=== PATIENT | female | born 1975 | race Caucasian/White ===

== ENCOUNTER 2018-05-09 11:21 | Inpatient (IN) | payer MEDICAID, SELFPAY ==
[2018-05-09] VITALS (41 sets, daily range): BP systolic 92–112; BP diastolic 46–89; PULSE 57–105; RESP 2–21; TEMP 36.1–37.4; O2SAT 82–98
--- NOTE | 2018-05-09 11:44 | DI.RAD_ITS ---
SYMPTOMS/DIAGNOSIS: SHORTNESS OF BREATH PA AND LATERAL CHEST: A region of right middle lobe infiltration is demonstrated. The lungs are otherwise clear. There is no pleural effusion. The heart is not enlarged. The hilar structures, mediastinum and tracheal air column are intact. SUMMARY: Findings consistent with an acute right middle lobe pneumonia.
[2018-05-09] MEDS: Albuterol/Ipratropium 3 ML UPD VIAL UPD ×2 (11:49→18:59)
[2018-05-09 12:04] LABS: Abs Immature Grans 0.04 k/cumm (0.0-0.09); Absolute Basophil Count 0.04 k/cumm (0.0-0.2); Absolute Eosinophil Count 0.37 k/cumm (0.0-0.7); Absolute Lymphocyte Count 1.67 k/cumm (1.2-3.4); Absolute Monocyte Count 1.07 k/cumm (0.11-0.7); Absolute Neutrophil Count 6.25 k/cumm (1.2-6.7); Basophils % 0.4; Eosinophils % 3.9; HCT 38.1 % (36.0-46.0); HGB 12.5 g/dL (12.0-15.5); Immature Grans % 0.4; Lymphocytes % 17.7; Mean Corp. HGB Concentration 32.8 g/dL (32.0-36.0); Mean Corpuscular Hemoglobin 31.3 pg (27.0-33.0); Mean Corpuscular Volume 95.3 fL (80-95); Monocytes % 11.3; Neutrophils % 66.3; Platelet Count 208 x1000/uL (130-400); RBC Distribution Width 13.1 % (11.7-14.6); White Blood Cell Count 9.44 k/cumm (4.4-10.8)
--- NOTE | 2018-05-09 12:04 | RESPIRATORY ---
Addendum entered and electronically signed by Amy Peck 05/09/18 13:36: 05/09/18-Trialed Pt on 2 LPM NC. Pt SPO2 89-90%. Pt was put back on 4 LPM NC SPO2 93%. Original Note: 05/09/18-Pt complains of tightness in her chest . Reports coughing up yellow sputum this am and chief complaint being SOB. Pt reports she takes Symbicort 2 puffs BID and has a ProAir rescue inhaler. I inquire with Pt if she has ever had a PFT. After explaining the test she confirms she has never had one. We discuss the importance of PFT's especially with recurring bronchitis', pneumonia and smoking hx. Gave a Duoneb . Wheezing heard, upper left Ant./Post. Pre Neb tx. SPO2 94% on 5 LPM NC, HR 94, RR 16.Post Neb tx Rhonci heard in upper airways on exhale and wheezing bilat. upper, Ant./Post SPO2 95% 5LPM NC, HR 98, RR 14. Pt reports mild relief from Neb Tx. Dr. Shantanu Coronado is aware.
[2018-05-09] MEDS: Acetaminophen 325 MG TAB 650 MG (12:10)
[2018-05-09 12:25] LABS: ALT 56 U/L (12-78); AST 41 U/L (15-37); Albumin 3.3 g/dL (3.4-5.0); Alkaline Phosphatase 81 U/L (46-116); Anion Gap 8.3 mmol/L (3-11); BUN 12 mg/dL (7-18); Bilirubin, Direct 0.16 mg/dL (0.00-0.20); Bilirubin, Total 0.5 mg/dL (0.2-1.0); CO2 31.7 mmol/L (21.0-32.0); CREATININE 0.58 mg/dL (0.55-1.02); Calcium 8.7 mg/dL (8.5-10.1); Chloride 99 mmol/L (98-107); Glucose 100 mg/dL (70-100); Magnesium 2.2 mg/dL (1.8-2.4); NT-proBNP 452 pg/mL; Potassium 4.1 mmol/L (3.5-5.1); Sodium 139 mmol/L (136-145); Total Protein 7.2 g/dL (6.4-8.2)
[2018-05-09 12:31] LABS: Troponin I < 0.02 ng/mL (0.00-0.06)
[2018-05-09 12:38] LABS: D-Dimer 271 ng/mlFEU (<500)
--- NOTE | 2018-05-09 13:34 | ED.GENADUL_ITS ---
Discharge Plan Disposition Patient Disposition: [facility] INPATIENT Condition: Serious Discharge Details Chief Complaint: SOB Clinical Impression: Community acquired pneumonia Primary Care Provider: Jem Corona ED Provider: Braeden Coronado Home Meds and New Rx's Prescriptions: No Action albuterol sulfate 90 mcg/actuation HFA aerosol inhaler 2 puff IH Q6H PRNRF: 0 budesonide-formoterol [Symbicort] 160-4.5 mcg/actuation HFA aerosol inhaler 2 puff IH BID RF: 0 methadone 10 mg/mL concentrate 80 mg PO DAILY RF: 0 triamcinolone acetonide 0.1 % cream 1 applic TP BID RF: 0 venlafaxine [Effexor XR] 75 mg capsule,extended release 24hr 75 mg PO DAILY RF: 0 Medical Decision Making 13:20 --43-year-old with history of asthma and substance abuse, now on methadone , here with cough, shortness of breath and hypoxia. Sent from PCP. Labs reviewed and no leukocytosis. Cxr reviewed and interpreted by me: RML, perihilar opacity. Will CT chest to better assess opacity. Radiology interpreted cxr as PNA. Plan to start doxy and ceftriaxone IV. Will give IVF bolus. Will admit. Patient reassessed mulitple times and requiring O2 to maintain adequate oxygenation - currently 4L NC and at 94%. 13:35 -- Spoke with Dr. Overton and discussed presentation and ED course - he will admit patient. Care transitioned to Dr. Overton. HPI General Date/Time Provider Initiated Documentation: 05/09/18 11:44 . Limitations to Documentation: no limitations . Information obtained by: patient . HPI Narrative: 43-year-old female with history of opioid abuse in the past, now on methadone, here with chief complaint of hypoxia. Patient notes that for the past 3 weeks she has had a coldthat she thinks she got from her son. Patient went to see her primary care physician today and they were concerned that she was hypoxic with a saturation in the 80s. She was sent to the emergency department for further evaluation and treatment. Hypoxia was severe and has improved with oxygen administration by EMS. She has had a cough that is intermittently minimally productive. Denies fever but she has had associated body aches. No chest pain. Related Data Home Medications Medication Instructions Recorded Confirmed albuterol sulfate HFA 90 2 puff IH Q6H PRN 04/03/18 05/09/18 mcg/actuation aerosol inhaler budesonide-formoterol HFA 160 2 puff IH BID 04/03/18 05/09/18 mcg-4.5 mcg/actuation aerosol inhaler methadone 10 mg/mL oral concentrate 80 mg PO DAILY ml 04/03/18 05/09/18 triamcinolone acetonide 0.1 % 1 applic TP BID 04/03/18 05/09/18 topical cream venlafaxine ER 75 mg 75 mg PO DAILY 04/03/18 05/09/18 capsule,extended release 24 hr Allergies Allergy/AdvReac Type Severity Reaction Status Date / Time No Known Drug Allergies Allergy Unverified 05/09/18 12:04 General Stated Complaint: SOB CLAIRE: 3 Review of Systems Review of Systems All systems reviewed & are unremarkable except as noted in HPI and below Cardiovascular Denies chest pain and Reports dyspnea Respiratory Reports as per HPI and Reports dyspnea PFSH Family History Mother No problems noted. Father No problems noted. 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 Smoking/Tobacco Use Status: Current every day tobacco type: cigarettes alcohol intake: never substance use type: does not use and other details: ON SUBOXONE seatbelt use: always Surgical History Diagnostic Laproscopy Exam Const General: cooperative and no acute distress HENMT Head: normocephalic and atraumatic Mouth: moist mucous membranes Eyes Conjunctivae: normal conjunctivae Sclera: normal sclerae EOM: EOM intact bilaterally Neck Neck: trachea midline and supple Resp Effort & Inspection: no cough and not labored Auscultation: no rales, no rhonchi and wheezes (faint bilateral) Cardio Jugular venous pressure: no JVD Rate: regular rate and tachycardic Rhythm: regular rhythm Heart Sounds: murmur (07/28) systolic GI Palpation: soft, not firm, no guarding, no masses, not rigid and nontender Skin General skin exam: no rashes or lesions noted Neuro General: alert, awake, oriented x3 and tone normal Extrem General: no calf tenderness bilaterally and no edema Psych Appearance: grossly normal Mental Status: mental status grossly normal Speech and Movement: speech and movement normal Course Vital Signs Temperature 37.4 C 05/09/18 11:19 Pulse 105 H 05/09/18 11:19 Respiratory Rate 16 05/09/18 11:19 Blood Pressure 99/73 L 05/09/18 11:19 Pulse Oximetry 82 L 05/09/18 11:19 Temperature 36.5 C 05/09/18 13:19 Temperature Source Skin 05/09/18 13:19 Pulse 95 H 05/09/18 13:19 Pulse 82 05/09/18 13:15 Respiratory Rate 14 05/09/18 13:19 Respiratory Effort 05/09/18 12:13 Blood Pressure 112/89 05/09/18 13:19 Blood Pressure Mean 66 05/09/18 13:15 Blood Pressure Position Sitting 05/09/18 11:19 Pulse Oximetry 94 L 05/09/18 13:19 Oxygen Delivery Method Nasal Cannula 05/09/18 13:19 Oxygen Flow Rate 4 05/09/18 13:19 Pain Level 2 05/09/18 13:19 Lab/Test Results Lab/Test Results: Laboratory Tests Range/Units 05/09/18 05/09/18 05/09/18 11:45 11:45 11:45 WBC (4.4-10.8) k/cumm 9.44 RBC (4.00-5.20) m/cumm 4.00 Hgb (12.0-15.5) g/dL 12.5 Hct (36.0-46.0) % 38.1 MCV (80-95) fL 95.3 H MCH (27.0-33.0) pg 31.3 MCHC (32.0-36.0) g/dL 32.8 RDW (11.7-14.6) % 13.1 Plt Count (130-400) x1000/uL 208 MPV (8.0-11.0) fL 9.0 Immature Gran % 0.4 Neutrophils % 66.3 Lymphocytes % 17.7 Monocytes % 11.3 Eosinophils % 3.9 Basophils % 0.4 Absolute Neutrophils (1.2-6.7) k/cumm 6.25 Absolute Lymphocytes (1.2-3.4) k/cumm 1.67 Absolute Monocytes (0.11-0.7) k/cumm 1.07 H Absolute Eosinophils (0.0-0.7) k/cumm 0.37 Absolute Basophils (0.0-0.2) k/cumm 0.04 D-Dimer (<500) ng/mlFEU 271 Sodium (136-145) mmol/L 139 Potassium (3.5-5.1) mmol/L 4.1 Chloride (98-107) mmol/L 99 Carbon Dioxide (21.0-32.0) mmol/L 31.7 Anion Gap (3-11) mmol/L 8.3 BUN (7-18) mg/dL 12 Creatinine (0.55-1.02) mg/dL 0.58 Estimated GFR/1.73 m2 (mL/min/1.73m2) >= 60.00 Glucose (70-100) mg/dL 100 Calcium (8.5-10.1) mg/dL 8.7 Magnesium (1.8-2.4) mg/dL 2.2 Total Bilirubin (0.2-1.0) mg/dL 0.5 Conjugated Bilirubin (0.00-0.20) mg/dL 0.16 AST (15-37) U/L 41 H ALT (12-78) U/L 56 Alkaline Phosphatase (46-116) U/L 81 Troponin I (0.00-0.06) ng/mL < 0.02 NT-Pro-B Natriuret Pep ( - 299) pg/mL 452 H Total Protein (6.4-8.2) g/dL 7.2 Albumin (3.4-5.0) g/dL 3.3 L
[2018-05-09] MEDS: Omnipaque 350 MG/ML 100 ML BTL IJ (14:01)
--- NOTE | 2018-05-09 14:02 | DI.CT_ITS ---
SYMPTOMS/DIAGNOSIS: RIGHT LUNG OPACITY CHEST CT: The study was carried out with intravenous administration of 70 cc of Omnipaque 350. When compared with prior examinations, again noted are the diffuse emphysematous changes in the lungs and apical bleb formation. There are faint regions of bilateral infiltration and dense consolidation at the right middle lobe is identified. There is no evidence of a pleural effusion. The heart is not enlarged. There is no evidence pericardial effusion. There is no evidence of an aortic aneurysm. Also, there is no evidence of hilar or mediastinal adenopathy. The pulmonary arteries are suboptimally opacified but no gross abnormalities seen. SUMMARY: Findings consistent with COPD. There are multiple pulmonary infiltrates and a dense consolidation of the right middle lobe is identified, the findings consistent with a multifocal pneumonitis. Follow-up PA and lateral images of the chest are suggested.
[2018-05-09] MEDS: Lactated Ringers 500 ML 1000 ML IV (14:05)
[2018-05-09] MEDS: Methadone Liquid 10 MG/ML 80 MG PO (14:18)
[2018-05-09] MEDS: methylPREDNISolone SUCC 40 MG VIAL IVP ×2 (14:19→22:33)
[2018-05-09] MEDS: DOXYCYCLINE 100 MG in Normal Saline 100 ML IVPB (14:39)
[2018-05-09] MEDS: Albuterol/Ipratropium 3 ML UPD VIAL (15:43)
--- NOTE | 2018-05-09 16:28 | HPE_ITS ---
Date of service: 05/09/18 Time of Service: 16:28 Assessment and Plan (1) Right middle lobe pneumonia: Current visit: Yes Status: Acute Noted on chest x-ray. She is hypoxic, requiring 4 lpm to maintain oxygen saturations in the low 90s. Continue IV ceftriaxone, IV steroids, nebulizer treatments, IV fluids. Blood and sputum cultures are pending. Monitor on telemetry as she is on methadone and now antibiotics. (2) Substance abuse: Current visit: Yes Status: Acute She has a history of opioid abuse including heroin most recently. Continue Methadone at current outpatient dose. Avoid narcotics. (3) Depressive disorder: Current visit: Yes Status: Acute Currently stable. Continue outpatient effexor. (4) Discharge planning issues: Current visit: Yes Status: Acute She is a full code. This case was discussed with Dr. Overton who is in agreement. History of Present Illness Chief Complaint: Shortness of breath and cough Narrative: Wily is a 43 year old female with a history of asthma, tobacco abuse and substance abuse who felt that she had a typical cold for the last couple of weeks, 2 days ago her symptoms worsen significantly, she began experiencing shortness of breath with any exertion as well as a nonproductive cough. She did not have fevers she felt wheezy. She had a poor appetite for the last week. Is as she called her primary care provider office the day before her presentation to the emergency department and was unable to be seen. On the day of admission she was seen in her primary care provider's office and noted to have oxygen saturations in the 80s. She was then referred to the emergency department. She was noted in the emergency department to be hypoxic, again in the 80s. She went on to have a chest x-ray which revealed findings consistent with an acute right middle lobe pneumonia. Chest CT revealed findings consistent with COPD with multiple pulmonary infiltrates and a dense consolidation of the right middle lobe is identified, the findings consistent with a multifocal pneumonitis. She was afebrile. She had no leukocytosis. She was started on IV ceftriaxone and doxycycline. She was given nebulizer treatments and IV fluids as well as IV steroids. Blood cultures are pending. Sputum cultures are pending. She is admitted to the [facility] floor for further observation and treatment of right middle lobe pneumonia. Review of Systems Review of Systems She denies fevers, chills, rigors. No headache No chest pain/pressure, palpitations. Chest discomfort with breathing. She does have shortness of breath, even laughing causes shortness of breath. Dyspnea on exertion. She is coughing, nonproductive, she feels wheezy. She has had a poor appetite with reduced oral intake but no nausea, vomiting or diarrhea. No dysuria, hematuria frequency or urgency. She reports occasional swelling to her feet, none today. No pain at present. She did have a recent problem with degenerative disc disease in her cervical spine causing radiculopathy down her right arm, no discomfort at present. [facility] Family History Father HTN (hypertension) Murmur Grandfather Heart disease Grandmother Heart disease Medical History Substance abuse (Acute 05/29/11) Gestational diabetes mellitus (Acute 10/25/11) Depressive disorder (Acute 05/29/11) Asthma (Acute 05/29/11) Degenerative disc disease (Acute) Social History household members: family and other details: Lives with mother, 23 year old daughter, shared custody of 6 yr old son. 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 Smoking/Tobacco Use Status: Current every day tobacco type: cigarettes alcohol intake: never substance use type: does not use, marijuana and other seatbelt use: always Meds Home Medications Medication Instructions Recorded Confirmed Type albuterol sulfate HFA 90 2 puff IH Q6H PRN 04/03/18 05/09/18 History mcg/actuation aerosol inhaler budesonide-formoterol HFA 160 2 puff IH BID 04/03/18 05/09/18 History mcg-4.5 mcg/actuation aerosol inhaler methadone 10 mg/mL oral concentrate 80 mg PO DAILY ml 04/03/18 05/09/18 History triamcinolone acetonide 0.1 % 1 applic TP BID 04/03/18 05/09/18 History topical cream venlafaxine ER 75 mg 75 mg PO DAILY 04/03/18 05/09/18 History capsule,extended release 24 hr Allergies Allergy/AdvReac Type Severity Reaction Status Date / Time No Known Drug Allergies Allergy Unverified 05/09/18 12:04 Exam Const General: cooperative (And pleasant.) and acute distress Nutritional Appearance: thin Orientation: alert, awake and oriented x3 HENMT Head: normocephalic and atraumatic Mouth: moist mucous membranes abnormal (Dry mucous membranes.) Eyes Conjunctivae: conjunctivae normal (Noninjected.) Sclera: sclerae normal (Nonicteric.) Pupils: PERRL Resp Effort & Inspection: able to speak in complete sentences, audible wheezes and cough (Nonproductive.) Auscultation: diminished lung sounds, no rales, rhonchi (Throughout.) and wheezes Cardio Jugular venous pressure: no JVD Rate: regular rate and tachycardic Heart Sounds: S1 normal, S2 normal, no gallops, no murmurs and no rubs Pulses: normal peripheral pulses GI Palpation: soft, no masses and nontender Auscultation: normal bowel sounds Skin General skin exam: no rashes or lesions noted Extrem General: no clubbing, cyanosis or edema Results Labs : 05/09/18 11:45 05/09/18 11:45 Laboratory Results - last 24 hr 05/09/18 05/09/18 05/09/18 11:45 11:45 11:45 WBC 9.44 RBC 4.00 Hgb 12.5 Hct 38.1 MCV 95.3 H MCH 31.3 MCHC 32.8 RDW 13.1 Plt Count 208 MPV 9.0 Immature Gran % 0.4 Neutrophils % 66.3 Lymphocytes % 17.7 Monocytes % 11.3 Eosinophils % 3.9 Basophils % 0.4 Absolute Neutrophils 6.25 Absolute Lymphocytes 1.67 Absolute Monocytes 1.07 H Absolute Eosinophils 0.37 Absolute Basophils 0.04 D-Dimer 271 Sodium 139 Potassium 4.1 Chloride 99 Carbon Dioxide 31.7 Anion Gap 8.3 BUN 12 Creatinine 0.58 Estimated GFR/1.73 m2 >= 60.00 Glucose 100 Calcium 8.7 Magnesium 2.2 Total Bilirubin 0.5 Conjugated Bilirubin 0.16 AST 41 H ALT 56 Alkaline Phosphatase 81 Troponin I < 0.02 NT-Pro-B Natriuret Pep 452 H Total Protein 7.2 Albumin 3.3 L Last Vital Signs Temp 36.6 C 05/09/18 16:25 Pulse 79 05/09/18 16:25 Resp 19 05/09/18 16:25 BP 94/60 L 05/09/18 16:25 Pulse Ox 94 L 05/09/18 16:25
[2018-05-09] MEDS: Enoxaparin 40 MG/0.4 ML SYR SC (16:29)
[2018-05-09] MEDS: SODIUM CHLORIDE 0.45% 1,000 ML 150 ML IV (16:29)
[2018-05-09] MEDS: guaiFENesin 600 MG TABCR PO (19:56)
[2018-05-09] MEDS: Nicotine 14 MG/24 HR PATCH TD (19:57)
[2018-05-09] MEDS: Triamcinolone 0.1% CR 15 GM TUBE TP (19:58)
[2018-05-09] MEDS: Budesonide/Formoterol 160/4.5 6 GM 60 PUFF INH IH (19:59)
[2018-05-10] VITALS (13 sets, daily range): BP systolic 99–119; BP diastolic 64–75; PULSE 63–77; RESP 4–20; TEMP 36.5–37.1; O2SAT 92–98
[2018-05-10] MEDS: Normal Saline Flush 10 ML SYR IVP ×3 (00:33→21:35)
[2018-05-10] MEDS: Albuterol/Ipratropium 3 ML UPD VIAL UPD ×5 (00:33→23:13)
[2018-05-10] MEDS: DOXYCYCLINE 100 MG in Normal Saline 100 ML IVPB (02:11)
[2018-05-10] MEDS: methylPREDNISolone SUCC 40 MG VIAL IVP ×3 (06:11→21:35)
[2018-05-10] MEDS: SODIUM CHLORIDE 0.45% 1,000 ML 150 ML IV (07:06)
[2018-05-10 07:23] LABS: Abs Immature Grans 0.04 k/cumm (0.0-0.09); Absolute Basophil Count 0.01 k/cumm (0.0-0.2); Absolute Lymphocyte Count 0.76 k/cumm (1.2-3.4); Absolute Monocyte Count 0.46 k/cumm (0.11-0.7); Absolute Neutrophil Count 6.91 k/cumm (1.2-6.7); Basophils % 0.1; HCT 37.4 % (36.0-46.0); HGB 11.8 g/dL (12.0-15.5); Immature Grans % 0.5; Lymphocytes % 9.3; Mean Corp. HGB Concentration 31.6 g/dL (32.0-36.0); Mean Corpuscular Hemoglobin 30.6 pg (27.0-33.0); Mean Corpuscular Volume 96.9 fL (80-95); Mean Platelet Volume 9.5 fL (8.0-11.0); Monocytes % 5.6; Neutrophils % 84.5; Platelet Count 183 x1000/uL (130-400); RBC 3.86 m/cumm (4.00-5.20); RBC Distribution Width 12.9 % (11.7-14.6); White Blood Cell Count 8.18 k/cumm (4.4-10.8)
[2018-05-10 07:35] LABS: Anion Gap 8.6 mmol/L (3-11); BUN 7 mg/dL (7-18); CO2 29.4 mmol/L (21.0-32.0); CREATININE 0.55 mg/dL (0.55-1.02); Calcium 8.6 mg/dL (8.5-10.1); Chloride 104 mmol/L (98-107); Glucose 170 mg/dL (70-100); Potassium 4.3 mmol/L (3.5-5.1); Sodium 142 mmol/L (136-145)
--- NOTE | 2018-05-10 08:28 | NUR.NOTE ---
Nursing Note: 0828: called [facility] and spoke with Tracy gilmore/lisbeth pt's methadone. pt dosing confirmed at 80 mg daily.
[2018-05-10] MEDS: Budesonide/Formoterol 160/4.5 6 GM 60 PUFF INH IH ×2 (08:32→20:00)
[2018-05-10] MEDS: guaiFENesin 600 MG TABCR PO ×2 (09:09→20:00)
[2018-05-10] MEDS: Methadone Liquid 10 MG/ML 80 MG PO (09:09)
[2018-05-10] MEDS: Venlafaxine 37.5 MG CAPCR 75 MG PO (09:09)
--- NOTE | 2018-05-10 11:13 | W.PM.PROGNOT ---
Assessment and Plan (1) Right middle lobe pneumonia: Current visit: Yes Status: Acute Noted on chest x-ray. Underlying COPD also noted on imaging. She continues to be hypoxic. Continue IV ceftriaxone, on day #2, IV steroids, nebulizer treatments, IV fluids. Blood and sputum cultures are pending. Monitor on telemetry as she is on methadone and now antibiotics. (2) Substance abuse: Current visit: Yes Status: Chronic She has a history of opioid abuse including heroin most recently. Continue Methadone at current outpatient dose. Avoid narcotics. (3) Depressive disorder: Current visit: Yes Status: Chronic Currently stable. Continue outpatient effexor. (4) Discharge planning issues: Current visit: Yes Status: Chronic She is a full code. This case was discussed with Dr. Overton who is in agreement. Subjective Interval history since last seen: Today Sharey reports feeling a little better. She continues to have shortness of breath with any exertion. She is coughing, her cough is more productive today, she is bringing up thick yellow sputum, it is more thin today than yesterday. She does not feel very wheezy. She denies chest pain, pressure, palpitations. She is tolerating her diet without nausea, vomiting or diarrhea. Bladder and bowels are functioning well. She denies periperal edema. No pain at this time. She is asking when she can go home. She understands she needs to be here in the hospital for now. Exam Const General: cooperative (And pleasant.) and acute distress (mild respiratory distress.) Nutritional Appearance: thin Orientation: alert, awake and oriented x3 HENMT Head: normocephalic and atraumatic Mouth: moist mucous membranes Eyes Conjunctivae: conjunctivae normal (Noninjected.) Sclera: sclerae normal (Nonicteric.) Pupils: PERRL Resp Effort & Inspection: able to speak in complete sentences, audible wheezes and cough (Nonproductive.) Auscultation: diminished lung sounds, no rales, rhonchi (Throughout.) and wheezes (with prolonged expiratory phase.) expiratory wheezes and inspiratory wheezes Cardio Jugular venous pressure: no JVD Rate: regular rate and tachycardic Heart Sounds: S1 normal, S2 normal, no gallops, no murmurs and no rubs Pulses: normal peripheral pulses GI Palpation: soft, no masses and nontender Auscultation: normal bowel sounds Skin General skin exam: no rashes or lesions noted Extrem General: no clubbing, cyanosis or edema Objective Objective Clinical Data: Abnormal lab results 05/09/18 05/09/18 05/10/18 Range/Units 11:45 11:45 06:15 RBC (4.00-5.20) m/cumm Hgb (12.0-15.5) g/dL MCV 95.3 H (80-95) fL MCHC (32.0-36.0) g/dL Absolute Neutrophils (1.2-6.7) k/cumm Absolute Lymphocytes (1.2-3.4) k/cumm Absolute Monocytes 1.07 H (0.11-0.7) k/cumm Glucose 170 H (70-100) mg/dL AST 41 H (15-37) U/L NT-Pro-B Natriuret Pep 452 H ( - 299) pg/mL Albumin 3.3 L (3.4-5.0) g/dL 05/10/18 Range/Units 06:15 RBC 3.86 L (4.00-5.20) m/cumm Hgb 11.8 L (12.0-15.5) g/dL MCV 96.9 H (80-95) fL MCHC 31.6 L (32.0-36.0) g/dL Absolute Neutrophils 6.91 H (1.2-6.7) k/cumm Absolute Lymphocytes 0.76 L (1.2-3.4) k/cumm Absolute Monocytes (0.11-0.7) k/cumm Glucose (70-100) mg/dL AST (15-37) U/L NT-Pro-B Natriuret Pep ( - 299) pg/mL Albumin (3.4-5.0) g/dL Vital Signs Temperature 37.1 C 05/10/18 07:15 Temperature Source Tympanic 05/10/18 07:15 Pulse 73 05/10/18 07:15 Pulse Rhythm Regular 05/10/18 09:52 Pulse 75 05/09/18 14:30 Respiratory Rate 18 05/10/18 07:15 Respiratory Effort 05/10/18 09:52 Respiratory Depth Normal 05/10/18 09:52 Respiratory Pattern Normal 05/10/18 09:52 Blood Pressure 100/64 05/10/18 07:15 Blood Pressure Mean 75 05/09/18 14:15 Blood Pressure Position Sitting 05/09/18 11:19 Pulse Oximetry 93 L 05/10/18 08:32 Oxygen Delivery Method Nasal Cannula 05/10/18 08:32 Oxygen Flow Rate 4 05/10/18 08:32 Pain Level 1 05/10/18 07:15 Comment 05/09/18 15:00 Intake & Output 05/09/18 05/09/18 05/10/18 11:59 23:59 11:59 Intake Total 2920 / 2920 Output Total 500 / 500 1300 / 1300 Balance 2420 / 2420 -1300 / -1300 Weight 54.1 kg 54.1 kg Intake: IV 1650 / 1650 Oral 1270 / 1270 Output: Urine 500 / 500 1300 / 1300 Other: Urine Color Straw Yellow Urine Appearance Clear Clear Urine Odor None Normal Comment Void x1 in the toilet. pt reports voiding in bathroom x 2 overnight. Voiding Methods Toilet Toilet Laboratory Results WBC 8.18 k/cumm (4.4-10.8) 05/10/18 06:15 RBC 3.86 m/cumm (4.00-5.20) L 05/10/18 06:15 Hgb 11.8 g/dL (12.0-15.5) L 05/10/18 06:15 Hct 37.4 % (36.0-46.0) 05/10/18 06:15 MCV 96.9 fL (80-95) H 05/10/18 06:15 MCH 30.6 pg (27.0-33.0) 05/10/18 06:15 MCHC 31.6 g/dL (32.0-36.0) L 05/10/18 06:15 RDW 12.9 % (11.7-14.6) 05/10/18 06:15 Plt Count 183 x1000/uL (130-400) 05/10/18 06:15 MPV 9.5 fL (8.0-11.0) 05/10/18 06:15 Immature Gran % 0.5 05/10/18 06:15 Neutrophils % 84.5 05/10/18 06:15 Lymphocytes % 9.3 05/10/18 06:15 Monocytes % 5.6 05/10/18 06:15 Eosinophils % 0.0 05/10/18 06:15 Basophils % 0.1 05/10/18 06:15 Absolute Neutrophils 6.91 k/cumm (1.2-6.7) H 05/10/18 06:15 Absolute Lymphocytes 0.76 k/cumm (1.2-3.4) L 05/10/18 06:15 Absolute Monocytes 0.46 k/cumm (0.11-0.7) 05/10/18 06:15 Absolute Eosinophils 0.00 k/cumm (0.0-0.7) 05/10/18 06:15 Absolute Basophils 0.01 k/cumm (0.0-0.2) 05/10/18 06:15 D-Dimer 271 ng/mlFEU (<500) 05/09/18 11:45 Sodium 142 mmol/L (136-145) 05/10/18 06:15 Potassium 4.3 mmol/L (3.5-5.1) 05/10/18 06:15 Chloride 104 mmol/L (98-107) 05/10/18 06:15 Carbon Dioxide 29.4 mmol/L (21.0-32.0) 05/10/18 06:15 Anion Gap 8.6 mmol/L (3-11) 05/10/18 06:15 BUN 7 mg/dL (7-18) 05/10/18 06:15 Creatinine 0.55 mg/dL (0.55-1.02) 05/10/18 06:15 Estimated GFR/1.73 m2 >= 60.00 (mL/min/1.73m2) 05/10/18 06:15 Glucose 170 mg/dL (70-100) H 05/10/18 06:15 Calcium 8.6 mg/dL (8.5-10.1) 05/10/18 06:15 Magnesium 2.2 mg/dL (1.8-2.4) 05/09/18 11:45 Total Bilirubin 0.5 mg/dL (0.2-1.0) 05/09/18 11:45 Conjugated Bilirubin 0.16 mg/dL (0.00-0.20) 05/09/18 11:45 AST 41 U/L (15-37) H 05/09/18 11:45 ALT 56 U/L (12-78) 05/09/18 11:45 Alkaline Phosphatase 81 U/L (46-116) 05/09/18 11:45 Troponin I < 0.02 ng/mL (0.00-0.06) 05/09/18 11:45 NT-Pro-B Natriuret Pep 452 pg/mL (-299) H 05/09/18 11:45 Total Protein 7.2 g/dL (6.4-8.2) 05/09/18 11:45 Albumin 3.3 g/dL (3.4-5.0) L 05/09/18 11:45
[2018-05-10] MEDS: Enoxaparin 40 MG/0.4 ML SYR SC (13:59)
[2018-05-10] MEDS: SODIUM CHLORIDE 0.45% 1,000 ML 75 ML IV (14:05)
--- NOTE | 2018-05-10 15:35 | PDOC.CMIN ---
- If Service Date Differs Date of service: 05/10/18 Time of Service: 15:35 Care Management Initial Assess REASON FOR HOSPITALIZATION:: Pneumonia PAST MEDICAL HISTORY/PAST SURGICAL HISTORY:: Asthma, degenterative disc disease, depressive disorder, gestational DM, substance abuse disorder. PREVIOUS FUNCTIONAL STATUS/SOCIAL/FAMILY SUPPORTS:: Wily lives in [place], [place] with her mom, daughter who is 23 and her son who is 6. 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 She states she is independent with ADL's and transportation. CURRENT FUNCTIONAL STATUS:: Wily is sitting up in the bed reading during CM visit. She is engaged in conversation she revisits events that led to admission. She reached out to her primary care at [facility] when symptoms appear to become worse.She states the shortness of breath was sudden. She is currenty wearing oxygen which is not her baseline. ADVANCE DIRECTIVES:: None on file Has patient been provided with information about the portal?: Yes Did the patient sign up for the portal?: No CODE STATUS:: Full Code INSURANCE COVERAGE / FINANCIAL ISSUES:: Medicaid CURRENT HOME/COMMUNITY SERVICES/EQUIPMENT:: [facility] PRIMARY CARE PHYSICIAN:: POTENTIAL DISCHARGE NEEDS:: Follow up appointment with primary care prior to discharge. She may need a home nebulizer which can be obtained through [facility] or [facility]. PATIENT/FAMILY EDUCATION NEEDS:: Discharge education, limitations, follow up plan of care. Self management discussion and ask me three. ANTICIPATED BARRIERS TO DISCHARGE:: None identified TRANSPORTATION:: Via private car with family PLAN:: Wily is receiving IV antibioitcs, fluids and oxygen support. She will be discharged home when medically ready per provider. She has an inhaler and spacer in the room. If she needs a nebulizer CM will coordinate services through DME. CM to continue to provide support to patient discharge planning.
--- NOTE | 2018-05-10 15:49 | INITIAL_ITS ---
- If Service Date Differs Date of service: 05/10/18 Time of Service: 15:35 Care Management Initial Assess REASON FOR HOSPITALIZATION:: Pneumonia PAST MEDICAL HISTORY/PAST SURGICAL HISTORY:: Asthma, degenterative disc disease , depressive disorder, gestational DM, substance abuse disorder. PREVIOUS FUNCTIONAL STATUS/SOCIAL/FAMILY SUPPORTS:: Wily lives in [place], [place] with her mom, daughter who is 23 and her son who is 6. 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 She states she is independent with ADL's and transportation. CURRENT FUNCTIONAL STATUS:: Wily is sitting up in the bed reading during CM visit. She is engaged in conversation she revisits events that led to admission. She reached out to her primary care at [facility] when symptoms appear to become worse.She states the shortness of breath was sudden. She is currenty wearing oxygen which is not her baseline. ADVANCE DIRECTIVES:: None on file Has patient been provided with information about the portal?: Yes Did the patient sign up for the portal?: No CODE STATUS:: Full Code INSURANCE COVERAGE / FINANCIAL ISSUES:: Medicaid CURRENT HOME/COMMUNITY SERVICES/EQUIPMENT:: [facility] PRIMARY CARE PHYSICIAN:: POTENTIAL DISCHARGE NEEDS:: Follow up appointment with primary care prior to discharge. She may need a home nebulizer which can be obtained through [facility] [place] or [place]. PATIENT/FAMILY EDUCATION NEEDS:: Discharge education, limitations, follow up plan of care. Self management discussion and ask me three. ANTICIPATED BARRIERS TO DISCHARGE:: None identified TRANSPORTATION:: Via private car with family PLAN:: Wily is receiving IV antibioitcs, fluids and oxygen support. She will be discharged home when medically ready per provider. She has an inhaler and spacer in the room. If she needs a nebulizer CM will coordinate services through DME. CM to continue to provide support to patient discharge planning.
[2018-05-11] VITALS (11 sets, daily range): BP systolic 104–131; BP diastolic 61–73; PULSE 58–75; RESP 4–20; TEMP 36.4–37; O2SAT 87–95
[2018-05-11] MEDS: SODIUM CHLORIDE 0.45% 1,000 ML 75 ML IV ×2 (03:40→17:00)
[2018-05-11] MEDS: Albuterol/Ipratropium 3 ML UPD VIAL UPD ×4 (05:44→23:59)
[2018-05-11] MEDS: methylPREDNISolone SUCC 40 MG VIAL IVP ×2 (05:44→14:51)
[2018-05-11] MEDS: Budesonide/Formoterol 160/4.5 6 GM 60 PUFF INH IH ×2 (07:33→20:47)
[2018-05-11 07:39] LABS: Abs Immature Grans 0.07 k/cumm (0.0-0.09); Absolute Basophil Count 0.01 k/cumm (0.0-0.2); Absolute Lymphocyte Count 1.09 k/cumm (1.2-3.4); Absolute Monocyte Count 0.87 k/cumm (0.11-0.7); Basophils % 0.1; HCT 35.7 % (36.0-46.0); HGB 11.4 g/dL (12.0-15.5); Immature Grans % 0.6; Lymphocytes % 8.8; Mean Corp. HGB Concentration 31.9 g/dL (32.0-36.0); Mean Corpuscular Hemoglobin 30.9 pg (27.0-33.0); Mean Corpuscular Volume 96.7 fL (80-95); Mean Platelet Volume 9.6 fL (8.0-11.0); Neutrophils % 83.5; Platelet Count 233 x1000/uL (130-400); RBC 3.69 m/cumm (4.00-5.20); RBC Distribution Width 12.9 % (11.7-14.6); White Blood Cell Count 12.42 k/cumm (4.4-10.8)
[2018-05-11 07:46] LABS: Absolute Neutrophil Count 10.37 k/cumm (1.2-6.7)
[2018-05-11 07:54] LABS: BUN 11 mg/dL (7-18); Calcium 8.9 mg/dL (8.5-10.1); Chloride 104 mmol/L (98-107); Glucose 122 mg/dL (70-100); Potassium 4.1 mmol/L (3.5-5.1); Sodium 142 mmol/L (136-145)
[2018-05-11] MEDS: Methadone Liquid 10 MG/ML 80 MG PO (08:37)
[2018-05-11] MEDS: guaiFENesin 600 MG TABCR PO ×2 (08:38→20:46)
[2018-05-11] MEDS: Venlafaxine 37.5 MG CAPCR 75 MG PO (08:38)
--- NOTE | 2018-05-11 11:34 | PDOC.CMPRO ---
- If Service Date Differs Date of service: 05/11/18 Time of Service: 11:34 Care Management Progress Note S/O: Wily is lying in bed with her daughter in a cot at bedside, when CM visits this morning. She is engaged in conversation and talkative however visibly SOB. She denies other pain. Wily continues to receive IV antibiotics and fluids and is being monitored on telemetry. Wily has been receiving supplemental O2 via NC; per nursing she desated to 81% on RA with ambulation. A: 43 year old female admitted with pneumonia. P: Wily will discharge home when medically ready per MD. Anticipate patient will discharge with no services and follow up with her PCP. Wily may require a home nebulizer. CM will coordinate if needed with either [facility], [place] or [facility]. Wily will transport via private vehicle with a friend. CM will continue to offer support to patient, family, and care team regarding discharge planning and disposition.
[2018-05-11] MEDS: Nicotine 14 MG/24 HR PATCH TD (12:17)
--- NOTE | 2018-05-11 12:30 | CMPROGNOTE_ITS ---
- If Service Date Differs Date of service: 05/11/18 Time of Service: 11:34 Care Management Progress Note S/O: Wily is lying in bed with her daughter in a cot at bedside, when CM visits this morning. She is engaged in conversation and talkative however visibly SOB. She denies other pain. Wily continues to receive IV antibiotics and fluids and is being monitored on telemetry. Wily has been receiving supplemental O2 via NC; per nursing she desated to 81% on RA with ambulation. A: 43 year old female admitted with pneumonia. P: Wily will discharge home when medically ready per MD. Anticipate patient will discharge with no services and follow up with her PCP. Wily may require a home nebulizer. CM will coordinate if needed with either [facility] or [facility]. Wily will transport via private vehicle with a friend. CM will continue to offer support to patient, family, and care team regarding discharge planning and disposition.
[2018-05-11] MEDS: Acetaminophen 325 MG TAB PO (13:13)
[2018-05-11] MEDS: Enoxaparin 40 MG/0.4 ML SYR SC (14:51)
--- NOTE | 2018-05-11 19:27 | W.PM.PROGNOT ---
Assessment and Plan (1) Moraxella catarrhalis pneumonia: Current visit: Yes Status: Acute Continue rocephin. Increase steroids. Continue IVF. HIV test pending. (2) Acute exacerbation of COPD with asthma: Current visit: Yes Status: Acute with acute hypoxic respiratory failure. COPD seen on CT. Increase IV steroids. Continue scheduled and prn nebs as well as symbicort. Patient counselled on quitting smoking. (3) Substance abuse: Current visit: Yes Status: Chronic Counselled on quitting. Continue methadone (4) Depressive disorder: Current visit: Yes Status: Chronic Continue venlafaxine ER (5) Discharge planning issues: Current visit: Yes Status: Chronic Full code May require oxygen on discharge Subjective Interval history since last seen: The patient states she is not feeling any better than yesterday. She continues to have a productive cough with yellow sputum and requests more mucinex. She is short of breath with exertion. She is requiring 3 L of O2. She denies any dizziness, chest pain unless she coughs, nausea, or vomiting. Exam Narrative Exam Narrative: General: Very pleasant female, coughing, sitting up in bed with her son HEENT: EOMI, MMM Cardiovascular: RRR, no m/r/g Lungs: Wheezing on expiration Bilaterally Gastrointestinal: abdomen soft, nontender, nondistended Extremities: No edema/clubbing/cyanosis of BLE's Objective Objective Clinical Data: Abnormal lab results 05/11/18 05/11/18 Range/Units 06:22 06:22 WBC 12.42 H D (4.4-10.8) k/cumm RBC 3.69 L (4.00-5.20) m/cumm Hgb 11.4 L (12.0-15.5) g/dL Hct 35.7 L (36.0-46.0) % MCV 96.7 H (80-95) fL MCHC 31.9 L (32.0-36.0) g/dL Absolute Neutrophils 10.37 H (1.2-6.7) k/cumm Absolute Lymphocytes 1.09 L (1.2-3.4) k/cumm Absolute Monocytes 0.87 H (0.11-0.7) k/cumm Creatinine 0.50 L (0.55-1.02) mg/dL Glucose 122 H (70-100) mg/dL Vital Signs Temperature 36.4 C L 05/11/18 16:29 Temperature Source Tympanic 05/11/18 16:29 Pulse 61 05/11/18 16:29 Pulse Rhythm Regular 05/11/18 16:30 Pulse 75 05/09/18 14:30 Respiratory Rate 13 05/11/18 16:29 Respiratory Effort 05/11/18 16:30 Respiratory Depth Normal 05/11/18 16:30 Respiratory Pattern Normal 05/11/18 16:30 Blood Pressure 131/73 05/11/18 16:29 Blood Pressure Mean 75 05/09/18 14:15 Blood Pressure Position Sitting 05/09/18 11:19 Pulse Oximetry 92 L 05/11/18 18:16 Oxygen Delivery Method Nasal Cannula 05/11/18 18:16 Oxygen Flow Rate 3 05/11/18 18:16 Pain Level 2 05/11/18 13:13 Comment 05/11/18 17:56 Intake & Output 05/10/18 05/11/18 05/11/18 23:59 11:59 23:59 Intake Total 2360 / 2360 1550 / 1550 970 / 970 Output Total 500 / 500 900 / 900 500 / 500 Balance 1860 / 1860 650 / 650 470 / 470 Intake: IV 1150 / 1150 1000 / 1000 970 / 970 Oral 1210 / 1210 550 / 550 Output: Urine 500 / 500 900 / 900 500 / 500 Other: Urine Color Yellow Yellow Yellow Urine Appearance Clear Clear Clear Urine Odor Normal Normal Normal Comment pt voiced voiding independently in the rest room pt voiding independently in the toilet and flushing Voiding Methods Toilet Toilet Toilet Laboratory Results WBC 12.42 k/cumm (4.4-10.8) H D 05/11/18 06:22 RBC 3.69 m/cumm (4.00-5.20) L 05/11/18 06:22 Hgb 11.4 g/dL (12.0-15.5) L 05/11/18 06:22 Hct 35.7 % (36.0-46.0) L 05/11/18 06:22 MCV 96.7 fL (80-95) H 05/11/18 06:22 MCH 30.9 pg (27.0-33.0) 05/11/18 06:22 MCHC 31.9 g/dL (32.0-36.0) L 05/11/18 06:22 RDW 12.9 % (11.7-14.6) 05/11/18 06:22 Plt Count 233 x1000/uL (130-400) 05/11/18 06:22 MPV 9.6 fL (8.0-11.0) 05/11/18 06:22 Immature Gran % 0.6 05/11/18 06: Neutrophils % 83.5 05/11/18 06:22 Lymphocytes % 8.8 05/11/18 06:22 Monocytes % 7.0 05/11/18 06: Eosinophils % 0.0 05/11/18 06: Basophils % 0.1 05/11/18 06:22 Absolute Neutrophils 10.37 k/cumm (1.2-6.7) H 05/11/18 06:22 Absolute Lymphocytes 1.09 k/cumm (1.2-3.4) L 05/11/18 06:22 Absolute Monocytes 0.87 k/cumm (0.11-0.7) H 05/11/18 06:22 Absolute Eosinophils 0.00 k/cumm (0.0-0.7) 05/11/18 06:22 Absolute Basophils 0.01 k/cumm (0.0-0.2) 05/11/18 06:22 D-Dimer 271 ng/mlFEU (<500) 05/09/18 11:45 Sodium 142 mmol/L (136-145) 05/11/18 06:22 Potassium 4.1 mmol/L (3.5-5.1) 05/11/18 06:22 Chloride 104 mmol/L (98-107) 05/11/18 06:22 Carbon Dioxide 30.0 mmol/L (21.0-32.0) 05/11/18 06:22 Anion Gap 8.0 mmol/L (3-11) 05/11/18 06:22 BUN 11 mg/dL (7-18) 05/11/18 06:22 Creatinine 0.50 mg/dL (0.55-1.02) L 05/11/18 06:22 Estimated GFR/1.73 m2 >= 60.00 (mL/min/1.73m2) 05/11/18 06:22 Glucose 122 mg/dL (70-100) H 05/11/18 06:22 Calcium 8.9 mg/dL (8.5-10.1) 05/11/18 06:22 Magnesium 2.2 mg/dL (1.8-2.4) 05/09/18 11:45 Total Bilirubin 0.5 mg/dL (0.2-1.0) 05/09/18 11:45 Conjugated Bilirubin 0.16 mg/dL (0.00-0.20) 05/09/18 11:45 AST 41 U/L (15-37) H 05/09/18 11:45 ALT 56 U/L (12-78) 05/09/18 11:45 Alkaline Phosphatase 81 U/L (46-116) 05/09/18 11:45 Troponin I < 0.02 ng/mL (0.00-0.06) 05/09/18 11:45 NT-Pro-B Natriuret Pep 452 pg/mL (-299) H 05/09/18 11:45 Total Protein 7.2 g/dL (6.4-8.2) 05/09/18 11:45 Albumin 3.3 g/dL (3.4-5.0) L 05/09/18 11:45 HIV 1&2 Antibody Rapid Cancelled 05/10/18 11:45
[2018-05-11] MEDS: Benzonatate 200 MG CAP PO (20:46)
[2018-05-11] MEDS: Mylanta Suspension 30 ML CUP PO (20:46)
[2018-05-11] MEDS: methylPREDNISolone SUCC 40 MG VIAL 60 MG IVP (20:48)
[2018-05-11] MEDS: Normal Saline Flush 10 ML SYR IVP (20:48)
[2018-05-12] VITALS (11 sets, daily range): BP systolic 124–143; BP diastolic 75–81; PULSE 64–84; RESP 4–19; TEMP 36.3–37; O2SAT 82–96
[2018-05-12] MEDS: Mylanta Suspension 30 ML CUP PO ×2 (00:19→16:19)
[2018-05-12] MEDS: methylPREDNISolone SUCC 40 MG VIAL 60 MG IVP ×3 (03:55→19:58)
[2018-05-12] MEDS: Normal Saline Flush 10 ML SYR IVP ×4 (03:55→22:09)
[2018-05-12] MEDS: SODIUM CHLORIDE 0.45% 1,000 ML 75 ML IV (06:06)
[2018-05-12] MEDS: Albuterol/Ipratropium 3 ML UPD VIAL UPD ×3 (06:10→16:47)
[2018-05-12 07:21] LABS: Abs Immature Grans 0.23 k/cumm (0.0-0.09); Absolute Basophil Count 0.02 k/cumm (0.0-0.2); Absolute Lymphocyte Count 0.97 k/cumm (1.2-3.4); Absolute Neutrophil Count 10.01 k/cumm (1.2-6.7); Basophils % 0.2; HCT 38.2 % (36.0-46.0); HGB 12.3 g/dL (12.0-15.5); Immature Grans % 1.9; Lymphocytes % 8.2; Mean Corp. HGB Concentration 32.2 g/dL (32.0-36.0); Mean Corpuscular Hemoglobin 30.8 pg (27.0-33.0); Mean Corpuscular Volume 95.7 fL (80-95); Mean Platelet Volume 9.2 fL (8.0-11.0); Monocytes % 5.1; Neutrophils % 84.6; Platelet Count 287 x1000/uL (130-400); RBC 3.99 m/cumm (4.00-5.20); RBC Distribution Width 12.9 % (11.7-14.6); White Blood Cell Count 11.83 k/cumm (4.4-10.8)
[2018-05-12 07:30] LABS: Anion Gap 7.8 mmol/L (3-11); BUN 11 mg/dL (7-18); CO2 34.2 mmol/L (21.0-32.0); CREATININE 0.59 mg/dL (0.55-1.02); Calcium 9.2 mg/dL (8.5-10.1); Chloride 101 mmol/L (98-107); Glucose 146 mg/dL (70-100); Magnesium 2.1 mg/dL (1.8-2.4); Sodium 143 mmol/L (136-145)
--- NOTE | 2018-05-12 08:17 | DI.RAD_ITS ---
SYMPTOMS/DIAGNOSIS: PNEUMONIA PA AND LATERAL CHEST: Comparison is made with April,. There has been no significant change in the right middle lobe pneumonia. Streaky densities are also seen in the lingula. No effusions are seen. The heart size remains normal. IMPRESSION: No significant change in right middle lobe and lingular pneumonia.
[2018-05-12] MEDS: Methadone Liquid 10 MG/ML 80 MG PO (08:55)
[2018-05-12] MEDS: Venlafaxine 37.5 MG CAPCR 75 MG PO (08:55)
[2018-05-12] MEDS: Benzonatate 200 MG CAP PO ×3 (08:55→20:01)
[2018-05-12] MEDS: guaiFENesin 600 MG TABCR PO ×2 (08:55→20:01)
--- NOTE | 2018-05-12 09:05 | DI.VRAD_ITS ---
EXAM: XR Chest, 2 Views EXAM DATE/TIME: 05/12/2018 8:19 AM CLINICAL HISTORY: 43 years old, female; Signs and symptoms; Other: Pneumonia f/u TECHNIQUE: XR of the chest, 2 views. COMPARISON: CR XR CHEST 2V PA LATERAL 05/09/2018 12:28 PM FINDINGS: Lungs: Mild opacity in the right middle lobe may represent atelectasis or pneumonia. Pleural space: Unremarkable. No pleural effusion. No pneumothorax. Heart/Mediastinum: Stable cardiac silhouette Bones/joints: Unremarkable. IMPRESSION: Mild opacity in the right middle lobe may represent atelectasis or pneumonia. Dictated and Authenticated by: Kirsten Nichole MD. Ordering:MELODY COBURN MD
[2018-05-12] MEDS: Budesonide/Formoterol 160/4.5 6 GM 60 PUFF INH IH ×2 (09:22→20:01)
[2018-05-12] MEDS: Acetaminophen 325 MG TAB PO ×2 (10:06→16:25)
--- NOTE | 2018-05-12 11:18 | PHARADMIT ---
Addendum entered by Kole Elizabeth III 05/15/18 15:00: Pharmacy Note Subjective Cough improved Objective VS-OK HR-82 K+4.3 WBC-20.80 H&H.Plts,SCr-OK Assessment PO Prednisone taper started, Rocephin day 7, Plan Discharge home tomorrow. Original Note: Addendum entered by Therese Whatley 05/14/18 11:41: Pharmacy Note Subjective working on weaning O2 per morning report Objective HR-100 other VS okay WBC-17.45(up) Assessment calcium carbonate ordered qid prn ceftriaxone continues (day 6 today)- no sensitivity on sputum culture; grew M.catarrhalis (+ for the presence of beta lactamase) methylprednisolone decreased from 60 to 40 mg q8h yesterday Plan continue to watch VS, labs and for med changes Original Note: Admission Pharmacy Clinical Review pneumonia Code Status Full Code Current Weight 54.1 kg Renally Cleared and Narrow Therapeutic Index Meds Crcl ~76.64 mL/min current meds okay QTc Value / Action Taken BP Control, Fever BP 136/79 afebrile Electrolytes reviewed within normal limits DVT Prophylaxis enoxaparin Opiate Usage / Scheduled Bowel Regimen Ordered ingrid/prn Plt/SCr for Heparin / Enoxaparin plt 287 SCr 0.59 INR for Warfarin n/a H/H stable, WBC/Bands h/h 12.3/38.2 wbc 11.83 Antibiotic appropriateness ceftriaxone Cultures and Sensitivities blood cultures no growth sputum culture grew M.catarrhalis (waiting for sensitivity) Surgical ABX d/c within 24 hr n/a DM control / Insulin Dosing BG 146 none Heart Failure (Check EF%) (MOLLY's, B-Block, Diuretics) none IV to PO Switch n/a Home Meds Reviewed multiple QTc prolonging meds: venlafaxine, methadone, formoterol Home Meds Not Ordered albuterol (has duonebs ordered), Comments chest xray today HIV test pending
--- NOTE | 2018-05-12 11:29 | CMPROGNOTE_ITS ---
- If Service Date Differs Date of service: 05/12/18 Time of Service: 11:26 Care Management Progress Note S/O: Wily is sitting up in bed when CM visits this morning. She is engaged in conversation and talkative however continues to be visibly SOB. She denies other pain. Wily continues to receive IV antibiotics and fluids and is being monitored on telemetry. Wily is receiving 3 L of supplemental O2 via NC at this time. She could benefit from an incentive spirometer; MD agrees and will put an order in for such. Wily has no complaints or concerns. No change of plan at this time. A: 43 year old female admitted with pneumonia. P: Wily will discharge home when medically ready per MD. Anticipate patient will discharge with no services and follow up with her PCP. Wily may require a home nebulizer. CM will coordinate if needed with either [facility] or [facility]. Wily will transport via private vehicle with a friend. CM will continue to offer support to patient, family, and care team regarding discharge planning and disposition.
[2018-05-12] MEDS: Pantoprazole 40 MG TABCR PO (12:48)
[2018-05-12] MEDS: Nicotine 14 MG/24 HR PATCH TD (12:48)
[2018-05-12] MEDS: Enoxaparin 40 MG/0.4 ML SYR SC (14:51)
[2018-05-12] MEDS: Nystatin 500000 UNITS/5 ML SUSP 5ML CUP PO ×3 (14:51→22:07)
--- NOTE | 2018-05-12 17:46 | PGE_ITS ---
Assessment and Plan (1) Moraxella catarrhalis pneumonia: Current visit: Yes Status: Acute Continue rocephin and current dose of solumedrol. Consider adding azithromycin if patient coninues to improve this slowly, which would require re-institution of telemetry as the patient is on methadone. (2) Acute exacerbation of COPD with asthma: Current visit: Yes Status: Acute with acute hypoxic respiratory failure. COPD seen on CT. Continue current dose of solumedrol. Continue scheduled and prn nebs as well as symbicort. Patient counselled on quitting smoking. (3) Substance abuse: Current visit: Yes Status: Chronic History of abuse. Counselled on quitting. Continue methadone (4) Thrush: Current visit: Yes Status: Acute Rx'ed nystatin swish and swallow (avoiding fluconazole due to QT prolongation). (5) Depressive disorder: Current visit: Yes Status: Chronic Continue venlafaxine ER. Stable (6) Discharge planning issues: Current visit: Yes Status: Chronic Full code May require oxygen on discharge Subjective Interval history since last seen: Complains of reflux. States cough is more productive today and sputum is starting to clear up. She remains very short of breath when she ambulates. She continues to require 3 L of O2. She denies any dizziness, chest pain, nausea, or vomiting. Nursing reports thrush Exam Narrative Exam Narrative: General: Very pleasant female, sitting up in a chair , has a bout of wet-sounding cough in front of me HEENT: EOMI, MMM Cardiovascular: RRR, no m/r/g Lungs: Wheezing on expiration Bilaterally - somewhat improved after coughing/in comparison with yesterday Gastrointestinal: abdomen soft, nontender, nondistended Extremities: No edema/clubbing/cyanosis of BLE's Objective Objective Clinical Data: Abnormal lab results 05/12/18 05/12/18 Range/Units 06:12 06:12 WBC 11.83 H (4.4-10.8) k/cumm RBC 3.99 L (4.00-5.20) m/cumm MCV 95.7 H (80-95) fL Absolute Neutrophils 10.01 H (1.2-6.7) k/cumm Absolute Lymphocytes 0.97 L (1.2-3.4) k/cumm Carbon Dioxide 34.2 H (21.0-32.0) mmol/L Glucose 146 H (70-100) mg/dL Vital Signs Temperature 36.7 C 05/12/18 16:29 Temperature Source Tympanic 05/12/18 16:29 Pulse 78 05/12/18 16:47 Pulse Rhythm Regular 05/12/18 08:15 Pulse 75 05/09/18 14:30 Respiratory Rate 18 05/12/18 16:47 Respiratory Effort 05/12/18 08:15 Respiratory Depth Normal 05/12/18 08:15 Respiratory Pattern Normal 05/12/18 08:15 Blood Pressure 143/76 H 05/12/18 16:29 Blood Pressure Mean 75 05/09/18 14:15 Blood Pressure Position Sitting 05/09/18 11:19 Pulse Oximetry 94 L 05/12/18 16:57 Oxygen Delivery Method Nasal Cannula 05/12/18 16:57 Oxygen Flow Rate 2.5 05/12/18 16:57 Pain Level 3 05/12/18 16:29 Comment 05/12/18 16:20 Intake & Output 05/11/18 05/12/18 05/12/18 23:59 11:59 23:59 Intake Total 1040 / 1040 1492.5 / 1492.5 1311.25 / 1311.25 Output Total 500 / 500 Balance 540 / 540 1492.5 / 1492.5 1311.25 / 1311.25 Intake: IV 1040 / 1040 982.5 / 982.5 831.25 / 831.25 Oral 510 / 510 480 / 480 Output: Urine 500 / 500 Other: Urine Color Yellow Urine Appearance Clear Urine Odor Normal Comment pt voiding independently in the toilet and flushing VOID X 3 DURING NOC Voiding Methods Toilet Toilet Toilet Laboratory Results WBC 11.83 k/cumm (4.4-10.8) H 05/12/18 06:12 RBC 3.99 m/cumm (4.00-5.20) L 05/12/18 06:12 Hgb 12.3 g/dL (12.0-15.5) 05/12/18 06:12 Hct 38.2 % (36.0-46.0) 05/12/18 06:12 MCV 95.7 fL (80-95) H 05/12/18 06:12 MCH 30.8 pg (27.0-33.0) 05/12/18 06:12 MCHC 32.2 g/dL (32.0-36.0) 05/12/18 06:12 RDW 12.9 % (11.7-14.6) 05/12/18 06:12 Plt Count 287 x1000/uL (130-400) 05/12/18 06:12 MPV 9.2 fL (8.0-11.0) 05/12/18 06:12 Immature Gran % 1.9 05/12/18 06:12 Neutrophils % 84.6 05/12/18 06:12 Lymphocytes % 8.2 05/12/18 06:12 Monocytes % 5.1 05/12/18 06:12 Eosinophils % 0.0 05/12/18 06:12 Basophils % 0.2 05/12/18 06:12 Absolute Neutrophils 10.01 k/cumm (1.2-6.7) H 05/12/18 06:12 Absolute Lymphocytes 0.97 k/cumm (1.2-3.4) L 05/12/18 06:12 Absolute Monocytes 0.60 k/cumm (0.11-0.7) 05/12/18 06:12 Absolute Eosinophils 0.00 k/cumm (0.0-0.7) 05/12/18 06:12 Absolute Basophils 0.02 k/cumm (0.0-0.2) 05/12/18 06:12 D-Dimer 271 ng/mlFEU (<500) 05/09/18 11:45 Sodium 143 mmol/L (136-145) 05/12/18 06:12 Potassium 4.0 mmol/L (3.5-5.1) 05/12/18 06:12 Chloride 101 mmol/L (98-107) 05/12/18 06:12 Carbon Dioxide 34.2 mmol/L (21.0-32.0) H 05/12/18 06:12 Anion Gap 7.8 mmol/L (3-11) 05/12/18 06:12 BUN 11 mg/dL (7-18) 05/12/18 06:12 Creatinine 0.59 mg/dL (0.55-1.02) 05/12/18 06:12 Estimated GFR/1.73 m2 >= 60.00 (mL/min/1.73m2) 05/12/18 06:12 Glucose 146 mg/dL (70-100) H 05/12/18 06:12 Calcium 9.2 mg/dL (8.5-10.1) 05/12/18 06:12 Magnesium 2.1 mg/dL (1.8-2.4) 05/12/18 06:12 Total Bilirubin 0.5 mg/dL (0.2-1.0) 05/09/18 11:45 Conjugated Bilirubin 0.16 mg/dL (0.00-0.20) 05/09/18 11:45 AST 41 U/L (15-37) H 05/09/18 11:45 ALT 56 U/L (12-78) 05/09/18 11:45 Alkaline Phosphatase 81 U/L (46-116) 05/09/18 11:45 Troponin I < 0.02 ng/mL (0.00-0.06) 05/09/18 11:45 NT-Pro-B Natriuret Pep 452 pg/mL (-299) H 05/09/18 11:45 Total Protein 7.2 g/dL (6.4-8.2) 05/09/18 11:45 Albumin 3.3 g/dL (3.4-5.0) L 05/09/18 11:45 HIV 1&2 Antibody Rapid Cancelled 05/10/18 11:45 CXR: Mild opacity in the right middle lobe may represent atelectasis or pneumonia.
[2018-05-13] VITALS (8 sets, daily range): BP systolic 134–138; BP diastolic 76–80; PULSE 71–120; RESP 4–20; TEMP 36.2–36.8; O2SAT 86–94
[2018-05-13] MEDS: Normal Saline Flush 10 ML SYR IVP ×4 (04:28→19:45)
[2018-05-13] MEDS: methylPREDNISolone SUCC 40 MG VIAL 60 MG IVP ×2 (04:28→11:47)
[2018-05-13] MEDS: Albuterol/Ipratropium 3 ML UPD VIAL UPD ×3 (06:05→18:22)
[2018-05-13] MEDS: Nystatin 500000 UNITS/5 ML SUSP 5ML CUP PO ×5 (06:05→22:08)
[2018-05-13 07:18] LABS: HCT 38.6 % (36.0-46.0); HGB 12.5 g/dL (12.0-15.5); Mean Corp. HGB Concentration 32.4 g/dL (32.0-36.0); Mean Corpuscular Hemoglobin 30.6 pg (27.0-33.0); Mean Corpuscular Volume 94.6 fL (80-95); Mean Platelet Volume 8.8 fL (8.0-11.0); Platelet Count 325 x1000/uL (130-400); RBC 4.08 m/cumm (4.00-5.20); RBC Distribution Width 12.9 % (11.7-14.6); White Blood Cell Count 12.67 k/cumm (4.4-10.8)
[2018-05-13 07:25] LABS: Anion Gap 8.5 mmol/L (3-11); BUN 13 mg/dL (7-18); CO2 32.5 mmol/L (21.0-32.0); CREATININE 0.49 mg/dL (0.55-1.02); Calcium 9.2 mg/dL (8.5-10.1); Chloride 100 mmol/L (98-107); Glucose 108 mg/dL (70-100); Magnesium 2.3 mg/dL (1.8-2.4); Potassium 3.7 mmol/L (3.5-5.1); Sodium 141 mmol/L (136-145)
[2018-05-13] MEDS: Budesonide/Formoterol 160/4.5 6 GM 60 PUFF INH IH ×2 (07:37→19:53)
[2018-05-13] MEDS: Methadone Liquid 10 MG/ML 80 MG PO (07:58)
[2018-05-13] MEDS: Benzonatate 200 MG CAP PO ×3 (07:58→19:44)
[2018-05-13] MEDS: Venlafaxine 37.5 MG CAPCR 75 MG PO (07:58)
[2018-05-13] MEDS: guaiFENesin 600 MG TABCR PO ×2 (07:58→19:44)
[2018-05-13] MEDS: Pantoprazole 40 MG TABCR PO (07:58)
[2018-05-13 08:02] LABS: Absolute Lymphocyte Count 1.52 k/cumm (1.2-3.4); Absolute Monocyte Count 0.63 k/cumm (0.11-0.7); Absolute Neutrophil Count 10.26 k/cumm (1.2-6.7); Atypical Lymphocytes % 4
[2018-05-13 08:03] LABS: Absolute Eosinophil Count 0.25 k/cumm (0.0-0.7); RBC Morphology Normal
--- NOTE | 2018-05-13 09:47 | PDOC.CMPRO ---
- If Service Date Differs Date of service: 05/13/18 Time of Service: 09:47 Care Management Progress Note S/O:CM met with Wily, she is ambulating with respiratory therapy to determine her oxygen demand with activity. Wily remains on IV antibiotics, steroids and requiring oxygen. She will be discharged home when medically ready anticipate no services. A:Wily is a 43 year old female admitted with pneumonia P:Wily will discharge home when medically ready per MD. Anticipate patient will discharge with no services and follow up with her PCP. Wily may require a home nebulizer. CM will coordinate if needed with either [facility] or [facility]. Wily will transport via private vehicle with a friend. CM will continue to offer support to patient, family, and care team regarding discharge planning and disposition.
--- NOTE | 2018-05-13 10:11 | CMPROGNOTE_ITS ---
- If Service Date Differs Date of service: 05/13/18 Time of Service: 09:47 Care Management Progress Note S/O:CM met with Wily, she is ambulating with respiratory therapy to determine her oxygen demand with activity. Wily remains on IV antibiotics, steroids and requiring oxygen. She will be discharged home when medically ready anticipate no services. A:Wily is a 43 year old female admitted with pneumonia P:Wily will discharge home when medically ready per MD. Anticipate patient will discharge with no services and follow up with her PCP. Wily may require a home nebulizer. CM will coordinate if needed with either [facility] [place] or [employer]. Wily will transport via private vehicle with a friend. CM will continue to offer support to patient, family, and care team regarding discharge planning and disposition.
[2018-05-13] MEDS: Acetaminophen 325 MG TAB PO (10:52)
[2018-05-13 11:26] LABS: HIV-1/2 Ag & Ab Screen Negative (NEGAT)
[2018-05-13] MEDS: Calcium Carbonate *TUMS* 500 MG CHEW PO (11:47)
[2018-05-13] MEDS: Nicotine 14 MG/24 HR PATCH TD (15:08)
--- NOTE | 2018-05-13 15:42 | CHAPLAIN ---
Wily was sitting up in bed when I visited. She was pleasant and engaged in a conversation. We had a brief visit. I explained my role and offered support.
--- NOTE | 2018-05-13 18:26 | PGE_ITS ---
Assessment and Plan (1) Moraxella catarrhalis pneumonia: Current visit: Yes Status: Acute Continue rocephin. Start to decrease solumedrol. Ambulating patient with pulse ox. IS. (2) Acute exacerbation of COPD with asthma: Current visit: Yes Status: Acute with acute hypoxic respiratory failure. COPD seen on CT. Start to taper solumedrol. Continue symbicort/nebs/antitussives. (3) Substance abuse: Current visit: Yes Status: Chronic History of abuse. Counselled on quitting. Continue methadone (4) Thrush: Current visit: Yes Status: Acute Continue nystatin swish and swallow (avoiding fluconazole due to QT prolongation). (5) Depressive disorder: Current visit: Yes Status: Chronic Continue venlafaxine ER. Stable (6) Discharge planning issues: Current visit: Yes Status: Chronic Full code May require oxygen on discharge Subjective Interval history since last seen: Patient states she feels better. She feels less short of breath when ambulating. She is requring 2 L of O2 by NC today. She denies any dizziness, chest pain, nausea, vomiting. She continues to report heartburn. Exam Narrative Exam Narrative: General: Very pleasant female, sitting up in a chair , has a bout of wet-sounding cough in front of me HEENT: EOMI, MMM Cardiovascular: RRR, no m/r/g Lungs: Wheezing on expiration Bilaterally - mildly improved Gastrointestinal: abdomen soft, nontender, nondistended Extremities: No edema/clubbing/cyanosis of BLE's Objective Objective Clinical Data: Abnormal lab results 05/13/18 05/13/18 Range/Units 06:23 06:23 WBC 12.67 H (4.4-10.8) k/cumm Absolute Neutrophils 10.26 H (1.2-6.7) k/cumm Carbon Dioxide 32.5 H (21.0-32.0) mmol/L Creatinine 0.49 L (0.55-1.02) mg/dL Glucose 108 H (70-100) mg/dL Vital Signs Temperature 36.8 C 05/13/18 15:15 Temperature Source Tympanic 05/13/18 15:15 Pulse 81 05/13/18 15:15 Pulse Rhythm Regular 05/13/18 16:09 Pulse 75 05/09/18 14:30 Respiratory Rate 20 05/13/18 15:15 Respiratory Effort 05/13/18 16:09 Respiratory Depth Normal 05/13/18 16:09 Respiratory Pattern Normal 05/13/18 16:09 Blood Pressure 134/80 05/13/18 15:15 Blood Pressure Mean 75 05/09/18 14:15 Blood Pressure Position Sitting 05/09/18 11:19 Pulse Oximetry 92 L 05/13/18 15:15 Oxygen Delivery Method Nasal Cannula 05/13/18 15:15 Oxygen Flow Rate 2 05/13/18 15:15 Pain Level 0 05/13/18 15:15 Comment 05/12/18 16:20 Intake & Output 05/12/18 05/13/18 05/13/18 23:59 11:59 23:59 Intake Total 1461.25 / 1461.25 630 / 630 Balance 1461.25 / 1461.25 630 / 630 Intake: IV 831.25 / 831.25 20 / 20 Oral 630 / 630 610 / 610 Other: Comment pt voiding independently in the toilet and flushing pt voiding ad levon in toilet, urine not assessed at this time. pt denies GI/ issues Voiding Methods Toilet Toilet Laboratory Results WBC 12.67 k/cumm (4.4-10.8) H 05/13/18 06:23 RBC 4.08 m/cumm (4.00-5.20) 05/13/18 06:23 Hgb 12.5 g/dL (12.0-15.5) 05/13/18 06:23 Hct 38.6 % (36.0-46.0) 05/13/18 06:23 MCV 94.6 fL (80-95) 05/13/18 06:23 MCH 30.6 pg (27.0-33.0) 05/13/18 06:23 MCHC 32.4 g/dL (32.0-36.0) 05/13/18 06:23 RDW 12.9 % (11.7-14.6) 05/13/18 06:23 Plt Count 325 x1000/uL (130-400) 05/13/18 06:23 MPV 8.8 fL (8.0-11.0) 05/13/18 06:23 Immature Gran % 0.0 05/13/18 06:23 Neutrophils % 79.0 05/13/18 06:23 Lymphocytes % 8.0 05/13/18 06:23 Monocytes % 5.0 05/13/18 06:23 Eosinophils % 2.0 05/13/18 06:23 Basophils % 0.0 05/13/18 06:23 Absolute Neutrophils 10.26 k/cumm (1.2-6.7) H 05/13/18 06:23 Band Neutrophils 2.0 % 05/13/18 06:23 Absolute Lymphocytes 1.52 k/cumm (1.2-3.4) 05/13/18 06:23 Absolute Monocytes 0.63 k/cumm (0.11-0.7) 05/13/18 06: Absolute Eosinophils 0.25 k/cumm (0.0-0.7) 05/13/18 06: Absolute Basophils 0.00 k/cumm (0.0-0.2) 05/13/18 06:23 Differential Comment Comment 05/13/18 06: Atypical Lymphocytes 4 05/13/18 06:23 RBC Morphology Normal 05/13/18 06:23 D-Dimer 271 ng/mlFEU (<500) 05/09/18 11:45 Sodium 141 mmol/L (136-145) 05/13/18 06:23 Potassium 3.7 mmol/L (3.5-5.1) 05/13/18 06:23 Chloride 100 mmol/L (98-107) 05/13/18 06:23 Carbon Dioxide 32.5 mmol/L (21.0-32.0) H 05/13/18 06:23 Anion Gap 8.5 mmol/L (3-11) 05/13/18 06:23 BUN 13 mg/dL (7-18) 05/13/18 06:23 Creatinine 0.49 mg/dL (0.55-1.02) L 05/13/18 06:23 Estimated GFR/1.73 m2 >= 60.00 (mL/min/1.73m2) 05/13/18 06:23 Glucose 108 mg/dL (70-100) H 05/13/18 06:23 Calcium 9.2 mg/dL (8.5-10.1) 05/13/18 06:23 Magnesium 2.3 mg/dL (1.8-2.4) 05/13/18 06:23 Total Bilirubin 0.5 mg/dL (0.2-1.0) 05/09/18 11:45 Conjugated Bilirubin 0.16 mg/dL (0.00-0.20) 05/09/18 11:45 AST 41 U/L (15-37) H 05/09/18 11:45 ALT 56 U/L (12-78) 05/09/18 11:45 Alkaline Phosphatase 81 U/L (46-116) 05/09/18 11:45 Troponin I < 0.02 ng/mL (0.00-0.06) 05/09/18 11:45 NT-Pro-B Natriuret Pep 452 pg/mL (-299) H 05/09/18 11:45 Total Protein 7.2 g/dL (6.4-8.2) 05/09/18 11:45 Albumin 3.3 g/dL (3.4-5.0) L 05/09/18 11:45 HIV 1&2 Antibody Rapid Cancelled 05/10/18 11:45
[2018-05-13] MEDS: methylPREDNISolone SUCC 40 MG VIAL IVP (19:45)
[2018-05-14 00:06] VITALS: BP 125/77; PULSE 76; RESP 18; TEMP 36.5; O2SAT 90
[2018-05-14 00:42] VITALS: RESP 18; RESP 5; RESP 8; O2SAT 92
[2018-05-14] MEDS: Albuterol/Ipratropium 3 ML UPD VIAL UPD ×4 (00:42→17:54)
[2018-05-14] MEDS: methylPREDNISolone SUCC 40 MG VIAL IVP ×3 (03:47→19:57)
[2018-05-14] MEDS: Normal Saline Flush 10 ML SYR IVP ×6 (04:23→19:57)
[2018-05-14] MEDS: Nystatin 500000 UNITS/5 ML SUSP 5ML CUP PO ×5 (05:56→21:34)
[2018-05-14 05:57] VITALS: PULSE 78; RESP 4; RESP 8; O2SAT 94
[2018-05-14 07:26] LABS: HCT 41.4 % (36.0-46.0); HGB 13.2 g/dL (12.0-15.5); Mean Corp. HGB Concentration 31.9 g/dL (32.0-36.0); Mean Corpuscular Hemoglobin 30.2 pg (27.0-33.0); Mean Corpuscular Volume 94.7 fL (80-95); Mean Platelet Volume 8.7 fL (8.0-11.0); Platelet Count 389 x1000/uL (130-400); RBC 4.37 m/cumm (4.00-5.20); White Blood Cell Count 17.45 k/cumm (4.4-10.8)
[2018-05-14 07:28] LABS: Absolute Monocyte Count 1.22 k/cumm (0.11-0.7)
[2018-05-14 07:30] VITALS: BP 134/87; PULSE 100; RESP 18; TEMP 36.4; O2SAT 94
[2018-05-14 07:33] LABS: Anion Gap 6.5 mmol/L (3-11); BUN 17 mg/dL (7-18); CO2 32.5 mmol/L (21.0-32.0); CREATININE 0.64 mg/dL (0.55-1.02); Chloride 100 mmol/L (98-107); Glucose 105 mg/dL (70-100); Magnesium 2.2 mg/dL (1.8-2.4); Potassium 3.9 mmol/L (3.5-5.1); Sodium 139 mmol/L (136-145)
[2018-05-14 07:51] LABS: Absolute Lymphocyte Count 1.57 k/cumm (1.2-3.4); Absolute Neutrophil Count 13.79 k/cumm (1.2-6.7)
[2018-05-14 07:52] LABS: Diff Comment Manual Differential; Polychromasia Present
[2018-05-14] MEDS: Methadone Liquid 10 MG/ML 80 MG PO (07:52)
[2018-05-14] MEDS: Pantoprazole 40 MG TABCR PO (07:54)
[2018-05-14] MEDS: guaiFENesin 600 MG TABCR PO ×2 (07:55→19:55)
[2018-05-14] MEDS: Benzonatate 200 MG CAP PO ×3 (07:55→19:55)
[2018-05-14 09:00] VITALS: O2SAT 90
[2018-05-14] MEDS: Budesonide/Formoterol 160/4.5 6 GM 60 PUFF INH IH ×2 (09:15→20:03)
[2018-05-14] MEDS: Venlafaxine 37.5 MG CAPCR 75 MG PO (10:09)
--- NOTE | 2018-05-14 14:21 | W.PM.PROGNOT ---
Assessment and Plan (1) Moraxella catarrhalis pneumonia: Current visit: Yes Status: Acute Improving. Continue IV Rocephin, IV solumedrol, PRN nebulizers and supplemental oxygen. White blood cell count elevated today, likely delayed response from steroids. Consider transition to oral steroids in the next day or two if she continues to improve. (2) Thrush: Current visit: Yes Status: Acute Continue Nystatin. (3) Acute exacerbation of COPD with asthma: Current visit: Yes Status: Acute With acute hypoxic respiratory failure. COPD noted on imaging. She is doing well with Solumedrol taper. Consider transition to oral prednisone. Continue PRN nebulizer treatments, supplemental oxygen and antitussives. Consider PFTs as an outpatient once she has recovered from this acute illness. (4) Depressive disorder: Current visit: Yes Status: Chronic Stable. Continue venlafaxine ER. (5) GERD (gastroesophageal reflux disease): Current visit: Yes Status: Chronic Continue Protonix. (6) Discharge planning issues: Current visit: Yes Status: Chronic She is a full code. This case was discussed with Dr. Pollard who is agreement. Subjective Interval history since last seen: Wily is a 43 year old female with a history of asthma, tobacco abuse and substance abuse who is currently being treated for Moraxella Catarrhalis Pneumonia with IV Ceftriaxone, IV solumedrol, and PRN updrafts and supplemental oxygen. She is feeling better today. Her shortness of breath is improving. She is only mildly short of breath with ambulation, no shortness of breath at rest. She continues to cough, she is producing yellow tinged sputum, it is more thin than it was. She denies dizziness, chest pain, palpitations. No nausea, she is tolerating her diet. Her heart burn is improving. She is slightly stressed about being out of work and looking forward to getting back to work. Exam Narrative Exam Narrative: General: She is pleasant and cooperative, in no acute distress. Sitting up in bed, on laptop. HEENT: normocephalic, atraumatic, mucous membranes moist. Cardiovascular: HRR, no murmur, click, gallop or rub. Respiratory: Diminished throughout with expiratory wheezing noted bilaterally. No rhonchi. GI: abdomen soft, normoactive bowel sounds, no masses or pain on palpation. Extremities: well perfused, no clubbing, cyanosis or edema. Objective Objective Clinical Data: Abnormal lab results 05/14/18 05/14/18 Range/Units 06:12 06:12 WBC 17.45 H D (4.4-10.8) k/cumm MCHC 31.9 L (32.0-36.0) g/dL Absolute Neutrophils 13.79 H (1.2-6.7) k/cumm Absolute Monocytes 1.22 H (0.11-0.7) k/cumm Carbon Dioxide 32.5 H (21.0-32.0) mmol/L Glucose 105 H (70-100) mg/dL Vital Signs Temperature 36.4 C L 05/14/18 07:30 Temperature Source Tympanic 05/14/18 07:30 Pulse 100 H 05/14/18 07:30 Pulse Rhythm Regular 05/14/18 08:03 Pulse 75 05/09/18 14:30 Respiratory Rate 18 05/14/18 07:30 Respiratory Effort 05/14/18 08:03 Respiratory Depth Normal 05/14/18 08:03 Respiratory Pattern Normal 05/14/18 08:03 Blood Pressure 134/87 05/14/18 07:30 Blood Pressure Mean 75 05/09/18 14:15 Blood Pressure Position Sitting 05/09/18 11:19 Pulse Oximetry 90 L 05/14/18 09:00 Oxygen Delivery Method Room Air 05/14/18 09:00 Oxygen Flow Rate 0 05/14/18 09:00 Pain Level 1 05/14/18 07:52 Comment 05/12/18 16:20 Intake & Output 05/13/18 05/14/18 05/14/18 23:59 11:59 23:59 Intake Total 630 / 630 710 / 710 360 / 360 Balance 630 / 630 710 / 710 360 / 360 Intake: IV Oral 610 / 610 710 / 710 360 / 360 Other: Comment pt up to void- flushed by pt unable to assess Voiding Methods Toilet Laboratory Results WBC 17.45 k/cumm (4.4-10.8) H D 05/14/18 06:12 RBC 4.37 m/cumm (4.00-5.20) 05/14/18 06:12 Hgb 13.2 g/dL (12.0-15.5) 05/14/18 06:12 Hct 41.4 % (36.0-46.0) 05/14/18 06:12 MCV 94.7 fL (80-95) 05/14/18 06:12 MCH 30.2 pg (27.0-33.0) 05/14/18 06:12 MCHC 31.9 g/dL (32.0-36.0) L 05/14/18 06:12 RDW 13.0 % (11.7-14.6) 05/14/18 06:12 Plt Count 389 x1000/uL (130-400) 05/14/18 06:12 MPV 8.7 fL (8.0-11.0) 05/14/18 06:12 Immature Gran % See Differential 05/14/18 06:12 Neutrophils % 77.0 05/14/18 06:12 Lymphocytes % 9.0 05/14/18 06:12 Monocytes % 7.0 05/14/18 06:12 Eosinophils % 0.0 05/14/18 06:12 Basophils % 0.0 05/14/18 06:12 Absolute Neutrophils 13.79 k/cumm (1.2-6.7) H 05/14/18 06:12 Band Neutrophils 2.0 % 05/14/18 06:12 Absolute Lymphocytes 1.57 k/cumm (1.2-3.4) 05/14/18 06:12 Absolute Monocytes 1.22 k/cumm (0.11-0.7) H 05/14/18 06:12 Absolute Eosinophils 0.00 k/cumm (0.0-0.7) 05/14/18 06:12 Absolute Basophils 0.00 k/cumm (0.0-0.2) 05/14/18 06:12 Metamyelocytes 1.0 % 05/14/18 06:12 Myelocytes 4.0 % 05/14/18 06:12 Differential Comment Manual differential 05/14/18 06:12 Atypical Lymphocytes 4 05/13/18 06:23 RBC Morphology See below 05/14/18 06:12 Polychromasia Present 05/14/18 06:12 D-Dimer 271 ng/mlFEU (<500) 05/09/18 11:45 Sodium 139 mmol/L (136-145) 05/14/18 06:12 Potassium 3.9 mmol/L (3.5-5.1) 05/14/18 06:12 Chloride 100 mmol/L (98-107) 05/14/18 06:12 Carbon Dioxide 32.5 mmol/L (21.0-32.0) H 05/14/18 06:12 Anion Gap 6.5 mmol/L (3-11) 05/14/18 06:12 BUN 17 mg/dL (7-18) 05/14/18 06:12 Creatinine 0.64 mg/dL (0.55-1.02) 05/14/18 06:12 Estimated GFR/1.73 m2 >= 60.00 (mL/min/1.73m2) 05/14/18 06:12 Glucose 105 mg/dL (70-100) H 05/14/18 06:12 Calcium 9.0 mg/dL (8.5-10.1) 05/14/18 06:12 Magnesium 2.2 mg/dL (1.8-2.4) 05/14/18 06:12 Total Bilirubin 0.5 mg/dL (0.2-1.0) 05/09/18 11:45 Conjugated Bilirubin 0.16 mg/dL (0.00-0.20) 05/09/18 11:45 AST 41 U/L (15-37) H 05/09/18 11:45 ALT 56 U/L (12-78) 05/09/18 11:45 Alkaline Phosphatase 81 U/L (46-116) 05/09/18 11:45 Troponin I < 0.02 ng/mL (0.00-0.06) 05/09/18 11:45 NT-Pro-B Natriuret Pep 452 pg/mL (-299) H 05/09/18 11:45 Total Protein 7.2 g/dL (6.4-8.2) 05/09/18 11:45 Albumin 3.3 g/dL (3.4-5.0) L 05/09/18 11:45 HIV 1&2 Ag/Ab, 4th Gen Negative (NEGAT) 05/10/18 06:15 HIV 1&2 Antibody Rapid Cancelled 05/10/18 11:45
[2018-05-14 15:23] VITALS: BP 117/74; PULSE 83; RESP 20; TEMP 37.1; O2SAT 89
[2018-05-14] MEDS: Nicotine 14 MG/24 HR PATCH TD (15:29)
[2018-05-14] MEDS: Normal Saline 500 ML 100 ML IV (15:31)
--- NOTE | 2018-05-14 16:09 | PDOC.CMPRO ---
- If Service Date Differs Date of service: 05/14/18 Time of Service: 16:09 Care Management Progress Note S/O:Wily was up and showered today. No changes in current status. Steroids are being weaned and oxygen. She will discharge home when medically ready. She has an incentive sp ordered she should use every hour. RT to assess and follow up. A:Wily is a 43 year old female admitted with pneumonia P:Wily will discharge home when medically ready per MD. Anticipate patient will discharge with no services and follow up with her PCP. Wily may require a home nebulizer. CM will coordinate if needed with either [employer] or [employer]. Wily will transport via private vehicle with a friend. CM will continue to offer support to patient, family, and care team regarding discharge planning and disposition.
--- NOTE | 2018-05-14 16:12 | CMPROGNOTE_ITS ---
- If Service Date Differs Date of service: 05/14/18 Time of Service: 16:09 Care Management Progress Note S/O:Wily was up and showered today. No changes in current status. Steroids are being weaned and oxygen. She will discharge home when medically ready. She has an incentive sp ordered she should use every hour. RT to assess and follow up. A:Wily is a 43 year old female admitted with pneumonia P:Wily will discharge home when medically ready per MD. Anticipate patient will discharge with no services and follow up with her PCP. Wily may require a home nebulizer. CM will coordinate if needed with either [employer] or [employer]. Wily will transport via private vehicle with a friend. CM will continue to offer support to patient, family, and care team regarding discharge planning and disposition.
[2018-05-15] VITALS (9 sets, daily range): BP systolic 108–134; BP diastolic 67–81; PULSE 69–124; RESP 1–24; TEMP 35.8–36.9; O2SAT 88–96
[2018-05-15] MEDS: Albuterol/Ipratropium 3 ML UPD VIAL UPD ×5 (00:04→23:38)
[2018-05-15] MEDS: Acetaminophen 325 MG TAB PO (00:28)
[2018-05-15] MEDS: methylPREDNISolone SUCC 40 MG VIAL IVP (04:29)
[2018-05-15] MEDS: Normal Saline Flush 10 ML SYR IVP ×3 (04:29→14:47)
[2018-05-15] MEDS: Nystatin 500000 UNITS/5 ML SUSP 5ML CUP PO ×5 (06:46→22:00)
[2018-05-15 06:48] LABS: HCT 41.9 % (36.0-46.0); HGB 13.6 g/dL (12.0-15.5); Mean Corp. HGB Concentration 32.5 g/dL (32.0-36.0); Mean Corpuscular Hemoglobin 30.6 pg (27.0-33.0); Mean Corpuscular Volume 94.2 fL (80-95); Mean Platelet Volume 8.4 fL (8.0-11.0); Platelet Count 428 x1000/uL (130-400); RBC 4.45 m/cumm (4.00-5.20); RBC Distribution Width 13.1 % (11.7-14.6)
[2018-05-15 07:01] LABS: Anion Gap 6.3 mmol/L (3-11); BUN 22 mg/dL (7-18); CO2 34.7 mmol/L (21.0-32.0); CREATININE 0.65 mg/dL (0.55-1.02); Chloride 98 mmol/L (98-107); Glucose 110 mg/dL (70-100); Potassium 4.3 mmol/L (3.5-5.1); Sodium 139 mmol/L (136-145)
[2018-05-15] MEDS: Budesonide/Formoterol 160/4.5 6 GM 60 PUFF INH IH ×2 (07:16→19:34)
[2018-05-15] MEDS: Pantoprazole 40 MG TABCR PO (08:42)
[2018-05-15] MEDS: Venlafaxine 37.5 MG CAPCR 75 MG PO (08:43)
[2018-05-15] MEDS: Methadone Liquid 10 MG/ML 80 MG PO (08:43)
[2018-05-15] MEDS: Benzonatate 200 MG CAP PO ×3 (08:43→19:34)
[2018-05-15] MEDS: guaiFENesin 600 MG TABCR PO ×2 (08:43→19:34)
[2018-05-15] MEDS: predniSONE 20 MG TAB 60 MG PO (12:42)
--- NOTE | 2018-05-15 14:23 | PGE_ITS ---
Assessment and Plan (1) Moraxella catarrhalis pneumonia: Current visit: Yes Status: Acute Improving. Continue IV Rocephin, today is day #7. She is transitioning from IV solumedrol to oral prednisone today, she will complete a taper upon discharge. Continue PRN nebulizers and supplemental oxygen, she is currently 91 % on room air. White blood cell count elevated again today, likely delayed response from steroids. Reassess blood white blood cell count in the morning. (2) Thrush: Current visit: Yes Status: Acute Continue Nystatin. (3) Acute exacerbation of COPD with asthma: Current visit: Yes Status: Acute With acute hypoxic respiratory failure. COPD noted on imaging. She is continues to do well with steroid taper. She transition to oral prednisone today. Continue PRN nebulizer treatments, supplemental oxygen and antitussives. Consider PFTs as an outpatient once she has recovered from this acute illness. (4) Depressive disorder: Current visit: Yes Status: Chronic Stable. Continue venlafaxine ER. (5) GERD (gastroesophageal reflux disease): Current visit: Yes Status: Chronic Continue Protonix. (6) Discharge planning issues: Current visit: Yes Status: Chronic She is a full code. This case was discussed with Dr. Pollard who is agreement. Subjective Interval history since last seen: Wily is a 43 year old female with a history of asthma, tobacco abuse and substance abuse who is currently being treated for Moraxella Catarrhalis Pneumonia with IV Ceftriaxone, PRN updrafts and supplemental oxygen. She was previously on IV steroids but she transitioned to oral prednisone today. She continues to feel better today. Her shortness of breath is improving. She is only mildly short of breath with ambulation, no shortness of breath at rest. Her cough has improved, she is producing less sputum. She denies dizziness, chest pain, palpitations. No nausea, she is tolerating her diet. Her heart burn is improved. She is looking forward to discharge home, likely tomorrow. Exam Narrative Exam Narrative: General: She is pleasant and cooperative, in no acute distress. Sitting up in bed. HEENT: normocephalic, atraumatic, mucous membranes moist. Cardiovascular: HRR, no murmur, click, gallop or rub. Respiratory: Diminished throughout with expiratory wheezing noted bilaterally. No rhonchi. GI: abdomen soft, normoactive bowel sounds, no masses or pain on palpation. Extremities: well perfused, no clubbing, cyanosis or edema. Objective Objective Clinical Data: Abnormal lab results 05/15/18 05/15/18 Range/Units 06:30 06:30 WBC 20.80 H (4.4-10.8) k/cumm Plt Count 428 H (130-400) x1000/uL Carbon Dioxide 34.7 H (21.0-32.0) mmol/L BUN 22 H (7-18) mg/dL Glucose 110 H (70-100) mg/dL Vital Signs Temperature 36.5 C 05/15/18 07:20 Temperature Source Tympanic 05/15/18 07:20 Pulse 82 05/15/18 07:20 Pulse Rhythm Regular 05/15/18 08:20 Pulse 75 05/09/18 14:30 Respiratory Rate 18 05/15/18 07:20 Respiratory Effort 05/15/18 08:20 Respiratory Depth Normal 05/15/18 08:20 Respiratory Pattern Normal 05/15/18 08:20 Blood Pressure 108/73 05/15/18 07:20 Blood Pressure Mean 75 05/09/18 14:15 Blood Pressure Position Sitting 05/09/18 11:19 Pulse Oximetry 91 L 05/15/18 07:20 Oxygen Delivery Method Room Air 05/15/18 07:20 Oxygen Flow Rate 0 05/15/18 07:20 Pain Level 1 05/15/18 08:43 Comment 05/14/18 15:23 Intake & Output 05/14/18 05/15/18 05/15/18 23:59 11:59 23:59 Intake Total 480 / 480 470 / 470 Balance 480 / 480 470 / 470 Intake: IV 120 / 120 Oral 360 / 360 470 / 470 Other: Comment pt voiding independently in the toilet voiding in br independently Voiding Methods Toilet Toilet Laboratory Results WBC 20.80 k/cumm (4.4-10.8) H 05/15/18 06:30 RBC 4.45 m/cumm (4.00-5.20) 05/15/18 06:30 Hgb 13.6 g/dL (12.0-15.5) 05/15/18 06:30 Hct 41.9 % (36.0-46.0) 05/15/18 06:30 MCV 94.2 fL (80-95) 05/15/18 06:30 MCH 30.6 pg (27.0-33.0) 05/15/18 06:30 MCHC 32.5 g/dL (32.0-36.0) 05/15/18 06:30 RDW 13.1 % (11.7-14.6) 05/15/18 06:30 Plt Count 428 x1000/uL (130-400) H 05/15/18 06:30 MPV 8.4 fL (8.0-11.0) 05/15/18 06:30 Immature Gran % See Differential 05/14/18 06:12 Neutrophils % 77.0 05/14/18 06:12 Lymphocytes % 9.0 05/14/18 06:12 Monocytes % 7.0 05/14/18 06:12 Eosinophils % 0.0 05/14/18 06:12 Basophils % 0.0 05/14/18 06:12 Absolute Neutrophils 13.79 k/cumm (1.2-6.7) H 05/14/18 06:12 Band Neutrophils 2.0 % 05/14/18 06:12 Absolute Lymphocytes 1.57 k/cumm (1.2-3.4) 05/14/18 06:12 Absolute Monocytes 1.22 k/cumm (0.11-0.7) H 05/14/18 06:12 Absolute Eosinophils 0.00 k/cumm (0.0-0.7) 05/14/18 06:12 Absolute Basophils 0.00 k/cumm (0.0-0.2) 05/14/18 06:12 Metamyelocytes 1.0 % 05/14/18 06:12 Myelocytes 4.0 % 05/14/18 06:12 Differential Comment Manual differential 05/14/18 06:12 Atypical Lymphocytes 4 05/13/18 06:23 RBC Morphology See below 05/14/18 06:12 Polychromasia Present 05/14/18 06:12 D-Dimer 271 ng/mlFEU (<500) 05/09/18 11:45 Sodium 139 mmol/L (136-145) 05/15/18 06:30 Potassium 4.3 mmol/L (3.5-5.1) 05/15/18 06:30 Chloride 98 mmol/L (98-107) 05/15/18 06:30 Carbon Dioxide 34.7 mmol/L (21.0-32.0) H 05/15/18 06:30 Anion Gap 6.3 mmol/L (3-11) 05/15/18 06:30 BUN 22 mg/dL (7-18) H 05/15/18 06:30 Creatinine 0.65 mg/dL (0.55-1.02) 05/15/18 06:30 Estimated GFR/1.73 m2 >= 60.00 (mL/min/1.73m2) 05/15/18 06:30 Glucose 110 mg/dL (70-100) H 05/15/18 06:30 Calcium 9.0 mg/dL (8.5-10.1) 05/15/18 06:30 Magnesium 2.2 mg/dL (1.8-2.4) 05/14/18 06:12 Total Bilirubin 0.5 mg/dL (0.2-1.0) 05/09/18 11:45 Conjugated Bilirubin 0.16 mg/dL (0.00-0.20) 05/09/18 11:45 AST 41 U/L (15-37) H 05/09/18 11:45 ALT 56 U/L (12-78) 05/09/18 11:45 Alkaline Phosphatase 81 U/L (46-116) 05/09/18 11:45 Troponin I < 0.02 ng/mL (0.00-0.06) 05/09/18 11:45 NT-Pro-B Natriuret Pep 452 pg/mL (-299) H 05/09/18 11:45 Total Protein 7.2 g/dL (6.4-8.2) 05/09/18 11:45 Albumin 3.3 g/dL (3.4-5.0) L 05/09/18 11:45 HIV 1&2 Ag/Ab, 4th Gen Negative (NEGAT) 05/10/18 06:15 HIV 1&2 Antibody Rapid Cancelled 05/10/18 11:45
[2018-05-15] MEDS: Nicotine 14 MG/24 HR PATCH TD (14:45)
--- NOTE | 2018-05-15 15:58 | PDOC.CMPRO ---
- If Service Date Differs Date of service: 05/15/18 Time of Service: 15:58 Care Management Progress Note S/O:Wily was and no longer requiring oxygen today. No changes in current status. She was transition to oral steroids today and oral antibiotics. Anticipate she will return home on . CM contacted [facility] after signed released faxed from the patient. CM reported inpatient status and will provide last dose letter at time of discharge. RT to coordinate nebulizer which will be covered by Wily's insurance. A:Wily is a 43 year old female admitted with pneumonia P:Wily will discharge home when medically ready per MD. Anticipate patient will discharge with no services and follow up with her PCP. RT coordinated nebulizer through [employer]. Wily will transport via private vehicle with a friend. CM will continue to offer support to patient, family, and care team regarding discharge planning and disposition.
--- NOTE | 2018-05-15 16:02 | CMPROGNOTE_ITS ---
- If Service Date Differs Date of service: 05/15/18 Time of Service: 15:58 Care Management Progress Note S/O:Wily was and no longer requiring oxygen today. No changes in current status. She was transition to oral steroids today and oral antibiotics. Anticipate she will return home on . CM contacted [facility] after signed released faxed from the patient. CM reported inpatient status and will provide last dose letter at time of discharge. RT to coordinate nebulizer which will be covered by Wily's insurance. A:Wily is a 43 year old female admitted with pneumonia P:Wily will discharge home when medically ready per MD. Anticipate patient will discharge with no services and follow up with her PCP. RT coordinated nebulizer through [employer]. Wily will transport via private vehicle with a friend. CM will continue to offer support to patient, family, and care team regarding discharge planning and disposition.
[2018-05-15] MEDS: Triamcinolone 0.1% CR 15 GM TUBE TP (19:34)
[2018-05-15] MEDS: diphenhydrAMINE 25 MG CAP 50 MG PO (22:00)
[2018-05-15] MEDS: Mylanta Suspension 30 ML CUP PO (23:37)
[2018-05-16 00:08] VITALS: BP 138/76; PULSE 75; RESP 18; RESP 8; TEMP 36.2; O2SAT 94
[2018-05-16] MEDS: Albuterol/Ipratropium 3 ML UPD VIAL UPD ×2 (06:43→11:53)
[2018-05-16] MEDS: Nystatin 500000 UNITS/5 ML SUSP 5ML CUP PO ×2 (06:44→09:52)
[2018-05-16 06:50] VITALS: BP 107/74; PULSE 87; RESP 17; TEMP 36.1; O2SAT 92
[2018-05-16 07:30] VITALS: O2SAT 92
[2018-05-16] MEDS: Budesonide/Formoterol 160/4.5 6 GM 60 PUFF INH IH (07:31)
[2018-05-16 07:37] LABS: HCT 41.4 % (36.0-46.0); HGB 13.3 g/dL (12.0-15.5); Mean Corp. HGB Concentration 32.1 g/dL (32.0-36.0); Mean Corpuscular Hemoglobin 30.4 pg (27.0-33.0); Mean Corpuscular Volume 94.7 fL (80-95); Mean Platelet Volume 8.1 fL (8.0-11.0); Platelet Count 405 x1000/uL (130-400); RBC 4.37 m/cumm (4.00-5.20); RBC Distribution Width 13.4 % (11.7-14.6); White Blood Cell Count 21.56 k/cumm (4.4-10.8)
[2018-05-16] MEDS: predniSONE 20 MG TAB 60 MG PO (08:04)
[2018-05-16] MEDS: Normal Saline Flush 10 ML SYR IVP (08:04)
[2018-05-16] MEDS: Venlafaxine 37.5 MG CAPCR 75 MG PO (08:04)
[2018-05-16] MEDS: Pantoprazole 40 MG TABCR PO (08:05)
[2018-05-16] MEDS: Benzonatate 200 MG CAP PO (08:05)
[2018-05-16] MEDS: guaiFENesin 600 MG TABCR PO (08:05)
[2018-05-16] MEDS: Methadone Liquid 10 MG/ML 80 MG PO (08:05)
[2018-05-16 08:17] LABS: Absolute Neutrophil Count 14.66 k/cumm (1.2-6.7)
[2018-05-16 08:18] LABS: Absolute Lymphocyte Count 4.74 k/cumm (1.2-3.4); Absolute Monocyte Count 1.51 k/cumm (0.11-0.7); Atypical Lymphocytes % 2; Diff Comment Manual Differential; RBC Morphology Normal
--- NOTE | 2018-05-16 09:30 | W.PM.DS.N ---
Date of service: 05/16/18 Time of Service: 09:30 DS: Diagnosis Discharge Diagnosis (1) Moraxella catarrhalis pneumonia: Status: Acute (2) Thrush: Status: Acute (3) Acute exacerbation of COPD with asthma: Status: Acute (4) GERD (gastroesophageal reflux disease): Status: Chronic (5) Substance abuse: Status: Chronic (6) Asthma: Status: Acute Discharge Plan Disposition Patient Disposition: HOME Condition: Serious Discharge Details Reason For Visit: PNEUMONIA Admit Date/Time: 05/09/18 13:37 Admit Provider: Chris Overton Attending Provider: Chris Overton Primary Care Provider: Jem Corona [facility] Hospital Course: Wily is a 43 year old female with a history of asthma, tobacco abuse and substance abuse who felt that she had a typical cold for the a couple of weeks, 2 days before she presented to the ED her symptoms worsen significantly, she began experiencing shortness of breath exertion, she was wheezing and had a nonproductive cough. She did not have fevers. She had a poor appetite. She contacted her primary care provider office the day before her presentation to the emergency department and was unable to be seen. On the day of admission she was seen in her primary care provider's office and noted to have oxygen saturations in the 80s. She was then referred to the emergency department. She was noted in the emergency department to be hypoxic, again in the 80s. She went on to have a chest x-ray which revealed findings consistent with an acute right middle lobe pneumonia. Chest CT revealed findings consistent with COPD with multiple pulmonary infiltrates and a dense consolidation of the right middle lobe is identified, the findings consistent with a multifocal pneumonitis. She was afebrile. She initially had no leukocytosis. She was started on IV ceftriaxone and doxycycline. She was given nebulizer treatments and IV fluids as well as IV steroids. Her respiratory status improved. She initially required oxygen at 4lpm via nasal cannula to maintain saturations in the low 90s, however, by the day of discharge, she is 94% on room air. She transitioned from IV steroids to oral prednisone and continued to improve. Her white blood cell count increased with steroids. She had no fever. She will need follow up blood work to reassess her leukocytosis. Blood cultures yielded no growth at 120 hours. Sputum cultures grew Moraxella Catarrhalis. Given that she was positive for this organism, which tends to be present in immunocompromised patients, HIV testing was done and came back negative. She competed a 7 day course of IV Ceftriaxone. She was noted to have oral thrush and was treated with Nystatin. She reported worsening GERD and was started on PPI therapy. She is discharged home on a prednisone taper. She will follow up with her PCP. Consider PFTs when she improves from this acute illness as COPD was noted on imaging. Smoking cessation was encouraged. She will be discharged with nicotone patches. She has been provided with smoking cessation resources. Home Meds and New Rx's Prescriptions: New ipratropium-albuterol 0.5 mg-3 mg(2.5 mg base)/3 mL Solution For Nebulization 3 ml UPD Q6H PRN PRNQty: 30 RF: 0 nicotine 14 mg/24 hr Patch 24 Hour 14 mg Transdermal DAILY PRN PRNQty: 14 RF: 0 benzonatate 200 mg Capsule 200 mg PO TID Qty: 30 RF: 0 omeprazole 20 mg capsule,delayed release(DR/EC) 20 mg PO DAILY Qty: 30 RF: 0 prednisone 10 mg tablet 10 mg PO DAILY Qty: 20 RF: 0 Continue methadone 10 mg/mL concentrate 80 mg PO DAILY RF: 0 triamcinolone acetonide 0.1 % cream 1 applic TP BID RF: 0 venlafaxine [Effexor XR] 75 mg capsule,extended release 24hr 75 mg PO DAILY RF: 0 albuterol sulfate 90 mcg/actuation HFA aerosol inhaler 2 puff IH Q6H PRNQty: 1 RF: 0 budesonide-formoterol [Symbicort] 160-4.5 mcg/actuation HFA aerosol inhaler 2 puff IH BID Qty: 1 RF: 0 Discharge Instructions Instructions: Community Acquired Pneumonia (DC) Additional Instructions: -Take prednisone as prescribed: take 4 tabs (40 mg) in the am for 2 days (starting tomorrow morning), then take 3 tabs (30 mg) for 2 days, then 2 tabs (20mg) for 2 days, the one tablet for 2 days then stop. -Do not smoke, you have been prescribed nicotine patches. -Omeprazole is for your acid reflux (the dose can be increased by your PCP if this dose does not control your symptoms). -Use Nebulizer treatments as needed for wheezing or shortness of breath. -Resume your other medications as prescribed. -Take it easy for a few days, rest and drink plenty of fluids. Stand Alone Forms: Nursing Discharge Form Referrals: Jem Corona [Primary Care Provider] - 05/29/18 11:20 am Activity:: Activity as Tolerated Equipment/Supplies:: Nebulizer machine Diet:: As Tolerated Discharge Orders Discharge Orders: Discharge Order (Routine); Ordered 05/16/18 Ordered By: Idalia Lyle Other Ambulatory Orders: Complete Blood Count w/Diff (Routine) Timeframe: 1 Week Facility: [facility] - Location: Laboratory Ordered By: Idalia Lyle Exam Narrative Exam Narrative: General: she is sitting up in bed, awake, alert and oriented, in no acute distress. Respiratory: respirations are even and unlabored, she has wheezes noted throughout lung medrano, improved. Cardiac: heart has a regular rate and rhythm, no murmur. Extremities: no clubbing, cyanosis or edema. DS: Data Vitals/I&O Vitals and I&O: Vital Signs Temperature 36.2 C L 05/16/18 00:08 Temperature Source Tympanic 05/16/18 00:08 Pulse 75 05/16/18 00:08 Pulse Rhythm Regular 05/15/18 08:20 Pulse 75 05/09/18 14:30 Respiratory Rate 18 05/16/18 00:08 Respiratory Effort Non-Labored 05/15/18 19:28 Respiratory Depth Normal 05/15/18 19:28 Respiratory Pattern Normal 05/15/18 08:20 Blood Pressure 138/76 05/16/18 00:08 Blood Pressure Mean 75 05/09/18 14:15 Blood Pressure Position Sitting 05/09/18 11:19 Pulse Oximetry 94 L 05/16/18 00:08 Oxygen Delivery Method Room Air 05/16/18 00:08 Oxygen Flow Rate 0 05/16/18 00:08 Pain Level 1 05/16/18 08:05 Comment 05/14/18 15:23 Intake & Output 05/15/18 05/15/18 05/16/18 11:59 23:59 11:59 Intake Total 470 / 470 290 / 290 150 / 150 Balance 470 / 470 290 / 290 150 / 150 Intake: IV 50 / 50 Oral 470 / 470 240 / 240 150 / 150 Other: Comment voiding well indep in BR Voiding Methods Toilet Toilet Completed studies during hospitalization [Text1]: 05/09/18: PA AND LATERAL CHEST: A region of right middle lobe infiltration is demonstrated. The lungs are otherwise clear. There is no pleural effusion. The heart is not enlarged. The hilar structures, mediastinum and tracheal air column are intact. SUMMARY: Findings consistent with an acute right middle lobe pneumonia. CHEST CT: The study was carried out with intravenous administration of 70 cc of Omnipaque 350. When compared with prior examinations, again noted are the diffuse emphysematous changes in the lungs and apical bleb formation. There are faint regions of bilateral infiltration and dense consolidation at the right middle lobe is identified. There is no evidence of a pleural effusion. The heart is not enlarged. There is no evidence pericardial effusion. There is no evidence of an aortic aneurysm. Also, there is no evidence of hilar or mediastinal adenopathy. The pulmonary arteries are suboptimally opacified but no gross abnormalities seen. SUMMARY: Findings consistent with COPD. There are multiple pulmonary infiltrates and a dense consolidation of the right middle lobe is identified, the findings consistent with a multifocal pneumonitis. Follow-up PA and lateral images of the chest are suggested. 05/13/18: PA AND LATERAL CHEST: Comparison is made with April,. There has been no significant change in the right middle lobe pneumonia. Streaky densities are also seen in the lingula. No effusions are seen. The heart size remains normal. IMPRESSION: No significant change in right middle lobe and lingular pneumonia. Labs on day of discharge: Labs from last 24 hours 05/16/18 07:28 WBC 21.56 H RBC 4.37 Hgb 13.3 Hct 41.4 MCV 94.7 MCH 30.4 MCHC 32.1 RDW 13.4 Plt Count 405 H MPV 8.1 Immature Gran % See Differential Neutrophils % 68.0 Lymphocytes % 20.0 Monocytes % 7.0 Eosinophils % 0.0 Basophils % 0.0 Absolute Neutrophils 14.66 H Absolute Lymphocytes 4.74 H Absolute Monocytes 1.51 H Absolute Eosinophils 0.00 Absolute Basophils 0.00 Metamyelocytes 2.0 Myelocytes 1.0 Differential Comment Manual differential Atypical Lymphocytes 2 RBC Morphology Normal
--- NOTE | 2018-05-16 09:32 | PDOC.CMDIS ---
- If Service Date Differs Date of service: 05/16/18 Time of Service: 09:32 LACE Index Scoring Tool - Questions: Length of Stay (in days): 7 - 13 Acuity (Admit via E.D.?): Yes E.D. Visits: 2 - Answers: Total Score: 10 Risk of Readmission: High Risk Care Management Discharge Reason for Hospitalization: Pneumonia Discharge Plan: Wily is being discharged home today with resume services through [facility].CM faxed last dose letter to [facility]. She will follow up with her PCP. RT coordinated nebulizer through [facility] which she has received. Wily will transport via private vehicle with a friend. Wily states she feels ready for discharge. She is no longer requiring oxygen, she is tolerating activity and she is able to tolerate nutrition. Patient/Family Education Needs: Discharge education, limitations and follow up plan of care including self management discussion and ask me three. Services Needed at Discharge: DME Agency
--- NOTE | 2018-05-16 09:38 | CMDISCH_ITS ---
- If Service Date Differs Date of service: 05/16/18 Time of Service: 09:32 LACE Index Scoring Tool - Questions: Length of Stay (in days): 7 - 13 Acuity (Admit via E.D.?): Yes E.D. Visits: 2 - Answers: Total Score: 10 Risk of Readmission: High Risk Care Management Discharge Reason for Hospitalization: Pneumonia Discharge Plan: Wily is being discharged home today with resume services through [facility].CM faxed last dose letter to [facility] services. She will follow up with her PCP. RT coordinated nebulizer through [facility] which she has received. Wily will transport via private vehicle with a friend. Wily states she feels ready for discharge. She is no longer requiring oxygen, she is tolerating activity and she is able to tolerate nutrition. Patient/Family Education Needs: Discharge education, limitations and follow up plan of care including self management discussion and ask me three. Services Needed at Discharge: DME Agency
[2018-05-16] MEDS: Nicotine 14 MG/24 HR PATCH TD (11:24)
== END 2018-05-16 13:08 | disposition home or self-care (01) | DRG 177 ==
LOC: ER 13:47 → MS 15:54
PROVIDERS: Nurse Practitioner; Admitting Provider Internal Medicine; Emergency Provider Student in an Organized Health Care Education/Training Program; PCP Family Medicine; Visit Provider Internal Medicine
DX: J15.6 Pneumonia due to other Gram-negative bacteria (principal); J96.01 Acute respiratory failure with hypoxia; B37.0 Candidal stomatitis; J44.0 Chronic obstructive pulmonary disease with (acute) lower respiratory infection; J44.1 Chronic obstructive pulmonary disease with (acute) exacerbation; F11.20 Opioid dependence, uncomplicated; F17.210 Nicotine dependence, cigarettes, uncomplicated; J45.909 Unspecified asthma, uncomplicated; K21.9 Gastro-esophageal reflux disease without esophagitis; Z11.4 Encounter for screening for human immunodeficiency virus [HIV]; F19.11 Other psychoactive substance abuse, in remission; Z71.6 Tobacco abuse counseling; F32.9 Major depressive disorder, single episode, unspecified
CPT/HCPCS: 36410; 36415; 80048; 80053; 80076; 85027; 87040; 87389; 93005; 94618; 94640; 96361; 96365; 96375; 99222; 99232; 99239; 99285; J1650; 71046; 71260; 83735; 83880; 84484; 85025; 85379; 87070; 87205; 93010; J0696; J3490; J7512; J7620

== ENCOUNTER 2018-07-31 09:07 | Outpatient (CLI) | payer MEDICAID, SELFPAY ==
[2018-07-31 09:37] LABS: Bilirubin Negative (Negative); Blood Trace-lysed (Negative); Clarity Sl Cloudy; Glucose Negative (Negative); Ketones Trace mg/dL (Negative); Leukocyte Esterase Negative (Negative); Nitrite Negative (Negative); Specific Gravity >= 1.030 (1.005-1.025)
[2018-07-31 09:40] LABS: Abs Immature Grans 0.05 k/cumm (0.0-0.09); Absolute Basophil Count 0.12 k/cumm (0.0-0.2); Absolute Eosinophil Count 0.57 k/cumm (0.0-0.7); Absolute Lymphocyte Count 2.81 k/cumm (1.2-3.4); Absolute Monocyte Count 1.05 k/cumm (0.11-0.7); Absolute Neutrophil Count 4.24 k/cumm (1.2-6.7); Basophils % 1.4; Eosinophils % 6.4; HGB 13.6 g/dL (12.0-15.5); Immature Grans % 0.6; Lymphocytes % 31.8; Mean Corp. HGB Concentration 32.4 g/dL (32.0-36.0); Mean Corpuscular Hemoglobin 30.6 pg (27.0-33.0); Mean Corpuscular Volume 94.6 fL (80-95); Mean Platelet Volume 8.5 fL (8.0-11.0); Monocytes % 11.9; Neutrophils % 47.9; Platelet Count 269 x1000/uL (130-400); RBC 4.44 m/cumm (4.00-5.20); RBC Distribution Width 12.9 % (11.7-14.6); White Blood Cell Count 8.84 k/cumm (4.4-10.8)
[2018-07-31 09:45] LABS: Epithelial Cells Many HPF (Negative)
[2018-07-31 09:46] LABS: Bacteria Many HPF (Negative); C & S Indicated? No/Sq. Contamination
[2018-07-31 13:12] LABS: ALT 38 U/L (12-78); AST 31 U/L (15-37); Albumin 3.5 g/dL (3.4-5.0); Alkaline Phosphatase 84 U/L (46-116); Anion Gap 5.9 mmol/L (3-11); BUN 18 mg/dL (7-18); Bilirubin, Total 0.3 mg/dL (0.2-1.0); CO2 33.1 mmol/L (21.0-32.0); CREATININE 0.78 mg/dL (0.55-1.02); Calcium 9.1 mg/dL (8.5-10.1); Chloride 102 mmol/L (98-107); Cholesterol 207 mg/dL (50-200); Glucose 106 mg/dL (70-100); HDL Cholesterol 89 mg/dL (40-60); LDL CHOLESTEROL 108 mg/dL (<100); Potassium 4.1 mmol/L (3.5-5.1); Sodium 141 mmol/L (136-145); TSH (W/Ref FT4) 1.11 uIU/mL (0.358-3.74); Total Protein 6.8 g/dL (6.4-8.2); Triglyceride 78 mg/dL (30-150)
[2018-08-01 05:54] LABS: Vitamin D 25 Total 25.8 ng/ml (30-100)
== END 2018-07-31 09:27 ==
PROVIDERS: PCP Family Medicine; Visit Provider Family Medicine
DX: F32.9 Major depressive disorder, single episode, unspecified (principal); J18.1 Lobar pneumonia, unspecified organism; R53.83 Other fatigue; M81.0 Age-related osteoporosis without current pathological fracture
CPT/HCPCS: 36415; 80053; 80061; 82306; 83721; 81003; 81015; 84443; 85025

== ENCOUNTER 2018-07-31 09:50 | Outpatient (CLI) | payer MEDICAID, SELFPAY ==
--- NOTE | 2018-07-31 09:40 | DI.RAD_ITS ---
SYMPTOMS/DIAGNOSIS: RML PNEUMONIA F/U, FATIGUE, R53.83, J18.1 PA AND LATERAL CHEST: Comparison 05/12/18. The heart is normal in size. The lungs are clear. The mediastinal structures and pleura appear intact. CONCLUSION: Normal chest.
== END 2018-07-31 10:10 ==
PROVIDERS: PCP Family Medicine; Visit Provider Family Medicine
DX: J18.1 Lobar pneumonia, unspecified organism (principal); R53.83 Other fatigue
CPT/HCPCS: 71046

== ENCOUNTER 2019-03-07 02:08 | Outpatient (CLI) | payer MEDICAID, SELFPAY ==
[2019-03-07 12:46] LABS: Abs Immature Grans 0.04 k/cumm (0.0-0.09); Absolute Basophil Count 0.07 k/cumm (0.0-0.2); Absolute Eosinophil Count 0.67 k/cumm (0.0-0.7); Absolute Lymphocyte Count 3.56 k/cumm (1.2-3.4); Absolute Monocyte Count 0.98 k/cumm (0.11-0.7); Absolute Neutrophil Count 3.51 k/cumm (1.2-6.7); Basophils % 0.8; Eosinophils % 7.6; HCT 42.5 % (36.0-46.0); HGB 13.4 g/dL (12.0-15.5); Immature Grans % 0.5; Lymphocytes % 40.3; Mean Corp. HGB Concentration 31.5 g/dL (32.0-36.0); Mean Corpuscular Hemoglobin 29.6 pg (27.0-33.0); Mean Corpuscular Volume 93.8 fL (80-95); Mean Platelet Volume 9.6 fL (8.0-11.0); Monocytes % 11.1; Neutrophils % 39.7; Platelet Count 280 x1000/uL (130-400); RBC 4.53 m/cumm (4.00-5.20); RBC Distribution Width 14.5 % (11.7-14.6); White Blood Cell Count 8.83 k/cumm (4.4-10.8)
[2019-03-07 13:15] LABS: Creatine Kinase 183 U/L (26-192); TSH (W/Ref FT4) 1.28 uIU/mL (0.36-3.74)
[2019-03-10 11:44] LABS: Lyme Ab w Rflx to Lyme Confirm Negative
== END 2019-03-07 02:28 ==
PROVIDERS: PCP Family Medicine; Visit Provider Family Medicine
DX: M79.10 Myalgia, unspecified site (principal)
CPT/HCPCS: 36415; 82550; 84443; 85025; 86140; 86618

== ENCOUNTER 2019-04-04 13:22 | Outpatient (CLI) | payer MEDICAID, SELFPAY ==
[2019-04-04 13:53] LABS: Abs Immature Grans 0.04 k/cumm (0.0-0.09); Absolute Basophil Count 0.07 k/cumm (0.0-0.2); Absolute Eosinophil Count 0.74 k/cumm (0.0-0.7); Absolute Monocyte Count 1.06 k/cumm (0.11-0.7); Absolute Neutrophil Count 5.04 k/cumm (1.2-6.7); Basophils % 0.7; Eosinophils % 7.4; HCT 41.9 % (36.0-46.0); HGB 13.5 g/dL (12.0-15.5); Immature Grans % 0.4; Lymphocytes % 30.8; Mean Corp. HGB Concentration 32.2 g/dL (32.0-36.0); Mean Corpuscular Hemoglobin 30.1 pg (27.0-33.0); Mean Corpuscular Volume 93.3 fL (80-95); Mean Platelet Volume 9.4 fL (8.0-11.0); Monocytes % 10.5; Neutrophils % 50.2; Platelet Count 282 x1000/uL (130-400); RBC 4.49 m/cumm (4.00-5.20); RBC Distribution Width 14.5 % (11.7-14.6); White Blood Cell Count 10.05 k/cumm (4.4-10.8)
[2019-04-04 14:19] LABS: Hemoglobin A1C 5.6 % (4.5-6.2)
[2019-04-04 14:51] LABS: ALT 21 U/L (14-59); AST 12 U/L (15-37); Albumin 3.6 g/dL (3.4-5.0); Alkaline Phosphatase 75 U/L (46-116); BUN 14 mg/dL (7-18); Bilirubin, Total 0.2 mg/dL (0.2-1.0); CREATININE 0.74 mg/dL (0.55-1.02); Calcium 8.6 mg/dL (8.5-10.1); Chloride 104 mmol/L (98-107); Glucose 102 mg/dL (70-100); Potassium 4.6 mmol/L (3.5-5.1); Sodium 140 mmol/L (136-145); Total Protein 6.7 g/dL (6.4-8.2)
== END 2019-04-04 13:42 ==
PROVIDERS: PCP Family Medicine; Visit Provider Family Medicine
DX: M25.50 Pain in unspecified joint (principal); Z83.3 Family history of diabetes mellitus
CPT/HCPCS: 36415; 80053; 83036; 85025

== ENCOUNTER 2020-08-30 01:43 | Outpatient (CLI) | payer OTHER, SELFPAY ==
--- NOTE | 2020-08-30 09:55 | DI.RAD_ITS ---
EXAM: XR LUMBAR SPINE AP, LAT CLINICAL HISTORY: DISABILITY DETERMINATION,BACK AND LEG PAIN,Z02.71. TECHNIQUE: 2D digital imaging was performed. COMPARISON: CR XR CHEST 2V PA LATERAL from 07/31/2018 FINDINGS: There is a left convex curvature of the lumbar spine. There are 5 lumbar type vertebral bodies. The re is disc space narrowing at L2-3 and L3-L4. Endplate osteophytes are seen from L1-2 through L3-L4. No acute fracture or subluxation is present. There is a large amount of stool throughout the colon . IMPRESSION: 1. Mild degenerative changes in the lumbar spine. 2. Constipation. DATA REPOSITORY: RADIATION DOSE DELIVERED:
== END 2020-08-30 01:44 | disposition home or self-care (01) ==
LOC: DI 01:43
PROVIDERS: PCP Family Medicine; Visit Provider Pediatrics Pediatric Rheumatology
DX: M47.816 Spondylosis without myelopathy or radiculopathy, lumbar region (principal); K59.00 Constipation, unspecified
CPT/HCPCS: 72100

== ENCOUNTER 2020-09-03 01:39 | Outpatient (CLI) | payer MEDICAID, SELFPAY ==
[2020-09-03 08:38] LABS: ALT 23 U/L (14-59); AST 13 U/L (15-37); Albumin 3.5 g/dL (3.4-5.0); Alkaline Phosphatase 93 U/L (46-116); Anion Gap 6.8 mmol/L (3-11); BUN 12 mg/dL (7-18); Bilirubin, Total 0.3 mg/dL (0.2-1.0); C-Reactive Protein 0.67 mg/dL (0.0-0.3); CO2 31.2 mmol/L (21.0-32.0); CREATININE 0.8 mg/dL (0.55-1.02); Calcium 8.9 mg/dL (8.5-10.1); Chloride 103 mmol/L (98-107); Glucose 88 mg/dL (74-106); Potassium 4.1 mmol/L (3.5-5.1); Sodium 141 mmol/L (136-145); Total Protein 6.9 g/dL (6.4-8.2)
[2020-09-03 17:00] LABS: Rheumatoid Factor <8.6 IU/mL (<12.0)
[2020-09-03 18:37] LABS: ESR 32 mm/hr (<or=20)
[2020-09-06 11:44] LABS: Hepatitis C Ab w Rflx HCV PCR Negative (Negative)
[2020-09-06 14:34] LABS: ANA Interpretation Negative (Negative)
== END 2020-09-03 01:40 | disposition home or self-care (01) ==
LOC: LBO 01:39
PROVIDERS: PCP Family Medicine; Visit Provider Family Medicine
DX: R53.83 Other fatigue (principal); Z11.59 Encounter for screening for other viral diseases
CPT/HCPCS: 36415; 80053; 85652; 86803; 86038; 86140; 86431

== ENCOUNTER 2021-06-06 19:08 | Outpatient (REF) | payer MEDICAID, SELFPAY ==
[2021-06-08 13:54] LABS: COVID-19 RT-PCR UVMMC Result Negative (Negative)
== END 2021-06-06 19:09 | disposition home or self-care (01) ==
LOC: NCHCN 19:08
PROVIDERS: PCP Nurse Practitioner Family; Visit Provider Family Medicine
DX: Z20.822 Contact with and (suspected) exposure to COVID-19 (principal); J06.9 Acute upper respiratory infection, unspecified
CPT/HCPCS: U0003

== ENCOUNTER 2021-06-10 16:37 | Outpatient (REF) | payer MEDICAID, SELFPAY | END 2021-06-10 16:38 | disposition home or self-care (01) | LOC: LBN 16:37 | PROVIDERS: PCP Nurse Practitioner Family; Visit Provider Nurse Practitioner Family | DX: J02.9 Acute pharyngitis, unspecified (principal) | CPT/HCPCS: 87070 ==

== ENCOUNTER 2021-06-10 21:06 | Outpatient (CLI) | payer MEDICAID, SELFPAY ==
--- NOTE | 2021-06-10 15:45 | DI.RAD_ITS ---
Exam(s) XR CHEST 2V PA LATERAL EXAM: XR CHEST 2V PA LATERAL CLINICAL HISTORY: Abnormal lung sounds on left lung base. R09.89 TECHNIQUE: 2D digital imaging was performed. COMPARISON: CR XR CHEST 2V PA LATERAL from 07/31/2018 FINDINGS: MEDIASTINUM: Normal. HEART: Normal. PULMONARY VASCULATURE: Normal. LUNGS: Hyperinflation. Otherwise clear. PLEURAL SPACE: No pleural effusion or pneumothorax. BONE:Unremarkable for age. IMPRESSION: Hyperinflation. No acute abnormality. DATA REPOSITORY: RADIATION DOSE DELIVERED:
--- NOTE | 2021-06-10 16:15 | DI.VRAD_ITS ---
PROCEDURE INFORMATION: Exam: XR Chest Exam date and time: 06/10/2021 3:55 PM Age: 46 years old Clinical indication: Abnormal lung sounds left; Patient HX: Abnormal lung sounds on left lung base TECHNIQUE: Imaging protocol: XR of the chest. Views: 2 views. COMPARISON: CR XR CHEST 2V PA LATERAL 07/31/2018 9:51 AM FINDINGS: Lungs: Unremarkable. No consolidation. Pleural spaces: Unremarkable. No pleural effusion. No pneumothorax. Heart/Mediastinum: Unremarkable. No cardiomegaly. Bones/joints: Unremarkable. IMPRESSION: No acute findings. Dictated and Authenticated by: Anna Bailey MD. Ordering:EVA Fong MD
== END 2021-06-10 21:26 ==
PROVIDERS: PCP Nurse Practitioner Family; Visit Provider Nurse Practitioner Family
DX: R09.89 Other specified symptoms and signs involving the circulatory and respiratory systems (principal); J98.4 Other disorders of lung
CPT/HCPCS: 71046

== ENCOUNTER 2021-08-18 19:24 | Outpatient (REF) | payer MEDICAID, SELFPAY ==
[2021-08-20 11:11] LABS: COVID-19 RT-PCR UVMMC Result Negative (Negative)
== END 2021-08-18 19:25 | disposition home or self-care (01) ==
LOC: LBN 19:24
PROVIDERS: PCP Nurse Practitioner Family; Visit Provider Nurse Practitioner Family
DX: Z20.822 Contact with and (suspected) exposure to COVID-19 (principal)
CPT/HCPCS: U0003

== ENCOUNTER 2022-03-16 17:21 | Emergency (ER) | payer MEDICAID, SELFPAY ==
[2022-03-16 17:29] VITALS: BP 127/85; PULSE 104; RESP 14; TEMP 36.9; O2SAT 96
--- NOTE | 2022-03-16 18:21 | W.ED.GENAD ---
Discharge Plan Disposition Patient Disposition: HOME Condition: Stable Discharge Details Clinical Impression: Dental abscess Primary Care Provider: Alma Dixon ED Provider: Bertha Fish Home Meds and New Rx's Prescriptions: New clindamycin HCl [Cleocin HCl] 150 mg capsule 450 mg PO TID Qty: 90 0RF Continued bupropion HCl 150 mg tablet extended release 24 hr 150 mg PO DAILY Qty: 90 4RF trazodone 50 mg tablet 50 mg PO HS Qty: 90 4RF albuterol sulfate 90 mcg/actuation HFA aerosol inhaler 2 puff IH Q4H PRN (Reason: shortness of breath or wheezing) Qty: 8.5 4RF sertraline 100 mg tablet 100 mg PO DAILY Qty: 90 3RF methadone 10 mg/mL concentrate 95 mg PO DAILY cholecalciferol (vitamin D3) 50 mcg (2,000 unit) capsule 2,000 unit PO DAILY Qty: 90 4RF Rx Instructions: Take 1 daily budesonide-formoterol [Symbicort] 160-4.5 mcg/actuation HFA aerosol inhaler 2 puff IH BID Qty: 10.2 4RF lansoprazole 30 mg capsule,delayed release(DR/EC) 30 mg PO DAILY Qty: 90 3RF ipratropium-albuterol 0.5 mg-3 mg(2.5 mg base)/3 mL Solution For Nebulization 3 ml UPD Q6H PRN PRNQty: 30 0RF Discharge Instructions Instructions: Dental Abscess (ED) Additional Instructions: Take clindamycin as prescribed Yogurt daily while on antibiotic Call your dentist tomorrow Please return earlier should you have difficulty swallowing, fever, chills, or she has any worsening complaints Discharge Data Discharge Date/Time-TO BE ENTERED AT DEPARTURE: 03/16/22 18:32 Medical Decision Making Patient is supplied with clindamycin Ibuprofen and Tylenol as needed for pain She will call her dentist tomorrow for follow-up Return precautions discussed and patient expressed understanding No evidence of ludwigs angina Medical Records Medical records reviewed: Yes I reviewed the patient's medical records. HPI General Date/Time Provider Initiated Documentation: 03/16/22 18:12. HPI Narrative: this 46 yo female patient presents with right lower facial swelling. She actually had a dental cleaning yesterday. She states the swelling started today. She denies any difficulty swallowing or fever. She denies any chills. She states that she was concerned because of the lower jaw swelling she not currently on any antibiotics. She is taking ibuprofen and Tylenol for pain Related Data Home Medications Medication Instructions Recorded Confirmed ipratropium 0.5 mg-albuterol 3 mg 3 ml UPD Q6H PRN PRN #30 ea 05/16/18 03/16/22 (2.5 mg base)/3 mL nebulization soln cholecalciferol (vitamin D3) 50 2,000 unit PO DAILY #90 tab-caps 06/22/21 03/16/22 mcg (2,000 unit) capsule albuterol sulfate 90 mcg/actuation 2 puff inhalation Q4H PRN 08/18/21 03/16/22 aerosol inhaler shortness of breath or wheezing #8.5 grams bupropion HCl 150 mg 24 hr tablet, 150 mg PO DAILY #90 tabs 08/18/21 03/16/22 extended release trazodone 50 mg tablet 50 mg PO HS #90 tabs 08/18/21 03/16/22 methadone 10 mg/mL oral concentrate 95 mg PO DAILY 10/12/21 03/16/22 sertraline 100 mg tablet 100 mg PO DAILY #90 tabs 10/12/21 03/16/22 budesonide-formoterol HFA 160 2 puff inhalation BID #10.2 grams 11/02/21 03/16/22 mcg-4.5 mcg/actuation aerosol inhaler (Symbicort) lansoprazole 30 mg capsule,delayed 30 mg PO DAILY #90 caps 02/27/22 03/16/22 release clindamycin HCl 150 mg capsule 450 mg PO TID #90 caps 03/16/22 (Cleocin HCl) Previous Rx's Medication Instructions Recorded ipratropium 0.5 mg-albuterol 3 mg 3 ml UPD Q6H PRN PRN #30 ea 05/16/18 (2.5 mg base)/3 mL nebulization soln cholecalciferol (vitamin D3) 50 2,000 unit PO DAILY #90 tab-caps 06/22/21 mcg (2,000 unit) capsule albuterol sulfate 90 mcg/actuation 2 puff inhalation Q4H PRN 08/18/21 aerosol inhaler shortness of breath or wheezing #8.5 grams bupropion HCl 150 mg 24 hr tablet, 150 mg PO DAILY #90 tabs 08/18/21 extended release trazodone 50 mg tablet 50 mg PO HS #90 tabs 08/18/21 sertraline 100 mg tablet 100 mg PO DAILY #90 tabs 10/12/21 budesonide-formoterol HFA 160 2 puff inhalation BID #10.2 grams 11/02/21 mcg-4.5 mcg/actuation aerosol inhaler (Symbicort) lansoprazole 30 mg capsule,delayed 30 mg PO DAILY #90 caps 02/27/22 release clindamycin HCl 150 mg capsule 450 mg PO TID #90 caps 03/16/22 (Cleocin HCl) Allergies Allergy/AdvReac Type Severity Reaction Status Date / Time No Known Drug Allergies Allergy Verified 10/12/21 15:12 General Stated Complaint: DentalOral CLAIRE: 4 Review of Systems All systems reviewed & are unremarkable except as noted in HPI and below PFSH All Active Problems (Updated 03/16/22 @ 18:26 by TAL Osborn) Dental abscess (Acute) Generalized anxiety disorder (Chronic) Social anxiety disorder (Chronic) Major depressive disorder (Chronic) Opioid use disorder (Chronic) Methadone through [facility] GERD (gastroesophageal reflux disease) (Chronic) Vitamin D deficiency (Chronic) Asthma (Chronic) Medical History Degenerative disc disease cervical spine with radiculopathy down right arm. Substance abuse Hx opiate abuse, pills then heroin (snorted), no hx of IVDU. Surgical History History of laparoscopy Family History Mother No problems noted. Father Atrial fibrillation Brother No problems noted. Brother No problems noted. Son No problems noted. Daughter No problems noted. Maternal Grandfather No problems noted. Maternal Grandmother No problems noted. Paternal Grandfather Cancer Unknown type Paternal Grandmother No problems noted. Social History Smoking/Tobacco Use Status: Current every day Tobacco Type: cigarettes Smoking risk assessment performed?: Yes Alcohol Intake: never Drug use: Rarely Substance use type: marijuana and other Details: ON SUBOXONE Household members: family and other Details: Lives with mother, 23 year old daughter, shared custody of 6 yr old son. 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 Current gender identity: female Seatbelt use: always Do you feel safe at home: Yes Do you feel safe in your relationship?: Yes History History 2 Para 2 Hx # Term Pregnancies Multiple births Hx # Pregnancies Ectopic pregnancies AB induced Hx Number of Living Children 2 AB spontaneous Exam Const General: cooperative, comfortable and no acute distress [facility] Teeth image: 1. fx and right facial swelling Other: No evidence of deep space infection, no drainage, no trismus, uvula midline, oropharynx patent Eyes Pupils: PERRL Course Vital Signs Vital signs: Vital Signs Temperature 36.9 C 03/16/22 17:29 Pulse 104 H 03/16/22 17:29 Respiratory Rate 14 03/16/22 17:29 Blood Pressure 127/85 03/16/22 17:29 Pulse Oximetry 96 03/16/22 17:29 Temperature 36.9 C 03/16/22 17:29 Temperature Source Skin 03/16/22 17:29 Pulse 104 H 03/16/22 17:29 Respiratory Rate 14 03/16/22 17:29 Respiratory Effort 03/16/22 17:37 Blood Pressure 127/85 03/16/22 17:29 Blood Pressure Position Sitting 03/16/22 17:29 Pulse Oximetry 96 03/16/22 17:29 Oxygen Delivery Method Room Air 03/16/22 17:29 Oxygen Flow Rate 0 03/16/22 17:29 Pain Level 7 03/16/22 17:39 Comment 03/16/22 17:29
== END 2022-03-16 18:32 | disposition home or self-care (01) ==
PROVIDERS: Emergency Provider Physician Assistant; PCP Nurse Practitioner Family
DX: K04.7 Periapical abscess without sinus (principal); S02.5XXA Fracture of tooth (traumatic), initial encounter for closed fracture; F17.210 Nicotine dependence, cigarettes, uncomplicated; X58.XXXA Exposure to other specified factors, initial encounter
CPT/HCPCS: 99283

== ENCOUNTER 2022-04-22 16:18 | Inpatient (IN) | payer MEDICAID, SELFPAY ==
[2022-04-22] VITALS (8 sets, daily range): BP systolic 100–112; BP diastolic 67–74; PULSE 89–124; RESP 5–28; TEMP 36.4–37.5; O2SAT 91–98
--- NOTE | 2022-04-22 16:15 | RT.EKG_ITS ---
APPROVED REPORT Exam: Resting ECG Reason for Exam: irregular heart rate Patient Location: E HR:116 bpm ECG Measurements Heart Rate 116 AXIS OH 139 P 59 QRSd 89 QRS 113 QT 329 T 64 QTc 456 Conclusion Sinus tachycardia...rate> 99 Anterior infarct, old...Q >40mS, abnormal ST-T, V2-V5
--- NOTE | 2022-04-22 16:30 | DI.RAD_ITS ---
Exam(s) XR PORTABLE CHEST AP EXAM: XR PORTABLE CHEST AP CLINICAL HISTORY: cough. TECHNIQUE: 2D digital imaging was performed. COMPARISON: CR,XR XR CHEST 2V PA LATERAL from 06/10/2021 FINDINGS: Single AP portable view. Heart size is upper normal. The mediastinum is not widened. There is significant right upper lobe infiltrate. Also platelike atelectasis in the right lung base. No pleural effusions. No pneumothorax. No pulmonary edema. IMPRESSION: Right upper lobe infiltrate. No obvious pleural effusions. DATA REPOSITORY: RADIATION DOSE DELIVERED:
--- NOTE | 2022-04-22 16:40 | W.ED.GENAD ---
Discharge Plan Disposition Patient Disposition: [facility] INPATIENT Condition: Stable Discharge Details Chief Complaint: RespSymp Clinical Impression: Sepsis due to pneumonia, Sepsis with multi-organ dysfunction Primary Care Provider: Alma Dixon ED Provider: Kenroy Jerez Home Meds and New Rx's Prescriptions: No Action amoxicillin-pot clavulanate 875-125 mg tablet 1 tab PO Q12H Qty: 14 0RF Rx Instructions: Take 1 tablet twice a day for 7 days sertraline 100 mg tablet 150 mg PO DAILY Qty: 135 3RF Rx Instructions: Take 1.5 tablets daily bupropion HCl 150 mg tablet extended release 24 hr 150 mg PO DAILY Qty: 90 4RF trazodone 50 mg tablet 50 mg PO HS Qty: 90 4RF albuterol sulfate 90 mcg/actuation HFA aerosol inhaler 2 puff IH Q4H PRN (Reason: shortness of breath or wheezing) Qty: 8.5 4RF methadone 10 mg/mL concentrate 95 mg PO DAILY cholecalciferol (vitamin D3) 50 mcg (2,000 unit) capsule 2,000 unit PO DAILY Qty: 90 4RF Rx Instructions: Take 1 daily budesonide-formoterol [Symbicort] 160-4.5 mcg/actuation HFA aerosol inhaler 2 puff IH BID Qty: 10.2 4RF lansoprazole 30 mg capsule,delayed release(DR/EC) 30 mg PO DAILY Qty: 90 3RF ipratropium-albuterol 0.5 mg-3 mg(2.5 mg base)/3 mL Solution For Nebulization 3 ml UPD Q6H PRN PRNQty: 30 0RF Medical Decision Making 46 yo female with hx of prior substance abuse on methadone, asthma and copd, who comes in with cc of difficulty breathing and cough along with fevers at home for 3 days. She denies chest pain/pressure. She denies alcohol or drug use. She called ems as she was too weak and short of breath to move around. She is noted to have an oxygen saturations in the low 80's and on 4L [place] is in the mid 90's. She has wheezing bilaterally along with some crackles at the bases bilaterally with intermittent wet cough. She is drowsy but awakens easily to voice, no focal deficits. Suspect pneumonia vs covid, will obtain cultures, cbc, lactate, cmp, and cxr along with covid test. Will treat for possible asthma/copd exacerbation with neb and solumedrol patient feeling mildly better, still wet sounding cough, oxygen saturation 93% on 3L nc and bp 108/74 hr 104. Labs show multi organ dsyfunction, troponin over 300, lfts' elevated and has an bharathi with creatinine of 1.3, wbc is 12. Suspect sepsis secondary to pneumonia and multiorgan dysfunction. She denies chest pain or pressure and so doubt type 1 mi and has no ruq tenderness on exam so doubt cholecystitis. Discussed with hospitalist who accepts for admission Differential Diagnosis Differential Diagnosis: covid, pneumonia, copd exacerbation Medical Records Medical records reviewed: Yes I reviewed the patient's medical records. Imaging Data Radiologic Study: Attestation: I personally reviewed and interpreted this imaging study as follows: Imaging: X-Ray Radiologist's impression: right upper lobe infiltrate Lab Data Lab results reviewed: Yes I reviewed the patient's lab results. ECG Data Attestation: I personally reviewed and interpreted this ECG (s) as follows: Prior ECG tracings: not available for review Interpretation: sinus tachycardia, rate of 116, no acute st t wave ischemic findings HPI General Mode of arrival: EMS. Date/Time Provider Initiated Documentation: 04/22/22 16:20. Information obtained by: patient. History of Present Illness 46 year old F presents to the emergency department with the chief complaint of difficulty breathing, described as moderate, Patient started experiencing this day(s) (3) and it has been constant. No relieving factors improve symptom(s), No exacerbating factors reported . Patient notes cough and fever/chills. Patient did receive the following treatments prior to arrival, none Related Data Home Medications Medication Instructions Recorded Confirmed ipratropium 0.5 mg-albuterol 3 mg 3 ml UPD Q6H PRN PRN #30 ea 05/16/18 03/23/22 (2.5 mg base)/3 mL nebulization soln cholecalciferol (vitamin D3) 50 2,000 unit PO DAILY #90 tab-caps 06/22/21 03/23/22 mcg (2,000 unit) capsule albuterol sulfate 90 mcg/actuation 2 puff inhalation Q4H PRN 08/18/21 03/23/22 aerosol inhaler shortness of breath or wheezing #8.5 grams bupropion HCl 150 mg 24 hr tablet, 150 mg PO DAILY #90 tabs 08/18/21 03/23/22 extended release trazodone 50 mg tablet 50 mg PO HS #90 tabs 08/18/21 03/23/22 methadone 10 mg/mL oral concentrate 95 mg PO DAILY 10/12/21 03/23/22 budesonide-formoterol HFA 160 2 puff inhalation BID #10.2 grams 11/02/21 03/23/22 mcg-4.5 mcg/actuation aerosol inhaler (Symbicort) lansoprazole 30 mg capsule,delayed 30 mg PO DAILY #90 caps 02/27/22 03/23/22 release amoxicillin 875 mg-potassium 1 tab PO Q12H #14 tabs 03/23/22 03/23/22 clavulanate 125 mg tablet sertraline 100 mg tablet 150 mg PO DAILY #135 tabs 03/23/22 03/23/22 Previous Rx's Medication Instructions Recorded ipratropium 0.5 mg-albuterol 3 mg 3 ml UPD Q6H PRN PRN #30 ea 05/16/18 (2.5 mg base)/3 mL nebulization soln cholecalciferol (vitamin D3) 50 2,000 unit PO DAILY #90 tab-caps 06/22/21 mcg (2,000 unit) capsule albuterol sulfate 90 mcg/actuation 2 puff inhalation Q4H PRN 08/18/21 aerosol inhaler shortness of breath or wheezing #8.5 grams bupropion HCl 150 mg 24 hr tablet, 150 mg PO DAILY #90 tabs 08/18/21 extended release trazodone 50 mg tablet 50 mg PO HS #90 tabs 08/18/21 budesonide-formoterol HFA 160 2 puff inhalation BID #10.2 grams 11/02/21 mcg-4.5 mcg/actuation aerosol inhaler (Symbicort) lansoprazole 30 mg capsule,delayed 30 mg PO DAILY #90 caps 02/27/22 release amoxicillin 875 mg-potassium 1 tab PO Q12H #14 tabs 03/23/22 clavulanate 125 mg tablet sertraline 100 mg tablet 150 mg PO DAILY #135 tabs 03/23/22 Allergies Allergy/AdvReac Type Severity Reaction Status Date / Time No Known Drug Allergies Allergy Verified 04/22/22 16:34 General Stated Complaint: RespSymp CLAIRE: 2 Review of Systems All systems reviewed & are unremarkable except as noted in HPI and below Constitutional Constitutional: Denies chills Cardiovascular Cardiovascular: Denies chest pain Gastrointestinal Gastrointestinal: Denies abdominal pain, Denies nausea and Denies vomiting Genitourinary Genitourinary: Denies dysuria Musculoskeletal Musculoskeletal: Denies joint swelling Integumentary/Breasts Skin/Breast: Denies rash PFSH All Active Problems (Updated 04/22/22 @ 18:54 by Kenroy Jerez MD) Sepsis due to pneumonia (Acute) Sepsis with multi-organ dysfunction (Acute) Generalized anxiety disorder (Chronic) Social anxiety disorder (Chronic) Major depressive disorder (Chronic) Opioid use disorder (Chronic) Methadone through [facility] GERD (gastroesophageal reflux disease) (Chronic) Vitamin D deficiency (Chronic) Asthma (Chronic) Medical History Degenerative disc disease cervical spine with radiculopathy down right arm. Substance abuse Hx opiate abuse, pills then heroin (snorted), no hx of IVDU. Surgical History History of laparoscopy Family History Mother No problems noted. Father Atrial fibrillation Brother No problems noted. Brother No problems noted. Son No problems noted. Daughter No problems noted. Maternal Grandfather No problems noted. Maternal Grandmother No problems noted. Paternal Grandfather Cancer Unknown type Paternal Grandmother No problems noted. Social History Smoking/Tobacco Use Status: Current every day Tobacco Type: cigarettes Smoking risk assessment performed?: Yes Alcohol Intake: never Drug use: Occasionally Substance use type: marijuana and other Details: ON SUBOXONE Household members: family and other Details: Lives with mother, 23 year old daughter, shared custody of 6 yr old son. 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 Current gender identity: female Seatbelt use: always Do you feel safe at home: Yes Do you feel safe in your relationship?: Yes History History 2 Para 2 Hx # Term Pregnancies Multiple births Hx # Pregnancies Ectopic pregnancies AB induced Hx Number of Living Children 2 AB spontaneous Exam Const General: other (drowsy) HENMT Head: normal to inspection Ears: external ears normal General nose exam: external nose normal Mouth: moist mucous membranes Eyes General: appearance normal, both eyes and all related structures Neck Neck: normal visual inspection Resp Effort & Inspection: normal respiratory effort and able to speak in complete sentences Cardio Rate: regular rate Skin General skin exam: no rashes or lesions noted Neuro General: patient oriented x3 Extrem General: normal to inspection Psych Mental Status: mental status grossly normal Course Vital Signs Vital signs: Vital Signs Temperature 37.5 C 04/22/22 16:19 Pulse 124 H 04/22/22 16:19 Respiratory Rate 28 H 04/22/22 16:19 Blood Pressure 108/67 04/22/22 16:19 Pulse Oximetry 93 04/22/22 16:19 Temperature 37.5 C 04/22/22 16:19 Pulse 124 H 04/22/22 16:19 Respiratory Rate 28 H 04/22/22 16:19 Respiratory Effort 04/22/22 16:29 Respiratory Depth Shallow 04/22/22 16:29 Blood Pressure 108/67 04/22/22 16:19 Blood Pressure Position Sitting 04/22/22 16:19 Pulse Oximetry 93 04/22/22 16:19 Oxygen Delivery Method Nasal Cannula 04/22/22 16:19 Oxygen Flow Rate 5 04/22/22 16:19 Pain Level 0 04/22/22 16:19 Lab/Test Results Lab/Test Results: 04/22/22 16:31 Blood Blood Culture - Pending 04/22/22 16:31 Blood Blood Culture - Pending
[2022-04-22] MEDS: Normal Saline 1,000 ML 1000 ML IV ×2 (17:10→18:52)
[2022-04-22] MEDS: methylPREDNISolone SUCC 125 MG VIAL IVP (17:10)
[2022-04-22 17:16] LABS: Lactate 1.9 mmol/L (0.6-1.4)
[2022-04-22] MEDS: Albuterol/Ipratropium 3 ML UPD VIAL UPD ×2 (17:32→18:51)
[2022-04-22 17:44] LABS: Abs Immature Grans 0.52 10^3/uL (0.0-0.06); HGB 11.9 g/dL (11.2-15.7); MCH 28.6 pg (27.0-33.0); MCHC 31.3 % (32.0-36.0); MCV 91 fL (80-95); Nucleated RBC 0.4 % (0.0-0.3); Platelet Count 294 10^3/uL (130-400); RBC 4.16 10^6/uL (3.93-5.22); RDW 15.9 % (11.7-14.6); RDW-SD 53.7 fL; WBC 12.13 10^3/uL (4.4-10.8)
--- NOTE | 2022-04-22 17:56 | DI.VRAD_ITS ---
PROCEDURE INFORMATION: Exam: XR Chest Exam date and time: 04/22/2022 5:01 PM Age: 46 years old Clinical indication: Other: Cough TECHNIQUE: Imaging protocol: Radiologic exam of the chest. Views: 1 view. COMPARISON: CR XR CHEST 2V PA LATERAL 06/10/2021 4:03 PM FINDINGS: Lungs: Heterogeneous opacities within the right upper and lower lung zones suspicious for multi lobar pneumonia. Pleural spaces: Unremarkable. No pleural effusion. No pneumothorax. Heart/Mediastinum: Unremarkable. No cardiomegaly. Bones/joints: Unremarkable. IMPRESSION: Heterogeneous opacities within the right upper and lower lung zones suspicious for multi lobar pneumonia. Dictated and Authenticated by: David Hay MD. Ordering:JOSE Jasmine MD
[2022-04-22 18:01] LABS: COVID-19 PCR Negative (Negative); Influenza A PCR Negative (Negative); Influenza B PCR Negative (Negative); RSV PCR Negative (Negative)
[2022-04-22 18:06] LABS: ALT 448 U/L (14-59); AST 543 U/L (15-37); Albumin 2.8 g/dL (3.4-5.0); Alkaline Phosphatase 102 U/L (46-116); Anion Gap 9.3 mmol/L (3-11); BUN 24 mg/dL (7-18); Bilirubin, Total 0.4 mg/dL (0.2-1.0); CO2 31.7 mmol/L (21.0-32.0); CREATININE 1.3 mg/dL (0.55-1.02); Calcium 8.6 mg/dL (8.5-10.1); Chloride 97 mmol/L (98-107); Estimated GFR 51.04 (mL/min/1.73m2); Glucose 117 mg/dL (74-106); Magnesium 1.7 mg/dL (1.8-2.4); Potassium 4.5 mmol/L (3.5-5.1); Sodium 138 mmol/L (136-145); Total Protein 7.8 g/dL (6.4-8.2)
[2022-04-22 18:08] LABS: Troponin I 373 ng/L (<or=60)
[2022-04-22 18:13] LABS: Absolute Neutrophil Count 8.85 10^3/uL (1.2-6.7); Bands % 5
[2022-04-22 18:14] LABS: Absolute Lymphocyte Count 1.82 10^3/uL (1.2-3.4); Absolute Monocyte Count 1.21 10^3/uL (0.1-0.8); Atypical Lymphocytes % 1; Diff Comment Manual Differential; Metamyelocytes % 2; RBC Morphology Normal
[2022-04-22 18:22] LABS: Source Nasopharynx
[2022-04-22 18:23] LABS: ETHANOL BLOOD < 3.0 mg/dL (<10)
[2022-04-22] MEDS: cefTRIAXone 2 GM/50 ML BAG IVPB (18:27)
[2022-04-22] MEDS: AZITHROMYCIN 500 MG in Normal Saline 250 ML 250 MG IVPB (18:27)
[2022-04-22] MEDS: Aspirin 325 MG TAB PO (18:51)
[2022-04-22 19:58] LABS: BE (Venous) 1 mmol/L (-2-3); HCO3 (Venous) 26 mmol/L (23-28); O2 Sat (Venous) 90 %; TCO2 (Venous) 24 mmol/L (24-29); pCO2 (Venous) 42 mmHg (41-51); pH (Venous) 7.39 (7.31-7.41); pO2 (Venous) 57 mmHg
[2022-04-22 20:21] LABS: Troponin I 446 ng/L (<or=60)
--- NOTE | 2022-04-22 20:45 | RT.EKG_ITS ---
APPROVED REPORT Exam: Resting ECG Reason for Exam: sob Patient Location: E HR:86 bpm ECG Measurements Heart Rate 86 AXIS NH 155 P 54 QRSd 81 QRS 65 QT 408 T 49 QTc 489 Conclusion Sinus rhythm...normal P axis, V-rate 60- 99 Anterior infarct, old...Q >40mS, abnormal ST-T, V2-V5. Sinus. Normal axis. No STEMI. No change from previous EKG. I have reviewed and interpreted ECG and agree with software generated interpretation.
--- NOTE | 2022-04-22 22:16 | W.PM.HP.N ---
Date of service: 04/22/22 Time of Service: 22:16 Assessment and Plan Assessment and plan (1) Sepsis due to pneumonia: Status: Acute Assessment and plan: History and CXR both concerning for pneumonia. Given initial hypoxia and multiple organ involvement I agree with admission. I agree with CTX and azithro. Monitor QTc given methadone. No history or clear risk factors for pseudomonas or MRSA. Will add sputum Cx and legionella antigen given degree of liver inflammation. (2) Elevated troponin I level: Status: Acute Assessment and plan: THis is c/w stress ischemia due to pnuemonia. Repeat EKG reassuring. She has denied chest pain so we are not treating as ACS. Monitor on telemetry. (3) Asthma: Status: Chronic Assessment and plan: Old records indicate asthma as well as COPD in some notes. She has deffuse wheeze/rhonchi so I agree with IV steroids. Qualifiers: Asthma severity: mild Asthma persistence: persistent Asthma complication type: uncomplicated Qualified Code(s): J45.30 - Mild persistent asthma, uncomplicated (4) Generalized anxiety disorder: Status: Chronic Assessment and plan: Contninue outpatient medication. (5) Elevated transaminase level: Status: Acute Assessment and plan: Most likely secondary to right sided pneumnia. We are repeating liver panel. clinicaly she has a benign RUQ exam. (6) Renal insufficiency: Status: Chronic Assessment and plan: Due to low perfusion, pre-renal. I am giving more hydration overnight, follow. (7) Opioid use disorder: Status: Chronic Assessment and plan: Reports stable in [facility] with no recent use. UDS pending to confirm. (8) Smoker: Status: Acute Assessment and plan: Offered NRT, declined for now. She is motivated to try to cut back or stop smoking. (9) DVT prophylaxis: Status: Acute Assessment and plan: LMWH (10) Discharge planning issues: Status: Acute Assessment and plan: Stable on medical floor, on tele due to evidence of cardiac strain. History of Present Illness History of Present Illness Chief Complaint: cough, SOB Narrative: 46 year old smoker with history of asthma/COPD and stable opioid use disorder on methadone who was brought to the hospital after 3 days of worsening cough and generalized weakness. Today her daughter called the ambulance because she was too weak to get around her apartment on her own. She states she stared with some sore throat and runny nose 3 days prior to admission. She then developed cough and generalized weakness to the point that she couldn't take care of herself. She does note she felt cloudy headed today when she presented. She denies and chest pain or pressure. She does fees much better now than when she came in. 7 yo son, of whom she has shared custody, was with her the previous weekend and had a bad cold. No known COVID exposure. No choking on food or sputum, no recent inhalation other than cigarrettes. No stimulant use. Review of Systems Constitutional Constitutional: Reports body ache(s), Denies chills, Denies fever(s), Denies headache(s), Reports lethargy, Reports malaise, Reports poor appetite, Denies weakness and Denies weight gain Eyes Eyes: Denies change in vision and Denies irritation ENT Ears, Nose, Mouth, and Throat: Denies dizziness, Denies headache(s), Denies nasal congestion, Reports nasal discharge and Reports sore throat Cardiovascular Cardiovascular: Denies chest pain, Denies palpitations and Denies orthopnea Respiratory Respiratory: Reports cough, Denies hemoptysis, Reports excessive phlegm production and Denies wheezing Gastrointestinal Gastrointestinal: Denies abdominal pain, Denies melena, Denies hematochezia, Denies heartburn, Denies diarrhea and Denies vomiting Genitourinary Genitourinary: Denies hematuria, Denies dysuria and Denies urinary incontinence Musculoskeletal Musculoskeletal: Reports arthralgias (not new) Integumentary/Breasts Skin/Breast: Denies rash and Denies skin ulcer Neurologic Neurologic: Denies dizziness, Denies headache(s), Denies sensory deficit and Denies weakness Psychiatric Psychiatric: Denies mood swings and Denies panic attacks Endocrine Endocrine: Denies palpitations Hematologic/Lymphatic Hematologic/Lymphatic: Denies easy bleeding Allergic/Immunologic Allergic/Immunologic: Denies wheezing PFSH All Active Problems (Updated 04/22/22 @ 22:43 by Conor Fox) Renal insufficiency (Chronic) Elevated troponin I level (Acute) Elevated transaminase level (Acute) Discharge planning issues (Acute) DVT prophylaxis (Acute) Smoker (Acute) Sepsis due to pneumonia (Acute) Sepsis with multi-organ dysfunction (Acute) Generalized anxiety disorder (Chronic) Social anxiety disorder (Chronic) Major depressive disorder (Chronic) Opioid use disorder (Chronic) Methadone through [facility] GERD (gastroesophageal reflux disease) (Chronic) Vitamin D deficiency (Chronic) Asthma (Chronic) Medical History Degenerative disc disease cervical spine with radiculopathy down right arm. Substance abuse Hx opiate abuse, pills then heroin (snorted), no hx of IVDU. Surgical History History of laparoscopy Family History Mother No problems noted. Father Atrial fibrillation Brother No problems noted. Brother No problems noted. Son No problems noted. Daughter No problems noted. Maternal Grandfather No problems noted. Maternal Grandmother No problems noted. Paternal Grandfather Cancer Unknown type Paternal Grandmother No problems noted. Social History (Updated 04/22/22 @ 22:49 by Conor Fox) Smoking/Tobacco Use Status: Current every day Tobacco Type: cigarettes Smoking risk assessment performed?: Yes Alcohol Intake: current Alcohol Intake frequency: 0-2 drinks per day Alcohol type: beer Drug use: Occasionally Substance use type: marijuana and other Details: ON SUBOXONE Household members: family and other Details: Lives with mother, 23 year old daughter, shared custody of 6 yr old son. 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 Current gender identity: female Seatbelt use: always Do you feel safe at home: Yes Do you feel safe in your relationship?: Yes Additional Social history: Lives in 2 Family in [facility], son with her purchaser automotive parts. Adult daughter and mother live in other apartment. History History 2 Para 2 Hx # Term Pregnancies Multiple births Hx # Pregnancies Ectopic pregnancies AB induced Hx Number of Living Children 2 AB spontaneous Meds Allergies and Home Medications Allergies Allergy/AdvReac Type Severity Reaction Status Date / Time No Known Drug Allergies Allergy Verified 04/22/22 16:34 Home Medications Medication Instructions Recorded Confirmed Type ipratropium 0.5 mg-albuterol 3 mg 3 ml UPD Q6H PRN PRN #30 ea 05/16/18 04/22/22 Rx (2.5 mg base)/3 mL nebulization soln cholecalciferol (vitamin D3) 50 2,000 unit PO DAILY #90 tab-caps 06/22/21 04/22/22 Rx mcg (2,000 unit) capsule albuterol sulfate 90 mcg/actuation 2 puff inhalation Q4H PRN 08/18/21 04/22/22 Rx aerosol inhaler shortness of breath or wheezing #8.5 grams bupropion HCl 150 mg 24 hr tablet, 150 mg PO DAILY #90 tabs 08/18/21 04/22/22 Rx extended release trazodone 50 mg tablet 50 mg PO HS #90 tabs 08/18/21 04/22/22 Rx methadone 10 mg/mL oral concentrate 95 mg PO DAILY 10/12/21 04/22/22 History budesonide-formoterol HFA 160 2 puff inhalation BID #10.2 grams 11/02/21 04/22/22 Rx mcg-4.5 mcg/actuation aerosol inhaler (Symbicort) lansoprazole 30 mg capsule,delayed 30 mg PO DAILY #90 caps 02/27/22 04/22/22 Rx release sertraline 100 mg tablet 150 mg PO DAILY #135 tabs 03/23/22 04/22/22 Rx Exam Narrative Exam Narrative: GEN: Alert and oriented (was initially more sedated when presented to the ED), though voice and thought process slowed. pleasant and cooperative, gives linear history with focused questioning. No acute distress at rest. HEENT: Head atraumatic. Conjunctiva clear, no icterus. PEERL (3mm room light), EOMI. no rhinorrhea. MM dry, OP benign. Neck is supple with no masses or lymphadenopathy, trachea midline LUNGS: Diffuse expiratory rhonchi with course inspiration and expiration. Normal effort at rest on 2L. Larissa increase WOB with sitting. CV: RRR with no murmurs, gallops, or rubs. ABD: +BS, soft, NT/ND EXT: no cyanosis, clubbing, or edema MSK: No joint redness or swelling NEURO: CN 2-12 grossly intact. Normal movement of 4 extremities. Slowed speech with some word finding difficulty. Normal coordination SKIN: No rashs or open wounds. PSYCH: normal to slightly depressed mood and affect. THought process intact. Results Imaging Chest x-ray: report reviewed (Right upper lobe infiltrate. No obvious pleural effusions.) and image reviewed EKG: report reviewed and image reviewed (EKG x 2. Both NS, nl axis, intervals. First EKG with new borderline ST depression V4/V5, resolved on 2nd EKG) Labs Result diagrams: 04/22/22 17:00 04/22/22 17:00 Labs: Laboratory Results - last 24 hr 04/22/22 04/22/22 04/22/22 17:00 17:00 17:00 WBC RBC Hgb Hct MCV MCH MCHC RDW Plt Count MPV Immature Gran % Neutrophils % Band Neutrophils % Lymphocytes % Atypical Lymphs % Monocytes % Eosinophils % Basophils % Metamyelocytes % Nucleated RBC % Absolute Neutrophils Absolute Lymphocytes Absolute Monocytes Absolute Eosinophils Absolute Basophils RBC Morphology VBG pH VBG pCO2 VBG pO2 VBG HCO3 VBG Total CO2 VBG O2 Saturation VBG Base Excess VBG Lactate 1.9 H Sodium 138 Potassium 4.5 Chloride 97 L Carbon Dioxide 31.7 Anion Gap 9.3 BUN 24 H Creatinine 1.3 H Est GFR (CKD-EPI 2020) 51.04 Glucose 117 H Calcium 8.6 Magnesium 1.7 L Total Bilirubin 0.4 AST 543 H ALT 448 H Alkaline Phosphatase 102 Troponin I 373 H* Total Protein 7.8 Albumin 2.8 L Ethyl Alcohol < 3.0 COVID-19 Source Nasopharynx SARS-CoV-2 (PCR) Negative Influenza Type A (PCR) Negative Influenza Type B (PCR) Negative RSV (PCR) Negative 04/22/22 04/22/22 04/22/22 17:00 19:55 19:55 WBC 12.13 H RBC 4.16 Hgb 11.9 Hct 38.0 MCV 91 MCH 28.6 MCHC 31.3 L RDW 15.9 H Plt Count 294 MPV 10.0 Immature Gran % See Differential Neutrophils % 68.0 Band Neutrophils % 5 Lymphocytes % 14.0 Atypical Lymphs % 1 Monocytes % 10.0 Eosinophils % 0.0 Basophils % 0.0 Metamyelocytes % 2 Nucleated RBC % 0.4 H Absolute Neutrophils 8.85 H Absolute Lymphocytes 1.82 Absolute Monocytes 1.21 H Absolute Eosinophils 0.00 Absolute Basophils 0.00 RBC Morphology Normal VBG pH 7.39 VBG pCO2 42 VBG pO2 57 VBG HCO3 26 VBG Total CO2 24 VBG O2 Saturation 90 VBG Base Excess 1 VBG Lactate Sodium Potassium Chloride Carbon Dioxide Anion Gap BUN Creatinine Est GFR (CKD-EPI 2020) Glucose Calcium Magnesium Total Bilirubin AST ALT Alkaline Phosphatase Troponin I 446 H* Total Protein Albumin Ethyl Alcohol COVID-19 Source SARS-CoV-2 (PCR) Influenza Type A (PCR) Influenza Type B (PCR) RSV (PCR) Last Vital Signs Temp 36.4 C L 04/22/22 21:22 Pulse 90 04/22/22 21:22 Resp 18 04/22/22 21:22 BP 104/70 04/22/22 21:22 Pulse Ox 98 04/22/22 21:22
[2022-04-22] MEDS: Lactated Ringers 1,000 ML 150 ML IV (22:30)
[2022-04-22] MEDS: traZODone 50 MG TAB PO (22:30)
[2022-04-22 22:48] LABS: Bilirubin Negative (Negative); Blood Negative (Negative); Clarity Clear (Clear); Glucose Negative (Negative); Ketones Trace mg/dL (Negative); Leukocyte Esterase Negative (Negative); Nitrite Negative (Negative); Specific Gravity >= 1.030 (1.005-1.025); Urobilinogen 0.2 EU/dL (Up TO 0.2)
[2022-04-22] MEDS: MAGNESIUM SULFATE 1 GM/100 ML BAG IVPB (22:49)
[2022-04-22 22:50] LABS: Bacteria Rare HPF (Negative); C & S Indicated? No; Casts Negative LPF (Negative); Crystals Negative HPF (Negative); Epithelial Cells Rare HPF (Negative); Mucus Negative (Negative); RBC Negative HPF (0-2); WBC Negative HPF (0-5)
[2022-04-22 23:01] LABS: *AMPHETAMINES SCREEN URINE Negative (Negative); *BARBITURATES SCREEN URINE Negative (Negative); *BENZODIAZEPINES SCREEN URINE Positive (Negative); Cannabinoids THC Positive (Negative); Cocaine Screen,Urine Negative (Negative); METHADONE URINE SCREEN Positive (Negative); OPIATES URINE SCREEN Negative (Negative)
[2022-04-22 23:02] LABS: Tricyclic Antidepressants Positive (Negative)
[2022-04-22] MEDS: Enoxaparin 40 MG/0.4 ML SYR SC (23:28)
[2022-04-22] MEDS: Budesonide/Formoterol 160/4.5 6 GM 60 PUFF INH IH (23:54)
[2022-04-22] MEDS: Acetaminophen 325 MG TAB PO (23:59)
[2022-04-23] VITALS (18 sets, daily range): BP systolic 90–114; BP diastolic 60–70; PULSE 71–104; RESP 5–20; TEMP 35.1–36.6; O2SAT 87–96
--- NOTE | 2022-04-23 | DI.CT_ITS ---
Exam(s) CT CHEST PE ABD PELVIS W EXAM: CT CHEST PE ABD PELVIS W CLINICAL HISTORY: concern for a PE, transaminitis (IV contrast only). TECHNIQUE: Imaging Protocol: Axial CT angiography was performed with multi-slice acquisition and m ulti-planar and/or 3D reconstructions. CONTRAST MATERIAL: Intravenous: Omnipaque 350 Contrast volume:100 ml Oral: None COMPARISON: CR XR CHEST 2V PA LATERAL from 05/09/2018 FINDINGS: CHEST: PULMONARY ARTERIES: There are no intra-arterial filling defects to suggest the presence of acute pulm onary emboli. LUNGS: There is a prominent area of infiltrate in the right upper lobe now evident. Also chronic inf iltrate in the medial segment of the right middle lobe which was present in 2018. However, there is also multifocal patchy infiltrate in the right upper lobe and right lower lobe, more so than previous . Similar findings involving upper and lower lobes of the left lung. There are no focal findings in trachea and mainstem bronchi. No pleural effusions.. MEDIASTINUM: There are slightly enlarged lymph nodes in both hilar regions. No subcarinal adenopathy . No adenopathy in the anterior mediastinal fat. No supraclavicular adenopathy. No axillary adenop athy. Visualized thyroid unremarkable. CARDIAC: Heart size upper normal. No pericardial effusion. Caliber thoracic aorta is within normal limits. No dissection. OSSEOUS: No significant osseous lesions.. ABDOMEN: There is no ascites. LIVER: Fatty parenchymal change is noted in the medial right hepatic lobe adjacent to the inter lobar fissure. No other focal hepatic findings. No dilated intrahepatic ducts. GALLBLADDER/BILIARY: Gallbladder mildly distended. No calcified gallstones nor gallbladder wall racheal a evident. CBD is not dilated. PANCREAS: No evidence of pancreatic mass nor dilatation of the pancreatic duct. SPLEEN: Spleen is not enlarged. There are no intrasplenic lesions. Splenic and portal veins are veloz nt. ADRENALS: There are no significant adrenal masses. KIDNEYS:No cysts evident. No calculi nor hydronephrosis. No solid renal masses. ABDOMINAL AORTA: Abdominal aorta is not enlarged. LYMPH NODES: There is no retroperitoneal or para-aortic adenopathy. ABDOMINAL WALL/GI: No evidence of significant anterior abdominal wall hernia. No bowel obstruction. PELVIS: LYMPH NODES: There is no intrapelvic nor inguinal adenopathy. GI: Slight bulbous appearance of the distal appendix which may be a mucocele.No evidence of acute div erticulitis. No significant sigmoid diverticular disease. URINARY BLADDER: Mild cystocele REPRODUCTIVE: Uterus normal size. No abnormal adnexal masses. No free fluid. OSSEOUS: No significant osseous lesions. IMPRESSION: 1. Prominent area of infiltrate in the right upper lobe extending from the suprahilar region to the p leural surface. Also patchy bilateral infiltrates smaller size noted, not associated with pleural ef fusions. Also chronic right middle lobe infiltrate. 2. Small bilateral hilar lymph nodes noted. No gross lymphadenopathy. 3. No evidence of pulmonary embolus, as per request. 4. Slight gallbladder distension. No obvious radiopaque calculi within the gallbladder lumen. CBD i s not dilated. 5. Slight bulbous appearance of the distal aspect of the appendix which is possibly a mucocele. Ther e is no evidence of acute appendicitis. Nonemergent surgical consultation recommended for this findi ng. RADIATION DOSE DELIVERED: 1,170.49mGy.cm Total DLP DATA REPOSITORY: All CT scans at this facility are submitted to the National Radiology Data Registry (NRDR) Dose Index Registry (DIR) with the [employer] ([employer]). RADIATION OPTIMIZATION: All CT scans at this facility use at least one of these dose optimization te chniques: automated exposure control; mA and/or kV adjustment per patient size (includes targeted exa ms where dose is matched to clinical indication); or iterative reconstruction.
[2022-04-23] MEDS: Albuterol/Ipratropium 3 ML UPD VIAL UPD ×4 (04:01→18:16)
--- NOTE | 2022-04-23 05:00 | RT.EKG_ITS ---
APPROVED REPORT Exam: Resting ECG Reason for Exam: elevated troponin Patient Location: I HR:86 bpm ECG Measurements Heart Rate 86 AXIS KS 176 P 64 QRSd 103 QRS 62 QT 427 T 28 QTc 511 Conclusion Sinus rhythm...normal P axis, V-rate 50- 99 Anterior infarct, old...Q >40mS, abnormal ST-T, V2-V5 Prolonged QT interval...QTc >510mS Artifact in lead(s) aVR,aVL,V3,V4 and baseline wander in lead(s) V3
[2022-04-23 07:24] LABS: ALT 336 U/L (14-59); AST 215 U/L (15-37); Albumin 2.3 g/dL (3.4-5.0); Alkaline Phosphatase 96 U/L (46-116); Anion Gap 8.8 mmol/L (3-11); BUN 18 mg/dL (7-18); Bilirubin, Total 0.2 mg/dL (0.2-1.0); CO2 27.2 mmol/L (21.0-32.0); CREATININE 0.7 mg/dL (0.55-1.02); Calcium 8.3 mg/dL (8.5-10.1); Chloride 102 mmol/L (98-107); Estimated GFR 106.62 (mL/min/1.73m2); Glucose 200 mg/dL (74-106); Magnesium 2.3 mg/dL (1.8-2.4); Potassium 3.4 mmol/L (3.5-5.1); Sodium 138 mmol/L (136-145); Total Protein 6.7 g/dL (6.4-8.2)
[2022-04-23 07:32] LABS: Troponin I 276 ng/L (<or=60)
[2022-04-23 08:01] LABS: Abs Immature Grans 0.21 10^3/uL (0.0-0.06); HCT 30.3 % (36.0-46.0); HGB 9.7 g/dL (11.2-15.7); MCH 29.3 pg (27.0-33.0); MCV 92 fL (80-95); MPV 10.3 fL (8.0-11.0); Platelet Count 225 10^3/uL (130-400); RBC 3.31 10^6/uL (3.93-5.22); RDW 16.1 % (11.7-14.6); RDW-SD 54.3 fL; WBC 11.66 10^3/uL (4.4-10.8)
[2022-04-23] MEDS: Budesonide/Formoterol 160/4.5 6 GM 60 PUFF INH IH ×2 (08:09→19:33)
[2022-04-23 08:33] LABS: Hemoglobin A1C 5.9 % (<5.7)
[2022-04-23 08:34] LABS: Calculated LDL 49 mg/dL (<100); Cholesterol 99 mg/dL (<200); HDL Cholesterol 24 mg/dL (40-60); Triglyceride 134 mg/dL (<150)
[2022-04-23 08:49] LABS: INR 1.4 (0.9-1.1); Prothrombin Time 13.8 sec (9.3-11.0)
[2022-04-23 08:52] LABS: BE 5 mmol/L (-2-3); HCO3 29 mmol/L (22-26); pCO2 46 mmHg (35-45); pH 7.41 (7.35-7.45); pO2 63 mmHg (80-105); sO2 93 % (95-98); tCO2 28 mmol/L (23-27)
[2022-04-23] MEDS: Methadone Liquid 10 MG/ML 95 MG PO (08:54)
[2022-04-23] MEDS: methylPREDNISolone SUCC 125 MG VIAL 80 MG IVP ×2 (08:54→17:52)
[2022-04-23] MEDS: DOXYCYCLINE 100 MG in Normal Saline 100 ML IVPB ×2 (08:54→19:33)
[2022-04-23] MEDS: Potassium Chloride 20 MEQ TABCR 40 MEQ PO (08:55)
[2022-04-23] MEDS: buPROPion-XL 150 MG TABCR PO (08:55)
[2022-04-23] MEDS: Lactated Ringers 500 ML IV (08:55)
[2022-04-23] MEDS: Sertraline 100 MG TAB 150 MG PO (08:55)
[2022-04-23 09:01] LABS: Absolute Basophil Count 0.12 10^3/uL (0.0-0.2); Absolute Eosinophil Count 0.12 10^3/uL (0.0-0.7); Absolute Monocyte Count 0.82 10^3/uL (0.1-0.8); Absolute Neutrophil Count 9.09 10^3/uL (1.2-6.7); Bands % 9
[2022-04-23 09:02] LABS: Diff Comment Manual Differential; Metamyelocytes % 1; RBC Morphology Normal
[2022-04-23 09:05] LABS: Site Right Radial
[2022-04-23 09:06] LABS: FIO2L 30 L
[2022-04-23] MEDS: Lansoprazole 30 MG CAPCR PO (09:11)
[2022-04-23] MEDS: Omnipaque 350 MG/ML 100 ML BTL IV (09:28)
[2022-04-23] MEDS: Normal Saline Flush 10 ML SYR IVP (09:30)
[2022-04-23 09:40] LABS: Creatine Kinase 208 U/L (26-192)
[2022-04-23 09:41] LABS: Acetaminophen 3 ug/mL (10-30)
[2022-04-23 09:49] LABS: D-Dimer 1112 ng/mlFEU (<500)
--- NOTE | 2022-04-23 10:30 | DI.VRAD_ITS ---
PROCEDURE INFORMATION: Exam: CTA Chest With Contrast CTA Abdomen With Contrast Exam date and time: 04/23/2022 9:22 AM Age: 47 years old Clinical indication: Other: Concern for a pe, transaminitis (iv contrast only); Other: Concern for a pe, transaminitis (iv contrast only); Additional info: Concern for a pe, transaminitis (iv contrast only) TECHNIQUE: Imaging protocol: Computed tomographic angiography of the chest with contrast. Computed tomographic angiography of the abdomen with contrast. 3D rendering (Not supervised by radiologist): MIP and/or 3D reconstructed images were created by the technologist. Radiation optimization: All CT scans at this facility use at least one of these dose optimization techniques: automated exposure control; mA and/or kV adjustment per patient size (includes targeted exams where dose is matched to clinical indication); or iterative reconstruction. Contrast material: OMNIPAQUE 350; Contrast volume: 100 ml; Contrast route: INTRAVENOUS (IV); COMPARISON: CT Thorax^CHEST W ROUTINE (Adult) 05/09/2018 1:39 PM FINDINGS: VASCULATURE: Pulmonary arteries: Normal. No pulmonary emboli. Aorta: Normal caliber thoracic aorta without aneurysm or dissection. Minimal atherosclerotic vascular calcifications. Normal caliber abdominal aorta. Celiac trunk and mesenteric arteries: No occlusion or significant stenosis. Renal arteries: No occlusion or significant stenosis. CHEST: Lungs: There is complete consolidation of the right middle lobe which contains air bronchograms, most compatible with pneumonia. Of note, a similar appearance was present on the 05/09/2018 CT though consolidation with subtotal at that time. There are new patchy consolidations and faint tiny nodular opacities scattered throughout all lobes of both lungs, most pronounced and coalescent at the right apex, compatible with multifocal pneumonia. Diffuse mild bronchial wall thickening suggests associated bronchitis. There are background changes of moderately advanced upper lobe predominant centrilobular emphysema. Pleural spaces: Unremarkable. No pneumothorax. No pleural effusion. Heart: Heart size is normal. No coronary artery calcifications. No pericardial effusion. ABDOMEN AND PELVIS: Liver: Small focus of subcapsular fatty infiltration adjacent to the falciform ligament. Otherwise unremarkable. Gallbladder and bile ducts: Unremarkable. No calcified gallstones. No intrahepatic or extrahepatic ductal dilation. Pancreas: Unremarkable. Spleen: Unremarkable. The spleen is normal in size. Adrenal glands: Unremarkable. Kidneys and ureters: Unremarkable. No hydronephrosis or hydroureter. Normal and symmetric renal enhancement. No masses. Stomach and bowel: The stomach is nondilated. There is a very small hiatal hernia. The small and large bowel are normal in caliber. No mural thickening or other inflammatory changes are seen within the bowel. Appendix: The tip of the appendix appears bulbous (see series 14, images [id number] and series 15, images 46-47), suspicious for a small mucocele. The appendix is otherwise normal in caliber, without periappendiceal fat stranding. Of note, the appendix is retrocecal. Intraperitoneal space: No ascites, fluid collection, or pneumoperitoneum. Urinary bladder: The neck of the bladder is low lying, which suggests pelvic floor laxity. Lymph nodes: Unremarkable. No pathologically enlarged lymph nodes. Bones/joints: Mild degenerative changes. No suspicious osseous lesions. Soft tissues: Unremarkable. IMPRESSION: 1. No evidence of pulmonary emboli. 2. Multifocal pneumonia, most extensive in the right middle lobe, with associated bronchitis. 3. Moderately advanced centrilobular emphysema. 4. No acute abnormality in the abdomen or pelvis. 5. Likely small appendiceal mucocele. Nonemergent surgical consultation is recommended. No acute inflammatory changes about the appendix. 6. Additional incidental findings are discussed in the body of the report. Dictated and Authenticated by: Jeannie Cabrera MD. Ordering:MELODY Rodgers MD
[2022-04-23 10:35] LABS: Lactate 3.3 mmol/L (0.6-1.4)
[2022-04-23 10:41] LABS: Lab Add On Test DONE
--- NOTE | 2022-04-23 10:52 | W.PM.PROGNOT ---
Date of Service Date of service: 04/23/22 Time of Service: 10:52 Assessment and Plan Assessment and plan (1) Sepsis due to pneumonia: Status: Acute Assessment and plan: Continue ceftriaxone and doxycycline (azithromycin would contribute to QT elevation from methadone). Add mucinex. Await blood, sputum cultures, urine legionella. Add urine strep antigen as well as mycoplasma sputum. Encourage pulmonary toilet. Wean O2 as tolerated. Check HIV (2) Acute respiratory failure with hypoxia: Status: Acute Assessment and plan: Due to PNA, present on admission. As above. (3) Elevated troponin I level: Status: Acute Assessment and plan: In setting of hypoxia, sepsis due to pneumonia, agree that it is likely type 2 demand ischemia. PE ruled out. Obtain echo. Would continue to monitor on tele. (4) Asthma: Status: Chronic Assessment and plan: In acute exacerbation. Will continue high dose methylprednisolone. Scheduled + prn nebs. C/s pulmonology. Qualifiers: Asthma severity: mild Asthma persistence: persistent Asthma complication type: uncomplicated Qualified Code(s): J45.30 - Mild persistent asthma, uncomplicated (5) Elevated transaminase level: Status: Acute Assessment and plan: ?hypoxic liver injury/shock liver. NO evidence of acute process on CT. Await hepatitis studies. No clear h/o EtOH abuse. Agree with checking for Legionella; also checking tick panel. Transaminases are already trending down. (6) Generalized anxiety disorder: Status: Chronic Assessment and plan: Contninue outpatient Regimen (7) Renal insufficiency: Status: Chronic Assessment and plan: Clinically dehydrated and hypotensive. WIll continue IVF for today. (8) Opioid use disorder: Status: Chronic Assessment and plan: Plan is continue methadone once dose verified by [facility]. (9) Smoker: Status: Acute Assessment and plan: Advised to quit, declined nicotine replacement. (10) DVT prophylaxis: Status: Acute Assessment and plan: LMWH (11) Discharge planning issues: Status: Acute Assessment and plan: Full code Continues to require hospitalization. Subjective Subjective Interval history since last seen: Ms Shook states that she is feeling a bit better today. I am not going to ! She reports a productive cough. Reports a headache with cough. Reports CP on coughing. Denies n/v. She is currently on 5L of O2 by [place]. Exam Narrative Exam Narrative: General: Pleasant middle-aged female who does not appear dyspneic/tachypneic while on 5L of O2 by [place], speaking in full sentences HEENT: EOMI, MMM Heart: RRR, no m/r/g Lungs: pronounced wheezing on expiration B Abdomen: soft, nontender, nondistended Extremities: trace edema BLEs Objective Last Vital Signs Temp 36.3 C L 04/23/22 07:15 Pulse 74 04/23/22 08:15 Resp 16 04/23/22 08:15 BP 90/60 L 04/23/22 07:15 Pulse Ox 91 L 04/23/22 08:15 Laboratory Results - last 24 hr 04/22/22 04/22/22 04/22/22 17:00 17:00 17:00 WBC RBC Hgb Hct MCV MCH MCHC RDW Plt Count MPV Immature Gran % Neutrophils % Band Neutrophils % Lymphocytes % Atypical Lymphs % Monocytes % Eosinophils % Basophils % Metamyelocytes % Nucleated RBC % Absolute Neutrophils Absolute Lymphocytes Absolute Monocytes Absolute Eosinophils Absolute Basophils RBC Morphology PT INR D-Dimer ABG Sample Site ABG pH ABG pCO2 ABG pO2 ABG HCO3 ABG Total CO2 ABG O2 Saturation ABG Base Excess VBG pH VBG pCO2 VBG pO2 VBG HCO3 VBG Total CO2 VBG O2 Saturation VBG Base Excess VBG Lactate 1.9 H Oxygen Liter Flow Sodium 138 Potassium 4.5 Chloride 97 L Carbon Dioxide 31.7 Anion Gap 9.3 BUN 24 H Creatinine 1.3 H Est GFR (CKD-EPI 2020) 51.04 Glucose 117 H Hemoglobin A1c Calcium 8.6 Magnesium 1.7 L Total Bilirubin 0.4 AST 543 H ALT 448 H Alkaline Phosphatase 102 Creatine Kinase Troponin I 373 H* Total Protein 7.8 Albumin 2.8 L Triglycerides Total Cholesterol LDL Cholesterol, Calc HDL Cholesterol Urine Color Urine Clarity Urine pH Ur Specific [place] Urine Protein Urine Ketones Urine Blood Urine Nitrite Urine Bilirubin Urine Urobilinogen Ur Leukocyte Esterase Urine RBC Urine WBC Ur Epithelial Cells Urine Crystals Urine Bacteria Urine Casts Urine Mucus Ur Culture Indicated? Urine Glucose Urine Opiates Screen Urine Methadone Screen Acetaminophen Ur Barbiturates Screen Ur Tricyclics Screen Ur Amphetamines Screen U Benzodiazepines Scrn Urine Cocaine Screen Ur THC Screen Ethyl Alcohol < 3.0 COVID-19 Source Nasopharynx SARS-CoV-2 (PCR) Negative Influenza Type A (PCR) Negative Influenza Type B (PCR) Negative RSV (PCR) Negative Add-On Test Request 04/22/22 04/22/22 04/22/22 17:00 19:55 19:55 WBC 12.13 H RBC 4.16 Hgb 11.9 Hct 38.0 MCV 91 MCH 28.6 MCHC 31.3 L RDW 15.9 H Plt Count 294 MPV 10.0 Immature Gran % See Differential Neutrophils % 68.0 Band Neutrophils % 5 Lymphocytes % 14.0 Atypical Lymphs % 1 Monocytes % 10.0 Eosinophils % 0.0 Basophils % 0.0 Metamyelocytes % 2 Nucleated RBC % 0.4 H Absolute Neutrophils 8.85 H Absolute Lymphocytes 1.82 Absolute Monocytes 1.21 H Absolute Eosinophils 0.00 Absolute Basophils 0.00 RBC Morphology Normal PT INR D-Dimer ABG Sample Site ABG pH ABG pCO2 ABG pO2 ABG HCO3 ABG Total CO2 ABG O2 Saturation ABG Base Excess VBG pH 7.39 VBG pCO2 42 VBG pO2 57 VBG HCO3 26 VBG Total CO2 24 VBG O2 Saturation 90 VBG Base Excess 1 VBG Lactate Oxygen Liter Flow Sodium Potassium Chloride Carbon Dioxide Anion Gap BUN Creatinine Est GFR (CKD-EPI 2020) Glucose Hemoglobin A1c Calcium Magnesium Total Bilirubin AST ALT Alkaline Phosphatase Creatine Kinase Troponin I 446 H* Total Protein Albumin Triglycerides Total Cholesterol LDL Cholesterol, Calc HDL Cholesterol Urine Color Urine Clarity Urine pH Ur Specific [place] Urine Protein Urine Ketones Urine Blood Urine Nitrite Urine Bilirubin Urine Urobilinogen Ur Leukocyte Esterase Urine RBC Urine WBC Ur Epithelial Cells Urine Crystals Urine Bacteria Urine Casts Urine Mucus Ur Culture Indicated? Urine Glucose Urine Opiates Screen Urine Methadone Screen Acetaminophen Ur Barbiturates Screen Ur Tricyclics Screen Ur Amphetamines Screen U Benzodiazepines Scrn Urine Cocaine Screen Ur THC Screen Ethyl Alcohol COVID-19 Source SARS-CoV-2 (PCR) Influenza Type A (PCR) Influenza Type B (PCR) RSV (PCR) Add-On Test Request 04/22/22 04/22/22 04/23/22 22:15 22:15 05:56 WBC RBC Hgb Hct MCV MCH MCHC RDW Plt Count MPV Immature Gran % Neutrophils % Band Neutrophils % Lymphocytes % Atypical Lymphs % Monocytes % Eosinophils % Basophils % Metamyelocytes % Nucleated RBC % Absolute Neutrophils Absolute Lymphocytes Absolute Monocytes Absolute Eosinophils Absolute Basophils RBC Morphology PT INR D-Dimer ABG Sample Site ABG pH ABG pCO2 ABG pO2 ABG HCO3 ABG Total CO2 ABG O2 Saturation ABG Base Excess VBG pH VBG pCO2 VBG pO2 VBG HCO3 VBG Total CO2 VBG O2 Saturation VBG Base Excess VBG Lactate Oxygen Liter Flow Sodium 138 Potassium 3.4 L D Chloride 102 Carbon Dioxide 27.2 Anion Gap 8.8 BUN 18 Creatinine 0.7 Est GFR (CKD-EPI 2020) 106.62 Glucose 200 H Hemoglobin A1c Calcium 8.3 L Magnesium 2.3 Total Bilirubin 0.2 AST 215 H ALT 336 H Alkaline Phosphatase 96 Creatine Kinase Troponin I 276 H* Total Protein 6.7 Albumin 2.3 L Triglycerides Total Cholesterol LDL Cholesterol, Calc HDL Cholesterol Urine Color Yellow Urine Clarity Clear Urine pH 6.0 Ur Specific [place] >= 1.030 H Urine Protein 30 H Urine Ketones Trace H Urine Blood Negative Urine Nitrite Negative Urine Bilirubin Negative Urine Urobilinogen 0.2 Ur Leukocyte Esterase Negative Urine RBC Negative Urine WBC Negative Ur Epithelial Cells Rare Urine Crystals Negative Urine Bacteria Rare Urine Casts Negative Urine Mucus Negative Ur Culture Indicated? No Urine Glucose Negative Urine Opiates Screen Negative Urine Methadone Screen Positive A Acetaminophen Ur Barbiturates Screen Negative Ur Tricyclics Screen Positive A Ur Amphetamines Screen Negative U Benzodiazepines Scrn Positive A Urine Cocaine Screen Negative Ur THC Screen Positive A Ethyl Alcohol COVID-19 Source SARS-CoV-2 (PCR) Influenza Type A (PCR) Influenza Type B (PCR) RSV (PCR) Add-On Test Request 04/23/22 04/23/22 04/23/22 05:56 05:56 05:56 WBC 11.66 H RBC 3.31 L Hgb 9.7 L D Hct 30.3 L MCV 92 MCH 29.3 MCHC 32.0 RDW 16.1 H Plt Count 225 MPV 10.3 Immature Gran % See Differential Neutrophils % 69.0 Band Neutrophils % 9 Lymphocytes % 12.0 Atypical Lymphs % Monocytes % 7.0 Eosinophils % 1.0 Basophils % 1.0 Metamyelocytes % 1 Nucleated RBC % 0.0 Absolute Neutrophils 9.09 H Absolute Lymphocytes 1.40 Absolute Monocytes 0.82 H Absolute Eosinophils 0.12 Absolute Basophils 0.12 RBC Morphology Normal PT INR D-Dimer ABG Sample Site ABG pH ABG pCO2 ABG pO2 ABG HCO3 ABG Total CO2 ABG O2 Saturation ABG Base Excess VBG pH VBG pCO2 VBG pO2 VBG HCO3 VBG Total CO2 VBG O2 Saturation VBG Base Excess VBG Lactate Oxygen Liter Flow Sodium Potassium Chloride Carbon Dioxide Anion Gap BUN Creatinine Est GFR (CKD-EPI 2020) Glucose Hemoglobin A1c 5.9 H Calcium Magnesium Total Bilirubin AST ALT Alkaline Phosphatase Creatine Kinase Troponin I Total Protein Albumin Triglycerides 134 Total Cholesterol 99 LDL Cholesterol, Calc 49 HDL Cholesterol 24 L Urine Color Urine Clarity Urine pH Ur Specific [place] Urine Protein Urine Ketones Urine Blood Urine Nitrite Urine Bilirubin Urine Urobilinogen Ur Leukocyte Esterase Urine RBC Urine WBC Ur Epithelial Cells Urine Crystals Urine Bacteria Urine Casts Urine Mucus Ur Culture Indicated? Urine Glucose Urine Opiates Screen Urine Methadone Screen Acetaminophen Ur Barbiturates Screen Ur Tricyclics Screen Ur Amphetamines Screen U Benzodiazepines Scrn Urine Cocaine Screen Ur THC Screen Ethyl Alcohol COVID-19 Source SARS-CoV-2 (PCR) Influenza Type A (PCR) Influenza Type B (PCR) RSV (PCR) Add-On Test Request 04/23/22 04/23/22 04/23/22 05:56 08:15 08:31 WBC RBC Hgb Hct MCV MCH MCHC RDW Plt Count MPV Immature Gran % Neutrophils % Band Neutrophils % Lymphocytes % Atypical Lymphs % Monocytes % Eosinophils % Basophils % Metamyelocytes % Nucleated RBC % Absolute Neutrophils Absolute Lymphocytes Absolute Monocytes Absolute Eosinophils Absolute Basophils RBC Morphology PT 13.8 H INR 1.4 H D-Dimer ABG Sample Site ABG pH ABG pCO2 ABG pO2 ABG HCO3 ABG Total CO2 ABG O2 Saturation ABG Base Excess VBG pH VBG pCO2 VBG pO2 VBG HCO3 VBG Total CO2 VBG O2 Saturation VBG Base Excess VBG Lactate Oxygen Liter Flow Sodium Potassium Chloride Carbon Dioxide Anion Gap BUN Creatinine Est GFR (CKD-EPI 2020) Glucose Hemoglobin A1c Calcium Magnesium Total Bilirubin AST ALT Alkaline Phosphatase Creatine Kinase 208 H Troponin I Total Protein Albumin Triglycerides Total Cholesterol LDL Cholesterol, Calc HDL Cholesterol Urine Color Urine Clarity Urine pH Ur Specific [place] Urine Protein Urine Ketones Urine Blood Urine Nitrite Urine Bilirubin Urine Urobilinogen Ur Leukocyte Esterase Urine RBC Urine WBC Ur Epithelial Cells Urine Crystals Urine Bacteria Urine Casts Urine Mucus Ur Culture Indicated? Urine Glucose Urine Opiates Screen Urine Methadone Screen Acetaminophen 3 Ur Barbiturates Screen Ur Tricyclics Screen Ur Amphetamines Screen U Benzodiazepines Scrn Urine Cocaine Screen Ur THC Screen Ethyl Alcohol COVID-19 Source SARS-CoV-2 (PCR) Influenza Type A (PCR) Influenza Type B (PCR) RSV (PCR) Add-On Test Request DONE 04/23/22 04/23/22 04/23/22 08:31 08:46 09:17 WBC RBC Hgb Hct MCV MCH MCHC RDW Plt Count MPV Immature Gran % Neutrophils % Band Neutrophils % Lymphocytes % Atypical Lymphs % Monocytes % Eosinophils % Basophils % Metamyelocytes % Nucleated RBC % Absolute Neutrophils Absolute Lymphocytes Absolute Monocytes Absolute Eosinophils Absolute Basophils RBC Morphology PT INR D-Dimer 1112 H ABG Sample Site Right Radial ABG pH 7.41 ABG pCO2 46 H ABG pO2 63 L ABG HCO3 29 H ABG Total CO2 28 H ABG O2 Saturation 93 L ABG Base Excess 5 H VBG pH VBG pCO2 VBG pO2 VBG HCO3 VBG Total CO2 VBG O2 Saturation VBG Base Excess VBG Lactate Oxygen Liter Flow 30 Sodium Potassium Chloride Carbon Dioxide Anion Gap BUN Creatinine Est GFR (CKD-EPI 2020) Glucose Hemoglobin A1c Calcium Magnesium Total Bilirubin AST ALT Alkaline Phosphatase Creatine Kinase Troponin I Total Protein Albumin Triglycerides Total Cholesterol LDL Cholesterol, Calc HDL Cholesterol Urine Color Urine Clarity Urine pH Ur Specific [place] Urine Protein Urine Ketones Urine Blood Urine Nitrite Urine Bilirubin Urine Urobilinogen Ur Leukocyte Esterase Urine RBC Urine WBC Ur Epithelial Cells Urine Crystals Urine Bacteria Urine Casts Urine Mucus Ur Culture Indicated? Urine Glucose Urine Opiates Screen Urine Methadone Screen Acetaminophen Cancelled Ur Barbiturates Screen Ur Tricyclics Screen Ur Amphetamines Screen U Benzodiazepines Scrn Urine Cocaine Screen Ur THC Screen Ethyl Alcohol COVID-19 Source SARS-CoV-2 (PCR) Influenza Type A (PCR) Influenza Type B (PCR) RSV (PCR) Add-On Test Request 04/23/22 10:17 WBC RBC Hgb Hct MCV MCH MCHC RDW Plt Count MPV Immature Gran % Neutrophils % Band Neutrophils % Lymphocytes % Atypical Lymphs % Monocytes % Eosinophils % Basophils % Metamyelocytes % Nucleated RBC % Absolute Neutrophils Absolute Lymphocytes Absolute Monocytes Absolute Eosinophils Absolute Basophils RBC Morphology PT INR D-Dimer ABG Sample Site ABG pH ABG pCO2 ABG pO2 ABG HCO3 ABG Total CO2 ABG O2 Saturation ABG Base Excess VBG pH VBG pCO2 VBG pO2 VBG HCO3 VBG Total CO2 VBG O2 Saturation VBG Base Excess VBG Lactate 3.3 H* Oxygen Liter Flow Sodium Potassium Chloride Carbon Dioxide Anion Gap BUN Creatinine Est GFR (CKD-EPI 2020) Glucose Hemoglobin A1c Calcium Magnesium Total Bilirubin AST ALT Alkaline Phosphatase Creatine Kinase Troponin I Total Protein Albumin Triglycerides Total Cholesterol LDL Cholesterol, Calc HDL Cholesterol Urine Color Urine Clarity Urine pH Ur Specific [place] Urine Protein Urine Ketones Urine Blood Urine Nitrite Urine Bilirubin Urine Urobilinogen Ur Leukocyte Esterase Urine RBC Urine WBC Ur Epithelial Cells Urine Crystals Urine Bacteria Urine Casts Urine Mucus Ur Culture Indicated? Urine Glucose Urine Opiates Screen Urine Methadone Screen Acetaminophen Ur Barbiturates Screen Ur Tricyclics Screen Ur Amphetamines Screen U Benzodiazepines Scrn Urine Cocaine Screen Ur THC Screen Ethyl Alcohol COVID-19 Source SARS-CoV-2 (PCR) Influenza Type A (PCR) Influenza Type B (PCR) RSV (PCR) Add-On Test Request Objective Narrative Objective Narrative: CT/CTA chest/CT abdomen/pelvis w/ contrast: 1. No evidence of pulmonary emboli. 2. Multifocal pneumonia, most extensive in the right middle lobe, with associated bronchitis. 3. Moderately advanced centrilobular emphysema. 4. No acute abnormality in the abdomen or pelvis. 5. Likely small appendiceal mucocele. Nonemergent surgical consultation is recommended. No acute inflammatory changes about the appendix. 6. Additional incidental findings are discussed in the body of the report.
[2022-04-23] MEDS: Acetaminophen 325 MG TAB PO ×2 (10:58→21:25)
--- NOTE | 2022-04-23 10:59 | PDOC.CMIN ---
- If Service Date Differs Date of service: 04/23/22 Time of Service: 10:59 Care Management Initial Assess REASON FOR HOSPITALIZATION:: Sepsis, pneumonia PAST MEDICAL HISTORY/PAST SURGICAL HISTORY:: All Active Problems. Renal insufficiency (Chronic). Elevated troponin I level (Acute). Elevated transaminase level (Acute). Discharge planning issues (Acute). DVT prophylaxis (Acute). Smoker (Acute). Sepsis due to pneumonia (Acute). Sepsis with multi-organ dysfunction (Acute). Generalized anxiety disorder (Chronic). Social anxiety disorder (Chronic). Major depressive disorder (Chronic). Opioid use disorder (Chronic). Methadone through [facility]. GERD (gastroesophageal reflux disease) (Chronic). Vitamin D deficiency (Chronic). Asthma (Chronic). Medical History. Degenerative disc disease. cervical spine with radiculopathy down right arm. Substance abuse. Hx opiate abuse, pills then heroin (snorted), no hx of IVDU. Surgical History. History of laparoscopy PREVIOUS FUNCTIONAL STATUS/SOCIAL/FAMILY SUPPORTS:: Wily lives in an apartment in [facility]. Her mother and daugther live in the same building, and provide her with a lot of support. She has a ten year old son who she shares custody with his father. She is currently unemployed, and is independent with her ADL's at baseline. CURRENT FUNCTIONAL STATUS:: Wily was sitting up in bed when CM met with her. Her mother and adult daughter were in the room visiting. She stated that she is feeling better than when she arrived. She reported that she is not on O2 at baseline, and per report was on 5LO2 this morning. She is being treated with antibiotics for sepsis due to pneumonia. An echo was ordered for tomorrow. CM will continue to follow. ADVANCE DIRECTIVES:: None on file. Has patient been provided with info about the portal/API?: Yes Did the patient sign up for the portal?: Yes (active) CODE STATUS:: Full Code INSURANCE COVERAGE / FINANCIAL ISSUES:: [employer] CURRENT HOME/COMMUNITY SERVICES/EQUIPMENT:: Wily receives support from [employer]. PRIMARY CARE PHYSICIAN:: Alma Dixon POTENTIAL DISCHARGE NEEDS:: Evaluations for further needs, follow up appointments. PATIENT/FAMILY EDUCATION NEEDS:: Review discharge instructions and limitations, discussion of self care needs including ask me three. ANTICIPATED BARRIERS TO DISCHARGE:: None identified. TRANSPORTATION:: Via private vehicle by family. PLAN:: Anticipate Wily will return home once medically cleared. She will be driven home via private vehicle by family. She will follow up with her PCP and discharge plan of care. CM will continue to follow.
[2022-04-23] MEDS: guaiFENesin 600 MG TABCR PO ×2 (11:24→19:33)
[2022-04-23] MEDS: Lactated Ringers 1,000 ML 1000 ML IV (12:32)
[2022-04-23 13:49] LABS: Lactate 3.8 mmol/L (0.6-1.4)
[2022-04-23] MEDS: Lactated Ringers 1,000 ML 150 ML IV (13:55)
[2022-04-23 16:50] LABS: Lactate 2.5 mmol/L (0.6-1.4)
[2022-04-23] MEDS: cefTRIAXone 2 GM/50 ML BAG IVPB (17:52)
[2022-04-23 18:08] LABS: Legionella Ag Detection Urine Negative (Negative)
[2022-04-23] MEDS: traZODone 50 MG TAB PO (21:25)
[2022-04-24] VITALS (17 sets, daily range): BP systolic 106–125; BP diastolic 65–77; PULSE 76–121; RESP 4–20; TEMP 36–36.9; O2SAT 91–98
--- NOTE | 2022-04-24 | DI.US_ITS ---
APPROVED REPORT EXAM: Comprehensive 2D, Doppler, and color-flow Echocardiogram Patient Location: In-Patient Room/Bed: [facility] Fireman: Saumya Serra RDCS (AE) Indications: Elevated troponin Other Information Study Quality: Adequate Conclusion Normal left ventricular wall thickness and chamber size. Estimated ejection fraction is 65%. Wall m otion is normal Normal right ventricular size and systolic function Both atria are normal in size There is no structural or hemodynamically significant valvular disease Estimated right ventricular systolic pressure is 39 mmHg Wall motion Left Ventricle The left ventricle is normal size. The left ventricular systolic function is normal. The left ventric ular ejection fraction is within the normal range. There is normal left ventricular wall thickness. T here is normal LV segmental wall motion. There is no ventricular septal defect visualized. LVEF is 65 %. Right Ventricle The right ventricle is normal size. The right ventricular systolic function is normal. The RVSP is 38 .9 mmHg. Atria The left atrium size is normal. The right atrium size is normal. The interatrial septum is intact wit h no evidence for an atrial septal defect. Aortic Valve The aortic valve is normal in structure. There is no aortic valvular stenosis. No aortic regurgitatio n is present. Mitral Valve The mitral valve is normal in structure. No evidence of mitral valve stenosis. Trace mitral regurgita tion. Tricuspid Valve The tricuspid valve is normal in structure. There is no tricuspid valve stenosis. Mild tricuspid regu rgitation. Pulmonic Valve The pulmonary valve is normal in structure. There is no pulmonic valvular stenosis. There is no pulmo luci valvular regurgitation. Great Vessels The aortic root is normal in size. The ascending aorta is normal in size. Aortic arch is not well vis ualized. IVC is normal in size and collapses >50% with inspiration. Pericardium There is no pericardial effusion. 2D Dimensions IVSD d PLAX 0.84 cm F: 0.6-1.0 LV Vol A2C d MOD 74.4 mL LVPW d PLAX 0.89 cm F: 0.6 - 1.0 LV Vol A4C d MOD 69.9 mL LVID d PLAX 4.74 cm F: 3.8 - 5.2 LA vol/ BSA A2C s A-L 21.6 mL/m2 LVDs 3.10 cm F: 2.2 - 3.5 LA vol/ BSA A4C s A-L 18.6 mL/m2 Ao Root d 2.85 cm F: 2.7 - 3.3 LA Vol/ BSA Biplane s A-L 20.9 mL/m2 RA Area A4C 13.57 cm2 LA Area A4C s MOD 13.85 cm2 RA Vol/ BSA A4C s A-L 19.6 mL/m2 LA Area A2C s MOD 14.31 cm2 Ao Asc Diam d 3.20 cm F: 2.3 - 3.1 LV EF A4C MOD 65.2 % LV EF Teichholz 63.1 % LV EF A2C MOD 65.8 % LVEF (Schreiber's) 65.03 % F: 54 - 74 LV EF Biplane MOD 65.0 % LV Volume 56.62 mL F: 46 - 106 SV 46.91 mL LV Volume Index 32.35 mL/m2 F: 29 - 61 SV Index 26.73 mL/m2 LV Vol Biplane MOD 72.1 mL FS 34.15 % M-Mode TAPSE 2.97 cm (M/F) >1.7 LV Diastology MV E' medial 0.116 (>0.07 m/s) E/A Ratio 0.9 LV E/e MED 9.55 (<14) MV E Vmax 1.11 (0.4-1.3 m/s) MV E' lateral 0.143 (>0.1 m/s) MV A Vmax 1.20 (0.4-1.3 m/s) LV E/e LAT 7.70 (<14) MV E/A Ratio 0.89 MV E/E' medial 9.58 MV E/E' lateral 7.73 Aortic Valve LVOT Area 2.74 cm2 AoV Area Vmax 2.62 cm2 LVOT Vmax 1.48 m/s AoV Area/ BSA (Vmax) 1.49 cm2/m2 LVOT Mean Ino. 0.96 m/s KIARA Mean Ino. 2.59 cm2 LVOT Peak Grad 8.8 mmHg KIARA Mean Ino. Index 1.47 cm2/m2 LVOT Mean Grad 4.3 mmHg LVOT VTI 0.301 m LVOT Diam s 1.85 cm AoV Vmax 1.55 m/s Velocity Ratio 0.95 AoV Mean Ino. 1.01 m/s AoV Peak Grad 9.6 mmHg LVOT SV 82.50 mL AoV Mean Grad 4.8 mmHg AoV VTI 0.300 m AoV Area VTI 2.75 cm2 AoV Area/ BSA (VTI) 1.57 cm/m2 Mitral Valve MV DT 211 (160-240 msec) MV PHT 61 msec MV Area PHT 3.59 cm2 MV VTI 0.335 m MV Area VTI 2.46 (4.0-6.0 cm2) Pulmonary Valve PV Vmax 1.08 (0.5-1.5 m/s) RVOT Peak Gr. 4.22 mmHg PV Peak Grad 4.7 mmHg RVOT Mean Gr. 2.30 mmHg PV Mean Grad 2.6 mmHg RVOT VTI 0.242 m PV VTI 0.223 m RVOT Vmax 1.03 m/s Tricuspid Valve TR Peak Grad 35.8 mmHg TR Vmax 2.99 m/s RA Pressure 3.00 mmHg RVSP (TR) 38.9 mmHg
[2022-04-24] MEDS: Normal Saline Flush 10 ML SYR IVP ×3 (00:04→20:23)
[2022-04-24] MEDS: Enoxaparin 40 MG/0.4 ML SYR SC ×2 (00:05→23:51)
[2022-04-24] MEDS: Albuterol/Ipratropium 3 ML UPD VIAL UPD ×6 (00:06→20:51)
[2022-04-24] MEDS: methylPREDNISolone SUCC 125 MG VIAL 80 MG IVP (00:07)
--- NOTE | 2022-04-24 07:19 | W.PULMCON ---
General Date Of Service Date of service: 04/24/22 Time of Service: 07:19 Reason for Consult: Pneumonia Asthma Exacerbation Assessment and Plan Assessment and plan (1) Acute respiratory failure with hypoxia: Status: Acute (2) Smoker: Status: Acute (3) Sepsis due to pneumonia: Status: Acute (4) Asthma exacerbation: Status: Acute Assessment and plan: This is a 47yo female with long standing asthma who is admitted for a pneumonia and asthma exacerbation. The appearance of the pneumonia is atypical in nature, but ceftriaxone and doxy should be sufficient. She has grown Moraxella in the past from her sputum, and her current sputum is growing gram positive cocci. Clinically she is in an asthma exacerbation. I will change her steroids to approximately 1mg/kg PO (no efficacy difference between IV and PO) for her exacerbation. Symbicort is a good choice for her asthma and is what she is on at home. I discussed the importance of airway clearance and I will increase her Mucinex. I do think her main issue at the moment is the asthma exacerbation, which can take a fair amount of time to improve from. With her smoking history she will need to be screened for co-morbid COPD, however we will do this as an outpatient. Asthma Exacerbation - change methylpred to 60mg prednisone daily - Mucinex 1200 bid - Duonebs QID - albuteral nebs prn - I will arrange outpatient follow up with me Atypical pneumonia - await speciation of sputum culture - continue ceftrixone and doxy - can consider switching doxy to PO - continue IS and VibraPEP Hypoxic respiratory failure - wean O2 as tolerate for O2 sats >90% - D/C CPAP History of Present Illness Narrative: This is a 47 yo female with long standing asthma (since ) who smokes (40 pack years, currently 10 cig/day) admitted for an atypical pneumonia and an asthma exacerbation. She is being treated with ceftriaxone and doxy, which are appropriate. Her sputum culture has grown gram positives, and she has had very extensive serological testing already performed. She is not immunocompromised that we know of. She is on Symbicort and was receiving IV methylpred 80 q8h. She feels like her breathing has gotten better since being admitted and her oxygen requirements have come down, but she states she is not yet at 100%. She also was attempted to wear CPAP at night at one point, although there is no diagnosis of HITESH in her chart and she tells me she has never been told she has HITESH. She has been trying to quit smoking and has cut back to 10 cig/day from 1.5 ppd. She lives in a house built in the 1900s so could have exposures to molds or asbestos. She does have environmental allergies as well as allergies to cats. Review of Systems All systems reviewed & are unremarkable except as noted in HPI and below PFSH All Active Problems (Updated 04/24/22 @ 09:11 by Soha Williamson MD) Asthma exacerbation (Acute) Acute respiratory failure with hypoxia (Acute) Renal insufficiency (Chronic) Elevated troponin I level (Acute) Elevated transaminase level (Acute) Discharge planning issues (Acute) DVT prophylaxis (Acute) Smoker (Acute) Sepsis due to pneumonia (Acute) Sepsis with multi-organ dysfunction (Acute) Generalized anxiety disorder (Chronic) Social anxiety disorder (Chronic) Major depressive disorder (Chronic) Opioid use disorder (Chronic) Methadone through [facility] GERD (gastroesophageal reflux disease) (Chronic) Vitamin D deficiency (Chronic) Asthma (Chronic) Medical History Degenerative disc disease cervical spine with radiculopathy down right arm. Substance abuse Hx opiate abuse, pills then heroin (snorted), no hx of IVDU. Surgical History History of laparoscopy Family History Mother No problems noted. Father Atrial fibrillation Brother No problems noted. Brother No problems noted. Son No problems noted. Daughter No problems noted. Maternal Grandfather No problems noted. Maternal Grandmother No problems noted. Paternal Grandfather Cancer Unknown type Paternal Grandmother No problems noted. Social History (Updated 04/22/22 @ 22:49 by Conor Fox) Smoking/Tobacco Use Status: Current every day Tobacco Type: cigarettes Smoking risk assessment performed?: Yes Alcohol Intake: current Alcohol Intake frequency: 0-2 drinks per day Alcohol type: beer Drug use: Occasionally Substance use type: marijuana and other Details: ON SUBOXONE Household members: family and other Details: Lives with mother, 23 year old daughter, shared custody of 6 yr old son. 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 Current gender identity: female Seatbelt use: always Do you feel safe at home: Yes Do you feel safe in your relationship?: Yes Additional Social history: Lives in 2 Family in [facility], son with her line department supervisor. Adult daughter and mother live in other apartment. History History 2 Para 2 Hx # Term Pregnancies Multiple births Hx # Pregnancies Ectopic pregnancies AB induced Hx Number of Living Children 2 AB spontaneous Visit Medication and Allergies Active Medications Generic Name Dose Route Start Last Admin Trade Name Freq PRN Reason Stop Dose Admin Acetaminophen 0 mg 04/22/22 22:06 04/23/22 21:25 Acetaminophen 325 Mg Tab PO 650 mg Q4H PRN PRN Administration Albuterol Sulfate 2.5 mg 04/22/22 22:03 Albuterol 2.5 Mg/3 Ml Inh Soln Vial UPD Q2H PRN PRN Albuterol/Ipratropium 3 ml 04/24/22 08:30 Albuterol/Ipratropium 3 Ml Upd Vial UPD QID ALFREDO Budesonide/Formoterol Fumarate 0 puff 04/22/22 20:00 04/23/22 19:33 Budesonide/Formoterol 160/4.5 6 Gm 60 Puff Inh IH 2 puffs BID ALFREDO Administration Bupropion HCl 150 mg 04/23/22 08:30 04/23/22 08:55 Bupropion-Xl 150 Mg Tabcr PO 150 mg DAILY ALFREDO Administration Device 1 each 04/22/22 20:00 Inhaler, Assist Device MC DIRECTED ALFREDO Dimethicone/Zinc Oxide 0 gm 04/22/22 22:03 [place]nn Protect Cream 142 Gm Tube TP PRN PRN Enoxaparin Sodium 40 mg 04/23/22 00:00 04/24/22 00:05 Enoxaparin 40 Mg/0.4 Ml Syr SC 40 mg Q24H ALFREDO Administration Guaifenesin 1,200 mg 04/24/22 08:30 Guaifenesin 600 Mg Tabcr PO BID ALFREDO Sodium Chloride 500 mls @ 0 mls/hr 04/22/22 18:40 Saline 500ml Bag IV PRN PRN As Directed Ceftriaxone Sodium/Dextrose 2 gm in 50 mls @ 100 mls/hr 04/23/22 18:00 04/23/22 19:24 Rocephin IVPB Infused Q24H ALFREDO Infusion Doxycycline Hyclate 100 mg/ 100 mls @ 100 mls/hr 04/23/22 08:00 04/23/22 20:33 Sodium Chloride IVPB Infused Q12H ALFREDO Infusion IV Miscellaneous Supplies 1 each 04/22/22 18:45 Iv Access IV DIRECTED ALFREDO Iohexol 100 ml 04/23/22 09:30 04/23/22 09:28 Omnipaque 350 Mg/Ml 100 Ml Btl IV 05/23/22 23:59 100 ml DIRECTED ALFREDO Administration Lansoprazole 30 mg 04/23/22 08:30 04/23/22 09:11 Lansoprazole 30 Mg Capcr PO 30 mg DAILY ALFREDO Administration Methadone HCl 95 mg 04/23/22 08:30 Methadone Liquid 10 Mg/Ml PO DAILY ALFREDO Nystatin 500,000 units 04/24/22 08:30 Nystatin 652071 Units/5 Ml Susp 5ml Cup PO TID ALFREDO Pantoprazole Sodium 40 mg 04/24/22 07:30 Pantoprazole 40 Mg Tabcr PO DAILY@0730 ALFREDO Polyethylene Glycol 17 gm 04/22/22 22:06 Polyethylene Glycol 3350 17 Gm Packet PO DAILY PRN PRN Constipation Prednisone 40 mg 04/24/22 08:30 Prednisone 20 Mg Tab PO DAILY ALFREDO Sertraline HCl 150 mg 04/23/22 08:30 04/23/22 08:55 Sertraline 100 Mg Tab PO 150 mg DAILY ALFREDO Administration Sodium Chloride 0 ml 04/22/22 18:40 04/24/22 00:04 Normal Saline Flush 10 Ml Syr IVP 20 ml PRN PRN Administration Sodium Chloride 250 ml 04/23/22 09:30 04/23/22 09:29 Normal Saline 250 Ml Bag IV 50 ml DIRECTED ALFREDO Administration Trazodone HCl 50 mg 04/22/22 22:00 04/23/22 21:25 Trazodone 50 Mg Tab PO 50 mg HS ALFREDO Administration Allergies No Known Drug Allergies Allergy (Verified 04/22/22 16:34) Exam Narrative Exam Narrative: Gen: NAD, normal respiratory effort, well-nourished HENT: PERRL, nasal turbinates normal without erythema or inflammation, moist oral mucosa, Mallampati 2, No LAD or JVD Chest: No respiratory distress, tachypnea, inspiratory and expiratory wheezing Heart: regular rate and rhythym, no murmurs, rubs or gallops Abdomen: Non-distended, soft, non tender Extremities: No clubbing, edema, cyanosis, rashes Neuro: AAOx3 , non focal Psych: cooperative, appropriate mental affect Results Last Vital Signs Temp 36 C L 04/24/22 03:56 Pulse 76 04/24/22 03:56 Resp 14 04/24/22 03:56 BP 106/66 04/24/22 03:56 Pulse Ox 93 04/24/22 03:56 Labs Result diagrams: 04/24/22 06:45 04/24/22 06:45 Labs: Laboratory Results - last 24 hr 04/23/22 04/23/22 04/23/22 05:56 05:56 05:56 WBC RBC Hgb Hct MCV MCH MCHC RDW Plt Count MPV Immature Gran % Neutrophils % Band Neutrophils % Lymphocytes % Monocytes % Eosinophils % Basophils % Metamyelocytes % Nucleated RBC % Absolute Neutrophils Absolute Lymphocytes Absolute Monocytes Absolute Eosinophils Absolute Basophils RBC Morphology PT INR D-Dimer ABG Sample Site ABG pH ABG pCO2 ABG pO2 ABG HCO3 ABG Total CO2 ABG O2 Saturation ABG Base Excess VBG Lactate Oxygen Liter Flow Sodium 138 Potassium 3.4 L D Chloride 102 Carbon Dioxide 27.2 Anion Gap 8.8 BUN 18 Creatinine 0.7 Est GFR (CKD-EPI 2020) 106.62 Glucose 200 H Hemoglobin A1c 5.9 H Calcium 8.3 L Magnesium 2.3 Total Bilirubin 0.2 AST 215 H ALT 336 H Alkaline Phosphatase 96 Creatine Kinase Troponin I 276 H* Total Protein 6.7 Albumin 2.3 L Triglycerides 134 Total Cholesterol 99 LDL Cholesterol, Calc 49 HDL Cholesterol 24 L Acetaminophen Add-On Test Request 04/23/22 04/23/22 04/23/22 05:56 05:56 08:15 WBC 11.66 H RBC 3.31 L Hgb 9.7 L D Hct 30.3 L MCV 92 MCH 29.3 MCHC 32.0 RDW 16.1 H Plt Count 225 MPV 10.3 Immature Gran % See Differential Neutrophils % 69.0 Band Neutrophils % 9 Lymphocytes % 12.0 Monocytes % 7.0 Eosinophils % 1.0 Basophils % 1.0 Metamyelocytes % 1 Nucleated RBC % 0.0 Absolute Neutrophils 9.09 H Absolute Lymphocytes 1.40 Absolute Monocytes 0.82 H Absolute Eosinophils 0.12 Absolute Basophils 0.12 RBC Morphology Normal PT 13.8 H INR 1.4 H D-Dimer ABG Sample Site ABG pH ABG pCO2 ABG pO2 ABG HCO3 ABG Total CO2 ABG O2 Saturation ABG Base Excess VBG Lactate Oxygen Liter Flow Sodium Potassium Chloride Carbon Dioxide Anion Gap BUN Creatinine Est GFR (CKD-EPI 2020) Glucose Hemoglobin A1c Calcium Magnesium Total Bilirubin AST ALT Alkaline Phosphatase Creatine Kinase 208 H Troponin I Total Protein Albumin Triglycerides Total Cholesterol LDL Cholesterol, Calc HDL Cholesterol Acetaminophen 3 Add-On Test Request 04/23/22 04/23/22 04/23/22 08:31 08:31 08:46 WBC RBC Hgb Hct MCV MCH MCHC RDW Plt Count MPV Immature Gran % Neutrophils % Band Neutrophils % Lymphocytes % Monocytes % Eosinophils % Basophils % Metamyelocytes % Nucleated RBC % Absolute Neutrophils Absolute Lymphocytes Absolute Monocytes Absolute Eosinophils Absolute Basophils RBC Morphology PT INR D-Dimer 1112 H ABG Sample Site Right Radial ABG pH 7.41 ABG pCO2 46 H ABG pO2 63 L ABG HCO3 29 H ABG Total CO2 28 H ABG O2 Saturation 93 L ABG Base Excess 5 H VBG Lactate Oxygen Liter Flow 30 Sodium Potassium Chloride Carbon Dioxide Anion Gap BUN Creatinine Est GFR (CKD-EPI 2020) Glucose Hemoglobin A1c Calcium Magnesium Total Bilirubin AST ALT Alkaline Phosphatase Creatine Kinase Troponin I Total Protein Albumin Triglycerides Total Cholesterol LDL Cholesterol, Calc HDL Cholesterol Acetaminophen Add-On Test Request DONE 04/23/22 04/23/22 04/23/22 09:17 10:17 13:36 WBC RBC Hgb Hct MCV MCH MCHC RDW Plt Count MPV Immature Gran % Neutrophils % Band Neutrophils % Lymphocytes % Monocytes % Eosinophils % Basophils % Metamyelocytes % Nucleated RBC % Absolute Neutrophils Absolute Lymphocytes Absolute Monocytes Absolute Eosinophils Absolute Basophils RBC Morphology PT INR D-Dimer ABG Sample Site ABG pH ABG pCO2 ABG pO2 ABG HCO3 ABG Total CO2 ABG O2 Saturation ABG Base Excess VBG Lactate 3.3 H* 3.8 H* Oxygen Liter Flow Sodium Potassium Chloride Carbon Dioxide Anion Gap BUN Creatinine Est GFR (CKD-EPI 2020) Glucose Hemoglobin A1c Calcium Magnesium Total Bilirubin AST ALT Alkaline Phosphatase Creatine Kinase Troponin I Total Protein Albumin Triglycerides Total Cholesterol LDL Cholesterol, Calc HDL Cholesterol Acetaminophen Cancelled Add-On Test Request 04/23/22 16:20 WBC RBC Hgb Hct MCV MCH MCHC RDW Plt Count MPV Immature Gran % Neutrophils % Band Neutrophils % Lymphocytes % Monocytes % Eosinophils % Basophils % Metamyelocytes % Nucleated RBC % Absolute Neutrophils Absolute Lymphocytes Absolute Monocytes Absolute Eosinophils Absolute Basophils RBC Morphology PT INR D-Dimer ABG Sample Site ABG pH ABG pCO2 ABG pO2 ABG HCO3 ABG Total CO2 ABG O2 Saturation ABG Base Excess VBG Lactate 2.5 H* Oxygen Liter Flow Sodium Potassium Chloride Carbon Dioxide Anion Gap BUN Creatinine Est GFR (CKD-EPI 2020) Glucose Hemoglobin A1c Calcium Magnesium Total Bilirubin AST ALT Alkaline Phosphatase Creatine Kinase Troponin I Total Protein Albumin Triglycerides Total Cholesterol LDL Cholesterol, Calc HDL Cholesterol Acetaminophen Add-On Test Request
[2022-04-24 07:32] LABS: HCT 30.3 % (36.0-46.0); HGB 9.6 g/dL (11.2-15.7); MCHC 31.7 % (32.0-36.0); MCV 92 fL (80-95); MPV 10.3 fL (8.0-11.0); Platelet Count 314 10^3/uL (130-400); RBC 3.31 10^6/uL (3.93-5.22); RDW 16.3 % (11.7-14.6); RDW-SD 55.5 fL; WBC 20.68 10^3/uL (4.4-10.8)
[2022-04-24 07:54] LABS: Absolute Lymphocyte Count 3.31 10^3/uL (1.2-3.4); Absolute Monocyte Count 0.83 10^3/uL (0.1-0.8); Absolute Neutrophil Count 16.13 10^3/uL (1.2-6.7); Bands % 6; Diff Comment Manual Differential; Metamyelocytes % 2; RBC Morphology Normal
[2022-04-24 08:03] LABS: ALT 333 U/L (14-59); AST 112 U/L (15-37); Albumin 2.5 g/dL (3.4-5.0); Alkaline Phosphatase 98 U/L (46-116); Anion Gap 9.6 mmol/L (3-11); BUN 17 mg/dL (7-18); Bilirubin, Direct < 0.1 mg/dL (0.0-0.2); Bilirubin, Total 0.2 mg/dL (0.2-1.0); CO2 27.4 mmol/L (21.0-32.0); CREATININE 0.7 mg/dL (0.55-1.02); Calcium 8.9 mg/dL (8.5-10.1); Chloride 104 mmol/L (98-107); Estimated GFR 106.62 (mL/min/1.73m2); Glucose 131 mg/dL (74-106); Magnesium 2.4 mg/dL (1.8-2.4); Potassium 3.8 mmol/L (3.5-5.1); Sodium 141 mmol/L (136-145); Total Protein 7.2 g/dL (6.4-8.2)
[2022-04-24] MEDS: DOXYCYCLINE 100 MG in Normal Saline 100 ML IVPB ×2 (08:08→20:29)
[2022-04-24] MEDS: Nystatin 500000 UNITS/5 ML SUSP 5ML CUP PO ×3 (08:08→20:23)
[2022-04-24] MEDS: Methadone Liquid 10 MG/ML 110 MG PO (08:08)
[2022-04-24] MEDS: buPROPion-XL 150 MG TABCR PO (08:09)
[2022-04-24] MEDS: Sertraline 100 MG TAB 150 MG PO (08:09)
[2022-04-24] MEDS: guaiFENesin 600 MG TABCR 1200 MG PO ×2 (08:09→20:26)
[2022-04-24] MEDS: Lansoprazole 30 MG CAPCR PO (08:09)
[2022-04-24] MEDS: predniSONE 20 MG TAB 40 MG PO (08:09)
[2022-04-24 08:24] LABS: Lab Add On Test DONE
[2022-04-24] MEDS: Budesonide/Formoterol 160/4.5 6 GM 60 PUFF INH IH ×2 (08:32→20:20)
[2022-04-24 08:50] LABS: C-Reactive Protein > 25.00 mg/dL (0.0-0.3)
[2022-04-24 08:57] LABS: Procalcitonin 2.1 ng/mL
--- NOTE | 2022-04-24 09:07 | CMPROGNOTE_ITS ---
- If Service Date Differs Date of service: 04/24/22 Time of Service: 09:07 Care Management Progress Note S/O: Wily was lying in bed with the HOB elevated, eating her lunch when CM met with her. She is awake, alert and able to engage in conversation. Wily shares that she has missed several of her dental appointments over the last few months at [facility], and is unable to make anymore appointments because of this. She is wondering if CM could reach out to them to see about scheduling. CM recommended that she contact the office personally (when she is feeling up to it) and talk to them. Sometimes, dental office's will make exceptions if there is a scheduling agreement moving forward. In addition, CM sent referrals to [employer] (for CM in the community) and [employer] (for help applying for fuel and food benefits.) A: 47 year old female admitted to [facility] on 04/22/22 for Sepsis, pneumonia P: Anticipate Wily will return home once medically cleared. She will be driven home via private vehicle by family. She will follow up with her PCP and discharge plan of care. Referrals were sent to [facility] and [facility]. Wily will need a last Methadone dose letter for [facility]. CM will continue to follow.
[2022-04-24] MEDS: predniSONE 20 MG TAB PO (09:29)
[2022-04-24 10:15] LABS: Lyme Ab w Rflx to Lyme Confirm Negative (Negative)
[2022-04-24 11:36] LABS: Hepatitis A Antibody IgM Negative (Negative); Hepatitis B Core Antibody Negative (Negative); Hepatitis B surface Ag Negative (Negative); Hepatitis C Ab w Rflx HCV PCR Negative (Negative)
--- NOTE | 2022-04-24 15:01 | PHA.REVIEW2 ---
Pharmacy Admission Review - Admission Clinical Review (Last Reviewed 04/22/22 @ 22:27 by Conor Fox) Asthma exacerbation (Acute) Acute respiratory failure with hypoxia (Acute) Elevated troponin I level (Acute) Elevated transaminase level (Acute) Discharge planning issues (Acute) DVT prophylaxis (Acute) Smoker (Acute) Sepsis due to pneumonia (Acute) Sepsis with multi-organ dysfunction (Acute) No Known Drug Allergies Allergy (Verified 04/22/22 16:34) Resuscitation Status Full Code Height 5 ft 6 in Weight 68.4 kg - Renal Dosing Renal Dosing: BUN 17 mg/dL (7-18) 04/24/22 06:45 Creatinine 0.7 mg/dL (0.55-1.02) 04/24/22 06:45 Medications needing adjustments: Reviewed (Crcl ~105 mL/min current meds okay) - Anticoagulation Anticoagulation: Hgb 9.6 g/dL (11.2-15.7) L 04/24/22 06:45 Hct 30.3 % (36.0-46.0) L 04/24/22 06:45 Plt Count 314 10^3/uL (130-400) 04/24/22 06:45 INR 1.4 (0.9-1.1) H 04/23/22 08:15 Creatinine 0.7 mg/dL (0.55-1.02) 04/24/22 06:45 DVT Prophylaxis: Reviewed Medications: Enoxaparin Therapeutic Anticoagulation: N/A - Opiate Usage Evaluate Pain Scale/Pains Meds: Reviewed Scheduled Bowel Reg ordered if on Opiates?: No (has PRN med ordered) - Relevant Labs Sodium 141 mmol/L (136-145) 04/24/22 06:45 Potassium 3.8 mmol/L (3.5-5.1) 04/24/22 06:45 Chloride 104 mmol/L (98-107) 04/24/22 06:45 Magnesium 2.4 mg/dL (1.8-2.4) 04/24/22 06:45 C-Reactive Protein > 25.00 mg/dL (0.0-0.3) H 04/24/22 06:45 Electrolytes, C-Reactive P, ESR: Reviewed - DM Control DM Control: Glucose 131 mg/dL (74-106) H 04/24/22 06:45 Hemoglobin A1c 5.9 % (<5.7) H 04/23/22 05:56 DM Control: Reviewed - Cardiac Review Cardiac Review: Troponin I 276 ng/L (<or=60) H* 04/23/22 05:56 BP, HR, EF%: Reviewed (BP has been within normal limits today, HR normal to high) - Qtc Review QTc: Reviewed (QTc 511 on most recent EKG (04/23/22). Has methadone and trazodone ordered.) - IV to PO Switch IV Medications: Reviewed - Home Meds Home Med List reviewed: Intervened (verified methadone dose with [facility], 110 mg daily) Relevent Home Meds Not ordered & why?: cholecalciferol - Current meds Current Medication Order Review: Intervened (Discontinued DI meds that had already been given, retimed lansoprazole based on med administration time policy, talked to provider about duplicate medication orders.) - Comments Comments/Follow Ups: Watch HP, BP, H/H, labs and for med changes (avoid QT prolonging meds, possible need of additional BM meds). Antibiotic Review - Pharmacy Antibiotic Review Pharmacy Antibiotic Activity: C/S review, Reviewed, no change (Ceftriaxone and doxycycline continue for pnuemonia (day 3 total abx starts this evening). One BC growing gram negative cocco bacillus; sputum growing gram negative cocco bacillus, rk, and normal andry; MRSA and repeat BCs pending.) Relevant Labs: Relevant Labs 04/24/22 04/24/22 06:45 06:45 C-Reactive Protein > 25.00 H Procalcitonin 2.1
--- NOTE | 2022-04-24 15:56 | W.PM.PROGNOT ---
Date of Service Date of service: 04/24/22 Time of Service: 15:57 Assessment and Plan Assessment and plan (1) Sepsis due to pneumonia: Status: Acute Assessment and plan: Continue ceftriaxone and doxycycline (azithromycin would contribute to QT elevation from methadone). Blood cultures are possitive for gram negative cocco bacilli. She has a h/o moraxella in the past. Repeat blood cultures ordered. Continue current abx. Continue mucinex. Encourage pulmonary toilet. Wean O2 as tolerated. (2) Acute respiratory failure with hypoxia: Status: Acute Assessment and plan: Due to PNA, present on admission. As above. (3) Elevated troponin I level: Status: Acute Assessment and plan: In setting of hypoxia, sepsis due to pneumonia, agree that it is likely type 2 demand ischemia. PE ruled out. Echo with preserved LVEF (65%), no hemodynamically significant valvular disease, no wall motion abnormalities, RVSP of 39 mmHg. Would continue to monitor on tele. (4) Asthma: Status: Chronic Assessment and plan: In acute exacerbation. STeroids decreased. Seen by Dr Williamson today. Scheduled + prn nebs. Qualifiers: Asthma severity: mild Asthma persistence: persistent Asthma complication type: uncomplicated Qualified Code(s): J45.30 - Mild persistent asthma, uncomplicated (5) Elevated transaminase level: Status: Acute Assessment and plan: ?hypoxic liver injury/shock liver. No evidence of acute process on CT. Await hepatitis studies. No clear h/o EtOH abuse. Agree with checking for Legionella; Lyme Ab negative, remainder of tick panel pending. Continue to monitor. (6) Generalized anxiety disorder: Status: Chronic Assessment and plan: Contninue outpatient Regimen (7) Renal insufficiency: Status: Chronic Assessment and plan: At baseline. Continue to monitor. (8) Opioid use disorder: Status: Chronic Assessment and plan: continue methadone (client of [facility]) (9) Smoker: Status: Acute Assessment and plan: Advised to quit, declined nicotine replacement. (10) DVT prophylaxis: Status: Acute Assessment and plan: LMWH (11) Discharge planning issues: Status: Acute Assessment and plan: Full code Continues to require hospitalization. Discussed with Dr Williamson. Subjective Subjective Interval history since last seen: Ms Shook does not feel better today, she does not think. She is still short of breath on ambulation. Reports a headache. Denies dizziness, chest pain, nausea. Cough minimally productive. Blood cx + for gram negative cocco bacillus (the patient has a h/o Moraxella). Exam Narrative Exam Narrative: General: Pleasant middle-aged female who does not appear dyspneic/tachypneic while on 2L of O2 by NC, speaking in full sentences, somewhat slow to respond. HEENT: EOMI, MMM Heart: RRR, no m/r/g Lungs: pronounced wheezing on expiration B, no improvement Abdomen: soft, nontender, nondistended Extremities: no edema BLEs Objective Last Vital Signs Temp 36.6 C 04/24/22 15:15 Pulse 89 04/24/22 15:15 Resp 18 04/24/22 15:15 BP 115/71 04/24/22 15:15 Pulse Ox 94 04/24/22 15:15 Laboratory Results - last 24 hr 04/22/22 04/22/22 04/23/22 19:55 22:15 10:17 WBC RBC Hgb Hct MCV MCH MCHC RDW Plt Count MPV Immature Gran % Neutrophils % Band Neutrophils % Lymphocytes % Monocytes % Eosinophils % Basophils % Metamyelocytes % Nucleated RBC % Absolute Neutrophils Absolute Lymphocytes Absolute Monocytes Absolute Eosinophils Absolute Basophils RBC Morphology VBG Lactate Sodium Potassium Chloride Carbon Dioxide Anion Gap BUN Creatinine Est GFR (CKD-EPI 2020) Glucose Calcium Magnesium Total Bilirubin Conjugated Bilirubin AST ALT Alkaline Phosphatase C-Reactive Protein Total Protein Albumin Procalcitonin Lyme Disease Antibody Negative Hepatitis A IgM Ab Negative Hep Bs Antigen Negative Hep B Core Total Ab Negative Hepatitis C Antibody Negative Urine Legionella Ag Negative Add-On Test Request 04/23/22 04/24/22 04/24/22 16:20 06:45 06:45 WBC 20.68 H RBC 3.31 L Hgb 9.6 L Hct 30.3 L MCV 92 MCH 29.0 MCHC 31.7 L RDW 16.3 H Plt Count 314 MPV 10.3 Immature Gran % 0.0 Neutrophils % 72.0 Band Neutrophils % 6 Lymphocytes % 16.0 Monocytes % 4.0 Eosinophils % 0.0 Basophils % 0.0 Metamyelocytes % 2 Nucleated RBC % 0.0 Absolute Neutrophils 16.13 H Absolute Lymphocytes 3.31 Absolute Monocytes 0.83 H Absolute Eosinophils 0.00 Absolute Basophils 0.00 RBC Morphology Normal VBG Lactate 2.5 H* Sodium 141 Potassium 3.8 Chloride 104 Carbon Dioxide 27.4 Anion Gap 9.6 BUN 17 Creatinine 0.7 Est GFR (CKD-EPI 2020) 106.62 Glucose 131 H Calcium 8.9 Magnesium 2.4 Total Bilirubin 0.2 Conjugated Bilirubin < 0.1 AST 112 H ALT 333 H Alkaline Phosphatase 98 C-Reactive Protein Total Protein 7.2 Albumin 2.5 L Procalcitonin Lyme Disease Antibody Hepatitis A IgM Ab Hep Bs Antigen Hep B Core Total Ab Hepatitis C Antibody Urine Legionella Ag Add-On Test Request 04/24/22 04/24/22 04/24/22 06:45 06:45 06:45 WBC RBC Hgb Hct MCV MCH MCHC RDW Plt Count MPV Immature Gran % Neutrophils % Band Neutrophils % Lymphocytes % Monocytes % Eosinophils % Basophils % Metamyelocytes % Nucleated RBC % Absolute Neutrophils Absolute Lymphocytes Absolute Monocytes Absolute Eosinophils Absolute Basophils RBC Morphology VBG Lactate Sodium Potassium Chloride Carbon Dioxide Anion Gap BUN Creatinine Est GFR (CKD-EPI 2020) Glucose Calcium Magnesium Total Bilirubin Conjugated Bilirubin AST ALT Alkaline Phosphatase C-Reactive Protein > 25.00 H Total Protein Albumin Procalcitonin 2.1 Lyme Disease Antibody Hepatitis A IgM Ab Hep Bs Antigen Hep B Core Total Ab Hepatitis C Antibody Urine Legionella Ag Add-On Test Request DONE
[2022-04-24] MEDS: cefTRIAXone 2 GM/50 ML BAG IVPB (17:41)
[2022-04-24] MEDS: Polyethylene Glycol 3350 17 GM PACKET PO (20:22)
[2022-04-24] MEDS: Biotene Mouthwash 237 ML BTL MM ×2 (20:32→23:51)
[2022-04-24] MEDS: traZODone 50 MG TAB PO (22:16)
[2022-04-24] MEDS: Bacitracin 1 PACKET TP (22:16)
[2022-04-25] VITALS (15 sets, daily range): BP systolic 112–150; BP diastolic 70–97; PULSE 73–104; RESP 1–24; TEMP 36.1–36.9; O2SAT 92–99
[2022-04-25] MEDS: Acetaminophen 325 MG TAB PO ×3 (00:19→19:43)
[2022-04-25] MEDS: Albuterol 2.5 MG/3 ML INH SOLN VIAL UPD (00:24)
[2022-04-25] MEDS: LORazepam 0.5 MG TAB PO (01:00)
[2022-04-25 07:15] LABS: Abs Immature Grans 2.54 10^3/uL (0.0-0.06); HCT 28.3 % (36.0-46.0); HGB 8.9 g/dL (11.2-15.7); MCH 28.8 pg (27.0-33.0); MCHC 31.4 % (32.0-36.0); MCV 92 fL (80-95); MPV 9.6 fL (8.0-11.0); Platelet Count 303 10^3/uL (130-400); RBC 3.09 10^6/uL (3.93-5.22); RDW 16.5 % (11.7-14.6); RDW-SD 56.2 fL; WBC 23.06 10^3/uL (4.4-10.8)
[2022-04-25 07:31] LABS: Anion Gap 6.9 mmol/L (3-11); BUN 17 mg/dL (7-18); C-Reactive Protein 11.84 mg/dL (0.0-0.3); CO2 30.1 mmol/L (21.0-32.0); CREATININE 0.7 mg/dL (0.55-1.02); Calcium 8.7 mg/dL (8.5-10.1); Chloride 105 mmol/L (98-107); Estimated GFR 106.62 (mL/min/1.73m2); Glucose 80 mg/dL (74-106); Magnesium 2.1 mg/dL (1.8-2.4); Potassium 3.8 mmol/L (3.5-5.1); Sodium 142 mmol/L (136-145)
[2022-04-25] MEDS: Budesonide/Formoterol 160/4.5 6 GM 60 PUFF INH IH ×2 (07:38→19:45)
[2022-04-25 07:42] LABS: Absolute Lymphocyte Count 4.84 10^3/uL (1.2-3.4); Absolute Monocyte Count 0.23 10^3/uL (0.1-0.8); Atypical Lymphocytes % 6; Bands % 5
[2022-04-25 07:43] LABS: Diff Comment Manual Differential; Metamyelocytes % 3; Schistocytes 1+
[2022-04-25 07:46] LABS: Stomatocytes 2+
[2022-04-25] MEDS: Sertraline 100 MG TAB 150 MG PO (08:19)
[2022-04-25] MEDS: Normal Saline Flush 10 ML SYR IVP ×3 (08:19→19:50)
[2022-04-25] MEDS: buPROPion-XL 150 MG TABCR PO (08:19)
[2022-04-25] MEDS: Lansoprazole 30 MG CAPCR PO (08:19)
[2022-04-25] MEDS: Nystatin 500000 UNITS/5 ML SUSP 5ML CUP PO ×3 (08:19→19:43)
[2022-04-25] MEDS: guaiFENesin 600 MG TABCR 1200 MG PO ×2 (08:20→19:42)
[2022-04-25] MEDS: Methadone Liquid 10 MG/ML 110 MG PO (08:20)
[2022-04-25] MEDS: predniSONE 20 MG TAB 60 MG PO (08:20)
[2022-04-25] MEDS: DOXYCYCLINE 100 MG in Normal Saline 100 ML IVPB ×2 (08:27→19:44)
[2022-04-25] MEDS: Albuterol/Ipratropium 3 ML UPD VIAL UPD ×2 (08:57→11:46)
--- NOTE | 2022-04-25 08:57 | CMPROGNOTE_ITS ---
- If Service Date Differs Date of service: 04/25/22 Time of Service: 08:58 Care Management Progress Note S/O: Wily is lying in bed visiting with her daughter when CM met with her. She is alert, oriented and able to engage in conversation. She doesn't have much of an appetite and hasn't felt like eating lunch. Repeat blood cultures are pending, ABX course to be determined. Podiatry consult is ordered. CM sent referrals to [facility] (for CM in the community) and [employer] (for help applying for fuel and food benefits.) [facility] notified CM that Wily will be added to their waiting list. A: 47 year old female admitted to [facility] on 04/22/22 for Sepsis, pneumonia P: Anticipate Wily will return home once medically cleared. She will be driven home via private vehicle by family. She will follow up with her PCP and discharge plan of care. Referrals were sent to [facility] and [facility]. Wily will need a last Methadone dose letter for [facility]. CM will continue to follow.
[2022-04-25 10:24] LABS: HIV-1/2 Ag & Ab Screen Negative (Negative)
--- NOTE | 2022-04-25 12:20 | W.PM.PROGNOT ---
Date of Service Date of service: 04/25/22 Time of Service: 12:21 Assessment and Plan Assessment and plan (1) Sepsis due to pneumonia: Status: Acute Assessment and plan: Continue ceftriaxone and doxycycline (azithromycin would contribute to QT elevation from methadone). Blood cultures are positive for gram negative cocco bacilli. She has a h/o moraxella in the past. Discussed with microbiology - we do not have speciation yet today. Repeat blood cultures NGTD at 24 hrs. Continue current abx. Continue mucinex. Encourage pulmonary toilet. Wean O2 as tolerated. HIV negative. (2) Acute respiratory failure with hypoxia: Status: Acute Assessment and plan: Due to PNA, present on admission. As above. (3) Elevated troponin I level: Status: Acute Assessment and plan: In setting of hypoxia, sepsis due to pneumonia, agree that it is likely type 2 demand ischemia. PE ruled out. Echo with preserved LVEF (65%), no hemodynamically significant valvular disease, no wall motion abnormalities, RVSP of 39 mmHg. D/c tele. (4) Asthma: Status: Chronic Assessment and plan: In acute exacerbation. Continue prednisone 40 mg PO daily. Clinically not better. Continue scheduled + prn nebs (modified to atrovent + xopenex). Qualifiers: Asthma severity: mild Asthma persistence: persistent Asthma complication type: uncomplicated Qualified Code(s): J45.30 - Mild persistent asthma, uncomplicated (5) Elevated transaminase level: Status: Acute Assessment and plan: ?hypoxic liver injury/shock liver. No evidence of acute process on CT. hepatitis studies negative. No clear h/o EtOH abuse. Legionella urine Ag negative; Lyme Ab negative, remainder of tick panel pending. Continue to monitor. (6) Generalized anxiety disorder: Status: Chronic Assessment and plan: Contninue outpatient Regimen (7) Renal insufficiency: Status: Chronic Assessment and plan: At baseline. Continue to monitor. (8) Opioid use disorder: Status: Chronic Assessment and plan: continue methadone (client of [facility]) (9) Smoker: Status: Acute Assessment and plan: Advised to quit, declined nicotine replacement. (10) Ingrown toenail of both feet: Status: Acute Assessment and plan: C/s podiatry (11) DVT prophylaxis: Status: Acute Assessment and plan: LMWH (12) Discharge planning issues: Status: Acute Assessment and plan: Full code Continues to require hospitalization. Subjective Subjective Interval history since last seen: Ms Shook states she is feeling a little better today. She did have quite a bit of productive sputum. Denies dizziness, endorses chest pain that's worse with coughing as well as back pain, both better with tylenol. Denies nausea. Poor appetite. Reports ingrown toenails and agrees to a podiatry consult. Remains on 2L of O2 by NC. Still SOB. Exam Narrative Exam Narrative: General: Pleasant middle-aged female looks a little shaky, no dyspnea/tachypnea while on 2L of O2 by NC, speaking in full sentences HEENT: EOMI, MMM Heart: RRR, no m/r/g Lungs: pronounced wheezing on expiration B, no improvement Abdomen: soft, nontender, nondistended Extremities: no edema BLEs, ingrown toenails B 1st and 2nd digits, do not appear infected. Objective Last Vital Signs Temp 36.1 C L 04/25/22 11:45 Pulse 98 H 04/25/22 11:58 Resp 16 04/25/22 11:58 BP 122/79 04/25/22 11:45 Pulse Ox 99 04/25/22 11:58 Laboratory Results - last 24 hr 04/22/22 04/23/22 04/24/22 19:55 10:17 06:41 WBC RBC Hgb Hct MCV MCH MCHC RDW Plt Count MPV Immature Gran % Neutrophils % Band Neutrophils % Lymphocytes % Atypical Lymphs % Monocytes % Eosinophils % Basophils % Metamyelocytes % Nucleated RBC % Absolute Neutrophils Absolute Lymphocytes Absolute Monocytes Absolute Eosinophils Absolute Basophils RBC Morphology Stomatocytes Schistocytes Sodium Potassium Chloride Carbon Dioxide Anion Gap BUN Creatinine Est GFR (CKD-EPI 2020) Glucose Calcium Magnesium C-Reactive Protein Lyme Disease Antibody Negative Hepatitis A IgM Ab Negative Hep Bs Antigen Negative Hep B Core Total Ab Negative Hepatitis C Antibody Negative HIV 1&2 Ag/Ab, 4th Gen Negative 04/25/22 04/25/22 06:25 06:25 WBC 23.06 H RBC 3.09 L Hgb 8.9 L Hct 28.3 L MCV 92 MCH 28.8 MCHC 31.4 L RDW 16.5 H Plt Count 303 MPV 9.6 Immature Gran % 0.0 Neutrophils % 70.0 Band Neutrophils % 5 Lymphocytes % 15.0 Atypical Lymphs % 6 Monocytes % 1.0 Eosinophils % 0.0 Basophils % 0.0 Metamyelocytes % 3 Nucleated RBC % 1.0 H Absolute Neutrophils 17.30 H Absolute Lymphocytes 4.84 H Absolute Monocytes 0.23 Absolute Eosinophils 0.00 Absolute Basophils 0.00 RBC Morphology See Below Stomatocytes 2+ Schistocytes 1+ Sodium 142 Potassium 3.8 Chloride 105 Carbon Dioxide 30.1 Anion Gap 6.9 BUN 17 Creatinine 0.7 Est GFR (CKD-EPI 2020) 106.62 Glucose 80 Calcium 8.7 Magnesium 2.1 C-Reactive Protein 11.84 H Lyme Disease Antibody Hepatitis A IgM Ab Hep Bs Antigen Hep B Core Total Ab Hepatitis C Antibody HIV 1&2 Ag/Ab, 4th Gen
[2022-04-25] MEDS: Ipratropium 0.5 MG/2.5 ML UPD VIAL UPD ×2 (16:27→19:43)
[2022-04-25] MEDS: cefTRIAXone 2 GM/50 ML BAG IVPB (17:36)
[2022-04-25] MEDS: traZODone 50 MG TAB PO (20:52)
[2022-04-25 23:16] LABS: Streptococcus Pneumoniae Ag, U Negative (Negative)
[2022-04-26] VITALS (15 sets, daily range): BP systolic 112–129; BP diastolic 68–77; PULSE 63–94; RESP 4–24; TEMP 36–37; O2SAT 91–98
[2022-04-26] MEDS: Enoxaparin 40 MG/0.4 ML SYR SC (00:23)
[2022-04-26] MEDS: Nicotine 21 MG/24 HR PATCH TD (00:24)
[2022-04-26] MEDS: Levalbuterol 1.25 MG/3 ML UPD VIAL UPD ×3 (00:29→12:36)
[2022-04-26 06:58] LABS: Abs Immature Grans 3.52 10^3/uL (0.0-0.06); HCT 29.6 % (36.0-46.0); HGB 9.3 g/dL (11.2-15.7); MCH 28.7 pg (27.0-33.0); MCHC 31.4 % (32.0-36.0); MCV 91 fL (80-95); MPV 9.3 fL (8.0-11.0); Platelet Count 319 10^3/uL (130-400); RBC 3.24 10^6/uL (3.93-5.22); RDW 16.8 % (11.7-14.6); RDW-SD 56.3 fL; WBC 20.81 10^3/uL (4.4-10.8)
[2022-04-26 07:16] LABS: Anion Gap 4.1 mmol/L (3-11); BUN 13 mg/dL (7-18); C-Reactive Protein 6.95 mg/dL (0.0-0.3); CO2 33.9 mmol/L (21.0-32.0); CREATININE 0.7 mg/dL (0.55-1.02); Calcium 9.1 mg/dL (8.5-10.1); Chloride 104 mmol/L (98-107); Estimated GFR 106.62 (mL/min/1.73m2); Glucose 70 mg/dL (74-106); Potassium 3.6 mmol/L (3.5-5.1); Sodium 142 mmol/L (136-145)
[2022-04-26 07:23] LABS: Absolute Lymphocyte Count 3.95 10^3/uL (1.2-3.4); Absolute Monocyte Count 0.21 10^3/uL (0.1-0.8); Absolute Neutrophil Count 16.02 10^3/uL (1.2-6.7); Bands % 6; Diff Comment Manual Differential; Metamyelocytes % 3; RBC Morphology Normal
[2022-04-26 07:34] LABS: Procalcitonin 0.7 ng/mL
--- NOTE | 2022-04-26 07:36 | W.PULMPROG ---
Assessment and Plan Assessment and plan (1) Acute respiratory failure with hypoxia: Status: Acute (2) Smoker: Status: Acute (3) Pneumonia: Status: Acute Qualifiers: Laterality: unspecified laterality Lung location: unspecified part of lung Pneumonia type: due to Haemophilus influenzae Qualified Code(s): J14 - Pneumonia due to Hemophilus influenzae (4) Bacteremia: Status: Acute (5) Sepsis due to pneumonia: Status: Acute (6) Asthma exacerbation: Status: Acute Assessment and plan: This is a 47yo female with long standing asthma who is admitted for a pneumonia and asthma exacerbation. The appearance of the pneumonia is atypical in nature, but ceftriaxone and doxy should be sufficient. She has grown Moraxella in the past from her sputum, and her current sputum is growing gram positive cocci. Clinically she is in an asthma exacerbation. She continues to slowly improve and with the bacteremia it will take time. I am unsure why she becomes so ill with these pneumonias, but I will investigate this further as an outpatient (her HIV was negative). With her smoking history she will need to be screened for co-morbid COPD, however we will do this as an outpatient. Asthma Exacerbation - continue prednisone 60mg for 4 more days, then 50mg for 4 days, 40mg for 4 days, 30mg for 3 days, 20mg for 3 days, 10mg for 3 days, 5mg for 3 days - Mucinex 1200 bid - Duonebs QID - albuteral nebs prn - continue Symbicort - I will arrange outpatient follow up with me H. flu pneumonia - continue ceftrixone - can discontinue doxy - continue IS and VibraPEP Hypoxic respiratory failure - wean O2 as tolerate for O2 sats >90% - D/C CPAP General Date Of Service Date of service: 04/26/22 Time of Service: 07:36 Reason for Consult: Pneumonia Asthma Exacerbation Subjective Note Note: She is feeling ok today. Her breathing is still not back to normal, but she does feel as though she is doing better. She is still coughing up a fair amount of phlegm. She is using the IS and Acapella. She grew H. flu in her sputum and blood. Exam Narrative Exam Narrative: Gen: NAD, normal respiratory effort, well-nourished HENT: PERRL, nasal turbinates normal without erythema or inflammation, moist oral mucosa, Mallampati 2, No LAD or JVD Chest: No respiratory distress, normal appearance of chest, clear to auscultation bilaterally, no crackles, expiratory wheezes that improved from prior, normal inspiratory effort Heart: regular rate and rhythym, no murmurs, rubs or gallops Abdomen: Non-distended, soft, non tender Extremities: No clubbing, edema, cyanosis, rashes Neuro: AAOx3 , non focal Psych: cooperative, appropriate mental affect Objective Last Vital Signs Temp 36.0 C L 04/26/22 07:21 Pulse 64 04/26/22 07:21 Resp 12 04/26/22 07:21 BP 122/70 04/26/22 07:21 Pulse Ox 92 04/26/22 07:21 Laboratory Results - last 24 hr 04/24/22 04/25/22 04/25/22 06:41 06:25 06:25 WBC 23.06 H RBC 3.09 L Hgb 8.9 L Hct 28.3 L MCV 92 MCH 28.8 MCHC 31.4 L RDW 16.5 H Plt Count 303 MPV 9.6 Immature Gran % 0.0 Neutrophils % 70.0 Band Neutrophils % 5 Lymphocytes % 15.0 Atypical Lymphs % 6 Monocytes % 1.0 Eosinophils % 0.0 Basophils % 0.0 Metamyelocytes % 3 Nucleated RBC % 1.0 H Absolute Neutrophils 17.30 H Absolute Lymphocytes 4.84 H Absolute Monocytes 0.23 Absolute Eosinophils 0.00 Absolute Basophils 0.00 RBC Morphology See Below Stomatocytes 2+ Schistocytes 1+ Sodium 142 Potassium 3.8 Chloride 105 Carbon Dioxide 30.1 Anion Gap 6.9 BUN 17 Creatinine 0.7 Est GFR (CKD-EPI 2020) 106.62 Glucose 80 Calcium 8.7 Magnesium 2.1 C-Reactive Protein 11.84 H Procalcitonin HIV 1&2 Ag/Ab, 4th Gen Negative 04/26/22 04/26/22 04/26/22 06:26 06:26 06:26 WBC 20.81 H RBC 3.24 L Hgb 9.3 L Hct 29.6 L MCV 91 MCH 28.7 MCHC 31.4 L RDW 16.8 H Plt Count 319 MPV 9.3 Immature Gran % 0.0 Neutrophils % 71.0 Band Neutrophils % 6 Lymphocytes % 19.0 Atypical Lymphs % Monocytes % 1.0 Eosinophils % 0.0 Basophils % 0.0 Metamyelocytes % 3 Nucleated RBC % 0.0 Absolute Neutrophils 16.02 H Absolute Lymphocytes 3.95 H Absolute Monocytes 0.21 Absolute Eosinophils 0.00 Absolute Basophils 0.00 RBC Morphology Normal Stomatocytes Schistocytes Sodium 142 Potassium 3.6 Chloride 104 Carbon Dioxide 33.9 H Anion Gap 4.1 BUN 13 Creatinine 0.7 Est GFR (CKD-EPI 2020) 106.62 Glucose 70 L Calcium 9.1 Magnesium 2.0 C-Reactive Protein 6.95 H Procalcitonin 0.7 HIV 1&2 Ag/Ab, 4th Gen Results Medications Medications: Active Medications Generic Name Dose Route Start Last Admin Trade Name Freq PRN Reason Stop Dose Admin Acetaminophen 0 mg 04/22/22 22:06 04/25/22 19:43 Acetaminophen 325 Mg Tab PO 650 mg Q4H PRN PRN Administration Bacitracin Zinc 1 packet 04/25/22 08:31 Bacitracin 1 Packet TP TID PRN PRN Budesonide/Formoterol Fumarate 0 puff 04/22/22 20:00 04/25/22 19:45 Budesonide/Formoterol 160/4.5 6 Gm 60 Puff Inh IH 2 puffs BID ALFREDO Administration Bupropion HCl 150 mg 04/23/22 08:30 04/25/22 08:19 Bupropion-Xl 150 Mg Tabcr PO 150 mg DAILY ALFREDO Administration Device 1 each 04/22/22 20:00 Inhaler, Assist Device MC DIRECTED ALFREDO Dimethicone/Zinc Oxide 0 gm 04/22/22 22:03 [place] Protect Cream 142 Gm Tube TP PRN PRN Enoxaparin Sodium 40 mg 04/23/22 00:00 04/26/22 00:23 Enoxaparin 40 Mg/0.4 Ml Syr SC 40 mg Q24H ALFREDO Administration Guaifenesin 1,200 mg 04/24/22 08:30 04/25/22 19:42 Guaifenesin 600 Mg Tabcr PO 1,200 mg BID ALFREDO Administration Sodium Chloride 500 mls @ 0 mls/hr 04/22/22 18:40 Saline 500ml Bag IV PRN PRN As Directed Ceftriaxone Sodium/Dextrose 2 gm in 50 mls @ 100 mls/hr 04/23/22 18:00 04/25/22 18:10 Rocephin IVPB Infused Q24H ALFREDO Infusion Ringer's Solution 1,000 mls @ 1,000 mls/hr 04/26/22 07:23 IV 04/26/22 08:22 BOLUS ONE IV Miscellaneous Supplies 1 each 04/22/22 18:45 Iv Access IV DIRECTED ALFREDO Ipratropium [place] 0.5 mg 04/25/22 16:00 04/25/22 19:43 Ipratropium 0.5 Mg/2.5 Ml Upd Vial UPD 0.5 mg QID ALFREDO Administration Lansoprazole 30 mg 04/24/22 07:30 04/25/22 08:19 Lansoprazole 30 Mg Capcr PO 30 mg DAILY@0730 ALFREDO Administration Levalbuterol HCl 1.25 mg 04/25/22 12:08 04/26/22 00:29 Levalbuterol 1.25 Mg/3 Ml Upd Vial UPD 1.25 mg Q4H PRN PRN Administration Methadone HCl 110 mg 04/25/22 08:30 04/25/22 08:20 Methadone Liquid 10 Mg/Ml PO 110 mg DAILY ALFREDO Administration Multi-Ingredient Mouthwash/Gargle 0 ml 04/24/22 15:47 04/24/22 23:51 Biotene Mouthwash 237 Ml Btl MM 15 ml BID PRN PRN Administration Nicotine 21 mg 04/25/22 21:12 04/26/22 00:24 Nicotine 21 Mg/24 Hr Patch TD 21 mg DAILY PRN PRN Administration Nystatin 500,000 units 04/24/22 08:30 04/25/22 19:43 Nystatin 338808 Units/5 Ml Susp 5ml Cup PO 500,000 units TID ALFREDO Administration Polyethylene Glycol 17 gm 04/22/22 22:06 04/24/22 20:22 Polyethylene Glycol 3350 17 Gm Packet PO 17 gm DAILY PRN PRN Administration Constipation Prednisone 60 mg 04/25/22 08:30 04/25/22 08:20 Prednisone 20 Mg Tab PO 60 mg DAILY ALFREDO Administration Sertraline HCl 150 mg 04/23/22 08:30 04/25/22 08:19 Sertraline 100 Mg Tab PO 150 mg DAILY ALFREDO Administration Sodium Chloride 0 ml 04/22/22 18:40 04/25/22 19:50 Normal Saline Flush 10 Ml Syr IVP 20 ml PRN PRN Administration Trazodone HCl 50 mg 04/22/22 22:00 04/25/22 20:52 Trazodone 50 Mg Tab PO 50 mg HS ALFREDO Administration Allergies No Known Drug Allergies Allergy (Verified 04/22/22 16:34) Labs Result Diagrams: 04/26/22 06:26 04/26/22 06:26 Labs: 04/22/22 23:03 Sputum Sputum Culture - Preliminary Liliana Albicans Haemophilus Species Normal Luisa 04/22/22 23:03 Sputum Gram Stain - Final 04/22/22 17:05 Blood Blood Culture - Preliminary Haemophilus Species 04/22/22 17:00 Blood Blood Culture - Preliminary Haemophilus Species 04/24/22 08:50 Blood Blood Culture - Preliminary NO GROWTH 24 HOURS 04/24/22 08:40 Blood Blood Culture - Preliminary NO GROWTH 24 HOURS 04/23/22 16:10 Nose MRSA Screen - Final Laboratory Tests Range/Units 04/22/22 04/22/22 04/22/22 17:00 17:00 17:00 WBC (4.4-10.8) 10^3/uL RBC (3.93-5.22) 10^6/uL Hgb (11.2-15.7) g/dL Hct (36.0-46.0) % MCV (80-95) fL MCH (27.0-33.0) pg MCHC (32.0-36.0) % RDW (11.7-14.6) % Plt Count (130-400) 10^3/uL MPV (8.0-11.0) fL Immature Gran % Neutrophils % Band Neutrophils % Lymphocytes % Atypical Lymphs % Monocytes % Eosinophils % Basophils % Metamyelocytes % Nucleated RBC % (0.0-0.3) % Absolute Neutrophils (1.2-6.7) 10^3/uL Absolute Lymphocytes (1.2-3.4) 10^3/uL Absolute Monocytes (0.1-0.8) 10^3/uL Absolute Eosinophils (0.0-0.7) 10^3/uL Absolute Basophils (0.0-0.2) 10^3/uL RBC Morphology Stomatocytes Schistocytes PT (9.3-11.0) sec INR (0.9-1.1) D-Dimer (<500) ng/mlFEU ABG Sample Site ABG pH (7.35-7.45) ABG pCO2 (35-45) mmHg ABG pO2 (80-105) mmHg ABG HCO3 (22-26) mmol/L ABG Total CO2 (23-27) mmol/L ABG O2 Saturation (95-98) % ABG Base Excess (-2-3) mmol/L VBG pH (7.31-7.41) VBG pCO2 (41-51) mmHg VBG pO2 mmHg VBG HCO3 (23-28) mmol/L VBG Total CO2 (24-29) mmol/L VBG O2 Saturation % VBG Base Excess (-2-3) mmol/L VBG Lactate (0.6-1.4) mmol/L 1.9 H Oxygen Liter Flow L Sodium (136-145) mmol/L 138 Potassium (3.5-5.1) mmol/L 4.5 Chloride (98-107) mmol/L 97 L Carbon Dioxide (21.0-32.0) mmol/L 31.7 Anion Gap (3-11) mmol/L 9.3 BUN (7-18) mg/dL 24 H Creatinine (0.55-1.02) mg/dL 1.3 H Est GFR (CKD-EPI 2020) (mL/min/1.73m2) 51.04 Glucose (74-106) mg/dL 117 H Hemoglobin A1c (<5.7) % Calcium (8.5-10.1) mg/dL 8.6 Magnesium (1.8-2.4) mg/dL 1.7 L Total Bilirubin (0.2-1.0) mg/dL 0.4 Conjugated Bilirubin (0.0-0.2) mg/dL AST (15-37) U/L 543 H ALT (14-59) U/L 448 H Alkaline Phosphatase (46-116) U/L 102 Creatine Kinase (26-192) U/L Troponin I (<or=60) ng/L 373 H* C-Reactive Protein (0.0-0.3) mg/dL Total Protein (6.4-8.2) g/dL 7.8 Albumin (3.4-5.0) g/dL 2.8 L Triglycerides (<150) mg/dL Total Cholesterol (<200) mg/dL LDL Cholesterol, Calc (<100) mg/dL HDL Cholesterol (40-60) mg/dL Procalcitonin ng/mL Urine Color (Yellow) Urine Clarity (Clear) Urine pH (5-8) Ur Specific [place] (1.005-1.025) Urine Protein (Negative) mg/dL Urine Ketones (Negative) mg/dL Urine Blood (Negative) Urine Nitrite (Negative) Urine Bilirubin (Negative) Urine Urobilinogen (Up TO 0.2) EU/dL Ur Leukocyte Esterase (Negative) Urine RBC (0-2) HPF Urine WBC (0-5) HPF Ur Epithelial Cells (Negative) HPF Urine Crystals (Negative) HPF Urine Bacteria (Negative) HPF Urine Casts (Negative) LPF Urine Mucus (Negative) Ur Culture Indicated? Urine Glucose (Negative) mg/dL Urine Opiates Screen (Negative) Urine Methadone Screen (Negative) Acetaminophen (10-30) ug/mL Ur Barbiturates Screen (Negative) Ur Tricyclics Screen (Negative) Ur Amphetamines Screen (Negative) U Benzodiazepines Scrn (Negative) Urine Cocaine Screen (Negative) Ur THC Screen (Negative) Ethyl Alcohol (<10) mg/dL < 3.0 Lyme Disease Antibody (Negative) COVID-19 Source Nasopharynx SARS-CoV-2 (PCR) (Negative) Negative Hepatitis A IgM Ab (Negative) Hep Bs Antigen (Negative) Hep B Core Total Ab (Negative) Hepatitis C Antibody (Negative) HIV 1&2 Ag/Ab, 4th Gen (Negative) Influenza Type A (PCR) (Negative) Negative Influenza Type B (PCR) (Negative) Negative Urine Legionella Ag (Negative) RSV (PCR) (Negative) Negative Add-On Test Request Range/Units 04/22/22 04/22/22 04/22/22 17:00 19:55 19:55 WBC (4.4-10.8) 10^3/uL 12.13 H RBC (3.93-5.22) 10^6/uL 4.16 Hgb (11.2-15.7) g/dL 11.9 Hct (36.0-46.0) % 38.0 MCV (80-95) fL 91 MCH (27.0-33.0) pg 28.6 MCHC (32.0-36.0) % 31.3 L RDW (11.7-14.6) % 15.9 H Plt Count (130-400) 10^3/uL 294 MPV (8.0-11.0) fL 10.0 Immature Gran % See Differential Neutrophils % 68.0 Band Neutrophils % 5 Lymphocytes % 14.0 Atypical Lymphs % 1 Monocytes % 10.0 Eosinophils % 0.0 Basophils % 0.0 Metamyelocytes % 2 Nucleated RBC % (0.0-0.3) % 0.4 H Absolute Neutrophils (1.2-6.7) 10^3/uL 8.85 H Absolute Lymphocytes (1.2-3.4) 10^3/uL 1.82 Absolute Monocytes (0.1-0.8) 10^3/uL 1.21 H Absolute Eosinophils (0.0-0.7) 10^3/uL 0.00 Absolute Basophils (0.0-0.2) 10^3/uL 0.00 RBC Morphology Normal Stomatocytes Schistocytes PT (9.3-11.0) sec INR (0.9-1.1) D-Dimer (<500) ng/mlFEU ABG Sample Site ABG pH (7.35-7.45) ABG pCO2 (35-45) mmHg ABG pO2 (80-105) mmHg ABG HCO3 (22-26) mmol/L ABG Total CO2 (23-27) mmol/L ABG O2 Saturation (95-98) % ABG Base Excess (-2-3) mmol/L VBG pH (7.31-7.41) 7.39 VBG pCO2 (41-51) mmHg 42 VBG pO2 mmHg 57 VBG HCO3 (23-28) mmol/L 26 VBG Total CO2 (24-29) mmol/L 24 VBG O2 Saturation % 90 VBG Base Excess (-2-3) mmol/L 1 VBG Lactate (0.6-1.4) mmol/L Oxygen Liter Flow L Sodium (136-145) mmol/L Potassium (3.5-5.1) mmol/L Chloride (98-107) mmol/L Carbon Dioxide (21.0-32.0) mmol/L Anion Gap (3-11) mmol/L BUN (7-18) mg/dL Creatinine (0.55-1.02) mg/dL Est GFR (CKD-EPI 2020) (mL/min/1.73m2) Glucose (74-106) mg/dL Hemoglobin A1c (<5.7) % Calcium (8.5-10.1) mg/dL Magnesium (1.8-2.4) mg/dL Total Bilirubin (0.2-1.0) mg/dL Conjugated Bilirubin (0.0-0.2) mg/dL AST (15-37) U/L ALT (14-59) U/L Alkaline Phosphatase (46-116) U/L Creatine Kinase (26-192) U/L Troponin I (<or=60) ng/L 446 H* C-Reactive Protein (0.0-0.3) mg/dL Total Protein (6.4-8.2) g/dL Albumin (3.4-5.0) g/dL Triglycerides (<150) mg/dL Total Cholesterol (<200) mg/dL LDL Cholesterol, Calc (<100) mg/dL HDL Cholesterol (40-60) mg/dL Procalcitonin ng/mL Urine Color (Yellow) Urine Clarity (Clear) Urine pH (5-8) Ur Specific [place] (1.005-1.025) Urine Protein (Negative) mg/dL Urine Ketones (Negative) mg/dL Urine Blood (Negative) Urine Nitrite (Negative) Urine Bilirubin (Negative) Urine Urobilinogen (Up TO 0.2) EU/dL Ur Leukocyte Esterase (Negative) Urine RBC (0-2) HPF Urine WBC (0-5) HPF Ur Epithelial Cells (Negative) HPF Urine Crystals (Negative) HPF Urine Bacteria (Negative) HPF Urine Casts (Negative) LPF Urine Mucus (Negative) Ur Culture Indicated? Urine Glucose (Negative) mg/dL Urine Opiates Screen (Negative) Urine Methadone Screen (Negative) Acetaminophen (10-30) ug/mL Ur Barbiturates Screen (Negative) Ur Tricyclics Screen (Negative) Ur Amphetamines Screen (Negative) U Benzodiazepines Scrn (Negative) Urine Cocaine Screen (Negative) Ur THC Screen (Negative) Ethyl Alcohol (<10) mg/dL Lyme Disease Antibody (Negative) COVID-19 Source SARS-CoV-2 (PCR) (Negative) Hepatitis A IgM Ab (Negative) Hep Bs Antigen (Negative) Hep B Core Total Ab (Negative) Hepatitis C Antibody (Negative) HIV 1&2 Ag/Ab, 4th Gen (Negative) Influenza Type A (PCR) (Negative) Influenza Type B (PCR) (Negative) Urine Legionella Ag (Negative) RSV (PCR) (Negative) Add-On Test Request Range/Units 04/22/22 04/22/22 04/22/22 19:55 22:15 22:15 WBC (4.4-10.8) 10^3/uL RBC (3.93-5.22) 10^6/uL Hgb (11.2-15.7) g/dL Hct (36.0-46.0) % MCV (80-95) fL MCH (27.0-33.0) pg MCHC (32.0-36.0) % RDW (11.7-14.6) % Plt Count (130-400) 10^3/uL MPV (8.0-11.0) fL Immature Gran % Neutrophils % Band Neutrophils % Lymphocytes % Atypical Lymphs % Monocytes % Eosinophils % Basophils % Metamyelocytes % Nucleated RBC % (0.0-0.3) % Absolute Neutrophils (1.2-6.7) 10^3/uL Absolute Lymphocytes (1.2-3.4) 10^3/uL Absolute Monocytes (0.1-0.8) 10^3/uL Absolute Eosinophils (0.0-0.7) 10^3/uL Absolute Basophils (0.0-0.2) 10^3/uL RBC Morphology Stomatocytes Schistocytes PT (9.3-11.0) sec INR (0.9-1.1) D-Dimer (<500) ng/mlFEU ABG Sample Site ABG pH (7.35-7.45) ABG pCO2 (35-45) mmHg ABG pO2 (80-105) mmHg ABG HCO3 (22-26) mmol/L ABG Total CO2 (23-27) mmol/L ABG O2 Saturation (95-98) % ABG Base Excess (-2-3) mmol/L VBG pH (7.31-7.41) VBG pCO2 (41-51) mmHg VBG pO2 mmHg VBG HCO3 (23-28) mmol/L VBG Total CO2 (24-29) mmol/L VBG O2 Saturation % VBG Base Excess (-2-3) mmol/L VBG Lactate (0.6-1.4) mmol/L Oxygen Liter Flow L Sodium (136-145) mmol/L Potassium (3.5-5.1) mmol/L Chloride (98-107) mmol/L Carbon Dioxide (21.0-32.0) mmol/L Anion Gap (3-11) mmol/L BUN (7-18) mg/dL Creatinine (0.55-1.02) mg/dL Est GFR (CKD-EPI 2020) (mL/min/1.73m2) Glucose (74-106) mg/dL Hemoglobin A1c (<5.7) % Calcium (8.5-10.1) mg/dL Magnesium (1.8-2.4) mg/dL Total Bilirubin (0.2-1.0) mg/dL Conjugated Bilirubin (0.0-0.2) mg/dL AST (15-37) U/L ALT (14-59) U/L Alkaline Phosphatase (46-116) U/L Creatine Kinase (26-192) U/L Troponin I (<or=60) ng/L C-Reactive Protein (0.0-0.3) mg/dL Total Protein (6.4-8.2) g/dL Albumin (3.4-5.0) g/dL Triglycerides (<150) mg/dL Total Cholesterol (<200) mg/dL LDL Cholesterol, Calc (<100) mg/dL HDL Cholesterol (40-60) mg/dL Procalcitonin ng/mL Urine Color (Yellow) Yellow Urine Clarity (Clear) Clear Urine pH (5-8) 6.0 Ur Specific [place] (1.005-1.025) >= 1.030 H Urine Protein (Negative) mg/dL 30 H Urine Ketones (Negative) mg/dL Trace H Urine Blood (Negative) Negative Urine Nitrite (Negative) Negative Urine Bilirubin (Negative) Negative Urine Urobilinogen (Up TO 0.2) EU/dL 0.2 Ur Leukocyte Esterase (Negative) Negative Urine RBC (0-2) HPF Negative Urine WBC (0-5) HPF Negative Ur Epithelial Cells (Negative) HPF Rare Urine Crystals (Negative) HPF Negative Urine Bacteria (Negative) HPF Rare Urine Casts (Negative) LPF Negative Urine Mucus (Negative) Negative Ur Culture Indicated? No Urine Glucose (Negative) mg/dL Negative Urine Opiates Screen (Negative) Negative Urine Methadone Screen (Negative) Positive A Acetaminophen (10-30) ug/mL Ur Barbiturates Screen (Negative) Negative Ur Tricyclics Screen (Negative) Positive A Ur Amphetamines Screen (Negative) Negative U Benzodiazepines Scrn (Negative) Positive A Urine Cocaine Screen (Negative) Negative Ur THC Screen (Negative) Positive A Ethyl Alcohol (<10) mg/dL Lyme Disease Antibody (Negative) COVID-19 Source SARS-CoV-2 (PCR) (Negative) Hepatitis A IgM Ab (Negative) Negative Hep Bs Antigen (Negative) Negative Hep B Core Total Ab (Negative) Negative Hepatitis C Antibody (Negative) Negative HIV 1&2 Ag/Ab, 4th Gen (Negative) Influenza Type A (PCR) (Negative) Influenza Type B (PCR) (Negative) Urine Legionella Ag (Negative) RSV (PCR) (Negative) Add-On Test Request Range/Units 04/22/22 04/23/22 04/23/22 22:15 05:56 05:56 WBC (4.4-10.8) 10^3/uL RBC (3.93-5.22) 10^6/uL Hgb (11.2-15.7) g/dL Hct (36.0-46.0) % MCV (80-95) fL MCH (27.0-33.0) pg MCHC (32.0-36.0) % RDW (11.7-14.6) % Plt Count (130-400) 10^3/uL MPV (8.0-11.0) fL Immature Gran % Neutrophils % Band Neutrophils % Lymphocytes % Atypical Lymphs % Monocytes % Eosinophils % Basophils % Metamyelocytes % Nucleated RBC % (0.0-0.3) % Absolute Neutrophils (1.2-6.7) 10^3/uL Absolute Lymphocytes (1.2-3.4) 10^3/uL Absolute Monocytes (0.1-0.8) 10^3/uL Absolute Eosinophils (0.0-0.7) 10^3/uL Absolute Basophils (0.0-0.2) 10^3/uL RBC Morphology Stomatocytes Schistocytes PT (9.3-11.0) sec INR (0.9-1.1) D-Dimer (<500) ng/mlFEU ABG Sample Site ABG pH (7.35-7.45) ABG pCO2 (35-45) mmHg ABG pO2 (80-105) mmHg ABG HCO3 (22-26) mmol/L ABG Total CO2 (23-27) mmol/L ABG O2 Saturation (95-98) % ABG Base Excess (-2-3) mmol/L VBG pH (7.31-7.41) VBG pCO2 (41-51) mmHg VBG pO2 mmHg VBG HCO3 (23-28) mmol/L VBG Total CO2 (24-29) mmol/L VBG O2 Saturation % VBG Base Excess (-2-3) mmol/L VBG Lactate (0.6-1.4) mmol/L Oxygen Liter Flow L Sodium (136-145) mmol/L 138 Potassium (3.5-5.1) mmol/L 3.4 L D Chloride (98-107) mmol/L 102 Carbon Dioxide (21.0-32.0) mmol/L 27.2 Anion Gap (3-11) mmol/L 8.8 BUN (7-18) mg/dL 18 Creatinine (0.55-1.02) mg/dL 0.7 Est GFR (CKD-EPI 2020) (mL/min/1.73m2) 106.62 Glucose (74-106) mg/dL 200 H Hemoglobin A1c (<5.7) % Calcium (8.5-10.1) mg/dL 8.3 L Magnesium (1.8-2.4) mg/dL 2.3 Total Bilirubin (0.2-1.0) mg/dL 0.2 Conjugated Bilirubin (0.0-0.2) mg/dL AST (15-37) U/L 215 H ALT (14-59) U/L 336 H Alkaline Phosphatase (46-116) U/L 96 Creatine Kinase (26-192) U/L Troponin I (<or=60) ng/L 276 H* C-Reactive Protein (0.0-0.3) mg/dL Total Protein (6.4-8.2) g/dL 6.7 Albumin (3.4-5.0) g/dL 2.3 L Triglycerides (<150) mg/dL 134 Total Cholesterol (<200) mg/dL 99 LDL Cholesterol, Calc (<100) mg/dL 49 HDL Cholesterol (40-60) mg/dL 24 L Procalcitonin ng/mL Urine Color (Yellow) Urine Clarity (Clear) Urine pH (5-8) Ur Specific [place] (1.005-1.025) Urine Protein (Negative) mg/dL Urine Ketones (Negative) mg/dL Urine Blood (Negative) Urine Nitrite (Negative) Urine Bilirubin (Negative) Urine Urobilinogen (Up TO 0.2) EU/dL Ur Leukocyte Esterase (Negative) Urine RBC (0-2) HPF Urine WBC (0-5) HPF Ur Epithelial Cells (Negative) HPF Urine Crystals (Negative) HPF Urine Bacteria (Negative) HPF Urine Casts (Negative) LPF Urine Mucus (Negative) Ur Culture Indicated? Urine Glucose (Negative) mg/dL Urine Opiates Screen (Negative) Urine Methadone Screen (Negative) Acetaminophen (10-30) ug/mL Ur Barbiturates Screen (Negative) Ur Tricyclics Screen (Negative) Ur Amphetamines Screen (Negative) U Benzodiazepines Scrn (Negative) Urine Cocaine Screen (Negative) Ur THC Screen (Negative) Ethyl Alcohol (<10) mg/dL Lyme Disease Antibody (Negative) COVID-19 Source SARS-CoV-2 (PCR) (Negative) Hepatitis A IgM Ab (Negative) Hep Bs Antigen (Negative) Hep B Core Total Ab (Negative) Hepatitis C Antibody (Negative) HIV 1&2 Ag/Ab, 4th Gen (Negative) Influenza Type A (PCR) (Negative) Influenza Type B (PCR) (Negative) Urine Legionella Ag (Negative) Negative RSV (PCR) (Negative) Add-On Test Request Range/Units 04/23/22 04/23/22 04/23/22 05:56 05:56 05:56 WBC (4.4-10.8) 10^3/uL 11.66 H RBC (3.93-5.22) 10^6/uL 3.31 L Hgb (11.2-15.7) g/dL 9.7 L D Hct (36.0-46.0) % 30.3 L MCV (80-95) fL 92 MCH (27.0-33.0) pg 29.3 MCHC (32.0-36.0) % 32.0 RDW (11.7-14.6) % 16.1 H Plt Count (130-400) 10^3/uL 225 MPV (8.0-11.0) fL 10.3 Immature Gran % See Differential Neutrophils % 69.0 Band Neutrophils % 9 Lymphocytes % 12.0 Atypical Lymphs % Monocytes % 7.0 Eosinophils % 1.0 Basophils % 1.0 Metamyelocytes % 1 Nucleated RBC % (0.0-0.3) % 0.0 Absolute Neutrophils (1.2-6.7) 10^3/uL 9.09 H Absolute Lymphocytes (1.2-3.4) 10^3/uL 1.40 Absolute Monocytes (0.1-0.8) 10^3/uL 0.82 H Absolute Eosinophils (0.0-0.7) 10^3/uL 0.12 Absolute Basophils (0.0-0.2) 10^3/uL 0.12 RBC Morphology Normal Stomatocytes Schistocytes PT (9.3-11.0) sec INR (0.9-1.1) D-Dimer (<500) ng/mlFEU ABG Sample Site ABG pH (7.35-7.45) ABG pCO2 (35-45) mmHg ABG pO2 (80-105) mmHg ABG HCO3 (22-26) mmol/L ABG Total CO2 (23-27) mmol/L ABG O2 Saturation (95-98) % ABG Base Excess (-2-3) mmol/L VBG pH (7.31-7.41) VBG pCO2 (41-51) mmHg VBG pO2 mmHg VBG HCO3 (23-28) mmol/L VBG Total CO2 (24-29) mmol/L VBG O2 Saturation % VBG Base Excess (-2-3) mmol/L VBG Lactate (0.6-1.4) mmol/L Oxygen Liter Flow L Sodium (136-145) mmol/L Potassium (3.5-5.1) mmol/L Chloride (98-107) mmol/L Carbon Dioxide (21.0-32.0) mmol/L Anion Gap (3-11) mmol/L BUN (7-18) mg/dL Creatinine (0.55-1.02) mg/dL Est GFR (CKD-EPI 2020) (mL/min/1.73m2) Glucose (74-106) mg/dL Hemoglobin A1c (<5.7) % 5.9 H Calcium (8.5-10.1) mg/dL Magnesium (1.8-2.4) mg/dL Total Bilirubin (0.2-1.0) mg/dL Conjugated Bilirubin (0.0-0.2) mg/dL AST (15-37) U/L ALT (14-59) U/L Alkaline Phosphatase (46-116) U/L Creatine Kinase (26-192) U/L 208 H Troponin I (<or=60) ng/L C-Reactive Protein (0.0-0.3) mg/dL Total Protein (6.4-8.2) g/dL Albumin (3.4-5.0) g/dL Triglycerides (<150) mg/dL Total Cholesterol (<200) mg/dL LDL Cholesterol, Calc (<100) mg/dL HDL Cholesterol (40-60) mg/dL Procalcitonin ng/mL Urine Color (Yellow) Urine Clarity (Clear) Urine pH (5-8) Ur Specific [place] (1.005-1.025) Urine Protein (Negative) mg/dL Urine Ketones (Negative) mg/dL Urine Blood (Negative) Urine Nitrite (Negative) Urine Bilirubin (Negative) Urine Urobilinogen (Up TO 0.2) EU/dL Ur Leukocyte Esterase (Negative) Urine RBC (0-2) HPF Urine WBC (0-5) HPF Ur Epithelial Cells (Negative) HPF Urine Crystals (Negative) HPF Urine Bacteria (Negative) HPF Urine Casts (Negative) LPF Urine Mucus (Negative) Ur Culture Indicated? Urine Glucose (Negative) mg/dL Urine Opiates Screen (Negative) Urine Methadone Screen (Negative) Acetaminophen (10-30) ug/mL 3 Ur Barbiturates Screen (Negative) Ur Tricyclics Screen (Negative) Ur Amphetamines Screen (Negative) U Benzodiazepines Scrn (Negative) Urine Cocaine Screen (Negative) Ur THC Screen (Negative) Ethyl Alcohol (<10) mg/dL Lyme Disease Antibody (Negative) COVID-19 Source SARS-CoV-2 (PCR) (Negative) Hepatitis A IgM Ab (Negative) Hep Bs Antigen (Negative) Hep B Core Total Ab (Negative) Hepatitis C Antibody (Negative) HIV 1&2 Ag/Ab, 4th Gen (Negative) Influenza Type A (PCR) (Negative) Influenza Type B (PCR) (Negative) Urine Legionella Ag (Negative) RSV (PCR) (Negative) Add-On Test Request Range/Units 04/23/22 04/23/22 04/23/22 08:15 08:31 08:31 WBC (4.4-10.8) 10^3/uL RBC (3.93-5.22) 10^6/uL Hgb (11.2-15.7) g/dL Hct (36.0-46.0) % MCV (80-95) fL MCH (27.0-33.0) pg MCHC (32.0-36.0) % RDW (11.7-14.6) % Plt Count (130-400) 10^3/uL MPV (8.0-11.0) fL Immature Gran % Neutrophils % Band Neutrophils % Lymphocytes % Atypical Lymphs % Monocytes % Eosinophils % Basophils % Metamyelocytes % Nucleated RBC % (0.0-0.3) % Absolute Neutrophils (1.2-6.7) 10^3/uL Absolute Lymphocytes (1.2-3.4) 10^3/uL Absolute Monocytes (0.1-0.8) 10^3/uL Absolute Eosinophils (0.0-0.7) 10^3/uL Absolute Basophils (0.0-0.2) 10^3/uL RBC Morphology Stomatocytes Schistocytes PT (9.3-11.0) sec 13.8 H INR (0.9-1.1) 1.4 H D-Dimer (<500) ng/mlFEU 1112 H ABG Sample Site ABG pH (7.35-7.45) ABG pCO2 (35-45) mmHg ABG pO2 (80-105) mmHg ABG HCO3 (22-26) mmol/L ABG Total CO2 (23-27) mmol/L ABG O2 Saturation (95-98) % ABG Base Excess (-2-3) mmol/L VBG pH (7.31-7.41) VBG pCO2 (41-51) mmHg VBG pO2 mmHg VBG HCO3 (23-28) mmol/L VBG Total CO2 (24-29) mmol/L VBG O2 Saturation % VBG Base Excess (-2-3) mmol/L VBG Lactate (0.6-1.4) mmol/L Oxygen Liter Flow L Sodium (136-145) mmol/L Potassium (3.5-5.1) mmol/L Chloride (98-107) mmol/L Carbon Dioxide (21.0-32.0) mmol/L Anion Gap (3-11) mmol/L BUN (7-18) mg/dL Creatinine (0.55-1.02) mg/dL Est GFR (CKD-EPI 2020) (mL/min/1.73m2) Glucose (74-106) mg/dL Hemoglobin A1c (<5.7) % Calcium (8.5-10.1) mg/dL Magnesium (1.8-2.4) mg/dL Total Bilirubin (0.2-1.0) mg/dL Conjugated Bilirubin (0.0-0.2) mg/dL AST (15-37) U/L ALT (14-59) U/L Alkaline Phosphatase (46-116) U/L Creatine Kinase (26-192) U/L Troponin I (<or=60) ng/L C-Reactive Protein (0.0-0.3) mg/dL Total Protein (6.4-8.2) g/dL Albumin (3.4-5.0) g/dL Triglycerides (<150) mg/dL Total Cholesterol (<200) mg/dL LDL Cholesterol, Calc (<100) mg/dL HDL Cholesterol (40-60) mg/dL Procalcitonin ng/mL Urine Color (Yellow) Urine Clarity (Clear) Urine pH (5-8) Ur Specific [place] (1.005-1.025) Urine Protein (Negative) mg/dL Urine Ketones (Negative) mg/dL Urine Blood (Negative) Urine Nitrite (Negative) Urine Bilirubin (Negative) Urine Urobilinogen (Up TO 0.2) EU/dL Ur Leukocyte Esterase (Negative) Urine RBC (0-2) HPF Urine WBC (0-5) HPF Ur Epithelial Cells (Negative) HPF Urine Crystals (Negative) HPF Urine Bacteria (Negative) HPF Urine Casts (Negative) LPF Urine Mucus (Negative) Ur Culture Indicated? Urine Glucose (Negative) mg/dL Urine Opiates Screen (Negative) Urine Methadone Screen (Negative) Acetaminophen (10-30) ug/mL Ur Barbiturates Screen (Negative) Ur Tricyclics Screen (Negative) Ur Amphetamines Screen (Negative) U Benzodiazepines Scrn (Negative) Urine Cocaine Screen (Negative) Ur THC Screen (Negative) Ethyl Alcohol (<10) mg/dL Lyme Disease Antibody (Negative) COVID-19 Source SARS-CoV-2 (PCR) (Negative) Hepatitis A IgM Ab (Negative) Hep Bs Antigen (Negative) Hep B Core Total Ab (Negative) Hepatitis C Antibody (Negative) HIV 1&2 Ag/Ab, 4th Gen (Negative) Influenza Type A (PCR) (Negative) Influenza Type B (PCR) (Negative) Urine Legionella Ag (Negative) RSV (PCR) (Negative) Add-On Test Request DONE Range/Units 04/23/22 04/23/22 04/23/22 08:46 09:17 10:17 WBC (4.4-10.8) 10^3/uL RBC (3.93-5.22) 10^6/uL Hgb (11.2-15.7) g/dL Hct (36.0-46.0) % MCV (80-95) fL MCH (27.0-33.0) pg MCHC (32.0-36.0) % RDW (11.7-14.6) % Plt Count (130-400) 10^3/uL MPV (8.0-11.0) fL Immature Gran % Neutrophils % Band Neutrophils % Lymphocytes % Atypical Lymphs % Monocytes % Eosinophils % Basophils % Metamyelocytes % Nucleated RBC % (0.0-0.3) % Absolute Neutrophils (1.2-6.7) 10^3/uL Absolute Lymphocytes (1.2-3.4) 10^3/uL Absolute Monocytes (0.1-0.8) 10^3/uL Absolute Eosinophils (0.0-0.7) 10^3/uL Absolute Basophils (0.0-0.2) 10^3/uL RBC Morphology Stomatocytes Schistocytes PT (9.3-11.0) sec INR (0.9-1.1) D-Dimer (<500) ng/mlFEU ABG Sample Site Right Radial ABG pH (7.35-7.45) 7.41 ABG pCO2 (35-45) mmHg 46 H ABG pO2 (80-105) mmHg 63 L ABG HCO3 (22-26) mmol/L 29 H ABG Total CO2 (23-27) mmol/L 28 H ABG O2 Saturation (95-98) % 93 L ABG Base Excess (-2-3) mmol/L 5 H VBG pH (7.31-7.41) VBG pCO2 (41-51) mmHg VBG pO2 mmHg VBG HCO3 (23-28) mmol/L VBG Total CO2 (24-29) mmol/L VBG O2 Saturation % VBG Base Excess (-2-3) mmol/L VBG Lactate (0.6-1.4) mmol/L Oxygen Liter Flow L 30 Sodium (136-145) mmol/L Potassium (3.5-5.1) mmol/L Chloride (98-107) mmol/L Carbon Dioxide (21.0-32.0) mmol/L Anion Gap (3-11) mmol/L BUN (7-18) mg/dL Creatinine (0.55-1.02) mg/dL Est GFR (CKD-EPI 2020) (mL/min/1.73m2) Glucose (74-106) mg/dL Hemoglobin A1c (<5.7) % Calcium (8.5-10.1) mg/dL Magnesium (1.8-2.4) mg/dL Total Bilirubin (0.2-1.0) mg/dL Conjugated Bilirubin (0.0-0.2) mg/dL AST (15-37) U/L ALT (14-59) U/L Alkaline Phosphatase (46-116) U/L Creatine Kinase (26-192) U/L Troponin I (<or=60) ng/L C-Reactive Protein (0.0-0.3) mg/dL Total Protein (6.4-8.2) g/dL Albumin (3.4-5.0) g/dL Triglycerides (<150) mg/dL Total Cholesterol (<200) mg/dL LDL Cholesterol, Calc (<100) mg/dL HDL Cholesterol (40-60) mg/dL Procalcitonin ng/mL Urine Color (Yellow) Urine Clarity (Clear) Urine pH (5-8) Ur Specific [place] (1.005-1.025) Urine Protein (Negative) mg/dL Urine Ketones (Negative) mg/dL Urine Blood (Negative) Urine Nitrite (Negative) Urine Bilirubin (Negative) Urine Urobilinogen (Up TO 0.2) EU/dL Ur Leukocyte Esterase (Negative) Urine RBC (0-2) HPF Urine WBC (0-5) HPF Ur Epithelial Cells (Negative) HPF Urine Crystals (Negative) HPF Urine Bacteria (Negative) HPF Urine Casts (Negative) LPF Urine Mucus (Negative) Ur Culture Indicated? Urine Glucose (Negative) mg/dL Urine Opiates Screen (Negative) Urine Methadone Screen (Negative) Acetaminophen (10-30) ug/mL Cancelled Ur Barbiturates Screen (Negative) Ur Tricyclics Screen (Negative) Ur Amphetamines Screen (Negative) U Benzodiazepines Scrn (Negative) Urine Cocaine Screen (Negative) Ur THC Screen (Negative) Ethyl Alcohol (<10) mg/dL Lyme Disease Antibody (Negative) Negative COVID-19 Source SARS-CoV-2 (PCR) (Negative) Hepatitis A IgM Ab (Negative) Hep Bs Antigen (Negative) Hep B Core Total Ab (Negative) Hepatitis C Antibody (Negative) HIV 1&2 Ag/Ab, 4th Gen (Negative) Influenza Type A (PCR) (Negative) Influenza Type B (PCR) (Negative) Urine Legionella Ag (Negative) RSV (PCR) (Negative) Add-On Test Request Range/Units 04/23/22 04/23/22 04/23/22 10:17 13:36 16:20 WBC (4.4-10.8) 10^3/uL RBC (3.93-5.22) 10^6/uL Hgb (11.2-15.7) g/dL Hct (36.0-46.0) % MCV (80-95) fL MCH (27.0-33.0) pg MCHC (32.0-36.0) % RDW (11.7-14.6) % Plt Count (130-400) 10^3/uL MPV (8.0-11.0) fL Immature Gran % Neutrophils % Band Neutrophils % Lymphocytes % Atypical Lymphs % Monocytes % Eosinophils % Basophils % Metamyelocytes % Nucleated RBC % (0.0-0.3) % Absolute Neutrophils (1.2-6.7) 10^3/uL Absolute Lymphocytes (1.2-3.4) 10^3/uL Absolute Monocytes (0.1-0.8) 10^3/uL Absolute Eosinophils (0.0-0.7) 10^3/uL Absolute Basophils (0.0-0.2) 10^3/uL RBC Morphology Stomatocytes Schistocytes PT (9.3-11.0) sec INR (0.9-1.1) D-Dimer (<500) ng/mlFEU ABG Sample Site ABG pH (7.35-7.45) ABG pCO2 (35-45) mmHg ABG pO2 (80-105) mmHg ABG HCO3 (22-26) mmol/L ABG Total CO2 (23-27) mmol/L ABG O2 Saturation (95-98) % ABG Base Excess (-2-3) mmol/L VBG pH (7.31-7.41) VBG pCO2 (41-51) mmHg VBG pO2 mmHg VBG HCO3 (23-28) mmol/L VBG Total CO2 (24-29) mmol/L VBG O2 Saturation % VBG Base Excess (-2-3) mmol/L VBG Lactate (0.6-1.4) mmol/L 3.3 H* 3.8 H* 2.5 H* Oxygen Liter Flow L Sodium (136-145) mmol/L Potassium (3.5-5.1) mmol/L Chloride (98-107) mmol/L Carbon Dioxide (21.0-32.0) mmol/L Anion Gap (3-11) mmol/L BUN (7-18) mg/dL Creatinine (0.55-1.02) mg/dL Est GFR (CKD-EPI 2020) (mL/min/1.73m2) Glucose (74-106) mg/dL Hemoglobin A1c (<5.7) % Calcium (8.5-10.1) mg/dL Magnesium (1.8-2.4) mg/dL Total Bilirubin (0.2-1.0) mg/dL Conjugated Bilirubin (0.0-0.2) mg/dL AST (15-37) U/L ALT (14-59) U/L Alkaline Phosphatase (46-116) U/L Creatine Kinase (26-192) U/L Troponin I (<or=60) ng/L C-Reactive Protein (0.0-0.3) mg/dL Total Protein (6.4-8.2) g/dL Albumin (3.4-5.0) g/dL Triglycerides (<150) mg/dL Total Cholesterol (<200) mg/dL LDL Cholesterol, Calc (<100) mg/dL HDL Cholesterol (40-60) mg/dL Procalcitonin ng/mL Urine Color (Yellow) Urine Clarity (Clear) Urine pH (5-8) Ur Specific [place] (1.005-1.025) Urine Protein (Negative) mg/dL Urine Ketones (Negative) mg/dL Urine Blood (Negative) Urine Nitrite (Negative) Urine Bilirubin (Negative) Urine Urobilinogen (Up TO 0.2) EU/dL Ur Leukocyte Esterase (Negative) Urine RBC (0-2) HPF Urine WBC (0-5) HPF Ur Epithelial Cells (Negative) HPF Urine Crystals (Negative) HPF Urine Bacteria (Negative) HPF Urine Casts (Negative) LPF Urine Mucus (Negative) Ur Culture Indicated? Urine Glucose (Negative) mg/dL Urine Opiates Screen (Negative) Urine Methadone Screen (Negative) Acetaminophen (10-30) ug/mL Ur Barbiturates Screen (Negative) Ur Tricyclics Screen (Negative) Ur Amphetamines Screen (Negative) U Benzodiazepines Scrn (Negative) Urine Cocaine Screen (Negative) Ur THC Screen (Negative) Ethyl Alcohol (<10) mg/dL Lyme Disease Antibody (Negative) COVID-19 Source SARS-CoV-2 (PCR) (Negative) Hepatitis A IgM Ab (Negative) Hep Bs Antigen (Negative) Hep B Core Total Ab (Negative) Hepatitis C Antibody (Negative) HIV 1&2 Ag/Ab, 4th Gen (Negative) Influenza Type A (PCR) (Negative) Influenza Type B (PCR) (Negative) Urine Legionella Ag (Negative) RSV (PCR) (Negative) Add-On Test Request Range/Units 04/24/22 04/24/22 04/24/22 06:41 06:45 06:45 WBC (4.4-10.8) 10^3/uL 20.68 H RBC (3.93-5.22) 10^6/uL 3.31 L Hgb (11.2-15.7) g/dL 9.6 L Hct (36.0-46.0) % 30.3 L MCV (80-95) fL 92 MCH (27.0-33.0) pg 29.0 MCHC (32.0-36.0) % 31.7 L RDW (11.7-14.6) % 16.3 H Plt Count (130-400) 10^3/uL 314 MPV (8.0-11.0) fL 10.3 Immature Gran % 0.0 Neutrophils % 72.0 Band Neutrophils % 6 Lymphocytes % 16.0 Atypical Lymphs % Monocytes % 4.0 Eosinophils % 0.0 Basophils % 0.0 Metamyelocytes % 2 Nucleated RBC % (0.0-0.3) % 0.0 Absolute Neutrophils (1.2-6.7) 10^3/uL 16.13 H Absolute Lymphocytes (1.2-3.4) 10^3/uL 3.31 Absolute Monocytes (0.1-0.8) 10^3/uL 0.83 H Absolute Eosinophils (0.0-0.7) 10^3/uL 0.00 Absolute Basophils (0.0-0.2) 10^3/uL 0.00 RBC Morphology Normal Stomatocytes Schistocytes PT (9.3-11.0) sec INR (0.9-1.1) D-Dimer (<500) ng/mlFEU ABG Sample Site ABG pH (7.35-7.45) ABG pCO2 (35-45) mmHg ABG pO2 (80-105) mmHg ABG HCO3 (22-26) mmol/L ABG Total CO2 (23-27) mmol/L ABG O2 Saturation (95-98) % ABG Base Excess (-2-3) mmol/L VBG pH (7.31-7.41) VBG pCO2 (41-51) mmHg VBG pO2 mmHg VBG HCO3 (23-28) mmol/L VBG Total CO2 (24-29) mmol/L VBG O2 Saturation % VBG Base Excess (-2-3) mmol/L VBG Lactate (0.6-1.4) mmol/L Oxygen Liter Flow L Sodium (136-145) mmol/L 141 Potassium (3.5-5.1) mmol/L 3.8 Chloride (98-107) mmol/L 104 Carbon Dioxide (21.0-32.0) mmol/L 27.4 Anion Gap (3-11) mmol/L 9.6 BUN (7-18) mg/dL 17 Creatinine (0.55-1.02) mg/dL 0.7 Est GFR (CKD-EPI 2020) (mL/min/1.73m2) 106.62 Glucose (74-106) mg/dL 131 H Hemoglobin A1c (<5.7) % Calcium (8.5-10.1) mg/dL 8.9 Magnesium (1.8-2.4) mg/dL 2.4 Total Bilirubin (0.2-1.0) mg/dL 0.2 Conjugated Bilirubin (0.0-0.2) mg/dL < 0.1 AST (15-37) U/L 112 H ALT (14-59) U/L 333 H Alkaline Phosphatase (46-116) U/L 98 Creatine Kinase (26-192) U/L Troponin I (<or=60) ng/L C-Reactive Protein (0.0-0.3) mg/dL Total Protein (6.4-8.2) g/dL 7.2 Albumin (3.4-5.0) g/dL 2.5 L Triglycerides (<150) mg/dL Total Cholesterol (<200) mg/dL LDL Cholesterol, Calc (<100) mg/dL HDL Cholesterol (40-60) mg/dL Procalcitonin ng/mL Urine Color (Yellow) Urine Clarity (Clear) Urine pH (5-8) Ur Specific [place] (1.005-1.025) Urine Protein (Negative) mg/dL Urine Ketones (Negative) mg/dL Urine Blood (Negative) Urine Nitrite (Negative) Urine Bilirubin (Negative) Urine Urobilinogen (Up TO 0.2) EU/dL Ur Leukocyte Esterase (Negative) Urine RBC (0-2) HPF Urine WBC (0-5) HPF Ur Epithelial Cells (Negative) HPF Urine Crystals (Negative) HPF Urine Bacteria (Negative) HPF Urine Casts (Negative) LPF Urine Mucus (Negative) Ur Culture Indicated? Urine Glucose (Negative) mg/dL Urine Opiates Screen (Negative) Urine Methadone Screen (Negative) Acetaminophen (10-30) ug/mL Ur Barbiturates Screen (Negative) Ur Tricyclics Screen (Negative) Ur Amphetamines Screen (Negative) U Benzodiazepines Scrn (Negative) Urine Cocaine Screen (Negative) Ur THC Screen (Negative) Ethyl Alcohol (<10) mg/dL Lyme Disease Antibody (Negative) COVID-19 Source SARS-CoV-2 (PCR) (Negative) Hepatitis A IgM Ab (Negative) Hep Bs Antigen (Negative) Hep B Core Total Ab (Negative) Hepatitis C Antibody (Negative) HIV 1&2 Ag/Ab, 4th Gen (Negative) Negative Influenza Type A (PCR) (Negative) Influenza Type B (PCR) (Negative) Urine Legionella Ag (Negative) RSV (PCR) (Negative) Add-On Test Request Range/Units 04/24/22 04/24/22 04/24/22 06:45 06:45 06:45 WBC (4.4-10.8) 10^3/uL RBC (3.93-5.22) 10^6/uL Hgb (11.2-15.7) g/dL Hct (36.0-46.0) % MCV (80-95) fL MCH (27.0-33.0) pg MCHC (32.0-36.0) % RDW (11.7-14.6) % Plt Count (130-400) 10^3/uL MPV (8.0-11.0) fL Immature Gran % Neutrophils % Band Neutrophils % Lymphocytes % Atypical Lymphs % Monocytes % Eosinophils % Basophils % Metamyelocytes % Nucleated RBC % (0.0-0.3) % Absolute Neutrophils (1.2-6.7) 10^3/uL Absolute Lymphocytes (1.2-3.4) 10^3/uL Absolute Monocytes (0.1-0.8) 10^3/uL Absolute Eosinophils (0.0-0.7) 10^3/uL Absolute Basophils (0.0-0.2) 10^3/uL RBC Morphology Stomatocytes Schistocytes PT (9.3-11.0) sec INR (0.9-1.1) D-Dimer (<500) ng/mlFEU ABG Sample Site ABG pH (7.35-7.45) ABG pCO2 (35-45) mmHg ABG pO2 (80-105) mmHg ABG HCO3 (22-26) mmol/L ABG Total CO2 (23-27) mmol/L ABG O2 Saturation (95-98) % ABG Base Excess (-2-3) mmol/L VBG pH (7.31-7.41) VBG pCO2 (41-51) mmHg VBG pO2 mmHg VBG HCO3 (23-28) mmol/L VBG Total CO2 (24-29) mmol/L VBG O2 Saturation % VBG Base Excess (-2-3) mmol/L VBG Lactate (0.6-1.4) mmol/L Oxygen Liter Flow L Sodium (136-145) mmol/L Potassium (3.5-5.1) mmol/L Chloride (98-107) mmol/L Carbon Dioxide (21.0-32.0) mmol/L Anion Gap (3-11) mmol/L BUN (7-18) mg/dL Creatinine (0.55-1.02) mg/dL Est GFR (CKD-EPI 2020) (mL/min/1.73m2) Glucose (74-106) mg/dL Hemoglobin A1c (<5.7) % Calcium (8.5-10.1) mg/dL Magnesium (1.8-2.4) mg/dL Total Bilirubin (0.2-1.0) mg/dL Conjugated Bilirubin (0.0-0.2) mg/dL AST (15-37) U/L ALT (14-59) U/L Alkaline Phosphatase (46-116) U/L Creatine Kinase (26-192) U/L Troponin I (<or=60) ng/L C-Reactive Protein (0.0-0.3) mg/dL > 25.00 H Total Protein (6.4-8.2) g/dL Albumin (3.4-5.0) g/dL Triglycerides (<150) mg/dL Total Cholesterol (<200) mg/dL LDL Cholesterol, Calc (<100) mg/dL HDL Cholesterol (40-60) mg/dL Procalcitonin ng/mL 2.1 Urine Color (Yellow) Urine Clarity (Clear) Urine pH (5-8) Ur Specific [place] (1.005-1.025) Urine Protein (Negative) mg/dL Urine Ketones (Negative) mg/dL Urine Blood (Negative) Urine Nitrite (Negative) Urine Bilirubin (Negative) Urine Urobilinogen (Up TO 0.2) EU/dL Ur Leukocyte Esterase (Negative) Urine RBC (0-2) HPF Urine WBC (0-5) HPF Ur Epithelial Cells (Negative) HPF Urine Crystals (Negative) HPF Urine Bacteria (Negative) HPF Urine Casts (Negative) LPF Urine Mucus (Negative) Ur Culture Indicated? Urine Glucose (Negative) mg/dL Urine Opiates Screen (Negative) Urine Methadone Screen (Negative) Acetaminophen (10-30) ug/mL Ur Barbiturates Screen (Negative) Ur Tricyclics Screen (Negative) Ur Amphetamines Screen (Negative) U Benzodiazepines Scrn (Negative) Urine Cocaine Screen (Negative) Ur THC Screen (Negative) Ethyl Alcohol (<10) mg/dL Lyme Disease Antibody (Negative) COVID-19 Source SARS-CoV-2 (PCR) (Negative) Hepatitis A IgM Ab (Negative) Hep Bs Antigen (Negative) Hep B Core Total Ab (Negative) Hepatitis C Antibody (Negative) HIV 1&2 Ag/Ab, 4th Gen (Negative) Influenza Type A (PCR) (Negative) Influenza Type B (PCR) (Negative) Urine Legionella Ag (Negative) RSV (PCR) (Negative) Add-On Test Request DONE Range/Units 04/25/22 04/25/22 04/26/22 06:25 06:25 06:26 WBC (4.4-10.8) 10^3/uL 23.06 H RBC (3.93-5.22) 10^6/uL 3.09 L Hgb (11.2-15.7) g/dL 8.9 L Hct (36.0-46.0) % 28.3 L MCV (80-95) fL 92 MCH (27.0-33.0) pg 28.8 MCHC (32.0-36.0) % 31.4 L RDW (11.7-14.6) % 16.5 H Plt Count (130-400) 10^3/uL 303 MPV (8.0-11.0) fL 9.6 Immature Gran % 0.0 Neutrophils % 70.0 Band Neutrophils % 5 Lymphocytes % 15.0 Atypical Lymphs % 6 Monocytes % 1.0 Eosinophils % 0.0 Basophils % 0.0 Metamyelocytes % 3 Nucleated RBC % (0.0-0.3) % 1.0 H Absolute Neutrophils (1.2-6.7) 10^3/uL 17.30 H Absolute Lymphocytes (1.2-3.4) 10^3/uL 4.84 H Absolute Monocytes (0.1-0.8) 10^3/uL 0.23 Absolute Eosinophils (0.0-0.7) 10^3/uL 0.00 Absolute Basophils (0.0-0.2) 10^3/uL 0.00 RBC Morphology See Below Stomatocytes 2+ Schistocytes 1+ PT (9.3-11.0) sec INR (0.9-1.1) D-Dimer (<500) ng/mlFEU ABG Sample Site ABG pH (7.35-7.45) ABG pCO2 (35-45) mmHg ABG pO2 (80-105) mmHg ABG HCO3 (22-26) mmol/L ABG Total CO2 (23-27) mmol/L ABG O2 Saturation (95-98) % ABG Base Excess (-2-3) mmol/L VBG pH (7.31-7.41) VBG pCO2 (41-51) mmHg VBG pO2 mmHg VBG HCO3 (23-28) mmol/L VBG Total CO2 (24-29) mmol/L VBG O2 Saturation % VBG Base Excess (-2-3) mmol/L VBG Lactate (0.6-1.4) mmol/L Oxygen Liter Flow L Sodium (136-145) mmol/L 142 142 Potassium (3.5-5.1) mmol/L 3.8 3.6 Chloride (98-107) mmol/L 105 104 Carbon Dioxide (21.0-32.0) mmol/L 30.1 33.9 H Anion Gap (3-11) mmol/L 6.9 4.1 BUN (7-18) mg/dL 17 13 Creatinine (0.55-1.02) mg/dL 0.7 0.7 Est GFR (CKD-EPI 2020) (mL/min/1.73m2) 106.62 106.62 Glucose (74-106) mg/dL 80 70 L Hemoglobin A1c (<5.7) % Calcium (8.5-10.1) mg/dL 8.7 9.1 Magnesium (1.8-2.4) mg/dL 2.1 2.0 Total Bilirubin (0.2-1.0) mg/dL Conjugated Bilirubin (0.0-0.2) mg/dL AST (15-37) U/L ALT (14-59) U/L Alkaline Phosphatase (46-116) U/L Creatine Kinase (26-192) U/L Troponin I (<or=60) ng/L C-Reactive Protein (0.0-0.3) mg/dL 11.84 H 6.95 H Total Protein (6.4-8.2) g/dL Albumin (3.4-5.0) g/dL Triglycerides (<150) mg/dL Total Cholesterol (<200) mg/dL LDL Cholesterol, Calc (<100) mg/dL HDL Cholesterol (40-60) mg/dL Procalcitonin ng/mL Urine Color (Yellow) Urine Clarity (Clear) Urine pH (5-8) Ur Specific [place] (1.005-1.025) Urine Protein (Negative) mg/dL Urine Ketones (Negative) mg/dL Urine Blood (Negative) Urine Nitrite (Negative) Urine Bilirubin (Negative) Urine Urobilinogen (Up TO 0.2) EU/dL Ur Leukocyte Esterase (Negative) Urine RBC (0-2) HPF Urine WBC (0-5) HPF Ur Epithelial Cells (Negative) HPF Urine Crystals (Negative) HPF Urine Bacteria (Negative) HPF Urine Casts (Negative) LPF Urine Mucus (Negative) Ur Culture Indicated? Urine Glucose (Negative) mg/dL Urine Opiates Screen (Negative) Urine Methadone Screen (Negative) Acetaminophen (10-30) ug/mL Ur Barbiturates Screen (Negative) Ur Tricyclics Screen (Negative) Ur Amphetamines Screen (Negative) U Benzodiazepines Scrn (Negative) Urine Cocaine Screen (Negative) Ur THC Screen (Negative) Ethyl Alcohol (<10) mg/dL Lyme Disease Antibody (Negative) COVID-19 Source SARS-CoV-2 (PCR) (Negative) Hepatitis A IgM Ab (Negative) Hep Bs Antigen (Negative) Hep B Core Total Ab (Negative) Hepatitis C Antibody (Negative) HIV 1&2 Ag/Ab, 4th Gen (Negative) Influenza Type A (PCR) (Negative) Influenza Type B (PCR) (Negative) Urine Legionella Ag (Negative) RSV (PCR) (Negative) Add-On Test Request Range/Units 04/26/22 04/26/22 06:26 06:26 WBC (4.4-10.8) 10^3/uL 20.81 H RBC (3.93-5.22) 10^6/uL 3.24 L Hgb (11.2-15.7) g/dL 9.3 L Hct (36.0-46.0) % 29.6 L MCV (80-95) fL 91 MCH (27.0-33.0) pg 28.7 MCHC (32.0-36.0) % 31.4 L RDW (11.7-14.6) % 16.8 H Plt Count (130-400) 10^3/uL 319 MPV (8.0-11.0) fL 9.3 Immature Gran % 0.0 Neutrophils % 71.0 Band Neutrophils % 6 Lymphocytes % 19.0 Atypical Lymphs % Monocytes % 1.0 Eosinophils % 0.0 Basophils % 0.0 Metamyelocytes % 3 Nucleated RBC % (0.0-0.3) % 0.0 Absolute Neutrophils (1.2-6.7) 10^3/uL 16.02 H Absolute Lymphocytes (1.2-3.4) 10^3/uL 3.95 H Absolute Monocytes (0.1-0.8) 10^3/uL 0.21 Absolute Eosinophils (0.0-0.7) 10^3/uL 0.00 Absolute Basophils (0.0-0.2) 10^3/uL 0.00 RBC Morphology Normal Stomatocytes Schistocytes PT (9.3-11.0) sec INR (0.9-1.1) D-Dimer (<500) ng/mlFEU ABG Sample Site ABG pH (7.35-7.45) ABG pCO2 (35-45) mmHg ABG pO2 (80-105) mmHg ABG HCO3 (22-26) mmol/L ABG Total CO2 (23-27) mmol/L ABG O2 Saturation (95-98) % ABG Base Excess (-2-3) mmol/L VBG pH (7.31-7.41) VBG pCO2 (41-51) mmHg VBG pO2 mmHg VBG HCO3 (23-28) mmol/L VBG Total CO2 (24-29) mmol/L VBG O2 Saturation % VBG Base Excess (-2-3) mmol/L VBG Lactate (0.6-1.4) mmol/L Oxygen Liter Flow L Sodium (136-145) mmol/L Potassium (3.5-5.1) mmol/L Chloride (98-107) mmol/L Carbon Dioxide (21.0-32.0) mmol/L Anion Gap (3-11) mmol/L BUN (7-18) mg/dL Creatinine (0.55-1.02) mg/dL Est GFR (CKD-EPI 2020) (mL/min/1.73m2) Glucose (74-106) mg/dL Hemoglobin A1c (<5.7) % Calcium (8.5-10.1) mg/dL Magnesium (1.8-2.4) mg/dL Total Bilirubin (0.2-1.0) mg/dL Conjugated Bilirubin (0.0-0.2) mg/dL AST (15-37) U/L ALT (14-59) U/L Alkaline Phosphatase (46-116) U/L Creatine Kinase (26-192) U/L Troponin I (<or=60) ng/L C-Reactive Protein (0.0-0.3) mg/dL Total Protein (6.4-8.2) g/dL Albumin (3.4-5.0) g/dL Triglycerides (<150) mg/dL Total Cholesterol (<200) mg/dL LDL Cholesterol, Calc (<100) mg/dL HDL Cholesterol (40-60) mg/dL Procalcitonin ng/mL 0.7 Urine Color (Yellow) Urine Clarity (Clear) Urine pH (5-8) Ur Specific [place] (1.005-1.025) Urine Protein (Negative) mg/dL Urine Ketones (Negative) mg/dL Urine Blood (Negative) Urine Nitrite (Negative) Urine Bilirubin (Negative) Urine Urobilinogen (Up TO 0.2) EU/dL Ur Leukocyte Esterase (Negative) Urine RBC (0-2) HPF Urine WBC (0-5) HPF Ur Epithelial Cells (Negative) HPF Urine Crystals (Negative) HPF Urine Bacteria (Negative) HPF Urine Casts (Negative) LPF Urine Mucus (Negative) Ur Culture Indicated? Urine Glucose (Negative) mg/dL Urine Opiates Screen (Negative) Urine Methadone Screen (Negative) Acetaminophen (10-30) ug/mL Ur Barbiturates Screen (Negative) Ur Tricyclics Screen (Negative) Ur Amphetamines Screen (Negative) U Benzodiazepines Scrn (Negative) Urine Cocaine Screen (Negative) Ur THC Screen (Negative) Ethyl Alcohol (<10) mg/dL Lyme Disease Antibody (Negative) COVID-19 Source SARS-CoV-2 (PCR) (Negative) Hepatitis A IgM Ab (Negative) Hep Bs Antigen (Negative) Hep B Core Total Ab (Negative) Hepatitis C Antibody (Negative) HIV 1&2 Ag/Ab, 4th Gen (Negative) Influenza Type A (PCR) (Negative) Influenza Type B (PCR) (Negative) Urine Legionella Ag (Negative) RSV (PCR) (Negative) Add-On Test Request
[2022-04-26] MEDS: Budesonide/Formoterol 160/4.5 6 GM 60 PUFF INH IH ×2 (08:12→20:16)
[2022-04-26] MEDS: Ipratropium 0.5 MG/2.5 ML UPD VIAL UPD ×4 (08:13→20:08)
[2022-04-26] MEDS: Sertraline 100 MG TAB 150 MG PO (08:25)
[2022-04-26] MEDS: Lansoprazole 30 MG CAPCR PO (08:25)
[2022-04-26] MEDS: Lactated Ringers 1,000 ML 1000 ML IV (08:25)
[2022-04-26] MEDS: buPROPion-XL 150 MG TABCR PO (08:26)
[2022-04-26] MEDS: guaiFENesin 600 MG TABCR 1200 MG PO ×2 (08:26→20:08)
[2022-04-26] MEDS: predniSONE 20 MG TAB 60 MG PO (08:26)
[2022-04-26] MEDS: Normal Saline Flush 10 ML SYR IVP ×2 (08:26→17:36)
[2022-04-26] MEDS: Nystatin 500000 UNITS/5 ML SUSP 5ML CUP PO ×3 (08:26→20:08)
[2022-04-26] MEDS: Methadone Liquid 10 MG/ML 110 MG PO (08:27)
[2022-04-26] MEDS: Acetaminophen 325 MG TAB PO ×2 (11:11→16:37)
--- NOTE | 2022-04-26 13:54 | NUR.NOTE ---
PT refused to have [employer]ERMOM[employer]ER TESTER stay in/near shower room due to instability when standing. Nurse made aware.
--- NOTE | 2022-04-26 15:00 | PDOC.CMPRO ---
- If Service Date Differs Date of service: 04/26/22 Time of Service: 15:00 Care Management Progress Note S/O: Wily is standing up in her room, brushing her hair when CM met with her. She is alert, oriented and able to engage in conversation. She is 93% on 2L NC, Dr. Penn is consulting. She is still quite ill, but shares that today is the first day she doesn't feel like she's going to . Anticipate, Wily will likely need a course of once daily IV Ceftriaxone which could be done in the infusion room when medically ready for discharge. CM sent referrals to [employer] [facility] (for CM in the community) and [employer] (for help applying for fuel and food benefits.) [employer] notified CM that Wily will be added to their waiting list. CM contacted Kayleigh from [employer], and she will follow up with Wily. A: 47 year old female admitted to [facility] on 04/22/22 for Sepsis, pneumonia P: Anticipate, Wily will return home once medically cleared. She will be driven home via private vehicle by family. She will follow up with her PCP and discharge plan of care. Referrals were sent to [facility] and [employer]. Wily will need a last Methadone dose letter for [facility]. CM will continue to follow.
[2022-04-26 15:52] LABS: Mycoplasma Pneumoniae PCR Negative; Specimen source sputum
[2022-04-26] MEDS: cefTRIAXone 2 GM/50 ML BAG IVPB (17:35)
--- NOTE | 2022-04-26 17:44 | W.PM.PROGNOT ---
Date of Service Date of service: 04/26/22 Time of Service: 10:00 Assessment and Plan Assessment and plan (1) Sepsis due to pneumonia: Status: Acute Assessment and plan: Blood cultures on admission and sputum culture are positive for H. flu. Continue ceftriaxone. D/c doxycycline. Repeat blood cultures NGTD at 48 hrs. Continue mucinex. Encourage pulmonary toilet. Wean O2 as tolerated. HIV negative. (2) Acute respiratory failure with hypoxia: Status: Acute Assessment and plan: Due to PNA, present on admission. As above. (3) Elevated troponin I level: Status: Acute Assessment and plan: In setting of hypoxia, sepsis due to pneumonia, agree that it is likely type 2 demand ischemia. PE ruled out. Echo with preserved LVEF (65%), no hemodynamically significant valvular disease, no wall motion abnormalities, RVSP of 39 mmHg. Off tele now. (4) Asthma: Status: Chronic Assessment and plan: In acute exacerbation. Continue prednisone 60 mg PO daily. Improving. Continue scheduled + prn nebs (modified to atrovent + xopenex). Qualifiers: Asthma complication type: uncomplicated Asthma persistence: persistent Asthma severity: mild Qualified Code(s): J45.30 - Mild persistent asthma, uncomplicated (5) Elevated transaminase level: Status: Acute Assessment and plan: ?hypoxic liver injury/shock liver. No evidence of acute process on CT. hepatitis studies negative. No clear h/o EtOH abuse. Legionella urine Ag negative; Lyme Ab negative, remainder of tick panel pending. Continue to monitor. (6) Generalized anxiety disorder: Status: Chronic Assessment and plan: Contninue outpatient Regimen (7) Renal insufficiency: Status: Chronic Assessment and plan: At baseline. Continue to monitor. (8) Opioid use disorder: Status: Chronic Assessment and plan: continue methadone (client of [facility]) (9) Smoker: Status: Acute Assessment and plan: Agrees to nicotine replacement (10) Ingrown toenail of both feet: Status: Acute Assessment and plan: Await podiatry consult (11) DVT prophylaxis: Status: Acute Assessment and plan: LMWH (12) Discharge planning issues: Status: Acute Assessment and plan: Full code Continues to require hospitalization. Subjective Subjective Interval history since last seen: Luis Felipey feels a little better. She does have back pain for which she has been using arnica and agrees to Craig Pereira. Denies dizziness, endorses chest pain (only wants tylenol), had nausea and heartburn this morning. Exam Narrative Exam Narrative: General: Pleasant middle-aged female who looks better no dyspnea/tachypnea while on 2L of O2 by NC, speaking in full sentences HEENT: EOMI, MMM Heart: RRR, no m/r/g Lungs: improved wheezing on expiration B, coughing Abdomen: soft, nontender, nondistended Extremities: no edema BLEs, ingrown toenails B 1st and 2nd digits, do not appear infected. Objective Last Vital Signs Temp 37.0 C 04/26/22 15:07 Pulse 94 H 04/26/22 15:07 Resp 16 04/26/22 15:07 BP 126/68 04/26/22 15:07 Pulse Ox 93 04/26/22 15:07 Laboratory Results - last 24 hr 04/26/22 04/26/22 04/26/22 06:26 06:26 06:26 WBC 20.81 H RBC 3.24 L Hgb 9.3 L Hct 29.6 L MCV 91 MCH 28.7 MCHC 31.4 L RDW 16.8 H Plt Count 319 MPV 9.3 Immature Gran % 0.0 Neutrophils % 71.0 Band Neutrophils % 6 Lymphocytes % 19.0 Monocytes % 1.0 Eosinophils % 0.0 Basophils % 0.0 Metamyelocytes % 3 Nucleated RBC % 0.0 Absolute Neutrophils 16.02 H Absolute Lymphocytes 3.95 H Absolute Monocytes 0.21 Absolute Eosinophils 0.00 Absolute Basophils 0.00 RBC Morphology Normal Sodium 142 Potassium 3.6 Chloride 104 Carbon Dioxide 33.9 H Anion Gap 4.1 BUN 13 Creatinine 0.7 Est GFR (CKD-EPI 2020) 106.62 Glucose 70 L Calcium 9.1 Magnesium 2.0 C-Reactive Protein 6.95 H Procalcitonin 0.7
[2022-04-26 19:30] LABS: Anaplasma phagocytophilum Negative (Negative); B. miyamotoi PCR Negative (Negative); Babesia divergens/MO-1 Negative (Negative); Babesia duncani Negative (Negative); Babesia microti Negative (Negative); Ehrlichia chaffeensis Negative (Negative); Ehrlichia ewingii/canis Negative (Negative); Ehrlichia muris eauclairensis Negative (Negative)
[2022-04-26] MEDS: traZODone 50 MG TAB PO (20:08)
--- NOTE | 2022-04-26 21:38 | NUR.NOTE ---
Nursing Note: Oral muscosa pink, moist and intact. No Thrush seen. Nystatin swish/swallow continued per MD order. Pt denies any sores/ pain in mouth.
[2022-04-27] VITALS (17 sets, daily range): BP systolic 119–147; BP diastolic 75–83; PULSE 66–89; RESP 4–20; TEMP 36.2–37.1; O2SAT 88–97
[2022-04-27] MEDS: Enoxaparin 40 MG/0.4 ML SYR SC ×2 (00:49→21:31)
[2022-04-27 06:18] LABS: Abs Immature Grans 3.32 10^3/uL (0.0-0.06); HCT 28.9 % (36.0-46.0); HGB 9.4 g/dL (11.2-15.7); MCH 29.6 pg (27.0-33.0); MCHC 32.5 % (32.0-36.0); MCV 91 fL (80-95); MPV 9.2 fL (8.0-11.0); Platelet Count 340 10^3/uL (130-400); RBC 3.18 10^6/uL (3.93-5.22); RDW 16.8 % (11.7-14.6); RDW-SD 56.2 fL; WBC 18.98 10^3/uL (4.4-10.8)
[2022-04-27 06:41] LABS: Absolute Lymphocyte Count 4.18 10^3/uL (1.2-3.4); Absolute Monocyte Count 0.95 10^3/uL (0.1-0.8); Absolute Neutrophil Count 12.53 10^3/uL (1.2-6.7); Bands % 3
[2022-04-27 06:42] LABS: Absolute Basophil Count 0.38 10^3/uL (0.0-0.2); Absolute Eosinophil Count 0.38 10^3/uL (0.0-0.7); Diff Comment Manual Differential; Metamyelocytes % 1; RBC Morphology Normal
[2022-04-27 06:55] LABS: Anion Gap 6.8 mmol/L (3-11); BUN 15 mg/dL (7-18); C-Reactive Protein 4.33 mg/dL (0.0-0.3); CO2 34.2 mmol/L (21.0-32.0); CREATININE 0.8 mg/dL (0.55-1.02); Calcium 8.9 mg/dL (8.5-10.1); Chloride 100 mmol/L (98-107); Estimated GFR 90.83 (mL/min/1.73m2); Glucose 72 mg/dL (74-106); Potassium 3.6 mmol/L (3.5-5.1); Sodium 141 mmol/L (136-145)
--- NOTE | 2022-04-27 07:21 | POCOE_ITS ---
Assessment and Plan Assessment and plan (1) Nail dystrophy: Status: Acute Assessment and plan: The patient was evaluated and treated. An abbreviated medical history was obtained and abbreviated examination performed considering the absence of criteria making care of the patient's toenails medically necessary today (no pain, no infection, no interference with ambulation, no qualifying medical criteria such as diabetes). Nails 1-5 were sharply debrided today in clinic with nail nippers. A decrease in length was achieved upon doing so. All questions were answered. History of Present Illness Narrative: I've been asked to evaluate Wily Shook for an ingrown toenail. Wily is a 47 year old female admitted for pneuomonia. She denies diabetes, PAD, neuropathy, any leg pain that intereferes with her ability to walk, any tingling, numbness, or paresthesias. She denies any redness, and denies any pain related to the toenails. She report they grown curved and are difficult to cut, but they do not hurt her. She denies any pus, red streaks, or drainage. She denies any open wounds, ulcerations, or infections Consults Consult date: 04/26/22 [facility] All Active Problems (Updated 04/27/22 @ 07:26 by Lanie Alejo DPM) Nail dystrophy (Acute) Pneumonia (Acute) Bacteremia (Acute) Ingrown toenail of both feet (Acute) Asthma exacerbation (Acute) Acute respiratory failure with hypoxia (Acute) Renal insufficiency (Chronic) Elevated troponin I level (Acute) Elevated transaminase level (Acute) Discharge planning issues (Acute) DVT prophylaxis (Acute) Smoker (Acute) Sepsis due to pneumonia (Acute) Sepsis with multi-organ dysfunction (Acute) Generalized anxiety disorder (Chronic) Social anxiety disorder (Chronic) Major depressive disorder (Chronic) Opioid use disorder (Chronic) Methadone through [facility] GERD (gastroesophageal reflux disease) (Chronic) Vitamin D deficiency (Chronic) Asthma (Chronic) Medical History Degenerative disc disease cervical spine with radiculopathy down right arm. Substance abuse Hx opiate abuse, pills then heroin (snorted), no hx of IVDU. Surgical History History of laparoscopy Family History Mother No problems noted. Father Atrial fibrillation Brother No problems noted. Brother No problems noted. Son No problems noted. Daughter No problems noted. Maternal Grandfather No problems noted. Maternal Grandmother No problems noted. Paternal Grandfather Cancer Unknown type Paternal Grandmother No problems noted. Social History (Updated 04/22/22 @ 22:49 by Conor Fox) Smoking/Tobacco Use Status: Current every day Tobacco Type: cigarettes Smoking risk assessment performed?: Yes Alcohol Intake: current Alcohol Intake frequency: 0-2 drinks per day Alcohol type: beer Drug use: Occasionally Substance use type: marijuana and other Details: ON SUBOXONE Household members: family and other Details: Lives with mother, 23 year old daughter, shared custody of 6 yr old son. 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 Current gender identity: female Seatbelt use: always Do you feel safe at home: Yes Do you feel safe in your relationship?: Yes Additional Social history: Lives in 2 Family in [facility], son with her parts control clerk. Adult daughter and mother live in other apartment. History History 2 Para 2 Hx # Term Pregnancies Multiple births Hx # Pregnancies Ectopic pregnancies AB induced Hx Number of Living Children 2 AB spontaneous Exam Cardio Other: DP/ PT pulses 2/4, CFT < 3 seconds, pedal hair present, normal proximal to di stal cooling, normal skin texture and turgor Skin Other: Nails are elongated and incurvated, without subungual debris, and without pain to palpation today. No surrounding erythema, purulence, fluctuance or signs of infection noted. No pre-ulcerative or hyperkeratotic skin lesions noted, with no open wounds, ulcerations, blisters, or other dermatological concerns. Neuro Other: Protective sensation intact. Negative tinel?s sign. Muscle strength 5/5. No other neurological deficits Extrem Other: no significant musculoskeletal abnormalities are noted Results Last Vital Signs Temp 97.9 F 04/27/22 03:00 Pulse 66 04/27/22 03:00 Resp 18 04/27/22 03:00 BP 136/76 04/27/22 03:00 Pulse Ox 97 04/27/22 03:00 Labs Result diagrams: 04/27/22 05:50 04/27/22 05:50 Labs: Laboratory Results - last 24 hr 10/08/1304/22/22 04/26/22 22:15 23:00 06:26 WBC RBC Hgb Hct MCV MCH MCHC RDW Plt Count MPV Immature Gran % Neutrophils % Band Neutrophils % Lymphocytes % Monocytes % Eosinophils % Basophils % Metamyelocytes % Nucleated RBC % Absolute Neutrophils Absolute Lymphocytes Absolute Monocytes Absolute Eosinophils Absolute Basophils RBC Morphology Sodium Potassium Chloride Carbon Dioxide Anion Gap BUN Creatinine Est GFR (CKD-EPI 2020) Glucose Calcium Magnesium C-Reactive Protein Procalcitonin 0.7 M. pneumoniae Source sputum M. pneumoniae (PCR) Negative Ur Strep pneumoniae Ag Negative 04/26/22 04/27/22 04/27/22 06:26 05:50 05:50 WBC 20.81 H 18.98 H RBC 3.24 L 3.18 L Hgb 9.3 L 9.4 L Hct 29.6 L 28.9 L MCV 91 91 MCH 28.7 29.6 MCHC 31.4 L 32.5 RDW 16.8 H 16.8 H Plt Count 319 340 MPV 9.3 9.2 Immature Gran % 0.0 See Differential Neutrophils % 71.0 63.0 Band Neutrophils % 6 3 Lymphocytes % 19.0 22.0 Monocytes % 1.0 5.0 Eosinophils % 0.0 2.0 Basophils % 0.0 2.0 Metamyelocytes % 3 1 Nucleated RBC % 0.0 2.0 H Absolute Neutrophils 16.02 H 12.53 H Absolute Lymphocytes 3.95 H 4.18 H Absolute Monocytes 0.21 0.95 H Absolute Eosinophils 0.00 0.38 Absolute Basophils 0.00 0.38 H RBC Morphology Normal Normal Sodium 141 Potassium 3.6 Chloride 100 Carbon Dioxide 34.2 H Anion Gap 6.8 BUN 15 Creatinine 0.8 Est GFR (CKD-EPI 2020) 90.83 Glucose 72 L Calcium 8.9 Magnesium 2.0 C-Reactive Protein 4.33 H Procalcitonin M. pneumoniae Source M. pneumoniae (PCR) Ur Strep pneumoniae Ag
[2022-04-27] MEDS: Budesonide/Formoterol 160/4.5 6 GM 60 PUFF INH IH ×2 (08:06→20:16)
[2022-04-27] MEDS: Ipratropium 0.5 MG/2.5 ML UPD VIAL UPD ×4 (08:09→20:15)
[2022-04-27] MEDS: Methadone Liquid 10 MG/ML 110 MG PO (08:15)
[2022-04-27] MEDS: predniSONE 20 MG TAB 60 MG PO (08:15)
[2022-04-27] MEDS: Sertraline 100 MG TAB 150 MG PO (08:15)
[2022-04-27] MEDS: Nystatin 500000 UNITS/5 ML SUSP 5ML CUP PO ×3 (08:16→20:15)
[2022-04-27] MEDS: buPROPion-XL 150 MG TABCR PO (08:16)
[2022-04-27] MEDS: Lansoprazole 30 MG CAPCR PO (08:16)
[2022-04-27] MEDS: guaiFENesin 600 MG TABCR 1200 MG PO ×2 (08:16→20:15)
--- NOTE | 2022-04-27 09:53 | CMPROGNOTE_ITS ---
- If Service Date Differs Date of service: 04/27/22 Time of Service: 09:53 Care Management Progress Note S/O: Wily continues to require close monitoring and treatment for pneumonia and acute respiratory failure with hypoxia. Wily continues to require supplemental oxygen and is 97% on 2L NC and is being weaned, as tolerated. Anticipate, Wily will discharge tomorrow if medically ready on Oral ABX. CM sent referrals to [facility] (for CM in the community) and [facility] (for help applying for fuel and food benefits.) [facility] notified CM that Wily will be added to their waiting list. CM contacted Kayleigh from [facility], and she will follow up with Wily. A: 47 year old female admitted to [facility] on 04/22/22 for Sepsis, pneumonia P: Anticipate, Wily will return home once medically cleared. She will be driven home via private vehicle by family. She will follow up with her PCP and discharge plan of care. Referrals were sent to [facility] and [facility]. Wily will need a last Methadone dose letter for [facility]. CM will continue to follow.
--- NOTE | 2022-04-27 15:39 | W.PM.PROGNOT ---
Date of Service Date of service: 04/27/22 Time of Service: 15:39 Assessment and Plan Assessment and plan (1) Sepsis due to pneumonia: Status: Resolved Assessment and plan: Sepsis now resolved. Patient remains on Rocephin and 2 g IV daily for H influenza bacteremia and sepsis secondary to community-acquired pneumonia (2) Acute respiratory failure with hypoxia: Status: Acute Assessment and plan: Patient still requiring supplemental oxygen but improving. She is less dyspneic. Cough is now more productive of purulent sputum. She continues to use her acapella and incentive spirometer and continues to receive bronchodilators and antibiotics as above. (3) Elevated troponin I level: Status: Acute Assessment and plan: Secondary to sepsis. Echocardiogram showed normal LV function. She has no chest pain or pressure. Elevated troponins felt to be a type II demand ischemic event secondary to sepsis and severe hypoxemia. (4) Asthma: Status: Chronic Assessment and plan: It suspected that the patient probably has some underlying COPD as asthma. Unfortunately she was still smoking up until the time of her admission although she been trying to cut down. She is strongly encouraged to quit and she has been given nicotine patch for this hospitalization. Qualifiers: Asthma complication type: uncomplicated Asthma persistence: persistent Asthma severity: mild Qualified Code(s): J45.30 - Mild persistent asthma, uncomplicated (5) Elevated transaminase level: Status: Acute Assessment and plan: Elevated transaminases were felt to be secondary to sepsis and we will monitor her repeat LFTs tomorrow. Patient's tick panel was negative HIV was negative. Mycoplasma and Legionella were also negative. Hepatitis screen was negative. CT of her abdomen showed fatty parenchymal changes but no focal hepatic findings and no dilated intrahepatic ducts. Gallbladder was mildly distended but there is no common bile duct dilatation and no stones. (6) Generalized anxiety disorder: Status: Chronic Assessment and plan: Contninue outpatient Regimen (7) Renal insufficiency: Status: Chronic Assessment and plan: At baseline. Continue to monitor. (8) Opioid use disorder: Status: Chronic Assessment and plan: continue methadone (client of [facility]) (9) Smoker: Status: Acute Assessment and plan: Agrees to nicotine replacement (10) DVT prophylaxis: Status: Acute Assessment and plan: LMWH (11) Discharge planning issues: Status: Acute Assessment and plan: Full code Continues to require hospitalization. Hospital course, lab and radiologic results and treatment were discussed with patient as well as patient's daughter all questions were answered. Subjective Subjective Interval history since last seen: Patient states she feels better today than when she first presented. No fever or chills. Still has a harsh cough bringing up a little more productive sputum. She remains on Rocephin 2 g IV daily for treatment of H. influenzae bacteremia and pneumonia. She has underlying asthma and probable COPD as well. She is a current smoker has been trying to cut down to just a few cigarettes per day. She previously was vaccinated with Pneumovax 23 in 2011 but has not had Prevnar. She does not regularly take influenza vaccinations. She declines any vaccinations during this hospitalization. Still requiring supplemental oxygen But was off oxygen for short time earlier today. Patient still has elevated inflammatory markers but they are improving. White count is elevated 18,900 however she is on prednisone 60 mg daily. Her procalcitonin level is declining down to 0.7 from a peak of 2.1 on admission. Her CRP is down to 4.33 from a peak of greater than 25 on admission. She has an acapella and an incentive spirometer to help mobilize her sputum. Is currently down to 1 L/min per nasal cannula. She was on room air but her saturation dropped to 88%. Patient was interviewed and examined with her daughter present Exam Narrative Exam Narrative: Wily is alert and oriented person place time circumstance sitting up in her bed with a harsh cough but not using accessory respiratory muscles Lungs with scattered expiratory wheezes and some scattered rhonchi bilaterally. Heart regular rate and rhythm Abdomen soft nontender nondistended Extremities without peripheral cyanosis or edema. Objective Last Vital Signs Temp 36.7 C 04/27/22 15:25 Pulse 79 04/27/22 15:25 Resp 20 04/27/22 15:25 BP 127/75 04/27/22 15:25 Pulse Ox 89 L 04/27/22 15:25 Laboratory Results - last 24 hr 04/22/22 04/22/22 04/27/22 22:15 23:00 05:50 WBC RBC Hgb Hct MCV MCH MCHC RDW Plt Count MPV Immature Gran % Neutrophils % Band Neutrophils % Lymphocytes % Monocytes % Eosinophils % Basophils % Metamyelocytes % Nucleated RBC % Absolute Neutrophils Absolute Lymphocytes Absolute Monocytes Absolute Eosinophils Absolute Basophils RBC Morphology Sodium 141 Potassium 3.6 Chloride 100 Carbon Dioxide 34.2 H Anion Gap 6.8 BUN 15 Creatinine 0.8 Est GFR (CKD-EPI 2020) 90.83 Glucose 72 L Calcium 8.9 Magnesium 2.0 C-Reactive Protein 4.33 H M. pneumoniae Source sputum M. pneumoniae (PCR) Negative Ur Strep pneumoniae Ag Negative 04/27/22 05:50 WBC 18.98 H RBC 3.18 L Hgb 9.4 L Hct 28.9 L MCV 91 MCH 29.6 MCHC 32.5 RDW 16.8 H Plt Count 340 MPV 9.2 Immature Gran % See Differential Neutrophils % 63.0 Band Neutrophils % 3 Lymphocytes % 22.0 Monocytes % 5.0 Eosinophils % 2.0 Basophils % 2.0 Metamyelocytes % 1 Nucleated RBC % 2.0 H Absolute Neutrophils 12.53 H Absolute Lymphocytes 4.18 H Absolute Monocytes 0.95 H Absolute Eosinophils 0.38 Absolute Basophils 0.38 H RBC Morphology Normal Sodium Potassium Chloride Carbon Dioxide Anion Gap BUN Creatinine Est GFR (CKD-EPI 2020) Glucose Calcium Magnesium C-Reactive Protein M. pneumoniae Source M. pneumoniae (PCR) Ur Strep pneumoniae Ag
[2022-04-27] MEDS: cefTRIAXone 2 GM/50 ML BAG IVPB (18:27)
[2022-04-27] MEDS: Normal Saline Flush 10 ML SYR IVP (18:28)
[2022-04-27] MEDS: traZODone 50 MG TAB PO (20:16)
[2022-04-27] MEDS: cefTRIAXone 1 GM VIAL 2 GM IM (21:00)
--- NOTE | 2022-04-27 21:15 | NUR.NOTE ---
Nursing Note: 2 Gm Ceftriaxone given to new IV in left hand.
[2022-04-27] MEDS: Nicotine 21 MG/24 HR PATCH TD (23:32)
[2022-04-28] VITALS (14 sets, daily range): BP systolic 103–133; BP diastolic 66–77; PULSE 60–105; RESP 4–20; TEMP 36–37; O2SAT 91–94
[2022-04-28 06:36] LABS: HCT 31.5 % (36.0-46.0); HGB 10.1 g/dL (11.2-15.7); MCH 28.9 pg (27.0-33.0); MCHC 32.1 % (32.0-36.0); MCV 90 fL (80-95); MPV 9.2 fL (8.0-11.0); Nucleated RBC 0.1 % (0.0-0.3); Platelet Count 425 10^3/uL (130-400); RBC 3.49 10^6/uL (3.93-5.22); RDW 17.1 % (11.7-14.6); WBC 21.44 10^3/uL (4.4-10.8)
[2022-04-28] MEDS: Ipratropium 0.5 MG/2.5 ML UPD VIAL UPD ×4 (06:48→21:08)
[2022-04-28] MEDS: Acetaminophen 325 MG TAB PO ×2 (06:48→15:31)
[2022-04-28 07:04] LABS: ALT 113 U/L (14-59); AST 25 U/L (15-37); Albumin 2.8 g/dL (3.4-5.0); Alkaline Phosphatase 78 U/L (46-116); Anion Gap 5.3 mmol/L (3-11); BUN 16 mg/dL (7-18); Bilirubin, Total 0.3 mg/dL (0.2-1.0); C-Reactive Protein 2.63 mg/dL (0.0-0.3); CO2 35.7 mmol/L (21.0-32.0); CREATININE 0.7 mg/dL (0.55-1.02); Calcium 9.2 mg/dL (8.5-10.1); Chloride 100 mmol/L (98-107); Estimated GFR 106.62 (mL/min/1.73m2); Glucose 73 mg/dL (74-106); Potassium 3.6 mmol/L (3.5-5.1); Sodium 141 mmol/L (136-145); Total Protein 6.7 g/dL (6.4-8.2)
[2022-04-28 07:18] LABS: Anisocytosis 1+; Diff Comment Manual Differential
[2022-04-28 07:19] LABS: Absolute Eosinophil Count 0.21 10^3/uL (0.0-0.7); Absolute Monocyte Count 1.07 10^3/uL (0.1-0.8); Absolute Neutrophil Count 13.08 10^3/uL (1.2-6.7); Bands % 6; Metamyelocytes % 4; Myelocytes % 1; Poikilocytes 1+; Polychromasia Present
[2022-04-28] MEDS: Budesonide/Formoterol 160/4.5 6 GM 60 PUFF INH IH ×2 (07:46→21:02)
[2022-04-28] MEDS: predniSONE 20 MG TAB 60 MG PO (08:47)
[2022-04-28] MEDS: guaiFENesin 600 MG TABCR 1200 MG PO ×2 (08:48→21:00)
[2022-04-28] MEDS: Nystatin 500000 UNITS/5 ML SUSP 5ML CUP PO ×3 (08:49→21:02)
[2022-04-28] MEDS: Sertraline 100 MG TAB 150 MG PO (08:49)
[2022-04-28] MEDS: buPROPion-XL 150 MG TABCR PO (08:49)
[2022-04-28] MEDS: Lansoprazole 30 MG CAPCR PO (08:49)
[2022-04-28] MEDS: Normal Saline Flush 10 ML SYR IVP ×2 (08:49→21:11)
[2022-04-28] MEDS: Methadone Liquid 10 MG/ML 110 MG PO (08:51)
--- NOTE | 2022-04-28 10:35 | PDOC.CMPRO ---
- If Service Date Differs Date of service: 04/28/22 Time of Service: 10:35 Care Management Progress Note S/O: Wily continues to require close monitoring and treatment for pneumonia and acute respiratory failure with hypoxia. Wily continues to require supplemental oxygen and is 91% on 1L NC and is being weaned, as tolerated. Anticipate, Wily will discharge when medically ready with an RX for Oral ABX. CM sent referrals to [facility] (for CM in the community) and [facility] (for help applying for fuel and food benefits.) [facility] notified CM that Wily will be added to their waiting list. CM contacted Kayleigh from [facility], and she will follow up with Wily. A: 47 year old female admitted to [facility] on 04/22/22 for Sepsis, pneumonia P: Anticipate, Wily will return home once medically cleared. She will be driven home via private vehicle by family. She will follow up with her PCP and discharge plan of care. Referrals were sent to [facility] and [facility]. Wily will need a last Methadone dose letter for [facility]. CM will continue to follow.
[2022-04-28] MEDS: Levalbuterol 1.25 MG/3 ML UPD VIAL UPD (11:55)
[2022-04-28] MEDS: Amoxicillin 875/Clav. 125 TAB PO ×2 (12:20→20:59)
--- NOTE | 2022-04-28 16:59 | W.PM.PROGNOT ---
Date of Service Date of service: 04/28/22 Time of Service: 16:59 Assessment and Plan Assessment and plan (1) Sepsis due to pneumonia: Status: Resolved Assessment and plan: Sepsis now resolved. Patient remains on Rocephin and 2 g IV daily for H influenza bacteremia and sepsis secondary to community-acquired pneumonia; oxygen requirements improving (2) Acute respiratory failure with hypoxia: Status: Acute Assessment and plan: Patient still requiring supplemental oxygen but improving. She is less dyspneic. Cough is less productive today.. She continues to use her acapella and incentive spirometer and continues to receive bronchodilators and antibiotics as above. (3) Elevated troponin I level: Status: Acute Assessment and plan: Secondary to sepsis. Echocardiogram showed normal LV function. She has no chest pain or pressure. Elevated troponins felt to be a type II demand ischemic event secondary to sepsis and severe hypoxemia. (4) Asthma: Status: Chronic Assessment and plan: It suspected that the patient probably has some underlying COPD as asthma. Unfortunately she was still smoking up until the time of her admission although she been trying to cut down. She is strongly encouraged to quit and she has been given nicotine patch for this hospitalization. she should be referred to pulmonology as outpatient but I will defer to her PCP. Qualifiers: Asthma severity: mild Asthma persistence: persistent Asthma complication type: uncomplicated Qualified Code(s): J45.30 - Mild persistent asthma, uncomplicated (5) Elevated transaminase level: Status: Acute Assessment and plan: Elevated transaminases were felt to be secondary to sepsis and we will monitor her repeat LFTs tomorrow. Patient's tick panel was negative HIV was negative. Mycoplasma and Legionella were also negative. Hepatitis screen was negative. CT of her abdomen showed fatty parenchymal changes but no focal hepatic findings and no dilated intrahepatic ducts. Gallbladder was mildly distended but there is no common bile duct dilatation and no stones. (6) Generalized anxiety disorder: Status: Chronic Assessment and plan: Contninue outpatient regimen of Wellbutrin and sertraline (7) Opioid use disorder: Status: Chronic Assessment and plan: continue methadone (client of [facility]) (8) Smoker: Status: Acute Assessment and plan: Agrees to nicotine replacement (9) DVT prophylaxis: Status: Acute Assessment and plan: LMWH (10) Discharge planning issues: Status: Acute Assessment and plan: Full code Continues to require hospitalization. Hospital course, lab and radiologic results and treatment were discussed with patient as well as patient's daughter all questions were answered. Probable discharge tomorrow Sat. 04/29. Subjective Subjective Interval history since last seen: Patient is feeling better, not dyspneic. She is apprehensive of going home that she may have a relapse. I explained to her and her daughter that she will probably be sent home tomorrow if she continues to improve as she has done so but will continue oral antibiotics for another week to treat her pneumonia/bacteremia. I will also send her home on short course of prednisone. She has home nebulizers/MDI's. Exam Narrative Exam Narrative: Wily is upright in bed and not dyspneic. Oxygen supplementation is down to 0.5 LPM Lungs: still some scattered expiratory wheezing Heart: RRR Abdomen: soft, nontender Objective Last Vital Signs Temp 36.9 C 04/28/22 15:55 Pulse 82 04/28/22 15:55 Resp 18 04/28/22 15:55 BP 133/74 04/28/22 15:55 Pulse Ox 91 L 04/28/22 15:55 Laboratory Results - last 24 hr 04/23/22 04/28/22 04/28/22 10:17 06:03 06:03 WBC 21.44 H RBC 3.49 L Hgb 10.1 L Hct 31.5 L MCV 90 MCH 28.9 MCHC 32.1 RDW 17.1 H Plt Count 425 H MPV 9.2 Immature Gran % See Differential Neutrophils % 55.0 Band Neutrophils % 6 Lymphocytes % 28.0 Monocytes % 5.0 Eosinophils % 1.0 Basophils % 0.0 Metamyelocytes % 4 Myelocytes % 1 Nucleated RBC % 0.1 Absolute Neutrophils 13.08 H Absolute Lymphocytes 6.00 H Absolute Monocytes 1.07 H Absolute Eosinophils 0.21 Absolute Basophils 0.00 RBC Morphology See Below Polychromasia Present Poikilocytosis 1+ Anisocytosis 1+ Sodium 141 Potassium 3.6 Chloride 100 Carbon Dioxide 35.7 H Anion Gap 5.3 BUN 16 Creatinine 0.7 Est GFR (CKD-EPI 2020) 106.62 Glucose 73 L Calcium 9.2 Total Bilirubin 0.3 AST 25 ALT 113 H Alkaline Phosphatase 78 C-Reactive Protein 2.63 H Total Protein 6.7 Albumin 2.8 L A.phagocytophil DNA PCR Negative B. divergens/MO-1 PCR Negative Babesia duncani (PCR) Negative Babesia microti DNA PCR Negative Borrelia (PCR) Negative E.chaffeensis DNA (PCR) Negative E.ewingii/canis DNA PCR Negative E. muris-like DNA (PCR) Negative
[2022-04-28] MEDS: Nicotine 21 MG/24 HR PATCH TD (21:04)
[2022-04-28] MEDS: Biotene Mouthwash 237 ML BTL MM (21:08)
[2022-04-28] MEDS: traZODone 50 MG TAB PO (21:23)
[2022-04-29] VITALS (13 sets, daily range): BP systolic 101–125; BP diastolic 66–78; PULSE 63–124; RESP 1–20; TEMP 35.4–37.2; O2SAT 84–94
[2022-04-29] MEDS: Enoxaparin 40 MG/0.4 ML SYR SC ×2 (00:53→23:33)
[2022-04-29 06:50] LABS: Abs Immature Grans 2.62 10^3/uL (0.0-0.06); HCT 30.6 % (36.0-46.0); HGB 9.8 g/dL (11.2-15.7); MCH 28.8 pg (27.0-33.0); MCV 90 fL (80-95); MPV 8.9 fL (8.0-11.0); Platelet Count 396 10^3/uL (130-400); RDW 17.3 % (11.7-14.6); WBC 18.45 10^3/uL (4.4-10.8)
[2022-04-29 07:07] LABS: Absolute Eosinophil Count 0.55 10^3/uL (0.0-0.7); Absolute Lymphocyte Count 4.06 10^3/uL (1.2-3.4); Absolute Monocyte Count 1.85 10^3/uL (0.1-0.8); Absolute Neutrophil Count 10.52 10^3/uL (1.2-6.7); Anisocytosis 1+; Atypical Lymphocytes % 2; Bands % 3; Diff Comment Manual Differential; Metamyelocytes % 5; Myelocytes % 3; Poikilocytes 1+
[2022-04-29 07:12] LABS: ALT 89 U/L (14-59); AST 21 U/L (15-37); Albumin 2.9 g/dL (3.4-5.0); Alkaline Phosphatase 69 U/L (46-116); Anion Gap 4.8 mmol/L (3-11); BUN 16 mg/dL (7-18); Bilirubin, Total 0.3 mg/dL (0.2-1.0); C-Reactive Protein 1.72 mg/dL (0.0-0.3); CO2 35.2 mmol/L (21.0-32.0); CREATININE 0.8 mg/dL (0.55-1.02); Calcium 8.9 mg/dL (8.5-10.1); Chloride 100 mmol/L (98-107); Estimated GFR 90.83 (mL/min/1.73m2); Glucose 86 mg/dL (74-106); Potassium 3.3 mmol/L (3.5-5.1); Sodium 140 mmol/L (136-145); Total Protein 6.5 g/dL (6.4-8.2)
[2022-04-29 07:26] LABS: Procalcitonin 0.1 ng/mL
[2022-04-29] MEDS: Budesonide/Formoterol 160/4.5 6 GM 60 PUFF INH IH ×2 (08:15→22:14)
[2022-04-29] MEDS: Levalbuterol 1.25 MG/3 ML UPD VIAL UPD (08:15)
[2022-04-29] MEDS: Ipratropium 0.5 MG/2.5 ML UPD VIAL UPD ×3 (08:16→21:24)
[2022-04-29] MEDS: predniSONE 20 MG TAB 60 MG PO (08:32)
[2022-04-29] MEDS: Nystatin 500000 UNITS/5 ML SUSP 5ML CUP PO ×3 (08:32→21:24)
[2022-04-29] MEDS: Lansoprazole 30 MG CAPCR PO (08:32)
[2022-04-29] MEDS: Amoxicillin 875/Clav. 125 TAB PO ×2 (08:33→21:24)
[2022-04-29] MEDS: guaiFENesin 600 MG TABCR 1200 MG PO ×2 (08:33→21:23)
[2022-04-29] MEDS: Sertraline 100 MG TAB 150 MG PO (08:33)
[2022-04-29] MEDS: buPROPion-XL 150 MG TABCR PO (08:33)
[2022-04-29] MEDS: Normal Saline Flush 10 ML SYR IVP ×3 (08:34→21:20)
[2022-04-29] MEDS: Methadone Liquid 10 MG/ML 110 MG PO (08:58)
--- NOTE | 2022-04-29 10:15 | RT.EKG_ITS ---
APPROVED REPORT Exam: Resting ECG Reason for Exam: chest pain Patient Location: I HR:80 bpm ECG Measurements Heart Rate 80 AXIS DC 150 P 62 QRSd 79 QRS 69 QT 399 T 63 QTc 461 Conclusion Age not entered, assumed to be 49 years old for purpose of ECG interpretation Sinus rhythm...normal P axis, V-rate 50- 99 Probable left atrial enlargement...P >50mS, <-0.10mV V1 Anteroseptal infarct, age indeterminate...Q >35mS, T neg, V1-V2
--- NOTE | 2022-04-29 10:28 | NUR.NOTE ---
Nursing Note:patient reported chest pain and discomfort to respiratory therapist who updated nurse. Upon entering patients room, nurse found patient cleaning floor and picking up her clothes. Patient states that she does have chest pain and thinks it may be related to reflux, patient reports dull to sharp pain in center of chest that radiates to upper back, radiating jaw pain, no shortness of breath, no nausea or dizziness, nurse updated MD, EKG ordered, MD at bedside at this time
--- NOTE | 2022-04-29 10:38 | W.PM.PROGNOT ---
Date of Service Date of service: 04/29/22 Time of Service: 10:38 Assessment and Plan Assessment and plan (1) Sepsis due to pneumonia: Status: Resolved Assessment and plan: patient presented w/ sepsis, CARLA, liver injury and hypoxic respiratory failure and elevated troponin levels w/ normal LV function on echo. The sepsis has resolved and she had 6 days of iv Rocephin when her iv was lost, so I have put her on Augmentin which she should remain for another 5 to 7 days. I had planned to dc her home until she had complains of chest pains. She remains on prednisone 60 mg daily for her asthma along w/ bronchodilators. She has known GERD and takes omeprazole at home as well as TUMS. She is on lansoprazole currently. I will continue prednisone w/ a taper over couple of weeks upon discharge. I will check troponin I and BNP in light of her chest pains and possibly repeat her EKG. I have ordered GI cocktail and will follow up until resolution of her symptoms. Given that she is a smoker, she is at risk for CAD and should have follow up GXT MPI when her acute respitory illness has resolved. (2) Asthma: Status: Chronic Assessment and plan: cont. ipatroprium nebulizers qid along w/ prn xopenex and Symbicort. cont. prednisone 60 mg daily. will taper over couple weeks upon discharge Qualifiers: Asthma complication type: uncomplicated Asthma persistence: persistent Asthma severity: mild Qualified Code(s): J45.30 - Mild persistent asthma, uncomplicated (3) Generalized anxiety disorder: Status: Chronic Assessment and plan: Contninue outpatient regimen of Wellbutrin and sertraline (4) Opioid use disorder: Status: Chronic Assessment and plan: continue methadone (client of [facility]) (5) Smoker: Status: Acute Assessment and plan: Agrees to nicotine replacement (6) DVT prophylaxis: Status: Acute Assessment and plan: LMWH (7) Discharge planning issues: Status: Acute Assessment and plan: I had planned on discharge today but her ambulatory pulse oximetry demonstrated exercise induced hypoxemia w/ SPO2 dropping to 84% on room air after 15 feet she still require 2 to Murphy of oxygen with activity although her resting SPO2 is greater than 90%. (8) Chest pain: Status: Acute Assessment and plan: Patient described chest tightness substernal and up into her neck and throat as well as in her back not associate with any diaphoresis nausea or vomiting. EKG showed no acute ischemic changes. Initial troponin I level was normal however her proBNP is elevated at 1342 and in light of her ongoing hypoxic respiratory failure I will check a repeat CT scan of her chest with PE protocol. Although the patient has been on Lovenox throughout her hospital stay. Of note I checked on the patient again and her chest discomfort is completely gone. At the peak of her discomfort she rated a 2 out of 10 and is now 0 out of 10. More than likely this is her GERD with esophageal spasm. Of note patient has not had recent EGD to evaluate her GERD. Subjective Subjective Interval history since last seen: Patient was up out of bed straightening up her room when she noted anterior chest pain w/ radiation into her upper back and neck. Patient has known GERD but no CAD. patient took some of her TUMS w/ some improvement but no resolution of her CP. Stat EKG did not show any ischemic changes. GI cocktail has been ordered however will check troponin and BNP. If symptomatic relief and troponin and BNP are normal then will monitor. I had planned on discharge home but will monitor her this morning and get 2nd troponin. She still has some significant bronchospasms. Exam Narrative Exam Narrative: Wily is sitting up in bed, alert and oriented, non-diaphoretic Lungs: scatttered expiratory wheezes at rest Heart: RRR, no murmur or rub; no chest wall tenderness Palpation of her neck/shoulders did not reproduce her pains Abdomen: soft, nontender Objective Last Vital Signs Temp 36.8 C 04/29/22 10:22 Pulse 88 04/29/22 10:22 Resp 12 04/29/22 10:22 BP 119/78 04/29/22 10:22 Pulse Ox 92 04/29/22 10:22 Laboratory Results - last 24 hr 04/29/22 04/29/22 04/29/22 06:20 06:20 06:20 WBC 18.45 H RBC 3.40 L Hgb 9.8 L Hct 30.6 L MCV 90 MCH 28.8 MCHC 32.0 RDW 17.3 H Plt Count 396 MPV 8.9 Immature Gran % 0.0 Neutrophils % 54.0 Band Neutrophils % 3 Lymphocytes % 20.0 Atypical Lymphs % 2 Monocytes % 10.0 Eosinophils % 3.0 Basophils % 0.0 Metamyelocytes % 5 Myelocytes % 3 Nucleated RBC % 0.0 Absolute Neutrophils 10.52 H Absolute Lymphocytes 4.06 H Absolute Monocytes 1.85 H Absolute Eosinophils 0.55 Absolute Basophils 0.00 RBC Morphology See Below Poikilocytosis 1+ Anisocytosis 1+ Sodium 140 Potassium 3.3 L Chloride 100 Carbon Dioxide 35.2 H Anion Gap 4.8 BUN 16 Creatinine 0.8 Est GFR (CKD-EPI 2020) 90.83 Glucose 86 Calcium 8.9 Total Bilirubin 0.3 AST 21 ALT 89 H Alkaline Phosphatase 69 C-Reactive Protein 1.72 H Total Protein 6.5 Albumin 2.9 L Procalcitonin 0.1
[2022-04-29 11:21] LABS: NT-proBNP 1342 pg/mL (<300); Troponin I < 50 ng/L (<or=60)
--- NOTE | 2022-04-29 11:30 | DI.CT_ITS ---
Exam(s) CT CHEST PE CTA EXAM: CT CHEST PE CTA CLINICAL HISTORY: Chest pain, dyspnea. TECHNIQUE: Imaging Protocol: Axial CT angiography was performed with multi-slice acquisition and mu lti-planar and/or 3D reconstructions. CONTRAST MATERIAL: Intravenous: Omnipaque 350 Contrast volume:structured data in ml COMPARISON: CT CT CHEST PE ABD PELVIS W from 04/23/2022 FINDINGS: CT angiography of the chest was performed with intravenous infusion of 100 cc of Omnipaque 350. The lungs show considerable interval clearing since prior examination of April 23. Areas of atele ctasis and peribronchial thickening persist involving predominantly right lower lobe. No new area of consolidation. No pleural effusion. Tracheobronchial tree appears intact. No evidence of pulmonary embolic disease. Thoracic aorta is of normal diameter, no thoracic aortic an eurysm or dissection, major branch vessels appear intact. No mediastinal or hilar adenopathy. Images obtained through the upper abdomen show unremarkable appearance of the visualized portions of the liver, spleen, pancreas, adrenals, and kidneys. IMPRESSION: Improving multifocal pneumonia since prior examination of April 23.. No evidence of pulmonary emb olic disease. RADIATION DOSE DELIVERED: 317.54mGy.cm Total DLP 317.54mGy.cm Total DLP !Error CTDIvol DATA REPOSITORY: All CT scans at this facility are submitted to the National Radiology Data Registry (NRDR) Dose Index Registry (DIR) with the [employer] (A[employer]). RADIATION OPTIMIZATION: All CT scans at this facility use at least one of these dose optimization te chniques: automated exposure control; mA and/or kV adjustment per patient size (includes targeted exa ms where dose is matched to clinical indication); or iterative reconstruction.
--- NOTE | 2022-04-29 11:40 | PHA.REVIEW2 ---
Pharmacy Admission Review - Admission Clinical Review (Last Reviewed 04/22/22 @ 22:27 by Conor Fox) Chest pain (Acute) Nail dystrophy (Acute) Pneumonia (Acute) Bacteremia (Acute) Ingrown toenail of both feet (Acute) Asthma exacerbation (Acute) Acute respiratory failure with hypoxia (Acute) Elevated troponin I level (Acute) Elevated transaminase level (Acute) Discharge planning issues (Acute) DVT prophylaxis (Acute) Smoker (Acute) Sepsis with multi-organ dysfunction (Acute) No Known Drug Allergies Allergy (Verified 04/22/22 16:34) Resuscitation Status Full Code Height 5 ft 6 in Weight 63.5 kg - Renal Dosing Renal Dosing: BUN 16 mg/dL (7-18) 04/29/22 06:20 Creatinine 0.8 mg/dL (0.55-1.02) 04/29/22 06:20 Medications needing adjustments: Reviewed (crcl = 85, no adjustmensts needed) - Anticoagulation Anticoagulation: Hgb 9.8 g/dL (11.2-15.7) L 04/29/22 06:20 Hct 30.6 % (36.0-46.0) L 04/29/22 06:20 Plt Count 396 10^3/uL (130-400) 04/29/22 06:20 INR 1.4 (0.9-1.1) H 04/23/22 08:15 Creatinine 0.8 mg/dL (0.55-1.02) 04/29/22 06:20 DVT Prophylaxis: Reviewed Medications: Enoxaparin (lovenox 40 mg daily) Therapeutic Anticoagulation: N/A - Opiate Usage Evaluate Pain Scale/Pains Meds: N/A (takes methadone 110 mg daily) - Relevant Labs Sodium 140 mmol/L (136-145) 04/29/22 06:20 Potassium 3.3 mmol/L (3.5-5.1) L 04/29/22 06:20 Chloride 100 mmol/L (98-107) 04/29/22 06:20 Magnesium 2.0 mg/dL (1.8-2.4) 04/27/22 05:50 C-Reactive Protein 1.72 mg/dL (0.0-0.3) H 04/29/22 06:20 Electrolytes, C-Reactive P, ESR: Reviewed - DM Control DM Control: Glucose 86 mg/dL (74-106) 04/29/22 06:20 Hemoglobin A1c 5.9 % (<5.7) H 04/23/22 05:56 DM Control: N/A - Cardiac Review Cardiac Review: Troponin I < 50 ng/L (<or=60) 04/29/22 10:45 NT-Pro-B Natriuret Pep 1342 pg/mL (<300) H 04/29/22 10:45 BP, HR, EF%: Reviewed (chest pain today, trying GI cocktail for relief)
[2022-04-29] MEDS: Omnipaque 350 MG/ML 500 ML BTL-Imaging package IJ (13:35)
[2022-04-29 14:52] LABS: Troponin I < 50 ng/L (<or=60)
[2022-04-29] MEDS: traZODone 50 MG TAB PO (21:24)
[2022-04-29] MEDS: Oxymetazolone 0.05% SPRAY 15 ML BTL NS (22:17)
[2022-04-29] MEDS: Nicotine 21 MG/24 HR PATCH TD (22:22)
[2022-04-30] VITALS (9 sets, daily range): BP systolic 102–138; BP diastolic 66–80; PULSE 64–92; RESP 16–18; TEMP 36.6–36.9; O2SAT 89–94
[2022-04-30 06:21] LABS: HCT 34.2 % (36.0-46.0); HGB 11.1 g/dL (11.2-15.7); MCH 29.5 pg (27.0-33.0); MCHC 32.5 % (32.0-36.0); MCV 91 fL (80-95); MPV 8.9 fL (8.0-11.0); Platelet Count 496 10^3/uL (130-400); RBC 3.76 10^6/uL (3.93-5.22); RDW 17.6 % (11.7-14.6); RDW-SD 57.1 fL; WBC 20.21 10^3/uL (4.4-10.8)
[2022-04-30 06:39] LABS: Absolute Lymphocyte Count 5.46 10^3/uL (1.2-3.4); Absolute Monocyte Count 0.61 10^3/uL (0.1-0.8); Absolute Neutrophil Count 12.73 10^3/uL (1.2-6.7); Atypical Lymphocytes % 2; Bands % 4; Diff Comment Manual Differential; Metamyelocytes % 5; RBC Morphology Normal
[2022-04-30 06:44] LABS: Anion Gap 5.7 mmol/L (3-11); BUN 18 mg/dL (7-18); C-Reactive Protein 1.21 mg/dL (0.0-0.3); CO2 33.3 mmol/L (21.0-32.0); CREATININE 0.8 mg/dL (0.55-1.02); Calcium 9.4 mg/dL (8.5-10.1); Chloride 100 mmol/L (98-107); Estimated GFR 90.83 (mL/min/1.73m2); Glucose 77 mg/dL (74-106); Potassium 3.9 mmol/L (3.5-5.1); Sodium 139 mmol/L (136-145)
--- NOTE | 2022-04-30 08:08 | PGE_ITS ---
Date of Service Date of service: 04/30/22 Time of Service: 08:08 Assessment and Plan Assessment and plan (1) Sepsis due to pneumonia: Status: Resolved Assessment and plan: continue Augmentin; She will be discharged on one more week of oral antibiotics along w/ prednisone taper. Check ambulatory pulse oximetry and if her SPO2 falls below 88% then will send her home on oxygen and nebulizer. her procalcitonin level is down to 0.1 and CRP is down to 1.21 so he inflammatory markers are trending down. WBC remains high probably d/t her prednisone dose of 60 mg. Upon discharge I will send her home on prednisone 50 mg daily x 4d, 40 mg/d x4d, 30 mg/d x 4d, 20 mg/d x 4d, then 10 mg/d. I will put her on Bactrim until she is down to 20 mg/d (2) Asthma: Status: Chronic Assessment and plan: cont. ipatroprium nebulizers qid along w/ prn xopenex and Symbicort. cont. pre dnisone 60 mg daily. will taper over couple weeks upon discharge. Qualifiers: Asthma severity: mild Asthma persistence: persistent Asthma complication type: uncomplicated Qualified Code(s): J45.30 - Mild persistent asthma, uncomplicated (3) Generalized anxiety disorder: Status: Chronic Assessment and plan: Contninue outpatient regimen of Wellbutrin and sertraline (4) Opioid use disorder: Status: Chronic Assessment and plan: continue methadone (client of [facility]) (5) Smoker: Status: Acute Assessment and plan: Agrees to nicotine replacement; I will dc her on nicotine replacement. Patient absolutely needs to quit smoking given the severity of her asthma and pneumonia. (6) DVT prophylaxis: Status: Acute Assessment and plan: LMWH (7) Discharge planning issues: Status: Acute Assessment and plan: probable discharge today; may need home oxygen (8) Chest pain: Status: Acute Assessment and plan: resolved. probable GERD, however, in light of elevated troponin levels w/ her sepsis she ought to have GXT w/ MPI once she has recovered from her asthma and pneumonia. Subjective Subjective Interval history since last seen: Patient slept most of the night w/o her oxygen on. However, nursing requested her to put her oxygen on when her SPO2 dropped to 89%. Patient states that nursing and her daugher have noted snoring at night. She has not had a sleep study. I am recommending this to the patient once she has recovered from her pneumonia. she is looking forward to going home. This morning after sitting up and taking deep breaths her SPO2 is 94-95% on R.A. She denies any further chest pains. Exam Narrative Exam Narrative: Wily is alert and oriented; sitting up in bed just having woken up No respiratory distress; not using accessory respiratory muscle; able to carry on w/ full conversations w/out dyspnea, however she has a barky cough Lungs: scattered expiratory wheezes, and some rhonchi Heart: RRR Objective Last Vital Signs Temp 36.9 C 04/30/22 06:20 Pulse 64 04/30/22 06:20 Resp 18 04/30/22 06:20 BP 138/80 04/30/22 06:20 Pulse Ox 89 L 04/30/22 06:20 Laboratory Results - last 24 hr 04/29/22 04/29/22 04/30/22 10:45 14:10 05:18 WBC RBC Hgb Hct MCV MCH MCHC RDW Plt Count MPV Immature Gran % Neutrophils % Band Neutrophils % Lymphocytes % Atypical Lymphs % Monocytes % Eosinophils % Basophils % Metamyelocytes % Nucleated RBC % Absolute Neutrophils Absolute Lymphocytes Absolute Monocytes Absolute Eosinophils Absolute Basophils RBC Morphology Sodium 139 Potassium 3.9 Chloride 100 Carbon Dioxide 33.3 H Anion Gap 5.7 BUN 18 Creatinine 0.8 Est GFR (CKD-EPI 2020) 90.83 Glucose 77 Calcium 9.4 Troponin I < 50 < 50 C-Reactive Protein 1.21 H NT-Pro-B Natriuret Pep 1342 H 04/30/22 05:18 WBC 20.21 H RBC 3.76 L Hgb 11.1 L Hct 34.2 L MCV 91 MCH 29.5 MCHC 32.5 RDW 17.6 H Plt Count 496 H MPV 8.9 Immature Gran % 0.0 Neutrophils % 59.0 Band Neutrophils % 4 Lymphocytes % 25.0 Atypical Lymphs % 2 Monocytes % 3.0 Eosinophils % 2.0 Basophils % 0.0 Metamyelocytes % 5 Nucleated RBC % 0.0 Absolute Neutrophils 12.73 H Absolute Lymphocytes 5.46 H Absolute Monocytes 0.61 Absolute Eosinophils 0.40 Absolute Basophils 0.00 RBC Morphology Normal Sodium Potassium Chloride Carbon Dioxide Anion Gap BUN Creatinine Est GFR (CKD-EPI 2020) Glucose Calcium Troponin I C-Reactive Protein NT-Pro-B Natriuret Pep
[2022-04-30] MEDS: Budesonide/Formoterol 160/4.5 6 GM 60 PUFF INH IH (08:10)
[2022-04-30] MEDS: Levalbuterol 1.25 MG/3 ML UPD VIAL UPD (08:10)
[2022-04-30] MEDS: Ipratropium 0.5 MG/2.5 ML UPD VIAL UPD (08:11)
[2022-04-30] MEDS: Lansoprazole 30 MG CAPCR PO (08:17)
[2022-04-30] MEDS: Methadone Liquid 10 MG/ML 110 MG PO (08:18)
[2022-04-30] MEDS: Nystatin 500000 UNITS/5 ML SUSP 5ML CUP PO ×2 (08:18→13:39)
[2022-04-30] MEDS: Amoxicillin 875/Clav. 125 TAB PO (08:20)
[2022-04-30] MEDS: Normal Saline Flush 10 ML SYR IVP (08:22)
[2022-04-30] MEDS: guaiFENesin 600 MG TABCR 1200 MG PO (08:22)
[2022-04-30] MEDS: predniSONE 20 MG TAB 60 MG PO (08:23)
[2022-04-30] MEDS: buPROPion-XL 150 MG TABCR PO (08:24)
[2022-04-30] MEDS: Sertraline 100 MG TAB 150 MG PO (08:24)
[2022-04-30] MEDS: Cetirizine 10 MG TAB PO (08:25)
[2022-04-30] MEDS: Benzonatate 200 MG CAP PO ×2 (09:20→13:39)
[2022-04-30] MEDS: Sulfameth/Trimeth DS TAB 1 TAB PO (09:20)
--- NOTE | 2022-04-30 10:39 | RESPIRATORY ---
RT went for walk with patient down the [place] and back. Pt's O2 saturation never fell below 89% on room air during walk. When walking or resting, pt goes into coughing fits which temporarily lower her SpO2, but pt is able to recover quickly from these in less than 1 minute. Pt stated that she felt better today than she did yesterday when we went for a walk. Pt does have a portable SpO2 monitor at home, and RT encouraged her to use it to assess herself as she felt necessary.
--- NOTE | 2022-04-30 14:10 | W.PM.DS.N ---
Date of service: 04/30/22 Time of Service: 14:10 DS: Diagnosis Discharge Diagnosis (1) Sepsis due to pneumonia: Status: Resolved Asessment and Plan: patient presented w/ hypoxemic respiratory failure requiring CPAP, iv fluid resuscitation but did not require vasopressors and she exhibited both CARLA and liver dysfunction as well as type II demand ischemia w/ mildly elevated troponin levels. Echo was normal and renal fxn quickly recovered while liver function was slow to recover and hypoxemia was slow to recover. She was treated w/ parenteral then oral steroids and high dose Rocephin then oral Augmentin. Blood and sputum culture both grew H. influenzae. patient will be dc home on another week of Augmentin and taper of prednisone and Bactrim coverage while she is on high dose prednisone. Follow up CXR in 2 weeks. (2) Asthma: Status: Chronic (3) Generalized anxiety disorder: Status: Chronic (4) Opioid use disorder: Status: Chronic (5) Smoker: Status: Acute Asessment and Plan: patient sent home on nicotine topical replacement (6) Chest pain: Status: Resolved Asessment and Plan: patient had CP late in her hospitalization that responded to GI cocktail. Repeat serial troponin I came back negative and repeat EKG did not show any ischemic or injury and repeat CTA showed improving pneumonic infiltrates but no PE Discharge Plan Disposition Patient Disposition: HOME Condition: Improving Discharge Details Reason For Visit: Sepsis, Pneumonia Admit Date/Time: 04/22/22 18:41 Admit Provider: Conor Fox Attending Provider: Conor Fox [facility] Course: 46-year-old female with history of asthma/COPD chronic opioid use disorder treated with methadone, came to hospital with 3 days of worsening cough generalized weakness. Initial symptoms started with sore throat runny nose 3 days prior to admission. Upon evaluation she was found to have a multi lobar pneumonia with acute multiorgan system dysfunction consistent with sepsis. She had elevated troponin level as well as an acute kidney injury and elevated liver transaminases. Blood cultures were obtained sputum cultures were ordered and she was started on ceftriaxone and azithromycin. Because of the patient's history of methadone use the azithromycin was changed to doxycycline. Serial troponin I levels were monitored until they plateaued. CT scan of the chest ruled out a pulmonary embolus. Echocardiogram was obtained. CTA chest abdomen pelvis showed infiltrate right upper lobe extending from suprahilar region to the pleural surface as well as patchy bilateral infiltrates with a smaller size not associated with pleural effusion. Also chronic right middle lobe infiltrate bilateral hilar lymphadenopathy. No pulmonary embolus. Slight gallbladder distention without obvious calculi or biliary ductal dilatation. Liver showed fatty parenchymal changes but no focal hepatic findings. Echocardiogram demonstrated normal left ventricular size and function with LVEF 65% no wall motion abnormalities normal right ventricular size and normal right ventricular systolic function. Blood cultures grew haemophilus influenza as did her sputum culture.Doxycycline was stopped and patient was continued on Rocephin 2 gm daily until her iv was lost on 04/27 at which time she was switched to Augmentin 875 mg bid. Patient's solumedrol was swtiched to prednisone [address] Williamson, pulmonology was consulted on 04/24, see her note for details. Her renal function and liver function gradually improved. BUN and creatinine on admission was 24 and 1.3 and at discharge they were 18 and 0.8. Her transaminases on admission were elevated on admission w/ AST 543, ALT 448, (but normal bilirubin 0.4 and normal alkaline phosphatase 102) and at dc AST 21, ALT 89. On 04/29 she had an episode of chest tightness w/ radiation into her back and jaws for which repeat EKG and troponin I level were done. Serial troponin I were normal and EKG showed no acute ischemia and her CP resolved w/ GI cocktail. Patient's oxygen requirements gradually improved and she was weaned off oxygen. On the day of discharge her room air oxygen saturation was 93% and with ambulation remained 89% or higher. Patient will be dc home on continued Augmentin 875 mg bid x 7 more days (total antibiotic coverage 15 days) and a taper of prednisone over the next 2 weeks. Patient was put on nicotine patch to curb her desire for smoking. Patient was offered influenza vaccine but declined at this time. Patient will be referred for pulmonology follow up as an outpatient. Home Meds and New Rx's Prescriptions: New amoxicillin-pot clavulanate 875-125 mg Tablet 1 tab PO BID 7 Days Qty: 14 0RF benzonatate 200 mg Capsule 200 mg PO TID 7 Days Qty: 21 0RF cetirizine 10 mg Tablet 10 mg PO DAILY 30 Days Qty: 30 0RF guaifenesin [Mucus Relief ER] 600 mg Tablet Extended Release 12hr 1,200 mg PO BID 7 Days Qty: 28 0RF nicotine 21 mg/24 hr Patch 24 Hour 21 mg transdermal DAILY PRN PRN28 Days Qty: 28 0RF Inhaler, Assist Devices [Pocket Chamber] 1 ea miscellaneous DIRECTED Qty: 0 0RF prednisone 10 mg tablet See Rx Instructions .ROUTE .COMPLEX Qty: 60 0RF Rx Instructions: 50 mg PO DAILY X 4d, 40 mg/d x 4d, 30 mg/d x 4d, 20 mg/d x 4d, 10 mg/d x 4d then off sulfamethoxazole-trimethoprim [Bactrim] 400-80 mg tablet 1 tab PO DAILY Qty: 16 0RF Rx Instructions: take one daily while on prednisone dose over 20 mg/d Continued sertraline 100 mg tablet 150 mg PO DAILY Qty: 135 3RF Rx Instructions: Take 1.5 tablets daily bupropion HCl 150 mg tablet extended release 24 hr 150 mg PO DAILY Qty: 90 4RF trazodone 50 mg tablet 50 mg PO HS Qty: 90 4RF methadone 10 mg/mL concentrate 110 mg PO DAILY cholecalciferol (vitamin D3) 50 mcg (2,000 unit) capsule 2,000 unit PO DAILY Qty: 90 4RF Rx Instructions: Take 1 daily lansoprazole 30 mg capsule,delayed release(DR/EC) 30 mg PO DAILY Qty: 90 3RF albuterol sulfate 90 mcg/actuation HFA aerosol inhaler 2 puff IH Q4H PRN (Reason: shortness of breath or wheezing) Qty: 8.5 1RF budesonide-formoterol [Symbicort] 160-4.5 mcg/actuation HFA aerosol inhaler 2 puff IH BID Qty: 10.2 4RF ipratropium-albuterol 0.5 mg-3 mg(2.5 mg base)/3 mL Solution For Nebulization 3 ml UPD Q6H PRN PRNQty: 30 0RF Discharge Instructions Instructions: Asthma (DC), How to Stop Smoking (DC), Community Acquired Pneumonia (DC), Bacteremia (DC) Additional Instructions: You were treated for pneumonia and asthma exacerbation that was complicated by Hemophilus influenza bacteremia and sepsis. YOu were initially treated w/ iv antibiotics including Ceftriaxone but now are on Augmentin. You should take all of your Augmentin ( amoxicillin/clavulanate) until gone (one more week). You also received iv steroids but were switched to oral steroids (prednisone) and will be tapered off over the next 2 weeks. While your dose of prednisone is 20 mg or more per day, please take a daily dose of sulfamethoxazole/trimethoprim, a sulfa antibiotic to prevent the development of Pneumocystis infection. You should get a follow up chest xray in 2 weeks. You should also have a follow up visit w/ Dr. Williamson, from pulmonary. You should receive a call from her office next week. Please see your primary care provider in the next week. Be sure that your pneumonia vaccines and influenza vaccines are up to date. You should try to refrain from further smoking as this will only worsen your asthma and lead to repeated pneumonia. You have been given a prescription for nicotine patches Stand Alone Forms: Nursing Discharge Form Referrals: Alma Dixon SUPPLY CHAIN MANAGER [Primary Care Provider] - (PLEASE CALL OFFICE SUNDAY TO SCHEDULE FOLLOW UP.) Soha Williamson MD [[facility] STAFF PHYSICIAN] - (OFFICE WILL CALL YOU WITH IN TWO WEEKS FOR FOLLOW UP.) Activity:: Activity as Tolerated Equipment/Supplies:: No Equipment Needed Diet:: Normal Diet Discharge Orders Discharge Orders: Discharge Order (Routine); Ordered 04/30/22 Ordered By: Donny Khanna DS: Summary Time Spent with Patient providing and/or coordinating discharge services: Greater than 30 minutes Specific discharge activities: Interview/exam of patient; review of discharge instructions, completion of prescriptions/discharge instructions; discussion w/ nursing and CM; documentation of hospital visit Status at Discharge Functional status at discharge: independent ambulation Overall status at discharge: patient is progressing back to baseline Mental Status: mental status grossly normal Speech and Movement: speech and movement normal Mood: congruent mood Affect: normal affect Exam Narrative Exam Narrative: Wily is alert and oriented; sitting up in bed just having woken up No respiratory distress; not using accessory respiratory muscle; able to carry on w/ full conversations w/out dyspnea, however she has a barky cough Lungs: scattered expiratory wheezes, and some rhonchi Heart: RRR Psych Mental Status: mental status grossly normal Speech and Movement: speech and movement normal Mood: congruent mood Affect: normal affect DS: Data Vitals/I&O Vitals and I&O: Vital Signs Temperature 36.6 C 04/30/22 11:19 Temperature Source Tympanic 04/30/22 11:19 Pulse 92 H 04/30/22 11:19 Pulse Rhythm Regular 04/30/22 09:30 Respiratory Rate 18 04/30/22 11:19 Respiratory Effort 04/30/22 09:30 Respiratory Depth Normal 04/30/22 09:30 Respiratory Pattern Normal 04/30/22 09:30 Blood Pressure 102/66 04/30/22 11:19 Blood Pressure Position Sitting 04/22/22 16:19 Pulse Oximetry 89 L 04/30/22 11:19 Oxygen Delivery Method Room Air 04/30/22 11:19 Oxygen Flow Rate 0 04/30/22 11:19 Fraction of Inspired Oxygen (FIO2) 30 04/24/22 08:26 Pain Level 0 04/30/22 06:20 Comment 04/30/22 06:20 Intake & Output 04/29/22 04/30/22 04/30/22 23:59 11:59 23:59 Intake Total 1100 / 1100 740 / 740 Output Total 400 / 1700 1600 / 1600 Balance 700 / -600 -1600 / -860 740 / -860 Weight 63.3 kg Intake: IV Oral 1090 / 1090 740 / 740 Output: Urine 400 / 1700 1600 / 1600 Other: Urine Color Yellow Yellow Urine Appearance Clear Clear Urine Odor None Voiding Methods Toilet Toilet Data Completed and Pending Labs on day of discharge: Labs from last 24 hours 04/30/22 04/30/22 04/29/22 05:18 05:18 14:10 WBC 20.21 H RBC 3.76 L Hgb 11.1 L Hct 34.2 L MCV 91 MCH 29.5 MCHC 32.5 RDW 17.6 H Plt Count 496 H MPV 8.9 Immature Gran % 0.0 Neutrophils % 59.0 Band Neutrophils % 4 Lymphocytes % 25.0 Atypical Lymphs % 2 Monocytes % 3.0 Eosinophils % 2.0 Basophils % 0.0 Metamyelocytes % 5 Nucleated RBC % 0.0 Absolute Neutrophils 12.73 H Absolute Lymphocytes 5.46 H Absolute Monocytes 0.61 Absolute Eosinophils 0.40 Absolute Basophils 0.00 RBC Morphology Normal Sodium 139 Potassium 3.9 Chloride 100 Carbon Dioxide 33.3 H Anion Gap 5.7 BUN 18 Creatinine 0.8 Est GFR (CKD-EPI 2020) 90.83 Glucose 77 Calcium 9.4 Troponin I < 50 C-Reactive Protein 1.21 H PFSH All Active Problems Nail dystrophy (Acute) Pneumonia (Acute) Bacteremia (Acute) Ingrown toenail of both feet (Acute) Asthma exacerbation (Acute) Acute respiratory failure with hypoxia (Acute) Elevated troponin I level (Acute) Elevated transaminase level (Acute) Discharge planning issues (Acute) DVT prophylaxis (Acute) Smoker (Acute) Sepsis with multi-organ dysfunction (Acute) Generalized anxiety disorder (Chronic) Social anxiety disorder (Chronic) Major depressive disorder (Chronic) Opioid use disorder (Chronic) Methadone through [facility] GERD (gastroesophageal reflux disease) (Chronic) Vitamin D deficiency (Chronic) Asthma (Chronic) Medical History Degenerative disc disease cervical spine with radiculopathy down right arm. Substance abuse Hx opiate abuse, pills then heroin (snorted), no hx of IVDU. Surgical History History of laparoscopy Family History Mother No problems noted. Father Atrial fibrillation Brother No problems noted. Brother No problems noted. Son No problems noted. Daughter No problems noted. Maternal Grandfather No problems noted. Maternal Grandmother No problems noted. Paternal Grandfather Cancer Unknown type Paternal Grandmother No problems noted. Social History Smoking/Tobacco Use Status: Current every day Tobacco Type: cigarettes Smoking risk assessment performed?: Yes Alcohol Intake: current Alcohol Intake frequency: 0-2 drinks per day Alcohol type: beer Drug use: Occasionally Substance use type: marijuana and other Details: ON SUBOXONE Household members: family and other Details: Lives with mother, 23 year old daughter, shared custody of 6 yr old son. 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 Current gender identity: female Seatbelt use: always Do you feel safe at home: Yes Do you feel safe in your relationship?: Yes Additional Social history: Lives in 2 Family in [facility], son with her surgeon partner. Adult daughter and mother live in other apartment. History History 2 Para 2 Hx # Term Pregnancies Multiple births Hx # Pregnancies Ectopic pregnancies AB induced Hx Number of Living Children 2 AB spontaneous
--- NOTE | 2022-04-30 14:32 | PDOC.CMDIS ---
- If Service Date Differs Date of service: 04/30/22 Time of Service: 14:32 LACE Index Scoring Tool - Questions: Length of Stay (in days): 7 - 13 Acuity (Admit via E.D.?): Yes E.D. Visits: 2 - Answers: Total Score: 10 Risk of Readmission: High Risk Care Management Discharge Reason for Hospitalization: Sepsis, pneumonia Discharge Plan: Wily is discharged home with no new services. She will follow up with her PCP, pulmonology, [facility], and plan of care as prescribed. She is transported home by family via private vehicle. Patient/Family Education Needs: Review of discharge instructions re medications, limitations and follow up plan of care; discuss Ask Me Three.
== END 2022-04-30 15:31 | disposition home or self-care (01) | DRG 871 ==
LOC: ER 18:54 → MS 21:13
PROVIDERS: Internal Medicine; Admitting Provider Family Medicine; Emergency Provider Emergency Medicine; PCP Nurse Practitioner Family; Visit Provider Family Medicine
DX: A41.3 Sepsis due to Hemophilus influenzae (principal); J14 Pneumonia due to Hemophilus influenzae; J96.01 Acute respiratory failure with hypoxia; F11.20 Opioid dependence, uncomplicated; J44.0 Chronic obstructive pulmonary disease with (acute) lower respiratory infection; I24.8 Other forms of acute ischemic heart disease; J45.31 Mild persistent asthma with (acute) exacerbation; N17.9 Acute kidney failure, unspecified; Z16.11 Resistance to penicillins; R65.20 Severe sepsis without septic shock; F41.1 Generalized anxiety disorder; F32.9 Major depressive disorder, single episode, unspecified; K21.9 Gastro-esophageal reflux disease without esophagitis; E55.9 Vitamin D deficiency, unspecified; F17.210 Nicotine dependence, cigarettes, uncomplicated; R74.01 Elevation of levels of liver transaminase levels; F41.8 Other specified anxiety disorders; E86.0 Dehydration; N18.9 Chronic kidney disease, unspecified; M50.10 Cervical disc disorder with radiculopathy, unspecified cervical region; R07.89 Other chest pain; K76.89 Other specified diseases of liver; R59.0 Localized enlarged lymph nodes; L60.3 Nail dystrophy
CPT/HCPCS: 11721; 36410; 36415; 71275; 74177; 80048; 80053; 80061; 80076; 80307; 82550; 82805; 84145; 86704; 86709; 86803; 87040; 87077; 87081; 87340; 87389; 87449; 87637; 87798; 93005; 94618; 94640; 96361; 96365; 96368; 96375; 99285; J1650; 71045; 80320; 80329; 81003; 81015; 83036; 83605; 83735; 83880; 84484; 85025; 85379; 85610; 86140; 86618; 87070; 87205; 87581; 87899; 93010; 93306; 94667; 94668; 94760; 99231; 99232; 99233; 99239; J0456; J0696; J2930; J3475; J3490; J7512; J7613; J7614; J7620; J7644

== ENCOUNTER 2023-02-19 17:53 | Emergency (ER) | payer MEDICAID, SELFPAY ==
[2023-02-19 17:59] VITALS: BP 126/87; PULSE 84; RESP 17; TEMP 36.7; O2SAT 96
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
--- NOTE | 2023-02-19 19:15 | DI.RAD_ITS ---
Exam(s) XR ANKLE RT COMPLETE XR FOOT RT COMPLETE EXAM: XR ANKLE RT COMPLETE CLINICAL HISTORY: fall trauma. TECHNIQUE: 2D digital imaging was performed. Three views. COMPARISON: CR,XR XR FOOT RT COMPLETE from 02/19/2023 FINDINGS: BONES: No acute fracture is present. No bony destructive lesion is seen. Small enthesophyte at Ach illes insertion on calcaneus. Ossicle adjacent to cuboid. JOINTS: The ankle mortise is normally aligned. SOFT TISSUE: Swelling over dorsum of foot. Swelling around malleoli. IMPRESSION: Soft tissue swelling. No evidence of fracture. DATA REPOSITORY: RADIATION DOSE DELIVERED:
--- NOTE | 2023-02-19 19:56 | DI.VRAD_ITS ---
PROCEDURE INFORMATION: Exam: XR Right Foot Exam date and time: 02/19/2023 7:37 PM Age: 47 years old Clinical indication: Other: Fall, foot pain, trauma TECHNIQUE: Imaging protocol: Radiologic exam of the right foot. Views: 3 or more views. COMPARISON: CR XR ANKLE RT COMPLETE 02/19/2023 7:35 PM FINDINGS: Bones/joints: No acute fracture or dislocation. Soft tissues: Mild dorsal foot and ankle soft tissue swelling. IMPRESSION: 1. No acute fracture or dislocation. 2. Mild dorsal foot and ankle soft tissue swelling. Dictated and Authenticated by: Marck Ibrahim MD. Ordering:VALERIA Dixon MD
--- NOTE | 2023-02-19 19:56 | DI.VRAD_ITS ---
PROCEDURE INFORMATION: Exam: XR Right Ankle Exam date and time: 02/19/2023 7:35 PM Age: 47 years old Clinical indication: Patient HX: Fall, pain, trauma TECHNIQUE: Imaging protocol: Radiologic exam of the right ankle. Views: 3 or more views. COMPARISON: No relevant prior studies available. FINDINGS: Bones/joints: Small posterior calcaneal enthesophyte. No acute fracture or dislocation. Soft tissues: Moderate ankle soft tissue swelling, lateral greater than medial. IMPRESSION: 1. No acute fracture or dislocation. 2. Moderate ankle soft tissue swelling, lateral greater than medial. Dictated and Authenticated by: Marck Ibrahim MD. Ordering:VALERIA Dixon MD
[2023-02-19 20:36] VITALS: BP 118/68; PULSE 78; RESP 14; O2SAT 98
[2023-02-19] MEDS: Cephalexin 500 MG CAP, 4 CAPS/BTL PO (20:36)
== END 2023-02-19 20:41 | disposition home or self-care (01) ==
PROVIDERS: Emergency Provider Nurse Practitioner Family; PCP Nurse Practitioner Family
DX: L03.115 Cellulitis of right lower limb (principal); F17.210 Nicotine dependence, cigarettes, uncomplicated
CPT/HCPCS: 99283; 73610; 73630; 99282

== ENCOUNTER 2023-03-01 02:40 | Outpatient (CLI) | payer MEDICAID, SELFPAY ==
[2023-03-01 16:44] LABS: Abs Immature Grans 0.07 10^3/uL (0.0-0.06); Absolute Basophil Count 0.06 10^3/uL (0.0-0.2); Absolute Eosinophil Count 0.81 10^3/uL (0.0-0.7); Absolute Lymphocyte Count 2.56 10^3/uL (1.2-3.4); Absolute Monocyte Count 0.89 10^3/uL (0.1-0.8); Absolute Neutrophil Count 4.54 10^3/uL (1.2-6.7); Basophils % 0.7; Eosinophils % 9.1; HCT 34.5 % (36.0-46.0); HGB 10.7 g/dL (11.2-15.7); Immature Grans % 0.8; Lymphocytes % 28.7; MCH 28.7 pg (27.0-33.0); MCV 93 fL (80-95); MPV 8.6 fL (8.0-11.0); Neutrophils % 50.7; Platelet Count 318 10^3/uL (130-400); RBC 3.73 10^6/uL (3.93-5.22); RDW-SD 47.6 fL; WBC 8.93 10^3/uL (4.4-10.8)
[2023-03-01 17:15] LABS: Hemoglobin A1C 5.7 % (<5.7)
[2023-03-01 17:46] LABS: ALT 18 U/L (14-59); AST 18 U/L (15-37); Albumin 3.4 g/dL (3.4-5.0); Alkaline Phosphatase 96 U/L (46-116); Anion Gap 5.5 mmol/L (3-11); BUN 17 mg/dL (7-18); Bilirubin, Total 0.3 mg/dL (0.2-1.0); CO2 33.5 mmol/L (21.0-32.0); CREATININE 0.8 mg/dL (0.55-1.02); Calcium 9.1 mg/dL (8.5-10.1); Calculated LDL 110 mg/dL (<100); Chloride 100 mmol/L (98-107); Cholesterol 221 mg/dL (<200); Estimated GFR 90.83 (mL/min/1.73m2); Glucose 78 mg/dL (74-106); HDL Cholesterol 50 mg/dL (40-60); Potassium 4.3 mmol/L (3.5-5.1); Sodium 139 mmol/L (136-145); TSH (W/Ref FT4) 2.52 uIU/mL (0.36-3.74); Total Protein 7.4 g/dL (6.4-8.2); Triglyceride 306 mg/dL (<150)
== END 2023-03-01 02:41 | disposition home or self-care (01) ==
PROVIDERS: PCP Nurse Practitioner Family; Visit Provider Nurse Practitioner Family
DX: A41.9 Sepsis, unspecified organism (principal); J18.9 Pneumonia, unspecified organism; Z00.00 Encounter for general adult medical examination without abnormal findings
CPT/HCPCS: 36415; 80053; 80061; 83036; 84443; 85025

== ENCOUNTER → 2023-03-28 14:03 | Outpatient (CLI) | payer MEDICAID, SELFPAY ==
--- NOTE | 2023-03-28 13:15 | DI.RAD_ITS ---
Exam(s) XR CHEST 2V PA LATERAL EXAM: XR CHEST 2V PA LATERAL CLINICAL HISTORY: leg swelling, wheezing,r60.9 TECHNIQUE: 2D digital imaging was performed of the chest. Three images were obtained. PA and later al views were obtained. COMPARISON: CR,XR XR CHEST 2V PA LATERAL from 06/10/2021 FINDINGS: MEDIASTINUM: Normal. HEART: Normal. PULMONARY VASCULATURE: Normal. LUNGS: There is linear atelectasis in the right lower lobe. No focal consolidating infiltrates are s een. The lungs appear hyperinflated suggesting underlying COPD. PLEURAL SPACE: No pleural effusion or pneumothorax. BONE:Within normal limits for the patient's age. OTHER FINDINGS:Normal. IMPRESSION: No acute pulmonary findings. DATA REPOSITORY: RADIATION DOSE DELIVERED:
--- NOTE | 2023-03-28 13:28 | DI.US_ITS ---
Exam(s) US EXTREMITY VENOUS BI EXAM: US EXTREMITY VENOUS BI CLINICAL HISTORY: leg swellling,peripheral edema, r60.9. TECHNIQUE: Bilateral lower extremity venous ultrasound performed using grayscale, color-flow, and sp ectral Doppler analysis. COMPARISON: No exams were available for comparison FINDINGS: The right common femoral, femoral and popliteal veins demonstrate normal compressibility, augmentatio n, and color Doppler. The posterior tibial veins are patent. The saphenofemoral junction is unremark able. There is no evidence of a Velarde's cyst. The soft tissues are unremarkable. The left common femoral, femoral and popliteal veins demonstrate normal compressibility, augmentation , and color Doppler. The posterior tibial veins are patent. The saphenofemoral junction is unremarka ble. There is no evidence of a Velarde's cyst. The soft tissues are unremarkable. IMPRESSION: 1. No evidence of a right lower extremity DVT. 2. No evidence of a left lower extremity DVT. DATA REPOSITORY:
== END ==
PROVIDERS: PCP Nurse Practitioner Family; Visit Provider Physician Assistant
DX: R60.9 Edema, unspecified (principal)
CPT/HCPCS: 71046; 93970

== ENCOUNTER 2023-03-29 04:19 | Outpatient (CLI) | payer MEDICAID, SELFPAY ==
[2023-03-29 16:16] LABS: Abs Immature Grans 0.02 10^3/uL (0.0-0.06); Absolute Basophil Count 0.06 10^3/uL (0.0-0.2); Absolute Eosinophil Count 0.53 10^3/uL (0.0-0.7); Absolute Lymphocyte Count 2.24 10^3/uL (1.2-3.4); Absolute Monocyte Count 0.89 10^3/uL (0.1-0.8); Absolute Neutrophil Count 4.18 10^3/uL (1.2-6.7); Basophils % 0.8; Eosinophils % 6.7; HCT 34.2 % (36.0-46.0); HGB 10.7 g/dL (11.2-15.7); Immature Grans % 0.3; Lymphocytes % 28.3; MCH 28.6 pg (27.0-33.0); MCHC 31.3 % (32.0-36.0); MCV 91 fL (80-95); MPV 9.1 fL (8.0-11.0); Monocytes % 11.2; Neutrophils % 52.7; Platelet Count 260 10^3/uL (130-400); RBC 3.74 10^6/uL (3.93-5.22); RDW 13.4 % (11.7-14.6); RDW-SD 45.3 fL; WBC 7.92 10^3/uL (4.4-10.8)
[2023-03-29 16:58] LABS: ALT 13 U/L (14-59); AST 15 U/L (15-37); Albumin 3.3 g/dL (3.4-5.0); Alkaline Phosphatase 86 U/L (46-116); Anion Gap 6.2 mmol/L (3-11); BUN 13 mg/dL (7-18); Bilirubin, Total 0.2 mg/dL (0.2-1.0); CO2 32.8 mmol/L (21.0-32.0); CREATININE 0.8 mg/dL (0.55-1.02); Calcium 9.2 mg/dL (8.5-10.1); Chloride 102 mmol/L (98-107); Estimated GFR 90.83 (mL/min/1.73m2); Glucose 120 mg/dL (74-106); NT-proBNP 259 pg/mL (<300); Potassium 4.1 mmol/L (3.5-5.1); Sodium 141 mmol/L (136-145); Total Protein 6.9 g/dL (6.4-8.2)
== END 2023-03-29 04:20 | disposition home or self-care (01) ==
LOC: LBO 04:19
PROVIDERS: Physician Assistant; PCP Nurse Practitioner Family; Visit Provider Nurse Practitioner Family
DX: R60.9 Edema, unspecified (principal)
CPT/HCPCS: 36415; 80053; 83880; 85025

== ENCOUNTER 2023-05-16 15:00 | Outpatient (CLI) | payer MEDICAID, SELFPAY ==
[2023-05-16 13:46] LABS: Abs Immature Grans 0.23 10^3/uL (0.0-0.06); Absolute Basophil Count 0.13 10^3/uL (0.0-0.2); Absolute Eosinophil Count 0.75 10^3/uL (0.0-0.7); Absolute Monocyte Count 1.07 10^3/uL (0.1-0.8); Eosinophils % 5.7; HCT 37.7 % (36.0-46.0); Immature Grans % 1.8; Lymphocytes % 34.8; MCH 28.6 pg (27.0-33.0); MCHC 31.8 % (32.0-36.0); MCV 90 fL (80-95); MPV 8.5 fL (8.0-11.0); Monocytes % 8.2; Neutrophils % 48.5; Platelet Count 381 10^3/uL (130-400); RBC 4.19 10^6/uL (3.93-5.22); RDW 15.4 % (11.7-14.6); RDW-SD 50.9 fL; WBC 13.09 10^3/uL (4.4-10.8)
[2023-05-16 13:57] LABS: Absolute Lymphocyte Count 4.56 10^3/uL (1.2-3.4); Absolute Neutrophil Count 6.35 10^3/uL (1.2-6.7)
[2023-05-16 14:26] LABS: Iron 100 ug/dL (50-170); Total Iron Binding Capacity 384 ug/dL (250-450)
[2023-05-16 14:37] LABS: Ferritin 21 ng/mL (8-252); Vitamin B12 2000 pg/mL (193-986)
[2023-05-16 14:40] LABS: Folate > 20.0 ng/mL (8.6-20.0)
[2023-05-17 09:21] LABS: Transferrin 321 mg/dL (201-352)
== END 2023-05-16 15:01 | disposition home or self-care (01) ==
LOC: LBO 15:00
PROVIDERS: PCP Nurse Practitioner Family; Visit Provider Nurse Practitioner Family
DX: D64.9 Anemia, unspecified (principal)
CPT/HCPCS: 36415; 82607; 82728; 82746; 83540; 83550; 84466; 85025

== ENCOUNTER 2024-10-29 14:34 | Outpatient (REF) | payer MEDICAID, SELFPAY ==
--- NOTE | 2024-10-29 13:30 | PAPFT_PTH ---
PATIENT: Wily Shook LOC: [facility] U#:[id number] AGE/SX: 49/F ROOM: RE10/29/[address]: STACY Barragan : 1975 BED: DIS: 10/29/2024 SPEC #: [id number] RECD: 10/30/24 12:58 STATUS: ASHLEY REConchita #: [id number] MARY: 10/29/24 13:[address]: Alma Dixon DEPT: [facility] Cytology RECD BY: Bertha Valero Tissues: 1 - CX/ENDOCX FOR PAP SMEARS Procedures: PAP THIN PREP/[facility] Screening HPV DNA PROBE Comments: [id number] (HPV 16 & 18/45)
== END 2024-10-29 14:35 | disposition home or self-care (01) ==
LOC: LBN 14:34
PROVIDERS: PCP Nurse Practitioner Family; Visit Provider Nurse Practitioner Family
DX: Z12.4 Encounter for screening for malignant neoplasm of cervix (principal)
CPT/HCPCS: 88142; 87624

== ENCOUNTER 2024-11-07 11:03 | Outpatient (CLI) | payer MEDICAID, SELFPAY ==
[2024-11-07 08:54] LABS: Abs Immature Grans 0.03 10^3/uL (0.0-0.06); Absolute Basophil Count 0.07 10^3/uL (0.0-0.2); Absolute Eosinophil Count 0.69 10^3/uL (0.0-0.7); Absolute Lymphocyte Count 3.31 10^3/uL (1.2-3.4); Absolute Monocyte Count 0.83 10^3/uL (0.1-0.8); Absolute Neutrophil Count 4.45 10^3/uL (1.2-6.7); Basophils % 0.7 %; Eosinophils % 7.4 %; HCT 43.3 % (36.0-46.0); HGB 13.8 g/dL (11.2-15.7); Immature Grans % 0.3 %; Lymphocytes % 35.3 %; MCH 30.5 pg (27.0-33.0); MCHC 31.9 % (32.0-36.0); MCV 96 fL (80-95); MPV 8.4 fL (8.0-11.0); Monocytes % 8.8 %; Neutrophils % 47.5 %; Platelet Count 249 10^3/uL (130-400); RBC 4.53 10^6/uL (3.93-5.22); WBC 9.38 10^3/uL (4.4-10.8)
[2024-11-07 09:05] LABS: Hemoglobin A1C 5.7 % (<5.7)
[2024-11-07 09:31] LABS: ALT 36 U/L (14-59); AST 22 U/L (15-37); Alkaline Phosphatase 93 U/L (46-116); Anion Gap 4.5 mmol/L (3-11); BUN 16 mg/dL (7-18); Bilirubin, Total 0.3 mg/dL (0.2-1.0); CO2 35.5 mmol/L (21.0-32.0); Calcium 9.8 mg/dL (8.5-10.1); Chloride 105 mmol/L (98-107); Estimated GFR 68.63 (mL/min/1.73m2); Ferritin 62 ng/mL (8-252); Glucose 102 mg/dL (74-106); Potassium 4.5 mmol/L (3.5-5.1); Sodium 145 mmol/L (136-145); TSH (W/Ref FT4) 1.53 uIU/mL (0.36-3.74); Total Protein 7.7 g/dL (6.4-8.2); Vitamin D 25 Total 44 ng/mL (30-100)
== END 2024-11-07 11:04 | disposition home or self-care (01) ==
LOC: LBO 11:03
PROVIDERS: PCP Nurse Practitioner Family; Visit Provider Nurse Practitioner Family
DX: R73.03 Prediabetes; E55.9 Vitamin D deficiency, unspecified; E61.1 Iron deficiency
CPT/HCPCS: 36415; 80053; 82306; 82728; 83036; 84443; 85025

== ENCOUNTER 2024-11-11 02:37 | Outpatient (CLI) | payer MEDICAID, SELFPAY ==
--- NOTE | 2024-11-11 07:45 | DI.RAD_ITS ---
Exam(s) XR LUMBAR SPINE COMPLETE EXAM: XR LUMBAR SPINE COMPLETE CLINICAL HISTORY: low back pain,M54.50. TECHNIQUE: 2D digital imaging was performed of the lumbar spine. Five images were obtained. AP, la teral, right oblique, left oblique and L5-S1 spot views were obtained. COMPARISON: CT CT CHEST PE ABD PELVIS W from 04/23/2022 FINDINGS: BONES: No fracture or destructive lesion. Osteophytes are seen at several levels of the lumbar spine particularly L1-2 through L3-L4. No facet hypertrophy identified. DISKS: There is disc space narrowing at L1-L2 and L2-L3. ALIGNMENT: There has been interval slight progression of the degree of left convex scoliosis of the l umbar spine since the prior examination. No spondylolysis or spondylolisthesis. SOFT TISSUE: There is a large amount of stool throughout the colon suggesting constipation. IMPRESSION: 1. Moderate degenerative changes in the lumbar spine. 2. Slight progression of the left convex scoliosis of the lumbar spine. 3. Large amount of stool in the colon suggesting constipation. DATA REPOSITORY: RADIATION DOSE DELIVERED:
--- NOTE | 2024-11-11 07:45 | DI.CTLCSR_ITS ---
Exam(s) CT CHEST LUNG CANCER SCREEN EXAM: CT CHEST LUNG CANCER SCREEN CLINICAL HISTORY: Screening for lung cancer,CIGARETTE SMOKER, F17.210 TECHNIQUE: Imaging Protocol: Axial computed tomography images with coronal and sagittal reformatted images were created and reviewed. Lung Computer Aided Detection (CAD) was utilized. CT CT CHEST PE CTA from 04/29/2022 CR XR CHEST 2V PA LATERAL from 03/28/2023 FINDINGS: Tracheobronchial tree: Patent where visualized. No bronchiectasis. Pulmonary parenchyma: Moderate centrilobular emphysematous changes are present. There is scarring ag ain seen in the right lung apex. There is also scarring or atelectasis seen in the right lung base. Lung Nodules: There is a 3 mm nodule in the left lower lobe (series 2, image 123). There is a 5 mm n odule in the right lower lobe (series 2, image 120). There is a 4 mm nodule in the right upper lobe (series 2, image 80). These are all stable compared to the prior examination from 04/29/2022. Mediastinum and Lilian: No dominant adenopathy or fluid collection. The esophagus is unremarkable. Thyroid gland: Unremarkable. Lymph nodes: Unremarkable. Pleura: No effusion or pneumothorax. Heart: The heart is not dilated. No coronary artery calcifications are seen. No pericardial effusion . Aorta: Thoracic aorta non-dilated. Upper abdomen: Unremarkable. Soft Tissues: Unremarkable. Bones: Within normal limits. IMPRESSION: Stable pulmonary nodules. No new pulmonary nodules. Lung RADS Cat 2 - Benign Appearance / Behavior: Nodules with a very low likelihood of becoming a clin ically active cancer due to size or lack of growth Lung-RADS 1.0 CATEGORIES: Category 0 - Prior chest CT exam(s) being located for comparison. Category 1 - Annual screening in 12 months. No nodules or definitely benign nodules. Category 2 - Annual screening in 12 months. Benign appearance. Nodules with low likelihood of becomin g active cancer. Category 3 - 6-month follow-up. Probably benign. Short-term follow-up suggested. Nodules with low lik elihood of becoming active cancer. Category 4A - 3-month follow-up and CT/PET if >8 mm in size. Suspicious finding. Findings which requi re additional testing. Category 4B - Findings which require additional testing and tissue sampling. Suspicious finding. Category 4X - Category 3 or 4 nodules with additional features or imaging findings that increases the suspicion of malignancy. Modifier S- Potentially clinically significant finding. (Non lung cancer) RADIATION DOSE DELIVERED: 27.09mGy.cm Total DLP 27.09mGy.cmTotal DLP DATA REPOSITORY: All CT scans at this facility are submitted to the National Radiology Data Registry (NRDR) Dose Index Registry (DIR) with the [employer] (A[employer]). RADIATION OPTIMIZATION: All CT scans at this facility use at least one of these dose optimization te chniques: automated exposure control; mA and/or kV adjustment per patient size (includes targeted exa ms where dose is matched to clinical indication); or iterative reconstruction.
== END 2024-11-11 02:57 ==
LOC: DI 02:38
PROVIDERS: PCP Nurse Practitioner Family; Visit Provider Nurse Practitioner Family
DX: M51.360 Other intervertebral disc degeneration, lumbar region with discogenic back pain only (principal); K59.00 Constipation, unspecified; F17.210 Nicotine dependence, cigarettes, uncomplicated; M41.86 Other forms of scoliosis, lumbar region; Z12.2 Encounter for screening for malignant neoplasm of respiratory organs
CPT/HCPCS: 71271; 72110

== ENCOUNTER 2025-03-11 16:58 | Outpatient (CLI) | payer MEDICAID, SELFPAY ==
[2025-03-11 16:35] LABS: Abs Immature Grans 0.04 10^3/uL (0.0-0.06); HCT 37.7 % (36.0-46.0); HGB 12.2 g/dL (11.2-15.7); Immature Grans % 0.4 %; MCH 29.6 pg (27.0-33.0); MCHC 32.4 % (32.0-36.0); MCV 92 fL (80-95); MPV 8.6 fL (8.0-11.0); Platelet Count 272 10^3/uL (130-400); RBC 4.12 10^6/uL (3.93-5.22); RDW 11.4 % (11.7-14.6); RDW-SD 39.1 fL; WBC 10.35 10^3/uL (4.4-10.8)
[2025-03-11 17:40] LABS: Iron 69 ug/dL (50-170); Total Iron Binding Capacity 304 ug/dL (250-450); Transferrin Sat 23 % (15-50)
[2025-03-11 17:51] LABS: Hemoglobin A1C 5.8 % (<5.7)
[2025-03-11 17:57] LABS: ALT 30 U/L (14-59); AST 21 U/L (15-37); Albumin 3.9 g/dL (3.4-5.0); Alkaline Phosphatase 83 U/L (46-116); Anion Gap 8.1 mmol/L (3-11); BUN 21 mg/dL (7-18); Bilirubin, Total 0.3 mg/dL (0.2-1.0); CO2 31.9 mmol/L (21.0-32.0); Calcium 9.1 mg/dL (8.5-10.1); Chloride 101 mmol/L (98-107); Estimated GFR 105.30 (mL/min/1.73m2); Ferritin 93 ng/mL (8-252); Glucose 98 mg/dL (74-106); Magnesium 2.0 mg/dL (1.8-2.4); Potassium 4.3 mmol/L (3.5-5.1); Sodium 141 mmol/L (136-145); TSH (W/Ref FT4) 1.73 uIU/mL (0.36-3.74); Total Protein 7.5 g/dL (6.4-8.2); Vitamin B12 1184 pg/mL (193-986)
[2025-03-12 19:03] LABS: HBs Antibody, Quant <3.1 mIU/mL (See Note); Hepatitis B Surface Antigen Negative (Negative)
== END 2025-03-11 16:59 | disposition home or self-care (01) ==
LOC: LBO 16:58
PROVIDERS: PCP Nurse Practitioner Family; Visit Provider Nurse Practitioner Family
DX: R10.84 Generalized abdominal pain (principal); Z11.59 Encounter for screening for other viral diseases; E61.1 Iron deficiency; K21.9 Gastro-esophageal reflux disease without esophagitis; R73.03 Prediabetes
CPT/HCPCS: 36415; 80053; 86704; 86706; 87340; 82607; 82728; 83036; 83540; 83550; 83735; 84443; 85025

== ENCOUNTER 2025-03-31 11:22 | Outpatient (CLI) | payer MEDICAID, SELFPAY ==
[2025-03-31] MEDS: Normal Saline - Diluent 50 ML VIAL IJ (14:50)
[2025-03-31] MEDS: Omnipaque 350 MG/ML 100 ML BTL IJ (14:50)
[2025-03-31] MEDS: Normal Saline Flush 10 ML SYR IVP (14:51)
--- NOTE | 2025-03-31 15:02 | DI.CT_ITS ---
Exam(s) CT ABDOMEN PELVIS W EXAM: CT ABDOMEN PELVIS W CLINICAL HISTORY: abd pain, upper and BLQ,r10.84. TECHNIQUE: Imaging Protocol: Axial computed tomography images with coronal and sagittal reformatted images were created and reviewed CONTRAST MATERIAL: Intravenous: Omnipaque 350 Contrast volume: 75 ml Oral: no COMPARISON: CT CT CHEST PE ABD PELVIS W from 04/23/[address] CHEST PE CTA from 04/29/2022 FINDINGS: ABDOMEN and PELVIS: Lung Bases: No acute findings. Mild basilar atelectasis. Liver: Normal density. No suspicious mass. Gallbladder and biliary tract: No radiodense calculus. No wall thickening or pericholecystic fluid. No biliary dilation. Pancreas: Normal density. No abnormal calcifications or inflammatory process. No evidence of mass. Spleen: Normal. Kidneys: Normal size, contour and axis. No radiodense stones. No obstructive uropathy. No suspicious masses seen. Adrenal glands: No masses seen. Vasculature: Abdominal aorta non-dilated. Soft tissues: Unremarkable. Bladder: No gross wall thickening. No calculi.No focal mass. Bowel: No obstruction. No bowel wall thickening. Appendix normal. Increased quantity of stool throughout the colon, consistent with constipation.. Peritoneal cavity: No ascites. No focal collection. No mesenteric inflammatory response. No free air. Bones: Degenerative disc and facet joint changes. Levoscoliosis. Reproductive organs: Unremarkable. Lymph nodes: No pathologically enlarged lymph nodes. IMPRESSION:: No acute abnormality in the abdomen or pelvis. Increased quantity of stool throughout the colon consistent with constipation. RADIATION DOSE DELIVERED: Total DLP DATA REPOSITORY: All CT scans at this facility are submitted to the National Radiology Data Registry (NRDR) Dose Index Registry (DIR) with the [employer] (ACR). RADIATION OPTIMIZATION: All CT scans at this facility use at least one of these dose optimization techniques: automated exposure control; mA and/or kV adjustment per patient size (includes targeted exams where dose is matched to clinical indication); or iterative reconstruction.
[2025-03-31] MEDS: Barium Sulfate 2% W/V-Creamy Vanilla Smoothie 450 ML BTL PO (15:03)
[2025-03-31] MEDS: Barium Sulfate 2% W/V-Berry Smoothie 450 ML BTL PO (15:03)
== END 2025-03-31 11:42 ==
LOC: DI 11:23
PROVIDERS: PCP Nurse Practitioner Family; Visit Provider Nurse Practitioner Family
DX: K59.00 Constipation, unspecified (principal); R10.84 Generalized abdominal pain
CPT/HCPCS: 74177; J3490

== ENCOUNTER 2025-04-14 01:01 | Outpatient (CLI) | payer MEDICAID, SELFPAY ==
--- NOTE | 2025-04-14 05:45 | DI.MRI_ITS ---
Exam(s) MR LUMBAR SPINE WO EXAM: MR LUMBAR SPINE WO CLINICAL HISTORY: Lumbar radiculopathy,M54.16. TECHNIQUE: Multiplanar multisequence MRI of the Lumbar spine was performed. COMPARISON: CR XR LUMBAR SPINE COMPLETE from 11/11/[address] ABDOMEN PELVIS W from 03/31/2025 FINDINGS: Bones: The last intervertebral disc space is designated the L5/S1 level for the numbering purpose of this examination. The vertebral body heights are well maintained. There is a left convex lumbar scoliosis. Degenerative endplate signal changes are seen, particularly at L1-L2, L2-L3 and L3-L4. Cord: It is of normal size and signal intensity. T12-L1: No disc herniations or bulges are present. No central spinal canal or neural foraminal stenosis. L1-2: No disc herniations or bulges are present. No central spinal canal or neural foraminal stenosis. L2-3: There is a mild diffuse disc bulge and degenerative changes of the facets. There is very mild narrowing of the central spinal canal. There is mild neural foraminal stenosis bilaterally. L3-4: There is a mild diffuse disc bulge. There are degenerative changes of the facets. The findings result in [id number] narrowing of the central spinal canal. There is marked right neural foraminal stenosis and mild left neural foraminal stenosis. L4-5: No disc herniations or bulges are present. There are degenerative changes of the facet joints and ligamentum flavum.There is mild narrowing of the central spinal canal. There is no significant neural foraminal stenosis. L5-S1: No disc herniations or bulges are present. There are degenerative changes seen at the facet joints.There is no significant central spinal canal or neural foraminal stenosis. Soft tissues: The visualized SI joints and sacrum are well maintained. The paraspinal soft tissues are unremarkable. IMPRESSION: 1. Multilevel degenerative changes seen in the lumbar spine. 2. The degenerative changes are most marked at the L3-L4 disc level where there is [id number] central spinal canal stenosis, marked right neural foraminal stenosis and mild left neural foraminal stenosis. 3. Levoscoliosis. DATA REPOSITORY:
--- NOTE | 2025-04-14 05:45 | DI.MRI_ITS ---
Exam(s) MR CERVICAL SPINE WO EXAM: MR CERVICAL SPINE WO CLINICAL HISTORY: neck pain with radiculopathy,M54.2 TECHNIQUE: Multiplanar multisequence MRI of the cervical spine was performed without intravenous contrast. COMPARISON: MR MR LUMBAR SPINE WO from 04/14/2025 FINDINGS: BONES: Vertebral body heights are maintained. Alignment is normal. Bone marrow signal intensity is within normal limits. CERVICAL CORD: Craniovertebral junction is unremarkable. The cervical cord is normal size and signal intensity. SOFT TISSUES: Unremarkable. C2-3: No disc herniation or bulge is identified. No evidence of neural foraminal narrowing. No significant central canal stenosis. C3-4: Minimal disc bulging. No significant neural foraminal narrowing. No significant central canal stenosis. C4-5: Mild loss of disc height. Endplate osteophytes projecting posteriorly. Mild rightneural foraminal narrowing. Some effacement of the anterior CSF space but no significant central canal stenosis. C5-6: Minimal disc bulging.Moderate right neural foraminal narrowing. No significant central canal stenosis. C6-7: Mild loss of disc height. Small endplate osteophytes. Moderate right and mild left neural foraminal narrowing. No significant central canal stenosis. C7-T1: No disc herniation or bulge is identified. Mild bilateral neural foraminal narrowing secondary to facet joint degenerative changes.. No significant central canal stenosis. IMPRESSION: Degenerative disc changes greatest at C 4 5 and C6-7. Bilateral neural foraminal narrowing, greater on the right. No focal disc herniation. DATA REPOSITORY:
== END 2025-04-14 01:21 ==
LOC: DI 01:01
PROVIDERS: PCP Nurse Practitioner Family; Visit Provider Nurse Practitioner Family
DX: M54.2 Cervicalgia (principal); M54.16 Radiculopathy, lumbar region
CPT/HCPCS: 72141; 72148